=== PATIENT | female | born 1935 | race Caucasian/White ===

== ENCOUNTER → 2019-03-24 | Outpatient (CLI) | payer MEDICARE, SELFPAY | PROVIDERS: Family Provider Family Medicine; Visit Provider Internal Medicine Medical Oncology | DX: Z01.89 Encounter for other specified special examinations (principal) | CPT/HCPCS: 36415 ==

== ENCOUNTER 2019-05-05 12:15 | Outpatient (CLI) | payer MEDICARE, SELFPAY ==
[2019-05-12 15:43] LABS: Miscellaneous Test See Scanned Lab Rpt
== END 2019-05-05 12:16 | disposition home or self-care (01) ==
PROVIDERS: Family Provider Family Medicine; PCP Family Medicine; Visit Provider Internal Medicine Medical Oncology
DX: C73 Malignant neoplasm of thyroid gland (principal); C78.00 Secondary malignant neoplasm of unspecified lung; Z79.899 Other long term (current) drug therapy
CPT/HCPCS: 36415

== ENCOUNTER 2019-06-12 09:57 | Outpatient (CLI) | payer MEDICARE, SELFPAY ==
[2019-06-12 10:25] LABS: Basophils % 0.4 %; Eosinophils # 0.1 10^3/uL (0.0-0.8); Eosinophils % 2.6 %; Hematocrit 42.8 % (37.0-47.0); Hemoglobin 13.4 g/dL (11.5-15.3); Lymphocytes # 1.4 10^3/uL (0.8-4.8); Lymphocytes % 26.7 %; Mean Corpuscular HGB Conc 31.3 g/dL (30.0-36.0); Mean Corpuscular Hemoglobin 28.4 pg (28.0-34.0); Mean Corpuscular Volume 90.7 fL (81-99); Mean Platelet Volume 10.9 fL (7.4-10.4); Monocytes # 0.6 10^3/uL (0.2-0.9); Monocytes % 10.7 %; Neutrophils # 3.1 10^3/uL (1.8-7.7); Nucleated Red Blood Cells % 0 %; Platelet Count 199 10^3/cmm (130-400); Red Blood Count 4.72 10^6/uL (4.1-5.3); Red Cell Distribution Width 14.2 % (12.1-15.1); White Blood Count 5.3 10^3/uL (4.0-10.0)
[2019-06-12 10:53] LABS: Alanine Aminotransferase 17 U/L (0-33); Alkaline Phosphatase 134 IU/L (35-105); Anion Gap 14.6 (5-19); Aspartate Amino Transferase 20 U/L (0-32); Blood Urea Nitrogen 21 mg/dL (8-23); Carbon Dioxide 29 mmol/L (22-29); Chloride 100 mmol/L (98-107); Free T4 Free Thyroxine 2.21 ng/dL (0.82-1.77); Globulin 3.4 g/dL (1.3-4.6); Glucose 107 mg/dL (65-115); Potassium 3.6 mmol/L (3.5-5.1); Sodium 140 mmol/L (136-145); Thyroid Stimulating Hormone 0.01 uIU/mL (0.27-4.20); Total Bilirubin 0.5 mg/dL (0.15-1.2); Total Protein 7.4 g/dL (6.6-8.7)
--- NOTE | 2019-06-12 19:02 | ONC FU_ITS ---
Dr. Elder Patient Follow-Up Note Patient: Lawanda Faria Unit #: [id number]: [id number] Dicatated By: Reji Elder M.D.Date of Visit:Jun 12, 2019 Onc Med Follow-up/Prog Note Chief Complaint: Thyroid Cancer History of Present Illness: This is an 83 year-old woman with metastatic papillary thyroid cancer. Her thyroid cancer was discovered after a routine preoperative chest xray prior to a planned right total knee arthroplasty in July 2008 showed multiple pulmonary nodules. An attempted needle biopsy of a lung nodule was unsuccessful. The procedure was complicated by atrial fibrillation and by hemorrhagic pleural effusion. She ultimately underwent an open biopsy of a right lung nodule in August 2008, and pathology was consistent with metastatic thyroid cancer. She underwent total thyroidectomy on 11/16/2008. Pathology was consistent with two foci of papillary thyroid carcinoma, the largest focus located in the left lobe measuring 2.2 cm. She underwent I-131 ablation with 157.5 mCi of radioactive iodine on 01/07/2009. She apparently had a good response. However, by March 2010 there was again evidence of multiple pulmonary nodules by PET/CT, consistent with recurrence. She was treated again with I-131 ablation with 150.4 mCi of radioactive iodine on 05/19/2010. During subsequent followup she had further I-131 ablations with 157 mCi of radioactive iodine on 06/28/2012 and on 06/04/2014. A surveillance chest CT on 12/06/2015 showed significant progression of the pulmonary metastatic disease. This included a significant increase in the number and size of pulmonary nodules which were noted to involve all lobes ranging in size from subcentimeter through 2.0 cm. The largest nodule was in the right upper lobe abutting the minor fissure. There were a few small mediastinal and hilar lymph nodes which had not progressed or changed. Left axillary lymph nodes also were noted to be stable. A left adrenal gland mass was stable measuring 3.0 cm. The appearance was felt to be consistent with benign adenoma. I had seen her initially on 02/01/2016. She began a trial of therapy with lenvatinib 24 mg daily on 03/03/2016. Her baseline thyroglobulin level was greater than 3000 ng/mL. During subsequent follow-up she did require a dose reduction to 10 mg daily. On her follow-up visit on 05/22/2016, there was a significant decline in her renal function with BUN increasing to 45 mg/dL and creatinine to 3.2 mg/dL. She was given IV hydration, and the lenvatinib was put on hold. By the following week, the creatinine had come down to 1.4 mg/dL and it subsequently returned to baseline at 1.0 mg/dL. Her thyroglobulin level, though, had come down significantly, to 179.0 ng/mL compared to baseline greater than 3000 ng/mL. As of 07/06/2016 the thyroglobulin level was back up to 1942 ng/mL, and by 08/14/2016 it was again greater than 3000 ng/mL. At that point she restarted the lenvatinib, initially at 10 mg alternating with 4 mg daily. She then increased it to 10 mg daily when she ran out of the 4 mg tablets. I had seen her for a follow-up visit on 09/25/2016. At that point she was still taking 10 mg of lenvatinib daily, and she was tolerating it well. Her thyroglobulin level did come back at greater than 3000 ng/mL. She continued her same treatment. At a follow-up visit on 11/22/2016 the thyroglobulin level was back down to 1930 ng/mL. CT scans of the chest, abdomen, and pelvis on 12/18/2016 showed multiple bilateral pulmonary nodules, most of which were smaller or stable compared to the study from May 2016. A right lower lobe and the lingular nodule were noted to be larger. There was no other evidence of disease progression. Repeat chest CT on 03/02/2017 showed no significant change in the bilateral noncalcified pulmonary nodules compared to the study in November. There were no new nodules noted. Restaging CT scans of the chest, abdomen, and pelvis on 08/21/2017 showed innumerable pulmonary nodular densities consistent with metastatic disease, but similar to the prior studies. There was no obvious metastatic involvement in the abdomen/pelvis, but it was a noncontrast study. Noncontrast chest CT on 03/01/2018 showed unchanged multilobar noncalcified pulmonary nodules compared to the August 2017 study. Left adrenal mass also appeared stable. She continued treatment with lenvatinib 10 mg daily. Her other medical illnesses include hypertension and degenerative arthritis. She also had transient atrial fibrillation following an attempted needle lung biopsy in 2008. She had smoked in the past, but only about a pack of cigarettes per week, and she quit smoking more than 40 years ago. INTERIM HISTORY: During subsequent follow-up, she began having more side effects with the Lenvatinib again, significant enough that she did have to stop taking it intermittently. However, as of 10/17/[address] scans had shown no evidence of disease progression. Some of her pulmonary nodules appeared marginally smaller compared to the February 2018 study. At that point she had reported significant increase in symptoms, including fatigue, abdominal pain, nausea/vomiting, and joint pain. Her treatment was put on hold, and she did require IV hydration on several occasions. On 12/09/2018 she underwent laparoscopic cholecystectomy for symptomatic cholelithiasis. The procedure also included lysis of extensive adhesions. She also then required laparotomy with partial small bowel resection and stapled [id number] anastomosis for an enterotomy involving one of the bowel loops adherent to the abdominal wall. Her postoperative course was, cycle by atrial fibrillation, which she otherwise had an uneventful recovery. Her scheduled restaging CT scans of the chest, abdomen, and pelvis on 02/27/2019 showed evidence of progression of her pulmonary metastatic disease with interval enlargement and development of new noncalcified bilateral pulmonary nodules. There also appeared to be slight progression of precarinal lymphadenopathy. There was no evidence of metastatic disease in the abdomen or pelvis. On 03/03/2019 she was admitted to the hospital with atrial fibrillation/RVR. It was controlled adequately after changing her medication from sotalol to metoprolol. However, at her initial evaluation in the emergency room she also was hypoxic. A CT pulmonary angiogram showed extensive pulmonary metastatic disease as well as central pulmonary artery enlargement suggesting pulmonary arterial hypertension, but there was no evidence of pulmonary embolus. She is seen for a scheduled visit. She has been feeling better generally. In fact, she says she is very good now except for her knees, which bother her quite a bit, particularly when the weather is bad. It does limit her activity. She has pretty good energy, though. Her ECOG score is 1. Her appetite is better. She has not had fever or hot flashes. She does have some sweating. Her other main complaint is that her heart sometimes bothers her, mainly with fast rate. She does get short of breath with activity. She does not complain of cough, and she has not been having chest pain. She currently has no GI or complaints. She also has some more generalized joint pain. She believes she is getting some benefit with CBD oil. She sometimes has headache. She had an episode of dizziness last week which was significant of that she fell down. She has no focal neurologic symptoms. Medications: Aspirin 1 Tablet (of 81 mg) Oral daily, Biotin 3 Capsule (of 5000 mcg) Oral daily, Calcium + D 2 Tablet Oral daily, cbd 15 mL (of 3 mg) Oil Sublingual daily, Levothyroxine Sodium 0.5 Tablet (of 175 mcg) Oral daily, Losartan Potassium-HCTZ 1 Tablet (of 100-25 mg) Oral daily, Lumigan 1 drop(s) (of 0.01 %) Solution Ophthalmic daily, Magnesium 1 (400 mg) Capsule Oral daily, Metoprolol Tartrate 1 Tablet (of 50 mg) Oral b.i.d. PRN, ring relief 1 drop(s) Solution b.i.d. & at bedtime PRN, Systane 1 drop(s) (of 0.4-0.3 %) Solution Ophthalmic b.i.d. PRN, tumeric 1 Capsule daily, Vitamin C 1 Tablet Oral daily Allergies: Amiodarone HCl and contrast dye . Review of Systems: Constitutional - Her energy is pretty good most of the time. She does all of her housework. She has been taking CBD oil. Her appetite has gotten better and her weight is up a few pounds. No fever or chills. She has sweating. ECOG score is 1, ENMT - She has sinus congestion/drainage. No mouth sores. No sore throat or difficulty swallowing, Hematologic/Lymphatic - She bruises easily, Respiratory - She has shortness of breath with activity. No cough. No pleuritic pain or hemoptysis, Cardiovascular - No angina pain. She occasionally goes into atrial fibrillation, Gastrointestinal - No nausea or vomiting. No heartburn or acid reflux. She takes fiber daily to keep her bowels regular. No blood in the stool or black stools, Genitourinary (F) - No dysuria or hematuria. No urinary frequency. No urgency or incontinence, Musculoskeletal - She has pain in her knees, especially when the weather is bad. She has other generalized aches and pains, Integumentary - No skin complications, Neurologic - She has occasional headaches. She had an episode of dizziness last week that caused her to fall. She has not had any other problems since. No numbness/paresthesias or other focal neurologic symptoms, Psychiatric - Her anxiety and depression has gotten better. She sometimes has trouble sleeping at night. Vital Signs: Performed on Jun 12, 2019 11:27 Height - 60.00 in Weight - 166.2 lbs (HIGH) BSA - 1.73 sq.m BMI - 32.46 (HIGH) Temperature - 97.8 F (LOW) Pulse - 60 /min Respiration - 20 /min BP - 106/69 mm(hg) O2 Sat - 93 % (LOW) Pain - 0 Physical Examination: Constitutional - She looks better generally, Eyes - Sclerae nonicteric. Conjunctivae clear, ENMT - There are no lesions noted in the oral cavity, Hematologic/Lymphatic - No cervical, clavicular, or axillary adenopathy, Respiratory - Lungs sound clear. She has good air movement bilaterally, Cardiovascular - Heart rhythm is irregular with a tachycardia. There is a II/ systolic murmur. There is no gallop or rub noted, Abdomen - Moderately distended but soft. Liver and spleen are not enlarged. There is no abdominal mass or ascites noted. There is no inguinal adenopathy, Extremities - No edema, Neurologic - No focal neurologic deficits noted. Lab/Imaging: Test performed on Jun 12, 2019 10:10 Sodium 140 mmol/L TSH 0.01 uIU/mL Potassium 3.6 mmol/L T4, Free 2.21 ng/dL Chloride 100 mmol/L CO2 29 mmol/L Anion Gap 14.6 BUN 21 mg/dL Creatinine 0.7 mg/dL Cr Clearance (Est) 72.47 mL/min Glucose 107 mg/dL Calcium 10.0 mg/dL Protein, Total 7.4 g/dL Albumin 4.0 g/dL Globulin 3.4 g/dL Bilirubin, Total 0.5 mg/dL ALT (SGPT) 17 U/L AST (SGOT) 20 U/L Alkaline Phosphatase 134 IU/L WBC 5.3 10 3/uL RBC 4.72 10 6/uL HGB 13.4 g/dL HCT 42.8 % MCV 90.7 fL MCH 28.4 pg MCHC 31.3 g/dL RDW 14.2 % Platelet Count 199 10 3/cmm MPV 10.9 fL Neutrophils 3.1 10 3/uL Lymphocytes 1.4 10 3/uL Monocytes 0.6 10 3/uL Eosinophils 0.1 10 3/uL Basophils 0.0 10 3/uL Neutrophil % 59.0 % Lymphocyte % 26.7 % Monocyte % 10.7 % Eosinophil % 2.6 % Basophils % 0.4 % Impression: 1. Patient with metastatic papillary thyroid cancer, initially diagnosed by open lung biopsy in August 2008. Treatment included total thyroidectomy on 11/16/2008 followed by I-131 ablation with 157.5 mCI of radioactive iodine on 01/07/2009. 2. Her subsequent treatment has included repeat I-131 ablations with 150.4 mCi of radioactive iodine on 05/19/2010, 157 mCi of radioactive iodine on 06/28/2012, and 157 mCI of radioactive iodine on 06/04/2014. 3. Followup chest CT on 12/06/2015 showed significant increase in the size and number of pulmonary metastatic lesions, consistent with disease progression. Her other medical illnesses include: 4. Hypertension. 5. Degenerative arthritis. 6. She had transient atrial fibrillation following attempted needle lung biopsy in 2008. She began a trial of therapy with lenvatinib in February 2016. She started at the recommended dosage of 24 mg daily, but she did require a reduction to 10 mg daily. She had been tolerating it well. However, on her followup visit on 05/22/2016 there was a significant decline in her renal function with serum creatinine increasing from baseline 1.1 mg/dL to 3.2 mg/dL. There was a very significant decline in her thyroglobulin level, so that she did appear to be showing a response to the treatment. During subsequent follow-up, her renal function returned to baseline. As of 07/06/2016 the thyroglobulin level was back up to 1009 or 42 ng/mL, and by 08/14/2016 it was again greater than 3000 ng/mL. At that point she restarted lenvatinib, initially at 10 mg alternating with 4 mg daily. She had subsequently increased to 10 mg daily, and thus far she has been able to tolerate that dosage with no adverse effects. Her clinical status remains stable on treatment with lenvatinib 10 mg daily. As of her follow-up visit on 11/22/2016 the thyroglobulin level was back down to 1930 ng/mL. Her restaging CT scans on 12/18/2016 showed numerous pulmonary nodules bilaterally, most of which were either stable or slightly smaller compared to the previous study from May. A right lower lobe and the lingular nodule were noted to be larger. There was no other evidence of disease progression. She then continued treatment with lenvatinib. She seemed to tolerate it pretty well. She had some fatigue with it, and she also reported some shortness of breath and some musculoskeletal pain. I was uncertain to what extent any of those symptoms may have been related to her treatment or to the underlying malignancy. Followup CT of the chest from 03/02/2017 revealed bilateral scattered, non calcified pulmonary nodules without significant changed from the 11/2016 scan. There was no hilar, axillary, or mediastinal enlarged lymph nodes or masses. She continued on lenvatinib 10 mg daily. She has been able to tolerate it at the reduced dosage. During follow-up her thyroglobulin level has remained significantly elevated. It has tended to fluctuate up and down, but overall it has been stable. As of February 2018 her follow-up CT scans also had remained stable. She continued treatment with lenvatinib, though she did begin to have more side effects with it again, and she was taking it on an intermittent basis. As of 10/17/[address] scans remained stable with no obvious disease progression. At that point her symptoms had worsened significantly, and her treatment was put on hold. During subsequent follow-up, she was feeling much better. However, on 12/09/2018 she underwent laparoscopic cholecystectomy for symptomatic cholelithiasis. The procedure also included lysis of extensive adhesions, and she also then required laparotomy with partial small bowel resection and stapled [id number] anastomosis for an enterotomy involving one of the bowel loops adherent to the abdominal wall. Her scheduled restaging CT scans of the chest, abdomen, and pelvis on 02/27/2019 showed evidence of progression of her pulmonary metastatic disease with interval enlargement and development of new noncalcified bilateral pulmonary nodules. There also appeared to be slight progression of precarinal lymphadenopathy. There was no evidence of metastatic disease in the abdomen or pelvis. On 03/03/2019 she was admitted to the hospital with atrial fibrillation/RVR. It was controlled adequately after changing her medication from sotalol to metoprolol. However, at her initial evaluation in the emergency room she also was hypoxic. A CT pulmonary angiogram showed extensive pulmonary metastatic disease as well as central pulmonary artery enlargement suggesting pulmonary arterial hypertension, but there was no evidence of pulmonary embolus. As of her follow-up visit on 03/14/2019 she was feeling somewhat better. At that point we opted not to attempt any further treatment with lenvatinib. She has since then continued to show gradual improvement in her performance status. She continues to have some issues with the atrial fibrillation and rapid ventricular response. Due to the thyroid cancer she has been on a suppressive dosage of levothyroxine, and that may be a contributing factor to the arrhythmia. Plan: She will continue symptomatic/supportive care for the thyroid cancer. At this point we will have her try reducing her levothyroxine dosage to 1/2 tablet daily to see if that will improve her cardiac symptoms. I will monitor her thyroid studies monthly. I will see her again in 3 months, or sooner as needed. In the meantime, as her renal function has now completely recovered to normal, she is advised that she can take ibuprofen for her joint pain as long she is not having other side effects with it. Signed By: Reji Elder M.D. <<Signature on File>>
== END 2019-06-12 09:58 | disposition home or self-care (01) ==
PROVIDERS: Family Provider Family Medicine; PCP Family Medicine; Visit Provider Internal Medicine Medical Oncology
DX: C78.01 Secondary malignant neoplasm of right lung (principal); C78.02 Secondary malignant neoplasm of left lung; Z85.850 Personal history of malignant neoplasm of thyroid; E89.0 Postprocedural hypothyroidism; I10 Essential (primary) hypertension; M19.90 Unspecified osteoarthritis, unspecified site; I48.91 Unspecified atrial fibrillation; Z79.82 Long term (current) use of aspirin; Z79.899 Other long term (current) drug therapy; Z87.891 Personal history of nicotine dependence; Z92.3 Personal history of irradiation
CPT/HCPCS: 80053; 84439; 84443; 85025; 99214

== ENCOUNTER 2019-09-11 10:00 | Outpatient (CLI) | payer MEDICARE, SELFPAY ==
[2019-09-11 11:05] LABS: Basophils % 0.5 %; Eosinophils # 0.1 10^3/uL (0.0-0.8); Eosinophils % 2.1 %; Hematocrit 45.7 % (37.0-47.0); Hemoglobin 14.7 g/dL (11.5-15.3); Lymphocytes # 1.6 10^3/uL (0.8-4.8); Mean Corpuscular HGB Conc 32.2 g/dL (30.0-36.0); Mean Corpuscular Hemoglobin 29.7 pg (28.0-34.0); Mean Corpuscular Volume 92.3 fL (81-99); Mean Platelet Volume 10.7 fL (7.4-10.4); Monocytes # 0.7 10^3/uL (0.2-0.9); Neutrophils % 61.1 %; Nucleated Red Blood Cells % 0 %; Platelet Count 220 10^3/cmm (130-400); Red Blood Count 4.95 10^6/uL (4.1-5.3); Red Cell Distribution Width 14.4 % (12.1-15.1); White Blood Count 6.6 10^3/uL (4.0-10.0)
[2019-09-11 11:30] LABS: Alanine Aminotransferase 10 U/L (0-33); Albumin Level 4.3 g/dL (3.5-5.2); Alkaline Phosphatase 123 IU/L (35-105); Anion Gap 13.9 (5-19); Aspartate Amino Transferase 17 U/L (0-32); Blood Urea Nitrogen 17 mg/dL (8-23); Calcium 9.1 mg/dL (8.5-10.5); Carbon Dioxide 31 mmol/L (22-29); Chloride 100 mmol/L (98-107); Free T4 Free Thyroxine 1.23 ng/dL (0.82-1.77); Globulin 2.8 g/dL (1.3-4.6); Glucose 96 mg/dL (65-115); Osmolality Calculated 288 mOsm/kg (285-295); Potassium 3.9 mmol/L (3.5-5.1); Sodium 141 mmol/L (136-145); Thyroid Stimulating Hormone 0.15 uIU/mL (0.27-4.20); Total Bilirubin 0.5 mg/dL (0.15-1.2); Total Protein 7.1 g/dL (6.6-8.7)
--- NOTE | 2019-09-16 00:01 | ONC FU_ITS ---
[facility] Patient Note Patient: Lawanda Faria Unit #: [id number]: 1935 Dictated By: Jean Paul FordeDate of Visit: September 11, 2019 Onc MED Follow-Up/Prog Note Chief Complaint: Thyroid Cancer History of Present Illness: Mrs Faria is an 83 year-old woman with metastatic papillary thyroid cancer. Her thyroid cancer was discovered after a routine preoperative chest xray prior to a planned right total knee arthroplasty in July 2008 showed multiple pulmonary nodules. An attempted needle biopsy of a lung nodule was unsuccessful. The procedure was complicated by atrial fibrillation and by hemorrhagic pleural effusion. She ultimately underwent an open biopsy of a right lung nodule in August 2008, and pathology was consistent with metastatic thyroid cancer. She underwent total thyroidectomy on 11/16/2008. Pathology was consistent with two foci of papillary thyroid carcinoma, the largest focus located in the left lobe measuring 2.2 cm. She underwent I-131 ablation with 157.5 mCi of radioactive iodine on 01/07/2009. She apparently had a good response. However, by March 2010 there was again evidence of multiple pulmonary nodules by PET/CT, consistent with recurrence. She was treated again with I-131 ablation with 150.4 mCi of radioactive iodine on 05/19/2010. During subsequent followup she had further I-131 ablations with 157 mCi of radioactive iodine on 06/28/2012 and on 06/04/2014. A surveillance chest CT on 12/06/2015 showed significant progression of the pulmonary metastatic disease. This included a significant increase in the number and size of pulmonary nodules which were noted to involve all lobes ranging in size from subcentimeter through 2.0 cm. The largest nodule was in the right upper lobe abutting the minor fissure. There were a few small mediastinal and hilar lymph nodes which had not progressed or changed. Left axillary lymph nodes also were noted to be stable. A left adrenal gland mass was stable measuring 3.0 cm. The appearance was felt to be consistent with benign adenoma. Dr Elder had seen her initially on 02/01/2016. She began a trial of therapy with lenvatinib 24 mg daily on 03/03/2016. Her baseline thyroglobulin level was greater than 3000 ng/mL. During subsequent follow-up she did require a dose reduction to 10 mg daily. On her follow-up visit on 05/22/2016, there was a significant decline in her renal function with BUN increasing to 45 mg/dL and creatinine to 3.2 mg/dL. She was given IV hydration, and the lenvatinib was put on hold. By the following week, the creatinine had come down to 1.4 mg/dL and it subsequently returned to baseline at 1.0 mg/dL. Her thyroglobulin level, though, had come down significantly, to 179.0 ng/mL compared to baseline greater than 3000 ng/mL. As of 07/06/2016 the thyroglobulin level was back up to 1942 ng/mL, and by 08/14/2016 it was again greater than 3000 ng/mL. At that point she restarted the lenvatinib, initially at 10 mg alternating with 4 mg daily. She then increased it to 10 mg daily when she ran out of the [address] Elder had seen her for a follow-up visit on 09/25/2016. At that point she was still taking 10 mg of lenvatinib daily, and she was tolerating it well. Her thyroglobulin level did come back at greater than 3000 ng/mL. She continued her same treatment. At a follow-up visit on 11/22/2016 the thyroglobulin level was back down to 1930 ng/mL. CT scans of the chest, abdomen, and pelvis on 12/18/2016 showed multiple bilateral pulmonary nodules, most of which were smaller or stable compared to the study from May 2016. A right lower lobe and the lingular nodule were noted to be larger. There was no other evidence of disease progression. Repeat chest CT on 03/02/2017 showed no significant change in the bilateral noncalcified pulmonary nodules compared to the study in November. There were no new nodules noted. Restaging CT scans of the chest, abdomen, and pelvis on 08/21/2017 showed innumerable pulmonary nodular densities consistent with metastatic disease, but similar to the prior studies. There was no obvious metastatic involvement in the abdomen/pelvis, but it was a noncontrast study. Noncontrast chest CT on 03/01/2018 showed unchanged multilobar noncalcified pulmonary nodules compared to the August 2017 study. Left adrenal mass also appeared stable. She continued treatment with lenvatinib 10 mg daily. Her other medical illnesses include hypertension and degenerative arthritis. She also had transient atrial fibrillation following an attempted needle lung biopsy in 2008. She had smoked in the past, but only about a pack of cigarettes per week, and she quit smoking more than 40 years ago. INTERIM HISTORY: During subsequent follow-up, she began having more side effects with the Lenvatinib again, significant enough that she did have to stop taking it intermittently. However, as of 10/17/[address] scans had shown no evidence of disease progression. Some of her pulmonary nodules appeared marginally smaller compared to the February 2018 study. At that point she had reported significant increase in symptoms, including fatigue, abdominal pain, nausea/vomiting, and joint pain. Her treatment was put on hold, and she did require IV hydration on several occasions. On 12/09/2018 she underwent laparoscopic cholecystectomy for symptomatic cholelithiasis. The procedure also included lysis of extensive adhesions. She also then required laparotomy with partial small bowel resection and stapled [id number] anastomosis for an enterotomy involving one of the bowel loops adherent to the abdominal wall. Her postoperative course was, cycle by atrial fibrillation, which she otherwise had an uneventful recovery. Her scheduled restaging CT scans of the chest, abdomen, and pelvis on 02/27/2019 showed evidence of progression of her pulmonary metastatic disease with interval enlargement and development of new noncalcified bilateral pulmonary nodules. There also appeared to be slight progression of precarinal lymphadenopathy. There was no evidence of metastatic disease in the abdomen or pelvis. On 03/03/2019 she was admitted to the hospital with atrial fibrillation/RVR. It was controlled adequately after changing her medication from sotalol to metoprolol. However, at her initial evaluation in the emergency room she also was hypoxic. A CT pulmonary angiogram showed extensive pulmonary metastatic disease as well as central pulmonary artery enlargement suggesting pulmonary arterial hypertension, but there was no evidence of pulmonary embolus. Mrs Faria is here today for followup. She remains on observation for her thyroid cancer. She has stopped taking her lenvatinib as she feels it was giving her more side effects than benefit. She is taking CBD oil daily as well as cell food . The cell food is a liquid she buys at the local [employer] food store. She states she has been on it for a couple of months and feels like a whole different person. She states her pain is dramatically improved. Her appetite is good her energy is good she is actually gone back to sewing some. She states she gets around her house better and overall this feels like a new person. She denies any fever or chills. She is had no night sweats or hot flashes. She denies any shortness of breath orthopnea. She denies chest pain or any palpitations. She denies nausea or vomiting or diarrhea or constipation. She states her knee pain is still there but dramatically improved. Her ECOG is 1. Past Medical History: Atrial fibrillation Degenerative arthritis Hypertension Hypothyroidism Metastatic thyroid cancer Lorsartan only B/P now Past Surgical History: Total thyroidectomy in 2008 Open biopsy of right lung in 2008 Repair of incarcerated hernia in 2006 Hysterectomy in 1996 Caesarean section in 1961 Caesarean section in 1957 Appendectomy in 1955 Tonsillectomy in 194 Allergies: Amiodarone HCl and contrast dye . Medications: Aspirin 1 Tablet (of 81 mg) Oral daily Biotin 3 Capsule (of 5000 mcg) Oral daily Calcium + D 2 Tablet Oral daily cbd 15 mL (of 3 mg) Oil Sublingual daily cell food 1 Drop(s) Liquid Oral b.i.d. Levothyroxine Sodium 0.5 Tablet (of 175 mcg) Oral daily Losartan Potassium-HCTZ 1 Tablet (of 100-25 mg) Oral daily Lumigan 1 drop(s) (of 0.01 %) Solution Ophthalmic daily Magnesium 1 (400 mg) Capsule Oral daily ring relief 1 drop(s) Solution b.i.d. & at bedtime PRN Systane 1 drop(s) (of 0.4-0.3 %) Solution Ophthalmic b.i.d. PRN tumeric 1 Capsule daily Vitamin C 1 Tablet Oral daily Zinc 1 Tablet (of 15 mg) Oral daily Family History: Ms. Faria's mother at age 78: stomach cancer brain tumor. Ms. Faria's father at age 78: alzheimers. Father with dementia at age 78. Mother had stomach cancer and subsequently a brain tumor. She also at age 78. A brother and a sister are in good health. Social History: Ms. Faria is and she is retired. Ms. Faria no longer smokes. She has no history of drinking. She has indicated exposure to the following products: cigarettes. Ms. Faria reports the following support systems: lives with spouse, significant other, family, or friends, lives in own house, supportive family/friends willing to assist with needs, and adequate transportation available for expected visits. Her diet consists of regular meals. She indicates her activity level as: daily activities. She had previously worked in a [employer]. She smoked cigarettes occasionally in the past, estimated at a pack per week. She quit 30-45 years ago. She does not drink alcohol. Review Of Symptoms: Constitutional Denies fevers, chills, night sweats. She states her energy is good and she has gone back to sewing some. Allergic/Immunologic No reactions. Eyes Denies significant visual changes. No diplopia. No amaurosis. ENMT Denies changes in hearing, sore throat, mouth sores, difficulty or changes in swallowing ability, and/or sinus drainage. Endocrine No new concerns. HX thyroid cancer. Hematologic/Lymphatic Denies easy bruising or bleeding. The patient denies any tender or palpable lymph nodes. Respiratory Denies dyspnea on exertion, chest pain, cough or hemoptysis. Denies orthopnea. Cardiovascular Denies anginal chest pain, palpitations or orthopnea. Gastrointestinal Denies worsening diarrhea or constipation. Denies change in bowel habits and/or stool color, no heartburn. Genitourinary (F) No hematuria, hesitancy, incontinence, vaginal bleeding, discharge or other problems with urination. Musculoskeletal Denies joint pain, swelling or redness. No decreased range of motion. Integumentary Denies chronic rashes, inflammation, ulcerations or skin changes. Neurologic Denies headache, blurred vision, and no areas of focal weakness or numbness. Normal gait. No sensory problems. Psychiatric Denies insomnia, depression, karol or mood swings. Vital Signs: Performed on September 11, 2019 12:02 Height - 60.00 in Weight - 169.6 lbs (HIGH) BSA - 1.74 sq.m BMI - 33.12 (HIGH) Temperature - 97.7 F (LOW) Pulse - 62 /min Respiration - 22 /min BP - 124/53 mm(hg) O2 Sat - 99 % Pain - 0,1 - No physically strenuous activity, but ambulatory and able to carry out light or sedentary work (e.g. office work, light house work). (ECOG) Physical Examination: Constitutional Alert, oriented, no acute distress. Skin pink, warm and dry. Head Normocephalic; atraumatic. Eyes Conjunctivae and sclerae are clear and without icterus. Pupils are reactive and equal. ENMT Sinuses are nontender. No oral exudates, ulcers, masses, thrush or mucositis. Oropharynx clear. Tongue normal. Neck Supple without masses or thyromegaly. No jugular venous distension. Hematologic/Lymphatic No petechiae or purpura. No tender or palpable lymph nodes in the cervical or supraclavicular areas. Respiratory Lungs are clear to auscultation without rhonchi or wheezing. Cardiovascular Fast heart rate but no murmur, clicks or rubs. Abdomen Non-tender, non-distended, no masses, ascites. Good bowel sounds noted in all quads. No guarding or rebound tenderness. No pulsatile masses. Back/Spine Non-tender to palpation. Extremities No visible deformities, no cyanosis, clubbing or edema. Musculoskeletal No tenderness or swelling, normal range of motion without obvious weakness. Integumentary No rashes or lesions. Neurologic No sensory or motor deficits, normal cerebellar function, slow, hobbling type gait-chronic due to knee pain but it her gait has improved overall. Psychiatric Alert and oriented times three. Coherent speech. Verbalizes understanding of our discussions today. Laboratory:Test performed on September 11, 2019 10:25 Sodium 141 mmol/L T4, Free 1.23 ng/dL TSH 0.15 uIU/mL Potassium 3.9 mmol/L Chloride 100 mmol/L CO2 31 mmol/L Anion Gap 13.9 BUN 17 mg/dL Creatinine 0.6 mg/dL Cr Clearance (Est) 86.2800 mL/min Glucose 96 mg/dL Calcium 9.1 mg/dL Protein, Total 7.1 g/dL Albumin 4.3 g/dL Globulin 2.8 g/dL Bilirubin, Total 0.5 mg/dL ALT (SGPT) 10 U/L AST (SGOT) 17 U/L Alkaline Phosphatase 123 IU/L WBC 6.6 10 3/uL RBC 4.95 10 6/uL HGB 14.7 g/dL HCT 45.7 % MCV 92.3 fL MCH 29.7 pg MCHC 32.2 g/dL RDW 14.4 % Platelet Count 220 10 3/cmm MPV 10.7 fL Neutrophils 4.0 10 3/uL Lymphocytes 1.6 10 3/uL Monocytes 0.7 10 3/uL Eosinophils 0.1 10 3/uL Basophils 0.0 10 3/uL Neutrophil % 61.1 % Lymphocyte % 25.0 % Monocyte % 11.0 % Eosinophil % 2.1 % Basophils % 0.5 % Impression: 1. Patient with metastatic papillary thyroid cancer, initially diagnosed by open lung biopsy in August 2008. Treatment included total thyroidectomy on 11/16/2008 followed by I-131 ablation with 157.5 mCI of radioactive iodine on 01/07/2009. 2. Her subsequent treatment has included repeat I-131 ablations with 150.4 mCi of radioactive iodine on 05/19/2010, 157 mCi of radioactive iodine on 06/28/2012, and 157 mCI of radioactive iodine on 06/04/2014. 3. Followup chest CT on 12/06/2015 showed significant increase in the size and number of pulmonary metastatic lesions, consistent with disease progression. Her other medical illnesses include: 4. Hypertension. 5. Degenerative arthritis. 6. She had transient atrial fibrillation following attempted needle lung biopsy in 2008. She began a trial of therapy with lenvatinib in February 2016. She started at the recommended dosage of 24 mg daily, but she did require a reduction to 10 mg daily. She had been tolerating it well. However, on her followup visit on 05/22/2016 there was a significant decline in her renal function with serum creatinine increasing from baseline 1.1 mg/dL to 3.2 mg/dL. There was a very significant decline in her thyroglobulin level, so that she did appear to be showing a response to the treatment. During subsequent follow-up, her renal function returned to baseline. As of 07/06/2016 the thyroglobulin level was back up to 1009 or 42 ng/mL, and by 08/14/2016 it was again greater than 3000 ng/mL. At that point she restarted lenvatinib, initially at 10 mg alternating with 4 mg daily. She had subsequently increased to 10 mg daily, and thus far she has been able to tolerate that dosage with no adverse effects. Her clinical status remains stable on treatment with lenvatinib 10 mg daily. As of her follow-up visit on 11/22/2016 the thyroglobulin level was back down to 1930 ng/mL. Her restaging CT scans on 12/18/2016 showed numerous pulmonary nodules bilaterally, most of which were either stable or slightly smaller compared to the previous study from May. A right lower lobe and the lingular nodule were noted to be larger. There was no other evidence of disease progression. She then continued treatment with lenvatinib. She seemed to tolerate it pretty well. She had some fatigue with it, and she also reported some shortness of breath and some musculoskeletal pain. I was uncertain to what extent any of those symptoms may have been related to her treatment or to the underlying malignancy. Followup CT of the chest from 03/02/2017 revealed bilateral scattered, non calcified pulmonary nodules without significant changed from the 11/2016 scan. There was no hilar, axillary, or mediastinal enlarged lymph nodes or masses. She continued on lenvatinib 10 mg daily. She has been able to tolerate it at the reduced dosage. During follow-up her thyroglobulin level has remained significantly elevated. It has tended to fluctuate up and down, but overall it has been stable. As of February 2018 her follow-up CT scans also had remained stable. She continued treatment with lenvatinib, though she did begin to have more side effects with it again, and she was taking it on an intermittent basis. As of 10/17/[address] scans remained stable with no obvious disease progression. At that point her symptoms had worsened significantly, and her treatment was put on hold. During subsequent follow-up, she was feeling much better. However, on 12/09/2018 she underwent laparoscopic cholecystectomy for symptomatic cholelithiasis. The procedure also included lysis of extensive adhesions, and she also then required laparotomy with partial small bowel resection and stapled [id number] anastomosis for an enterotomy involving one of the bowel loops adherent to the abdominal wall. Her scheduled restaging CT scans of the chest, abdomen, and pelvis on 02/27/2019 showed evidence of progression of her pulmonary metastatic disease with interval enlargement and development of new noncalcified bilateral pulmonary nodules. There also appeared to be slight progression of precarinal lymphadenopathy. There was no evidence of metastatic disease in the abdomen or pelvis. On 03/03/2019 she was admitted to the hospital with atrial fibrillation/RVR. It was controlled adequately after changing her medication from sotalol to metoprolol. However, at her initial evaluation in the emergency room she also was hypoxic. A CT pulmonary angiogram showed extensive pulmonary metastatic disease as well as central pulmonary artery enlargement suggesting pulmonary arterial hypertension, but there was no evidence of pulmonary embolus. As of her follow-up visit on 03/14/2019 she was feeling somewhat better. At that point we opted not to attempt any further treatment with lenvatinib. She has since then continued to show gradual improvement in her performance status. She continues to have some issues with the atrial fibrillation and rapid ventricular response. Due to the thyroid cancer she has been on a suppressive dosage of levothyroxine, and that was reduced and her arrhythmia has subsided per her report. Her TSH level remain low. Plan: 1. continue symptomatic/supportive care for the thyroid cancer. 2. Continue her levothyroxine dosage at 1/2 tablet daily as the reduction did improve her cardiac symptoms. 3. Today's labs were reviewed in detail and discussed with Ms. Faria and a copy was given to her. WBC 6.6, hemoglobin 14.7, platelets 220,000 ANC is 4000 potassium 3.9 creatinine 0.6 LFTs are normal her alk phos is improved at 123. Her TSH is 0.15 and free T4 is normal at 1.23. Her weight is stable at 166 today. 4. Mrs Faria states that she feels comfortable checking her thyroid every 2 months instead of monthly so we will set that up. Therefore we will plan to see her back in 4 months with CBC CMP free T4 and TSH and vitamin D level as she has had vitamin D deficiency in the past. 5. Mrs. Faria was instructed to contact us in the interim should questions or problems arise. She verbalized understanding and states that she will call us if she has any concerns. Signed By: Jean Paul Forde-, CNP Reji Elder MD <<Signature on File>>
== END 2019-09-11 10:01 | disposition home or self-care (01) ==
PROVIDERS: PCP Family Medicine; Visit Provider Nurse Practitioner
DX: C73 Malignant neoplasm of thyroid gland (principal); C78.01 Secondary malignant neoplasm of right lung; C78.02 Secondary malignant neoplasm of left lung; E89.0 Postprocedural hypothyroidism; E55.9 Vitamin D deficiency, unspecified; I10 Essential (primary) hypertension; M19.90 Unspecified osteoarthritis, unspecified site; I48.91 Unspecified atrial fibrillation; Z79.82 Long term (current) use of aspirin; Z79.899 Other long term (current) drug therapy
CPT/HCPCS: 36415; 80053; 84439; 84443; 85025; 99214

== ENCOUNTER 2020-01-26 13:44 | Outpatient (CLI) | payer MEDICARE, SELFPAY ==
--- NOTE | 2020-01-26 21:42 | ONC FU_ITS ---
[facility] Patient Note Patient: Lawanda Faria Unit #: [id number]: 1935 Dictated By: Jean Paul FordeDate of Visit: Jan 26, 2020 Onc MED Follow-Up/Prog Note Chief Complaint: Thyroid Cancer History of Present Illness: Mrs Faria is an 83 year-old woman with metastatic papillary thyroid cancer. Her thyroid cancer was discovered after a routine preoperative chest xray prior to a planned right total knee arthroplasty in July 2008 showed multiple pulmonary nodules. An attempted needle biopsy of a lung nodule was unsuccessful. The procedure was complicated by atrial fibrillation and by hemorrhagic pleural effusion. She ultimately underwent an open biopsy of a right lung nodule in August 2008, and pathology was consistent with metastatic thyroid cancer. She underwent total thyroidectomy on 11/16/2008. Pathology was consistent with two foci of papillary thyroid carcinoma, the largest focus located in the left lobe measuring 2.2 cm. She underwent I-131 ablation with 157.5 mCi of radioactive iodine on 01/07/2009. She apparently had a good response. However, by March 2010 there was again evidence of multiple pulmonary nodules by PET/CT, consistent with recurrence. She was treated again with I-131 ablation with 150.4 mCi of radioactive iodine on 05/19/2010. During subsequent followup she had further I-131 ablations with 157 mCi of radioactive iodine on 06/28/2012 and on 06/04/2014. A surveillance chest CT on 12/06/2015 showed significant progression of the pulmonary metastatic disease. This included a significant increase in the number and size of pulmonary nodules which were noted to involve all lobes ranging in size from subcentimeter through 2.0 cm. The largest nodule was in the right upper lobe abutting the minor fissure. There were a few small mediastinal and hilar lymph nodes which had not progressed or changed. Left axillary lymph nodes also were noted to be stable. A left adrenal gland mass was stable measuring 3.0 cm. The appearance was felt to be consistent with benign adenoma. Dr Elder had seen her initially on 02/01/2016. She began a trial of therapy with lenvatinib 24 mg daily on 03/03/2016. Her baseline thyroglobulin level was greater than 3000 ng/mL. During subsequent follow-up she did require a dose reduction to 10 mg daily. On her follow-up visit on 05/22/2016, there was a significant decline in her renal function with BUN increasing to 45 mg/dL and creatinine to 3.2 mg/dL. She was given IV hydration, and the lenvatinib was put on hold. By the following week, the creatinine had come down to 1.4 mg/dL and it subsequently returned to baseline at 1.0 mg/dL. Her thyroglobulin level, though, had come down significantly, to 179.0 ng/mL compared to baseline greater than 3000 ng/mL. As of 07/06/2016 the thyroglobulin level was back up to 1942 ng/mL, and by 08/14/2016 it was again greater than 3000 ng/mL. At that point she restarted the lenvatinib, initially at 10 mg alternating with 4 mg daily. She then increased it to 10 mg daily when she ran out of the [address] Elder had seen her for a follow-up visit on 09/25/2016. At that point she was still taking 10 mg of lenvatinib daily, and she was tolerating it well. Her thyroglobulin level did come back at greater than 3000 ng/mL. She continued her same treatment. At a follow-up visit on 11/22/2016 the thyroglobulin level was back down to 1930 ng/mL. CT scans of the chest, abdomen, and pelvis on 12/18/2016 showed multiple bilateral pulmonary nodules, most of which were smaller or stable compared to the study from May 2016. A right lower lobe and the lingular nodule were noted to be larger. There was no other evidence of disease progression. Repeat chest CT on 03/02/2017 showed no significant change in the bilateral noncalcified pulmonary nodules compared to the study in November. There were no new nodules noted. Restaging CT scans of the chest, abdomen, and pelvis on 08/21/2017 showed innumerable pulmonary nodular densities consistent with metastatic disease, but similar to the prior studies. There was no obvious metastatic involvement in the abdomen/pelvis, but it was a noncontrast study. Noncontrast chest CT on 03/01/2018 showed unchanged multilobar noncalcified pulmonary nodules compared to the August 2017 study. Left adrenal mass also appeared stable. She continued treatment with lenvatinib 10 mg daily. Her other medical illnesses include hypertension and degenerative arthritis. She also had transient atrial fibrillation following an attempted needle lung biopsy in 2008. She had smoked in the past, but only about a pack of cigarettes per week, and she quit smoking more than 40 years ago. INTERIM HISTORY: During subsequent follow-up, she began having more side effects with the Lenvatinib again, significant enough that she did have to stop taking it intermittently. However, as of 10/17/[address] scans had shown no evidence of disease progression. Some of her pulmonary nodules appeared marginally smaller compared to the February 2018 study. At that point she had reported significant increase in symptoms, including fatigue, abdominal pain, nausea/vomiting, and joint pain. Her treatment was put on hold, and she did require IV hydration on several occasions. On 12/09/2018 she underwent laparoscopic cholecystectomy for symptomatic cholelithiasis. The procedure also included lysis of extensive adhesions. She also then required laparotomy with partial small bowel resection and stapled [id number] anastomosis for an enterotomy involving one of the bowel loops adherent to the abdominal wall. Her postoperative course was, cycle by atrial fibrillation, which she otherwise had an uneventful recovery. Her scheduled restaging CT scans of the chest, abdomen, and pelvis on 02/27/2019 showed evidence of progression of her pulmonary metastatic disease with interval enlargement and development of new noncalcified bilateral pulmonary nodules. There also appeared to be slight progression of precarinal lymphadenopathy. There was no evidence of metastatic disease in the abdomen or pelvis. On 03/03/2019 she was admitted to the hospital with atrial fibrillation/RVR. It was controlled adequately after changing her medication from sotalol to metoprolol. However, at her initial evaluation in the emergency room she also was hypoxic. A CT pulmonary angiogram showed extensive pulmonary metastatic disease as well as central pulmonary artery enlargement suggesting pulmonary arterial hypertension, but there was no evidence of pulmonary embolus. Mrs Faria is here today for followup and [id number] recertification of her oxygen. She continues to use oxygen supplementation for shortness of breath due to history of extensive pulmonary metastatic disease and pulmonary arterial hypertension. She also has a history of atrial fibrillation with rapid ventricular response. CT pulmonary angiogram on 03/03/2019 reported extensive pulmonary metastatic disease as well as central pulmonary artery enlargement suggesting pulmonary arterial hypertension but no evidence of pulmonary embolus. She is using her oxygen supplementation as directed she continues to benefit from its use and should continue to use it as directed. She remains on observation for her thyroid cancer. She continues to do well overall. She states her recently had to have eye surgery and she has been doing all of the driving and care around the house. She states she is been a little bit more tired than normal but thinks that this from all the extra doctors appointments and taking care of her . She has had some intermittent wheezing but states she thinks that seasonal allergies. She is been using air purifier at home this is been helping. She has an episode yesterday of significant wheezing but denied any fever or chills. She had no productive cough. The wheezing has subsided today. She states she has had some generalized joint soreness but states she turned 80 for a few days ago and thinks that this is more the issue than anything. She denies any actual pain. She states she is eating good. She is been watching her diet very carefully. She states she does not eat before 9 AM or after 6 PM and this is helping her maintain her weight. She denies any known COVID exposure, symptoms and denies any personal COVID testing. She denies any neuropathy. She states her bowels and bladder are normal for her. She has had some intermittent lower extremity edema that comes and goes. She denies any new concerns today. Her ECOG is 0. Past Medical History: Atrial fibrillation Degenerative arthritis Hypertension Hypothyroidism Metastatic thyroid cancer Lorsartan only B/P now Past Surgical History: Total thyroidectomy in 2008 Open biopsy of right lung in 2008 Repair of incarcerated hernia in 2006 Hysterectomy in 1996 Caesarean section in 1961 Caesarean section in 1957 Appendectomy in 1955 Tonsillectomy in 1948 Allergies: Amiodarone HCl and contrast dye . Medications: Biotin 3 Capsule (of 5000 mcg) Oral daily Calcium + D 2 Tablet Oral daily cbd 15 mL (of 3 mg) Oil Sublingual daily cell food 1 Drop(s) Liquid Oral b.i.d. Levothyroxine Sodium 1 Tablet (of 100 mcg) Oral daily Losartan Potassium-HCTZ 1 Tablet (of 100-25 mg) Oral daily Lumigan 1 drop(s) (of 0.01 %) Solution Ophthalmic daily Magnesium 1 (400 mg) Capsule Oral daily ring relief 1 drop(s) Solution b.i.d. & at bedtime PRN Singulair 1 Tablet (of 10 mg) Oral daily Systane 1 drop(s) (of 0.4-0.3 %) Solution Ophthalmic b.i.d. PRN tumeric 1 Capsule daily Vitamin C 1 Tablet Oral daily Zinc 1 Tablet (of 15 mg) Oral daily Family History: Ms. Faria's mother at age 78: stomach cancer brain tumor. Ms. Faria's father at age 78: alzheimers. Father with dementia at age 78. Mother had stomach cancer and subsequently a brain tumor. She also at age 78. A brother and a sister are in good health. Social History: Ms. Faria is and she is retired. Ms. Faria no longer smokes. She has no history of drinking. She has indicated exposure to the following products: cigarettes. Ms. Faria reports the following support systems: lives with spouse, significant other, family, or friends, lives in own house, supportive family/friends willing to assist with needs, and adequate transportation available for expected visits. Her diet consists of regular meals. She indicates her activity level as: daily activities. She had previously worked in a [employer]. She smoked cigarettes occasionally in the past, estimated at a pack per week. She quit 30-45 years ago. She does not drink alcohol. Review Of Symptoms: Constitutional Denies fevers, chills, night sweats. She states her energy is marginal but she is caring more for her due to his recent eye surgery and she is doing more things around the house. Allergic/Immunologic No reactions. Eyes Denies significant visual changes. No diplopia. No amaurosis. ENMT Denies changes in hearing, sore throat, mouth sores, difficulty or changes in swallowing ability, and/or sinus drainage. Hematologic/Lymphatic Denies easy bruising or bleeding. The patient denies any tender or palpable lymph nodes. Respiratory Denies dyspnea on exertion, chest pain, cough or hemoptysis. Denies orthopnea. Cardiovascular Denies anginal chest pain, palpitations or orthopnea. Gastrointestinal Denies worsening diarrhea or constipation. Denies change in bowel habits and/or stool color, no heartburn. Genitourinary (F) No hematuria, hesitancy, incontinence, vaginal bleeding, discharge or other problems with urination. Musculoskeletal Denies joint pain, swelling or redness. No decreased range of motion. Integumentary Denies chronic rashes, inflammation, ulcerations or skin changes. Neurologic Denies headache, blurred vision, and no areas of focal weakness or numbness. Normal gait. No sensory problems. Psychiatric Denies insomnia, depression, karol or mood swings. Vital Signs: Performed on Jan 26, 2020 14:03 Height - 60.00 in Weight - 174.4 lbs (HIGH) BSA - 1.76 sq.m BMI - 34.06 (HIGH) Temperature - 98.2 F (LOW) Pulse - 77 /min Respiration - 26 /min BP - 154/75 mm(hg) (HIGH) O2 Sat - 92 % (LOW) Pain - 0,1 - No physically strenuous activity, but ambulatory and able to carry out light or sedentary work (e.g. office work, light house work). (ECOG) Physical Examination: Constitutional Alert, oriented, no acute distress. Skin pink, warm and dry. Head Normocephalic; atraumatic. Eyes Conjunctivae and sclerae are clear and without icterus. Pupils are reactive and equal. Neck Supple without masses or thyromegaly. No jugular venous distension. Hematologic/Lymphatic No petechiae or purpura. No tender or palpable lymph nodes in the cervical or supraclavicular areas. Respiratory Lungs are clear to auscultation without rhonchi or wheezing. Cardiovascular Fast heart rate but no murmur, clicks or rubs. Abdomen Non-tender, non-distended, no masses, ascites. Good bowel sounds noted in all quads. No guarding or rebound tenderness. No pulsatile masses. Back/Spine Non-tender to palpation. Extremities No visible deformities, no cyanosis, clubbing or edema. Musculoskeletal No tenderness or swelling, normal range of motion without obvious weakness. Integumentary No rashes or lesions. Neurologic No sensory or motor deficits, normal cerebellar function, slow, hobbling type gait-chronic due to knee pain but it her gait has improved overall. Psychiatric Alert and oriented times three. Coherent speech. Verbalizes understanding of our discussions today. Laboratory:Test performed on Nov 11, 2019 09:26 T4, Free 1.04 ng/dL TSH 0.21 uU/mL Glucose 93 mg/dL BUN 17 mg/dL Creatinine 0.76 mg/dL Cr Clearance (Est) 68.12 mL/min Sodium 140 mmol/L Potassium 4.4 mmol/L Chloride 98 mmol/L CO2 25 mmol/L Calcium 9.5 mg/dL Protein, Total 6.9 g/dL Albumin 4.2 g/dL Globulin 2.7 g/dL Bilirubin, Total 0.5 mg/dL Alkaline Phosphatase 124 IU/L AST (SGOT) 21 IU/L ALT (SGPT) 14 IU/L WBC 7.9 10^9/L RBC 5.07 10^12/L HGB 15.1 g/dL HCT 45.6 % MCV 89.9 fl MCH 29.8 pg MCHC 33.1 g/dL RDW 13.0 % Platelet Count 224 10^9/L Neutrophils (Gran) 4.4 10^9/L Lymphocytes 1.8 10^9/L Monocytes 0.9 10^9/L Eosinophils 0.8 10^9/L Basophils 0.0 10^9/L Manual Lymphocytes 22.3 % Manual Monocytes 11.0 % Manual Eosinophils 9.9 % Manual Basophils 0.6 % Test performed on September 11, 2019 10:25 Anion Gap 13.9 MPV 10.7 fL Neutrophil % 61.1 % Lymphocyte % 25.0 % Monocyte % 11.0 % Eosinophil % 2.1 % Basophils % 0.5 % Impression: 1. Patient with metastatic papillary thyroid cancer, initially diagnosed by open lung biopsy in August 2008. Treatment included total thyroidectomy on 11/16/2008 followed by I-131 ablation with 157.5 mCI of radioactive iodine on 01/07/2009. 2. Her subsequent treatment has included repeat I-131 ablations with 150.4 mCi of radioactive iodine on 05/19/2010, 157 mCi of radioactive iodine on 06/28/2012, and 157 mCI of radioactive iodine on 06/04/2014. 3. Followup chest CT on 12/06/2015 showed significant increase in the size and number of pulmonary metastatic lesions, consistent with disease progression. Her other medical illnesses include: 4. Hypertension. 5. Degenerative arthritis. 6. She had transient atrial fibrillation following attempted needle lung biopsy in 2008. She began a trial of therapy with lenvatinib in February 2016. She started at the recommended dosage of 24 mg daily, but she did require a reduction to 10 mg daily. She had been tolerating it well. However, on her followup visit on 05/22/2016 there was a significant decline in her renal function with serum creatinine increasing from baseline 1.1 mg/dL to 3.2 mg/dL. There was a very significant decline in her thyroglobulin level, so that she did appear to be showing a response to the treatment. During subsequent follow-up, her renal function returned to baseline. As of 07/06/2016 the thyroglobulin level was back up to 1009 or 42 ng/mL, and by 08/14/2016 it was again greater than 3000 ng/mL. At that point she restarted lenvatinib, initially at 10 mg alternating with 4 mg daily. She had subsequently increased to 10 mg daily, and thus far she has been able to tolerate that dosage with no adverse effects. Her clinical status remains stable on treatment with lenvatinib 10 mg daily. As of her follow-up visit on 11/22/2016 the thyroglobulin level was back down to 1930 ng/mL. Her restaging CT scans on 12/18/2016 showed numerous pulmonary nodules bilaterally, most of which were either stable or slightly smaller compared to the previous study from May. A right lower lobe and the lingular nodule were noted to be larger. There was no other evidence of disease progression. She then continued treatment with lenvatinib. She seemed to tolerate it pretty well. She had some fatigue with it, and she also reported some shortness of breath and some musculoskeletal pain. I was uncertain to what extent any of those symptoms may have been related to her treatment or to the underlying malignancy. Followup CT of the chest from 03/02/2017 revealed bilateral scattered, non calcified pulmonary nodules without significant changed from the 11/2016 scan. There was no hilar, axillary, or mediastinal enlarged lymph nodes or masses. She continued on lenvatinib 10 mg daily. She has been able to tolerate it at the reduced dosage. During follow-up her thyroglobulin level has remained significantly elevated. It has tended to fluctuate up and down, but overall it has been stable. As of February 2018 her follow-up CT scans also had remained stable. She continued treatment with lenvatinib, though she did begin to have more side effects with it again, and she was taking it on an intermittent basis. As of 10/17/[address] scans remained stable with no obvious disease progression. At that point her symptoms had worsened significantly, and her treatment was put on hold. During subsequent follow-up, she was feeling much better. However, on 12/09/2018 she underwent laparoscopic cholecystectomy for symptomatic cholelithiasis. The procedure also included lysis of extensive adhesions, and she also then required laparotomy with partial small bowel resection and stapled [id number] anastomosis for an enterotomy involving one of the bowel loops adherent to the abdominal wall. Her scheduled restaging CT scans of the chest, abdomen, and pelvis on 02/27/2019 showed evidence of progression of her pulmonary metastatic disease with interval enlargement and development of new noncalcified bilateral pulmonary nodules. There also appeared to be slight progression of precarinal lymphadenopathy. There was no evidence of metastatic disease in the abdomen or pelvis. On 03/03/2019 she was admitted to the hospital with atrial fibrillation/RVR. It was controlled adequately after changing her medication from sotalol to metoprolol. However, at her initial evaluation in the emergency room she also was hypoxic. A CT pulmonary angiogram showed extensive pulmonary metastatic disease as well as central pulmonary artery enlargement suggesting pulmonary arterial hypertension, but there was no evidence of pulmonary embolus. As of her follow-up visit on 03/14/2019 she was feeling somewhat better. At that point we opted not to attempt any further treatment with lenvatinib. She has since then continued to show gradual improvement in her performance status. She continues to have some issues with the atrial fibrillation and rapid ventricular response. Due to the thyroid cancer she has been on a suppressive dosage of levothyroxine, and that was reduced and her arrhythmia has subsided per her report. Her TSH level remains low. Plan: 1. continue symptomatic/supportive care for the thyroid cancer. 2. Continue her levothyroxine dosage at 1/2 tablet daily as the reduction did improve her cardiac symptoms. She is currently taking 100 mcg daily. 3. Labs from 01/08/2020 were reviewed in detail and discussed with Ms. Stovallman and a copy was given to her. WBC 7.9, hemoglobin 15.0, platelets 241,000 ANC is 5000 potassium 4.4 creatinine 0.75 LFTs are normal her alk phos was 128. Her TSH is 0.11 and vitamin D level was low at 23. She states she has not been taking her vitamin D consistently but will take it daily. 4. Mrs Faria states that she feels comfortable checking her labs every 4 months and states she will call us in the interim if she feels that she is to check them sooner. Therefore we will plan to see her back in 4 months with CBC CMP free T4 and TSH and vitamin D level as she has vitamin D deficiency. 5. Mrs. Faria was instructed to contact us in the interim should questions or problems arise. She verbalized understanding and states that she will call us if she has any concerns. ADDENDUN: 6. She continues to use oxygen supplementation for shortness of breath due to history of extensive pulmonary metastatic disease and pulmonary arterial hypertension. She also has a history of atrial fibrillation with rapid ventricular response. CT pulmonary angiogram on 03/03/2019 reported extensive pulmonary metastatic disease as well as central pulmonary artery enlargement suggesting pulmonary arterial hypertension but no evidence of pulmonary embolus. She is using her oxygen supplementation as directed she continues to benefit from its use and should continue to use it as directed. 7. Due to the COVID-19 pandemic, her [id number] oxygen recertification and her follow-up visit were combined today to limit her potential exposure. Signed By: Jean Paul Forde-, [facility] Reji Elder MD <<Signature on File>>
== END 2020-01-26 13:45 | disposition home or self-care (01) ==
LOC: ONCMED 13:48
PROVIDERS: PCP Family Medicine; Visit Provider Nurse Practitioner
DX: C73 Malignant neoplasm of thyroid gland (principal); C78.01 Secondary malignant neoplasm of right lung; C78.02 Secondary malignant neoplasm of left lung; I10 Essential (primary) hypertension; M19.90 Unspecified osteoarthritis, unspecified site; I48.91 Unspecified atrial fibrillation; Z79.899 Other long term (current) drug therapy
CPT/HCPCS: 99214

== ENCOUNTER → 2020-05-27 10:37 | Outpatient (BNVA) | payer MEDICARE, SELFPAY | PROVIDERS: PCP Family Medicine; Visit Provider Internal Medicine Medical Oncology | DX: C73 Malignant neoplasm of thyroid gland (principal); C34.90 Malignant neoplasm of unspecified part of unspecified bronchus or lung; C79.9 Secondary malignant neoplasm of unspecified site; I10 Essential (primary) hypertension; I49.1 Atrial premature depolarization; Z79.899 Other long term (current) drug therapy; E55.9 Vitamin D deficiency, unspecified | CPT/HCPCS: 80053; 82306; 84439; 84443; 85025 ==

== ENCOUNTER 2020-05-31 13:35 | Outpatient (CLI) | payer MEDICARE, SELFPAY ==
--- NOTE | 2020-05-31 20:07 | ONC FU_ITS ---
Dr. Elder Patient Follow-Up Note Patient: Lawanda Faria Unit #: [id number]: 1935 Dicatated By: Reji Elder M.D.Date of Visit:May 31, 2020 Onc Med Follow-up/Prog Note Chief Complaint: Thyroid Cancer History of Present Illness: This is an 84 year-old woman with metastatic papillary thyroid cancer. Her thyroid cancer was discovered after a routine preoperative chest xray prior to a planned right total knee arthroplasty in July 2008 showed multiple pulmonary nodules. An attempted needle biopsy of a lung nodule was unsuccessful. The procedure was complicated by atrial fibrillation and by hemorrhagic pleural effusion. She ultimately underwent an open biopsy of a right lung nodule in August 2008, and pathology was consistent with metastatic thyroid cancer. She underwent total thyroidectomy on 11/16/2008. Pathology was consistent with two foci of papillary thyroid carcinoma, the largest focus located in the left lobe measuring 2.2 cm. She underwent I-131 ablation with 157.5 mCi of radioactive iodine on 01/07/2009. She apparently had a good response. However, by March 2010 there was again evidence of multiple pulmonary nodules by PET/CT, consistent with recurrence. She was treated again with I-131 ablation with 150.4 mCi of radioactive iodine on 05/19/2010. During subsequent followup she had further I-131 ablations with 157 mCi of radioactive iodine on 06/28/2012 and on 06/04/2014. A surveillance chest CT on 12/06/2015 showed significant progression of the pulmonary metastatic disease. This included a significant increase in the number and size of pulmonary nodules which were noted to involve all lobes ranging in size from subcentimeter through 2.0 cm. The largest nodule was in the right upper lobe abutting the minor fissure. There were a few small mediastinal and hilar lymph nodes which had not progressed or changed. Left axillary lymph nodes also were noted to be stable. A left adrenal gland mass was stable measuring 3.0 cm. The appearance was felt to be consistent with benign adenoma. I had seen her initially on 02/01/2016. She began a trial of therapy with lenvatinib 24 mg daily on 03/03/2016. Her baseline thyroglobulin level was greater than 3000 ng/mL. During subsequent follow-up she did require a dose reduction to 10 mg daily. On her follow-up visit on 05/22/2016, there was a significant decline in her renal function with BUN increasing to 45 mg/dL and creatinine to 3.2 mg/dL. She was given IV hydration, and the lenvatinib was put on hold. By the following week, the creatinine had come down to 1.4 mg/dL and it subsequently returned to baseline at 1.0 mg/dL. Her thyroglobulin level, though, had come down significantly, to 179.0 ng/mL compared to baseline greater than 3000 ng/mL. As of 07/06/2016 the thyroglobulin level was back up to 1942 ng/mL, and by 08/14/2016 it was again greater than 3000 ng/mL. At that point she restarted the lenvatinib, initially at 10 mg alternating with 4 mg daily. She then increased it to 10 mg daily when she ran out of the 4 mg tablets. I had seen her for a follow-up visit on 09/25/2016. At that point she was still taking 10 mg of lenvatinib daily, and she was tolerating it well. Her thyroglobulin level did come back at greater than 3000 ng/mL. She continued her same treatment. At a follow-up visit on 11/22/2016 the thyroglobulin level was back down to 1930 ng/mL. CT scans of the chest, abdomen, and pelvis on 12/18/2016 showed multiple bilateral pulmonary nodules, most of which were smaller or stable compared to the study from May 2016. A right lower lobe and the lingular nodule were noted to be larger. There was no other evidence of disease progression. Repeat chest CT on 03/02/2017 showed no significant change in the bilateral noncalcified pulmonary nodules compared to the study in November. There were no new nodules noted. Restaging CT scans of the chest, abdomen, and pelvis on 08/21/2017 showed innumerable pulmonary nodular densities consistent with metastatic disease, but similar to the prior studies. There was no obvious metastatic involvement in the abdomen/pelvis, but it was a noncontrast study. Noncontrast chest CT on 03/01/2018 showed unchanged multilobar noncalcified pulmonary nodules compared to the August 2017 study. Left adrenal mass also appeared stable. She continued treatment with lenvatinib 10 mg daily. During subsequent follow-up, she began having more side effects with the Lenvatinib again, significant enough that she did have to stop taking it intermittently. However, as of 10/17/[address] scans had shown no evidence of disease progression. Some of her pulmonary nodules appeared marginally smaller compared to the February 2018 study. At that point she had reported significant increase in symptoms, including fatigue, abdominal pain, nausea/vomiting, and joint pain. Her treatment was put on hold, and she did require IV hydration on several occasions. On 12/09/2018 she underwent laparoscopic cholecystectomy for symptomatic cholelithiasis. The procedure also included lysis of extensive adhesions. She also then required laparotomy with partial small bowel resection and stapled [id number] anastomosis for an enterotomy involving one of the bowel loops adherent to the abdominal wall. Her postoperative course was, cycle by atrial fibrillation, which she otherwise had an uneventful recovery. Her scheduled restaging CT scans of the chest, abdomen, and pelvis on 02/27/2019 showed evidence of progression of her pulmonary metastatic disease with interval enlargement and development of new noncalcified bilateral pulmonary nodules. There also appeared to be slight progression of precarinal lymphadenopathy. There was no evidence of metastatic disease in the abdomen or pelvis. On 03/03/2019 she was admitted to the hospital with atrial fibrillation/RVR. It was controlled adequately after changing her medication from sotalol to metoprolol. However, at her initial evaluation in the emergency room she also was hypoxic. A CT pulmonary angiogram showed extensive pulmonary metastatic disease as well as central pulmonary artery enlargement suggesting pulmonary arterial hypertension, but there was no evidence of pulmonary embolus. She continued on symptomatic management. Her other medical illnesses include hypertension and degenerative arthritis. She also had transient atrial fibrillation following an attempted needle lung biopsy in 2008. She had smoked in the past, but only about a pack of cigarettes per week, and she quit smoking more than 40 years ago. INTERIM HISTORY: She is seen for a scheduled visit. Recently she has been having increased shortness of breath and wheezing. She is not getting any significant benefit with her inhaler. She does have oxygen at home to use as needed. She does not have a lot of activity. Her ECOG score is 2. Her appetite is not too bad. She has not had fever. She sometimes has sweating at night. She does have some cough and she also has been having chest pain at times. She sometimes has nausea and she has a lot of gas. Bowel function remains adequate. She has urinary frequency with urgency/incontinence. She has pain in her lower back/right hip and in her left knee. She does not complain of headache or dizziness. She has no focal neurologic symptoms. Medications: Biotin 3 Capsule (of 5000 mcg) Oral daily, Calcium + D 2 Tablet Oral daily, cbd 15 mL (of 3 mg) Oil Sublingual daily, cell food 1 Drop(s) Liquid Oral b.i.d., Levothyroxine Sodium 1 Tablet (of 100 mcg) Oral daily, Losartan Potassium-HCTZ 1 Tablet (of 100-25 mg) Oral daily, Lumigan 1 drop(s) (of 0.01 %) Solution Ophthalmic daily, Magnesium 1 (400 mg) Capsule Oral daily, ring relief 1 drop(s) Solution b.i.d. & at bedtime PRN, Singulair 1 Tablet (of 10 mg) Oral daily, Systane 1 drop(s) (of 0.4-0.3 %) Solution Ophthalmic b.i.d. PRN, tumeric 1 Capsule daily, Vitamin C 1 Tablet Oral daily, Zinc 1 Tablet (of 15 mg) Oral daily Allergies: Amiodarone HCl and contrast dye . Vital Signs: Performed on May 31, 2020 13:44 Height - 60.00 in Weight - 174 lbs (LOW) BSA - 1.76 sq.m BMI - 33.98 (HIGH) Temperature - 98.7 F Pulse - 89 /min Respiration - 24 /min BP - 124/82 mm(hg) O2 Sat - 92 % (LOW) Pain - 0 Fatigue - 5 Physical Examination: Constitutional - She appears generally weak and short of breath, Eyes - Sclerae nonicteric. Conjunctivae clear, ENMT - No lesions noted in the oral cavity, Hematologic/Lymphatic - No cervical, clavicular, or axillary adenopathy, Respiratory - Lungs show diminished air movement bilaterally. There are coarse breath sounds on inspiration and expiration and there are scattered rales bilaterally, Cardiovascular - Heart rhythm is irregular. There is a III/ systolic murmur. There is no gallop or rub noted, Abdomen - Soft. Liver and spleen are not enlarged. There is no abdominal mass or ascites noted. There is no inguinal adenopathy, Extremities - No edema, Neurologic - No focal neurologic deficits noted. Lab/Imaging: Test performed on May 27, 2020 16:35 WBC 7.9 10^9/L RBC 5.27 10^12/L HGB 15.5 g/dL HCT 48.3 % MCV 91.7 fl MCH 29.4 pg MCHC 32.1 g/dL RDW 13.5 % Platelet Count 242 10^9/L Neutrophils (Gran) 4.87 10^9/L Lymphocytes 1.8 10^9/L Monocytes 0.8 10^9/L Eosinophils 0.3 10^9/L Basophils 0.1 10^9/L Test performed on Dec 27, 2019 13:20 TSH 0.11 uU/mL Cholesterol, Total 200 mg/dL Glucose 107 mg/dL Vitamin D (25-Hydroxy) 23 ng/mL BUN 12 mg/dL HDL Cholesterol 70 mg/dL Creatinine 0.75 mg/dL LDL Cholesterol 111 mg/dL Cr Clearance (Est) 69.73 mL/min Triglycerides 96 mg/dL Sodium 145 mmol/L Potassium 4.4 mmol/L Chloride 105 mmol/L CO2 24 mmol/L Calcium 9.6 mg/dL Protein, Total 6.2 g/dL Albumin 3.9 g/dL Globulin 2.3 g/dL Bilirubin, Total 0.5 mg/dL Alkaline Phosphatase 128 IU/L AST (SGOT) 15 IU/L ALT (SGPT) 10 IU/L Hemoglobin A1C 5.6 % Problem List: 1. Metastatic papillary thyroid cancer, initially diagnosed by open lung biopsy in August 2008. Treatment included total thyroidectomy on 11/16/2008 followed by I-131 ablation with 157.5 mCI of radioactive iodine on 01/07/2009. Her subsequent treatment has included repeat I-131 ablations with 150.4 mCi of radioactive iodine on 05/19/2010, 157 mCi of radioactive iodine on 06/28/2012, and 157 mCI of radioactive iodine on 06/04/2014. Followup chest CT on 12/06/2015 showed significant increase in the size and number of pulmonary metastatic lesions, consistent with disease progression. 2. Hypertension. 3. Degenerative arthritis. 4. She had transient atrial fibrillation following attempted needle lung biopsy in 2008. 5. On 12/09/2018 she underwent laparoscopic cholecystectomy and lysis of extensive adhesions. She subsequently required laparotomy with partial small bowel resection for an enterotomy involving a bowel loop adherent to the abdominal wall. Problems Addressed with this Encounter and Plan: 1. Metastatic papillary thyroid cancer, initially diagnosed by open lung biopsy in August 2008. Treatment included total thyroidectomy on 11/16/2008 followed by I-131 ablation with 157.5 mCI of radioactive iodine on 01/07/2009. Her subsequent treatment has included repeat I-131 ablations with 150.4 mCi of radioactive iodine on 05/19/2010, 157 mCi of radioactive iodine on 06/28/2012, and 157 mCI of radioactive iodine on 06/04/2014. Followup chest CT on 12/06/2015 showed significant increase in the size and number of pulmonary metastatic lesions, consistent with disease progression. She began a trial of therapy with lenvatinib in February 2016. She started at the recommended dosage of 24 mg daily, but she did require a reduction to 10 mg daily. She had been tolerating it well. However, on her followup visit on 05/22/2016 there was a significant decline in her renal function with serum creatinine increasing from baseline 1.1 mg/dL to 3.2 mg/dL. There was a very significant decline in her thyroglobulin level, so that she did appear to be showing a response to the treatment. However, during subsequent follow-up she continued to have difficulty tolerating the lenvatinib, even at reduced dosage. She ultimately stopped treatment in September 2018. Her scheduled restaging CT scans of the chest, abdomen, and pelvis on 02/27/2019 showed evidence of progression of her pulmonary metastatic disease with interval enlargement and development of new noncalcified bilateral pulmonary nodules. There also appeared to be slight progression of precarinal lymphadenopathy. There was no evidence of metastatic disease in the abdomen or pelvis. During subsequent follow-up she has remained on observation/symptomatic management. She comes in now with increased shortness of breath and wheezing, which I suspect is due to to progression of her pulmonary metastatic disease. At least initially she will be given a short course of steroid therapy with prednisone 20 mg twice daily for 1 week then 10 mg twice daily. I will see her again in 2 weeks. She will have restaging CT scans and echocardiogram with that visit. 2. Vitamin D deficiency. She will increase her vitamin D supplement to 2000 units of vitamin D3 daily. Signed By: Reji Elder M.D. <<Signature on File>>
== END 2020-05-31 13:36 | disposition home or self-care (01) ==
PROVIDERS: PCP Family Medicine; Visit Provider Internal Medicine Medical Oncology
DX: C73 Malignant neoplasm of thyroid gland (principal); C78.01 Secondary malignant neoplasm of right lung; C78.02 Secondary malignant neoplasm of left lung; I10 Essential (primary) hypertension; M19.90 Unspecified osteoarthritis, unspecified site; I48.91 Unspecified atrial fibrillation; E55.9 Vitamin D deficiency, unspecified; Z79.899 Other long term (current) drug therapy
CPT/HCPCS: 99214

== ENCOUNTER 2020-06-11 08:05 | Emergency (ER) | payer MEDICARE, SELFPAY ==
[2020-06-11] VITALS (24 sets, daily range): BP systolic 90–140; BP diastolic 50–95; PULSE 58–168; RESP 14–24; O2SAT 91–99; BMI 34.0
--- NOTE | 2020-06-11 08:13 | ECG_ITS ---
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 Measurements Intervals [place] Rate: 100 P: MN: QRS: -33 QRSD: 75 T: 82 QT: 329 QTc: 425 Interpretive Statements ATRIAL FIBRILLATION WITH RAPID VENTRICULAR RESPONSE LEFT AXIS DEVIATION [QRS AXIS < -30] POSSIBLE RIGHT VENTRICULAR CONDUCTION DELAY [RSR (QR) IN V1/V2] MODERATE VOLTAGE CRITERIA FOR LVH, CONSIDER NORMAL VARIANT [MEETS CRITERIA IN ONE OF: R(aVL), S(V1), R(V5), R(V5/V6)+S(V1)] NONSPECIFIC ST & T-WAVE ABNORMALITY Compared to ECG 03/05/2019 09:21:01 Left-axis deviation now present T-wave abnormality now present Sinus bradycardia no longer present Sinus arrhythmia no longer present Electronically Signed On 06-11-2020 16:06:58 RURAL ROUTE CARRIER by Soha Chamberlain M.D. [email or web address]/NU/[id number]
--- NOTE | 2020-06-11 08:13 | XR_ITS ---
WS: [id number] PORTABLE CHEST HISTORY: dyspnea/cough COMPARISON: 03/03/2019 Numerous bilateral pulmonary nodules have progressed since 03/03/2019. Largest nodule in the central LEFT lung may be confluent nodules measuring up to 2.8 cm in diameter. Minimal blunting of the RIGHT costophrenic angle. Cardiac size: Normal. Mediastinum/Aorta: Normal mediastinum. No osseous abnormality seen. XR/XR chest 1V portable [id number] IMPRESSION: Patient has known bilateral numerous pulmonary metastatic nodules which have mo derately increased since 03/03/2019.
--- NOTE | 2020-06-11 08:14 | W.ED.GENADLT ---
HPI - General Adult General: Chief complaint: Arrhythmia/Palpitations Stated complaint: palpitations/ diaphoresis Time Seen by Provider: 06/11/20 08:05 History of Present Illness: HPI narrative: 84 yo female presents w complaints of rapid heart rate and some shortness of breath. Is been going on overnight. He has had some mild chest discomfort with it, along with nausea vomiting and episodes of diaphoresis it is a little better at the moment.. She has a known history of atrial fibrillation she is. She has not missed any doses of her medications recently. She did take her Cardizem this morning. She has noted from time to time she will have episodes that will seem to manifest without any precipitating cause they often will self terminate. Onset (ago): hour(s) Location: chest Severity: moderate Relieving factors: none Exacerbating factors: none Associated symptoms: Reports chest pain, diaphoresis, decreased appetite, nausea, palpitations and weakness; Deny confusion, cough, dyspnea, fevers/chills, headache(s), malaise, rash, seizures, short of breath, syncope or vomiting Treatments prior to arrival: none Review of Systems Const: Reports: diaphoresis; Denies: malaise ENMT: Denies: throat pain, ear or mastoid pain, nasal discharge or nasal congestion Card: Reports: chest pain and palpitations; Denies: syncope Resp: Denies: dyspnea GI: Reports: nausea; Denies: vomiting : Denies: flank pain, difficulty voiding, dysuria, urinary frequency or urinary urgency Skin/Breast: Denies: rash Neuro: Denies: headache(s) or confusion PFS ED PFSH: Medical History History of thyroid cancer HTN (hypertension) Hyperthyroidism Osteoarthritis Premature atrial contraction Surgical History History of section History of lung biopsy S/P appendectomy S/P cholecystectomy S/P hysterectomy S/P sclerotherapy of varicose veins S/P small bowel resection S/P thyroidectomy S/P tonsillectomy and adenoidectomy Family History Family/Other CAD (coronary artery disease) Hypertension Mother Cancer Social History (Reviewed 06/11/20 @ 09:03 by BEBO Alvarado Smoking and tobacco status: former smoker Physical Exam Const: COMMON NORMALS: no acute distress GENERAL APPEARANCE: cooperative and comfortable ORIENTATION/CONSCIOUSNESS: Yes awake, Yes oriented to person, Yes oriented to place and Yes oriented to time HENMT: COMMON NORMALS: normocephalic, atraumatic and hearing grossly normal bilaterally HEAD & SCALP: normocephalic and atraumatic Resp: COMMON NORMALS: normal respiratory effort, No retractions, No use of accessory muscles and clear to auscultation bilaterally AUSCULTATION: clear to auscultation bilaterally Cardio: RATE: tachycardic RHYTHM: abnormal rhythm irregularly irregular GI: COMMON NORMALS: Soft to palpation and No hepatosplenomegaly present AUSCULTATION: Yes normoactive bowel sounds PALPATION: Yes Soft to palpation, No Tenderness to palpation present (GI), No Guarding due to palpation present (GI) and Yes No hepatosplenomegaly present Extremity: COMMON NORMALS: normal to inspection, capillary refill normal, no clubbing, cyanosis or edema, no calf tenderness and no pedal edema Neuro: SENSORIUM/ORIENTATION: Yes oriented to person, Yes oriented to place and Yes oriented to time Skin: COMMON NORMALS: no rashes or lesions noted GENERAL SKIN EXAM: no rashes or lesions noted Course Vital Signs: Vital signs: Vital Signs Pulse Rate 70 06/11/20 12:42 Respiratory Rate 22 H 06/11/20 12:42 Blood Pressure 90/75 06/11/20 12:42 Pulse Oximetry 95 06/11/20 12:42 MDM - General Adult MDM Narrative: Medical decision making narrative: Patient converted with Cardizem was given oral Cardizem and titrated off the drip. I discussed with Dr. Elder. He has no contraindication to anticoagulation discussed with the patient her perception is that she is bleeds too much to take it we discussed the risk versus benefits I did give her prescription for Eliquis and will leave it up to her we did give her half strength dose of 2.5 twice daily. We will also restart Cardizem CD 120 mg once daily follow-up with Dr. Elder early next week return if has problems. Lab Data: Labs: Lab Results 06/11/20 06/11/20 06/11/20 Range/Units 08:36 08:36 08:36 WBC 8.8 (4.0-10.0) 10^3/ uL RBC 5.81 H (4.1-5.3) 10^6/u L Hgb 17.1 H (11.5-15.3) g/dL Hct 52.0 H (37.0-47.0) % MCV 89.5 (81-99) fL MCH 29.4 (28.0-34.0) pg MCHC 32.9 (30.0-36.0) g/dL RDW 13.6 (12.1-15.1) % Plt Count 249 (130-400) 10^3/c mm MPV 11.0 H (7.4-10.4) fL Neut % (Auto) 64.8 % Lymph % (Auto) 22.7 % [place] % (Auto) 10.9 % Eos % (Auto) 0.6 % Baso % (Auto) 0.5 % Neut # (Auto) 5.73 (1.8-7.7) 10^3/u L Lymph # (Auto) 2.0 (0.8-4.8) 10^3/u L [place] # (Auto) 1.0 H (0.2-0.9) 10^3/u L Eos # (Auto) 0.1 (0.0-0.8) 10^3/u L Baso # (Auto) 0.0 (0.0-0.1) 10^3/u L Nucleated RBC % (a uto) 0 % Nucleated RBCs # 0.0 /100WBC Sodium Cancelled Potassium Cancelled Chloride Cancelled Carbon Dioxide Cancelled Anion Gap Cancelled BUN Cancelled Creatinine Cancelled GFR Calculation Cancelled Glucose Cancelled Calculated Osmolal ity Cancelled Calcium Cancelled Total Bilirubin Cancelled AST Cancelled ALT Cancelled Alkaline Phosphata se Cancelled Troponin T Baselin e Cancelled Troponin T 120 Min hua (0-10) ng/L Delta Troponin T (0-10) ABS# Total Protein Cancelled Albumin Cancelled Globulin Cancelled 06/11/20 06/11/20 06/11/20 Range/Units 08:54 08:54 10:53 WBC (4.0-10.0) 10^3/ uL RBC (4.1-5.3) 10^6/u L Hgb (11.5-15.3) g/dL Hct (37.0-47.0) % MCV (81-99) fL MCH (28.0-34.0) pg MCHC (30.0-36.0) g/dL RDW (12.1-15.1) % Plt Count (130-400) 10^3/c mm MPV (7.4-10.4) fL Neut % (Auto) % Lymph % (Auto) % [place] % (Auto) % Eos % (Auto) % Baso % (Auto) % Neut # (Auto) (1.8-7.7) 10^3/u L Lymph # (Auto) (0.8-4.8) 10^3/u L [place] # (Auto) (0.2-0.9) 10^3/u L Eos # (Auto) (0.0-0.8) 10^3/u L Baso # (Auto) (0.0-0.1) 10^3/u L Nucleated RBC % (a uto) % Nucleated RBCs # /100WBC Sodium 137 Potassium 4.6 Chloride 102 Carbon Dioxide 26 Anion Gap 13.6 BUN 20 Creatinine 0.5 GFR Calculation Not Reportable Glucose 104 Calculated Osmolal ity 287 Calcium 9.0 Total Bilirubin 0.6 AST 16 ALT 16 Alkaline Phosphata se 123 H Troponin T Baselin e 14 H Troponin T 120 Min hua 16.69 H (0-10) ng/L Delta Troponin T 2.69 (0-10) ABS# Total Protein 6.9 Albumin 3.7 Globulin 3.2 Discharge Plan Discharge Patient Disposition: Home Clinical Impression: Atrial fibrillation, Medullary thyroid carcinoma Condition: Stable Prescriptions: New Cardizem CD 120 mg capsule,extended release 24hr 120 mg PO DAILY Qty: 30 RF: 0 Eliquis 2.5 mg tablet 2.5 mg PO BID Qty: 60 RF: 0 No Action losartan 100 mg tablet 100 mg PO DAILY@0800 RF: 0 hydrochlorothiazide 25 mg tablet 25 mg PO DAILY@0800 RF: 0 PreserVision AREDS 7,160-113-100 [id number]-uz-[id number] tablet 2 tab PO BID@0800 RF: 0 ascorbic acid (vitamin C) 500 mg capsule 500 mg PO DAILY@0800 RF: 0 magnesium oxide 400 mg magnesium capsule 400 mg PO DAILY@0800 RF: 0 latanoprost 0.005 % drops See Rx Instructions .ROUTE .COMPLEX RF: 0 levothyroxine 100 mcg tablet 100 mcg PO DAILY@0700 RF: 0 Fiber (psyllium husk) 1 tab PO DAILY@0800 RF: 0 Probiotic 1 cap PO DAILY@0800 RF: 0 zinc 1 tab PO DAILY@0800 RF: 0 Discharge Orders: Discharge ED (Routine); Ordered 06/11/20 Ordered By: Leopoldo Castorena Referrals: Neel Anaya MD [Primary Care Provider] - Discharge Diet: Usual diet Discharge Activity: Increase activity as tolerated Patient Instructions: Opioid Safety Activity Restrictions/Additional Instructions: Follow-up with your primary care doctor or with Dr. Elder within the next week. Coding Level of Care Code ED Bank Courier for Chg Fwd Exam Detailed
[2020-06-11 08:39] LABS: Basophils % 0.5 %; Eosinophils # 0.1 10^3/uL (0.0-0.8); Eosinophils % 0.6 %; Hemoglobin 17.1 g/dL (11.5-15.3); Lymphocytes % 22.7 %; Mean Corpuscular HGB Conc 32.9 g/dL (30.0-36.0); Mean Corpuscular Hemoglobin 29.4 pg (28.0-34.0); Mean Corpuscular Volume 89.5 fL (81-99); Monocytes % 10.9 %; Neutrophils # 5.73 10^3/uL (1.8-7.7); Neutrophils % 64.8 %; Nucleated Red Blood Cells % 0 %; Platelet Count 249 10^3/cmm (130-400); Red Blood Count 5.81 10^6/uL (4.1-5.3); Red Cell Distribution Width 13.6 % (12.1-15.1); White Blood Count 8.8 10^3/uL (4.0-10.0)
[2020-06-11 09:17] LABS: Alanine Aminotransferase 16 U/L (0-33); Albumin Level 3.7 g/dL (3.5-5.2); Alkaline Phosphatase 123 IU/L (35-105); Anion Gap 13.6 (5-19); Aspartate Amino Transferase 16 U/L (0-32); Blood Urea Nitrogen 20 mg/dL (8-23); Carbon Dioxide 26 mmol/L (22-29); Chloride 102 mmol/L (98-107); Creatinine Clr Calc Pharmacy 48.6495; Globulin 3.2 g/dL (1.3-4.6); Glucose 104 mg/dL (65-115); Osmolality Calculated 287 mOsm/kg (285-295); Potassium 4.6 mmol/L (3.5-5.1); Sodium 137 mmol/L (136-145); Total Bilirubin 0.6 mg/dL (0.15-1.2); Total Protein 6.9 g/dL (6.6-8.7)
[2020-06-11 09:18] LABS: Troponin(5th) Baseline 14 ng/L (0-10)
--- NOTE | 2020-06-11 10:13 | ECG_ITS ---
[facility] Test Date: 2020-06-11 Pat Name: Lawanda Faria Department: Room: Gender: Female Regulatory Affairs Spec: : 1935 Requested By: Leopoldo Smalls Order Number: [id number] Eva MD: Soha Chamberlain M.D. Measurements Intervals [place] Rate: 63 P: -68 SD: 149 QRS: -20 QRSD: 81 T: 76 QT: 378 QTc: 389 Interpretive Statements Multifocal atrial rhythm POSSIBLE RIGHT VENTRICULAR CONDUCTION DELAY [RSR (QR) IN V1/V2] LEFT VENTRICULAR HYPERTROPHY AND ST-T CHANGE [VOLTAGE CRITERIA PLUS ST/T ABNORMALITY] CRITICAL TEST RESULT Compared to ECG 06/11/2020 08:23:05 ST (T wave) deviation now present Atrial fibrillation no longer present Left-axis deviation no longer present T-wave abnormality no longer present Electronically Signed On 06-11-2020 16:14:04 INDUSTRIAL ECOLOGIST by Soha Chamberlain M.D. [id number]
[2020-06-11] MEDS: dilTIAZem 30 mg Tablet PO (10:49)
[2020-06-11 11:17] LABS: Troponin 5 2HR 16.69 ng/L (0-10); Troponin 5 2HR Delta 2.69 ABS# (0-10)
== END 2020-06-11 12:42 | disposition home or self-care (01) ==
PROVIDERS: Emergency Provider Family Medicine; PCP Family Medicine
DX: I48.91 Unspecified atrial fibrillation (principal); C73 Malignant neoplasm of thyroid gland; I10 Essential (primary) hypertension; Z87.891 Personal history of nicotine dependence
CPT/HCPCS: 36415; 71045; 80053; 84484; 85025; 93005; 96365; 96366; 96375; 99284; J3490

== ENCOUNTER 2020-06-23 12:54 | Outpatient (CLI) | payer MEDICARE, SELFPAY ==
--- NOTE | 2020-07-11 12:39 | ONC FU_ITS ---
[facility] Patient Note Patient: Lawanda Faria Unit #: [id number]: 1935 Dictated By: Jean Paul FordeDate of Visit: Jun 23, 2020 Onc MED Follow-Up/Prog Note Chief Complaint: Thyroid Cancer History of Present Illness: Mrs Faria is an 84 year-old woman with metastatic papillary thyroid cancer. Her thyroid cancer was discovered after a routine preoperative chest xray prior to a planned right total knee arthroplasty in July 2008 showed multiple pulmonary nodules. An attempted needle biopsy of a lung nodule was unsuccessful. The procedure was complicated by atrial fibrillation and by hemorrhagic pleural effusion. She ultimately underwent an open biopsy of a right lung nodule in August 2008, and pathology was consistent with metastatic thyroid cancer. She underwent total thyroidectomy on 11/16/2008. Pathology was consistent with two foci of papillary thyroid carcinoma, the largest focus located in the left lobe measuring 2.2 cm. She underwent I-131 ablation with 157.5 mCi of radioactive iodine on 01/07/2009. She apparently had a good response. However, by March 2010 there was again evidence of multiple pulmonary nodules by PET/CT, consistent with recurrence. She was treated again with I-131 ablation with 150.4 mCi of radioactive iodine on 05/19/2010. During subsequent followup she had further I-131 ablations with 157 mCi of radioactive iodine on 06/28/2012 and on 06/04/2014. A surveillance chest CT on 12/06/2015 showed significant progression of the pulmonary metastatic disease. This included a significant increase in the number and size of pulmonary nodules which were noted to involve all lobes ranging in size from subcentimeter through 2.0 cm. The largest nodule was in the right upper lobe abutting the minor fissure. There were a few small mediastinal and hilar lymph nodes which had not progressed or changed. Left axillary lymph nodes also were noted to be stable. A left adrenal gland mass was stable measuring 3.0 cm. The appearance was felt to be consistent with benign adenoma. Dr Elder had seen her initially on 02/01/2016. She began a trial of therapy with lenvatinib 24 mg daily on 03/03/2016. Her baseline thyroglobulin level was greater than 3000 ng/mL. During subsequent follow-up she did require a dose reduction to 10 mg daily. On her follow-up visit on 05/22/2016, there was a significant decline in her renal function with BUN increasing to 45 mg/dL and creatinine to 3.2 mg/dL. She was given IV hydration, and the lenvatinib was put on hold. By the following week, the creatinine had come down to 1.4 mg/dL and it subsequently returned to baseline at 1.0 mg/dL. Her thyroglobulin level, though, had come down significantly, to 179.0 ng/mL compared to baseline greater than 3000 ng/mL. As of 07/06/2016 the thyroglobulin level was back up to 1942 ng/mL, and by 08/14/2016 it was again greater than 3000 ng/mL. At that point she restarted the lenvatinib, initially at 10 mg alternating with 4 mg daily. She then increased it to 10 mg daily when she ran out of the [address] Elder had seen her for a follow-up visit on 09/25/2016. At that point she was still taking 10 mg of lenvatinib daily, and she was tolerating it well. Her thyroglobulin level did come back at greater than 3000 ng/mL. She continued her same treatment. At a follow-up visit on 11/22/2016 the thyroglobulin level was back down to 1930 ng/mL. CT scans of the chest, abdomen, and pelvis on 12/18/2016 showed multiple bilateral pulmonary nodules, most of which were smaller or stable compared to the study from May 2016. A right lower lobe and the lingular nodule were noted to be larger. There was no other evidence of disease progression. Repeat chest CT on 03/02/2017 showed no significant change in the bilateral noncalcified pulmonary nodules compared to the study in November. There were no new nodules noted. Restaging CT scans of the chest, abdomen, and pelvis on 08/21/2017 showed innumerable pulmonary nodular densities consistent with metastatic disease, but similar to the prior studies. There was no obvious metastatic involvement in the abdomen/pelvis, but it was a noncontrast study. Noncontrast chest CT on 03/01/2018 showed unchanged multilobar noncalcified pulmonary nodules compared to the August 2017 study. Left adrenal mass also appeared stable. She continued treatment with lenvatinib 10 mg daily. During subsequent follow-up, she began having more side effects with the Lenvatinib again, significant enough that she did have to stop taking it intermittently. However, as of 10/17/[address] scans had shown no evidence of disease progression. Some of her pulmonary nodules appeared marginally smaller compared to the February 2018 study. At that point she had reported significant increase in symptoms, including fatigue, abdominal pain, nausea/vomiting, and joint pain. Her treatment was put on hold, and she did require IV hydration on several occasions. On 12/09/2018 she underwent laparoscopic cholecystectomy for symptomatic cholelithiasis. The procedure also included lysis of extensive adhesions. She also then required laparotomy with partial small bowel resection and stapled [id number] anastomosis for an enterotomy involving one of the bowel loops adherent to the abdominal wall. Her postoperative course was, cycle by atrial fibrillation, which she otherwise had an uneventful recovery. Her scheduled restaging CT scans of the chest, abdomen, and pelvis on 02/27/2019 showed evidence of progression of her pulmonary metastatic disease with interval enlargement and development of new noncalcified bilateral pulmonary nodules. There also appeared to be slight progression of precarinal lymphadenopathy. There was no evidence of metastatic disease in the abdomen or pelvis. On 03/03/2019 she was admitted to the hospital with atrial fibrillation/RVR. It was controlled adequately after changing her medication from sotalol to metoprolol. However, at her initial evaluation in the emergency room she also was hypoxic. A CT pulmonary angiogram showed extensive pulmonary metastatic disease as well as central pulmonary artery enlargement suggesting pulmonary arterial hypertension, but there was no evidence of pulmonary embolus. She continued on symptomatic management. Her other medical illnesses include hypertension and degenerative arthritis. She also had transient atrial fibrillation following an attempted needle lung biopsy in 2008. She had smoked in the past, but only about a pack of cigarettes per week, and she quit smoking more than 40 years ago. INTERIM HISTORY: Mrs. Faria is here today for follow-up. Her follow-up actually had been postponed a few weeks due to increment weather. She states overall she is doing well. She did have a visit to the [facility] emergency room on 06/11/2020 for palpitations, diaphoresis, shortness of breath and cough. Her chest x-ray did show her known bilateral numerous pulmonary metastatic nodules had mildly increased since February 2019. The largest nodule in the central left lung measured 2.8 cm in diameter. There were no osseous abnormalities noted. She was diagnosed with atrial fib and placed on Cardizem CD 121 daily and Eliquis 2.5 mg twice daily. She states she is not taking Eliquis because she bleeds so easily. She is on a baby aspirin daily. She also states that her heart rate had been running in the 40s if she takes the diltiazem 120 twice daily therefore she has only been taking it daily. She denies any palpitations or noted arrhythmias. She states her shortness of breath is better and she has had no further diaphoresis. She states overall she feels better. She reports that she did get her first Covid vaccine on June 05 and did well. She states she did have little bit of a headache but that was relieved with Motrin. She denies any other concerns today. She states her appetite is good she states she has been watching her diet and trying to exercise a little bit more at home. Her is no longer driving so she is doing all the driving herself now and that causes her little stress from time to time. However she states that she has been watching her diet she states she only eats between 9 AM and 6 PM she states she feels so much better overall and has good energy. Her ECOG is 0. Past Medical History: Atrial fibrillation Degenerative arthritis Hypertension Hypothyroidism Metastatic thyroid cancer Lorsartan only B/P now Past Surgical History: Cataract excision in 2020 Covid 19 vaccine #1 in 2020 Total thyroidectomy in 2008 Open biopsy of right lung in 2008 Repair of incarcerated hernia in 2006 Hysterectomy in 1996 Caesarean section in 1961 Caesarean section in 1957 Appendectomy in 1955 Tonsillectomy in 194 Allergies: Amiodarone HCl and contrast dye . Medications: Biotin 3 Capsule (of 5000 mcg) Oral daily Calcium + D 2 Tablet Oral daily cbd 15 mL (of 3 mg) Oil Sublingual daily cell food 1 Drop(s) Liquid Oral b.i.d. dilTIAZem HCl 1 Tablet (of 120 mg) Oral b.i.d. Levothyroxine Sodium 1 Tablet (of 100 mcg) Oral daily Losartan Potassium-HCTZ 1 Tablet (of 100-25 mg) Oral daily Lumigan 1 drop(s) (of 0.01 %) Solution Ophthalmic daily Magnesium 1 (400 mg) Capsule Oral daily ring relief 1 drop(s) Solution b.i.d. & at bedtime PRN Singulair 1 Tablet (of 10 mg) Oral daily Systane 1 drop(s) (of 0.4-0.3 %) Solution Ophthalmic b.i.d. PRN tumeric 1 Capsule daily Vitamin C 1 Tablet Oral daily Zinc 1 Tablet (of 15 mg) Oral daily Family History: Ms. Faria's mother at age 78: stomach cancer brain tumor. Ms. Faria's father at age 78: alzheimers. Father with dementia at age 78. Mother had stomach cancer and subsequently a brain tumor. She also at age 78. A brother and a sister are in good health. Social History: Ms. Faria is and she is retired. Ms. Faria no longer smokes. She has no history of drinking. She has indicated exposure to the following products: cigarettes. Ms. Faria reports the following support systems: lives with spouse, significant other, family, or friends, lives in own house, supportive family/friends willing to assist with needs, and adequate transportation available for expected visits. Her diet consists of regular meals. She indicates her activity level as: daily activities. She had previously worked in a [employer]. She smoked cigarettes occasionally in the past, estimated at a pack per week. She quit 30-45 years ago. She does not drink alcohol. Review Of Symptoms: Constitutional Denies fevers, chills, night sweats. She states her energy is good. Allergic/Immunologic No reactions. Eyes Denies significant visual changes. No diplopia. No amaurosis. ENMT Denies changes in hearing, sore throat, mouth sores, difficulty or changes in swallowing ability, and/or sinus drainage. Endocrine No new concerns. HX thyroid cancer. Hematologic/Lymphatic Denies easy bruising or bleeding. The patient denies any tender or palpable lymph nodes. Respiratory Denies dyspnea on exertion, chest pain, cough or hemoptysis. Denies orthopnea. Cardiovascular Denies anginal chest pain, palpitations or orthopnea. Gastrointestinal Denies worsening diarrhea or constipation. Denies change in bowel habits and/or stool color, no heartburn. Genitourinary (F) No hematuria, hesitancy, incontinence, vaginal bleeding, discharge or other problems with urination. Musculoskeletal Denies joint pain, swelling or redness. No decreased range of motion. Integumentary Denies chronic rashes, inflammation, ulcerations or skin changes. Neurologic Denies headache, blurred vision, and no areas of focal weakness or numbness. Normal hobble gait. No sensory problems. Psychiatric Denies insomnia, depression, karol or mood swings. Vital Signs: Performed on Jun 23, 2020 13:08 Height - 60.00 in Weight - 171.6 lbs (LOW) BSA - 1.75 sq.m BMI - 33.51 (HIGH) Temperature - 97.6 F (LOW) Pulse - 72 /min Respiration - 18 /min BP - 134/77 mm(hg) O2 Sat - 92 % (LOW) Pain - 7,0 - Fully active, able to carry on all predisease activities without restrictions. (ECOG) Physical Examination: Constitutional Alert, oriented, no acute distress. Skin pink, warm and dry. Head Normocephalic; atraumatic. Eyes Conjunctivae and sclerae are clear and without icterus. Pupils are reactive and equal. Neck Supple without masses or thyromegaly. No jugular venous distension. Hematologic/Lymphatic No petechiae or purpura. No tender or palpable lymph nodes in the cervical or supraclavicular areas. Respiratory Lungs are clear to auscultation without rhonchi or wheezing. Cardiovascular Regular heart rate- no murmur, clicks or rubs. Abdomen Non-tender, non-distended, no masses, ascites. Good bowel sounds noted in all quads. No guarding or rebound tenderness. No pulsatile masses. Back/Spine Non-tender to palpation. Extremities No visible deformities, no cyanosis, clubbing or edema. Musculoskeletal No tenderness or swelling, normal range of motion without obvious weakness. Integumentary No rashes or lesions. Neurologic No sensory or motor deficits, normal cerebellar function, slow, hobbling type gait-chronic due to knee pain but it her gait has improved overall. Psychiatric Alert and oriented times three. Coherent speech. Verbalizes understanding of our discussions today. Laboratory:] Impression: 1. Metastatic papillary thyroid cancer, initially diagnosed by open lung biopsy in August 2008. Treatment included total thyroidectomy on 11/16/2008 followed by I-131 ablation with 157.5 mCI of radioactive iodine on 01/07/2009. Her subsequent treatment has included repeat I-131 ablations with 150.4 mCi of radioactive iodine on 05/19/2010, 157 mCi of radioactive iodine on 06/28/2012, and 157 mCI of radioactive iodine on 06/04/2014. Followup chest CT on 12/06/2015 showed significant increase in the size and number of pulmonary metastatic lesions, consistent with disease progression. 2. Hypertension. 3. Degenerative arthritis. 4. She had transient atrial fibrillation following attempted needle lung biopsy in 2008. 5. On 12/09/2018 she underwent laparoscopic cholecystectomy and lysis of extensive adhesions. She subsequently required laparotomy with partial small bowel resection for an enterotomy involving a bowel loop adherent to the abdominal wall. Plan: 1. Metastatic papillary thyroid cancer, initially diagnosed by open lung biopsy in August 2008. Treatment included total thyroidectomy on 11/16/2008 followed by I-131 ablation with 157.5 mCI of radioactive iodine on 01/07/2009. Her subsequent treatment has included repeat I-131 ablations with 150.4 mCi of radioactive iodine on 05/19/2010, 157 mCi of radioactive iodine on 06/28/2012, and 157 mCI of radioactive iodine on 06/04/2014. Followup chest CT on 12/06/2015 showed significant increase in the size and number of pulmonary metastatic lesions, consistent with disease progression. She began a trial of therapy with lenvatinib in February 2016. She started at the recommended dosage of 24 mg daily, but she did require a reduction to 10 mg daily. She had been tolerating it well. However, on her followup visit on 05/22/2016 there was a significant decline in her renal function with serum creatinine increasing from baseline 1.1 mg/dL to 3.2 mg/dL. There was a very significant decline in her thyroglobulin level, so that she did appear to be showing a response to the treatment. However, during subsequent follow-up she continued to have difficulty tolerating the lenvatinib, even at reduced dosage. She ultimately stopped treatment in September 2018. Her scheduled restaging CT scans of the chest, abdomen, and pelvis on 02/27/2019 showed evidence of progression of her pulmonary metastatic disease with interval enlargement and development of new noncalcified bilateral pulmonary nodules. There also appeared to be slight progression of precarinal lymphadenopathy. There was no evidence of metastatic disease in the abdomen or pelvis. During subsequent follow-up she has remained on observation/symptomatic management. She presented in May with increased shortness of breath and was treated with prednisone. She did present to the emergency room on June 11, 2020 and was diagnosed with atrial fib. She is currently off of the prednisone and is on Cardizem 120 daily along with her normal losartan dosing. She has had no further problems. She was due for follow-up CT of the chest abdomen pelvis as well as echocardiogram with this visit but that has not been obtained. She states she is really not eager to pursue any further treatment at this time as she is helping care for her who has had significant vision problems and is no longer driving. She states she still does, wants to watch and see how she is doing as she feels so good currently. We did review her labs from the ER visit on 06/11/2020. Her white count was 8.8 hemoglobin 17.1 platelets 249,000 and ANC was 5730. Creatinine 0.5 LFTs were normal potassium 4.6 alk phos 123. 2. Vitamin D deficiency. She will continue her vitamin D supplement to 2000 units of vitamin D3 daily. 3. Follow-up plan We will plan to see her back in 1 month with CBC CMP and TSH & thyroglobulin. Mrs. Faria has been instructed to contact us in interim should questions or problems arise. Signed By: Jean Paul Forde-, AOCNP Reji Elder MD <<Signature on File>>
== END 2020-06-23 12:55 | disposition home or self-care (01) ==
PROVIDERS: PCP Family Medicine; Visit Provider Nurse Practitioner
DX: C73 Malignant neoplasm of thyroid gland (principal); C78.01 Secondary malignant neoplasm of right lung; C78.02 Secondary malignant neoplasm of left lung; E89.0 Postprocedural hypothyroidism; I48.91 Unspecified atrial fibrillation; E55.9 Vitamin D deficiency, unspecified; R59.0 Localized enlarged lymph nodes; Z92.22 Personal history of monoclonal drug therapy; Z79.899 Other long term (current) drug therapy
CPT/HCPCS: 99214

== ENCOUNTER 2020-08-02 08:39 | Outpatient (CLI) | payer MEDICARE, SELFPAY ==
[2020-08-02 09:24] LABS: Basophils % 0.3 %; Eosinophils # 0.3 10^3/uL (0.0-0.8); Eosinophils % 4.4 %; Hematocrit 43.5 % (37.0-47.0); Lymphocytes # 1.5 10^3/uL (0.8-4.8); Lymphocytes % 25.5 %; Mean Corpuscular HGB Conc 32.2 g/dL (30.0-36.0); Mean Corpuscular Volume 93.3 fL (81-99); Mean Platelet Volume 10.4 fL (7.4-10.4); Monocytes # 0.5 10^3/uL (0.2-0.9); Monocytes % 8.4 %; Neutrophils # 3.63 10^3/uL (1.8-7.7); Neutrophils % 60.7 %; Nucleated Red Blood Cells % 0 %; Platelet Count 240 10^3/cmm (130-400); Red Blood Count 4.66 10^6/uL (4.1-5.3); Red Cell Distribution Width 13.5 % (12.1-15.1)
[2020-08-02 09:51] LABS: Alanine Aminotransferase 11 U/L (0-33); Albumin Level 3.9 g/dL (3.5-5.2); Alkaline Phosphatase 111 IU/L (35-105); Anion Gap 11.7 (5-19); Aspartate Amino Transferase 14 U/L (0-32); Blood Urea Nitrogen 16 mg/dL (8-23); Calcium 8.6 mg/dL (8.5-10.5); Carbon Dioxide 29 mmol/L (22-29); Chloride 104 mmol/L (98-107); Globulin 2.7 g/dL (1.3-4.6); Glucose 111 mg/dL (65-115); Osmolality Calculated 294 mOsm/kg (285-295); Potassium 3.7 mmol/L (3.5-5.1); Sodium 141 mmol/L (136-145); Thyroid Stimulating Hormone 0.07 uIU/mL (0.27-4.20); Total Bilirubin 0.7 mg/dL (0.15-1.2); Total Protein 6.6 g/dL (6.6-8.7)
--- NOTE | 2020-08-03 07:49 | ONC FU_ITS ---
Dr. Elder Patient Follow-Up Note Patient: Lawanda Faria Unit #: [id number]: 1935 Dicatated By: Reji Elder M.D.Date of Visit:Aug 02, 2020 Onc Med Follow-up/Prog Note Chief Complaint: Thyroid Cancer History of Present Illness: This is an 84 year-old woman with metastatic papillary thyroid cancer. Her thyroid cancer was discovered after a routine preoperative chest xray prior to a planned right total knee arthroplasty in July 2008 showed multiple pulmonary nodules. An attempted needle biopsy of a lung nodule was unsuccessful. The procedure was complicated by atrial fibrillation and by hemorrhagic pleural effusion. She ultimately underwent an open biopsy of a right lung nodule in August 2008, and pathology was consistent with metastatic thyroid cancer. She underwent total thyroidectomy on 11/16/2008. Pathology was consistent with two foci of papillary thyroid carcinoma, the largest focus located in the left lobe measuring 2.2 cm. She underwent I-131 ablation with 157.5 mCi of radioactive iodine on 01/07/2009. She apparently had a good response. However, by March 2010 there was again evidence of multiple pulmonary nodules by PET/CT, consistent with recurrence. She was treated again with I-131 ablation with 150.4 mCi of radioactive iodine on 05/19/2010. During subsequent followup she had further I-131 ablations with 157 mCi of radioactive iodine on 06/28/2012 and on 06/04/2014. A surveillance chest CT on 12/06/2015 showed significant progression of the pulmonary metastatic disease. This included a significant increase in the number and size of pulmonary nodules which were noted to involve all lobes ranging in size from subcentimeter through 2.0 cm. The largest nodule was in the right upper lobe abutting the minor fissure. There were a few small mediastinal and hilar lymph nodes which had not progressed or changed. Left axillary lymph nodes also were noted to be stable. A left adrenal gland mass was stable measuring 3.0 cm. The appearance was felt to be consistent with benign adenoma. I had seen her initially on 02/01/2016. She began a trial of therapy with lenvatinib 24 mg daily on 03/03/2016. Her baseline thyroglobulin level was greater than 3000 ng/mL. During subsequent follow-up she did require a dose reduction to 10 mg daily. On her follow-up visit on 05/22/2016, there was a significant decline in her renal function with BUN increasing to 45 mg/dL and creatinine to 3.2 mg/dL. She was given IV hydration, and the lenvatinib was put on hold. By the following week, the creatinine had come down to 1.4 mg/dL and it subsequently returned to baseline at 1.0 mg/dL. Her thyroglobulin level, though, had come down significantly, to 179.0 ng/mL compared to baseline greater than 3000 ng/mL. As of 07/06/2016 the thyroglobulin level was back up to 1942 ng/mL, and by 08/14/2016 it was again greater than 3000 ng/mL. At that point she restarted the lenvatinib, initially at 10 mg alternating with 4 mg daily. She then increased it to 10 mg daily when she ran out of the 4 mg tablets. I had seen her for a follow-up visit on 09/25/2016. At that point she was still taking 10 mg of lenvatinib daily, and she was tolerating it well. Her thyroglobulin level did come back at greater than 3000 ng/mL. She continued her same treatment. At a follow-up visit on 11/22/2016 the thyroglobulin level was back down to 1930 ng/mL. CT scans of the chest, abdomen, and pelvis on 12/18/2016 showed multiple bilateral pulmonary nodules, most of which were smaller or stable compared to the study from May 2016. A right lower lobe and the lingular nodule were noted to be larger. There was no other evidence of disease progression. Repeat chest CT on 03/02/2017 showed no significant change in the bilateral noncalcified pulmonary nodules compared to the study in November. There were no new nodules noted. Restaging CT scans of the chest, abdomen, and pelvis on 08/21/2017 showed innumerable pulmonary nodular densities consistent with metastatic disease, but similar to the prior studies. There was no obvious metastatic involvement in the abdomen/pelvis, but it was a noncontrast study. Noncontrast chest CT on 03/01/2018 showed unchanged multilobar noncalcified pulmonary nodules compared to the August 2017 study. Left adrenal mass also appeared stable. She continued treatment with lenvatinib 10 mg daily. During subsequent follow-up, she began having more side effects with the Lenvatinib again, significant enough that she did have to stop taking it intermittently. However, as of 10/17/[address] scans had shown no evidence of disease progression. Some of her pulmonary nodules appeared marginally smaller compared to the February 2018 study. At that point she had reported significant increase in symptoms, including fatigue, abdominal pain, nausea/vomiting, and joint pain. Her treatment was put on hold, and she did require IV hydration on several occasions. On 12/09/2018 she underwent laparoscopic cholecystectomy for symptomatic cholelithiasis. The procedure also included lysis of extensive adhesions. She also then required laparotomy with partial small bowel resection and stapled [id number] anastomosis for an enterotomy involving one of the bowel loops adherent to the abdominal wall. Her postoperative course was, cycle by atrial fibrillation, which she otherwise had an uneventful recovery. Her scheduled restaging CT scans of the chest, abdomen, and pelvis on 02/27/2019 showed evidence of progression of her pulmonary metastatic disease with interval enlargement and development of new noncalcified bilateral pulmonary nodules. There also appeared to be slight progression of precarinal lymphadenopathy. There was no evidence of metastatic disease in the abdomen or pelvis. On 03/03/2019 she was admitted to the hospital with atrial fibrillation/RVR. It was controlled adequately after changing her medication from sotalol to metoprolol. However, at her initial evaluation in the emergency room she also was hypoxic. A CT pulmonary angiogram showed extensive pulmonary metastatic disease as well as central pulmonary artery enlargement suggesting pulmonary arterial hypertension, but there was no evidence of pulmonary embolus. She continued on symptomatic management. Her other medical illnesses include hypertension and degenerative arthritis. She also had transient atrial fibrillation following an attempted needle lung biopsy in 2008. She had smoked in the past, but only about a pack of cigarettes per week, and she quit smoking more than 40 years ago. INTERIM HISTORY: She is seen for a scheduled visit. Her main complaint today is that she recently messed up her right hip. She has been having pain, which actually starts in the low back and radiates into the right posterior hip area. It is significantly limiting her activity. She has been mostly sedentary. ECOG score is 3. She says her appetite is reasonably good. She does not have fever. She sometimes has sweating at night. She has some shortness of breath, but she says her breathing has not been bad. She has been coughing, not as months as she was. It mainly bothers her at night and when she first gets up in the morning. She does not complain of chest pain. She has no GI complaints. Her bowel function lately has been better. Her bladder function is pretty good, though she sometimes has frequent urination. She also has a little bit of joint pain in her fingers. She does not complain of headache. She has dizziness if she gets up too fast. She has no numbness/paresthesia or other focal neurologic symptoms. Medications: Biotin 3 Capsule (of 5000 mcg) Oral daily, Calcium + D 2 Tablet Oral daily, Cardizem CD 1 (240 mg) Capsule SR 24 HR Oral daily, cbd 15 mL (of 3 mg) Oil Sublingual daily, cell food 1 Drop(s) Liquid Oral b.i.d., Levothyroxine Sodium 1 Tablet (of 100 mcg) Oral daily, Losartan Potassium-HCTZ 1 Tablet (of 100-25 mg) Oral daily, Lumigan 1 drop(s) (of 0.01 %) Solution Ophthalmic daily, Magnesium 1 (400 mg) Capsule Oral daily, ring relief 1 drop(s) Solution b.i.d. & at bedtime PRN, Singulair 1 Tablet (of 10 mg) Oral daily, Systane 1 drop(s) (of 0.4-0.3 %) Solution Ophthalmic b.i.d. PRN, tumeric 1 Capsule daily, Vitamin C 1 Tablet Oral daily, Zinc 1 Tablet (of 15 mg) Oral daily Allergies: Amiodarone HCl and contrast dye . Vital Signs: Performed on Aug 02, 2020 10:16 Height - 60.00 in Weight - 172.4 lbs (HIGH) BSA - 1.75 sq.m BMI - 33.67 (HIGH) Temperature - 98.1 F (LOW) Pulse - 58 /min (LOW) Respiration - 18 /min BP - 125/75 mm(hg) O2 Sat - 94 % (LOW) Pain - 8 Fatigue - 6 Physical Examination: Constitutional - She appears somewhat weak generally, Eyes - Sclerae nonicteric. Conjunctivae clear, ENMT - No lesions noted in the oral cavity, Hematologic/Lymphatic - No cervical, clavicular, or axillary adenopathy, Respiratory - Lungs show diminished air movement bilaterally. There is mild expiratory wheezing, Cardiovascular - Heart rhythm is irregular. There is a III/ systolic murmur. There is no gallop or rub noted, Abdomen - Soft. Liver and spleen are not enlarged. There is no abdominal mass or ascites noted. There is no inguinal adenopathy, Extremities - No edema, Neurologic - No focal neurologic deficits noted. Lab/Imaging: CBC shows hemoglobin 14.0 g, white blood cell count 6000, and platelet count 240,000. Comprehensive metabolic profile is unremarkable except for slightly elevated alkaline phosphatase, but that is stable compared to previous studies. Her TSH level is adequately suppressed at 0.07 ???IU/mL. The thyroglobulin level is pending. Problem List: 1. Metastatic papillary thyroid cancer, initially diagnosed by open lung biopsy in August 2008. Treatment included total thyroidectomy on 11/16/2008 followed by I-131 ablation with 157.5 mCI of radioactive iodine on 01/07/2009. Her subsequent treatment has included repeat I-131 ablations with 150.4 mCi of radioactive iodine on 05/19/2010, 157 mCi of radioactive iodine on 06/28/2012, and 157 mCI of radioactive iodine on 06/04/2014. Followup chest CT on 12/06/2015 showed significant increase in the size and number of pulmonary metastatic lesions, consistent with disease progression. 2. Hypertension. 3. Degenerative arthritis. 4. She had transient atrial fibrillation following attempted needle lung biopsy in 2008. 5. On 12/09/2018 she underwent laparoscopic cholecystectomy and lysis of extensive adhesions. She subsequently required laparotomy with partial small bowel resection for an enterotomy involving a bowel loop adherent to the abdominal wall. Problems Addressed with this Encounter and Plan: 1. Patient with metastatic papillary thyroid cancer, initially diagnosed by open lung biopsy in August 2008. Treatment included total thyroidectomy on 11/16/2008 followed by I-131 ablation with 157.5 mCI of radioactive iodine on 01/07/2009. Her subsequent treatment has included repeat I-131 ablations with 150.4 mCi of radioactive iodine on 05/19/2010, 157 mCi of radioactive iodine on 06/28/2012, and 157 mCI of radioactive iodine on 06/04/2014. Followup chest CT on 12/06/2015 showed significant increase in the size and number of pulmonary metastatic lesions, consistent with disease progression. She began a trial of therapy with lenvatinib in February 2016. She started at the recommended dosage of 24 mg daily, but she did require a reduction to 10 mg daily. She had been tolerating it well. However, on her followup visit on 05/22/2016 there was a significant decline in her renal function with serum creatinine increasing from baseline 1.1 mg/dL to 3.2 mg/dL. There was a very significant decline in her thyroglobulin level, so that she did appear to be showing a response to the treatment. However, during subsequent follow-up she continued to have difficulty tolerating the lenvatinib, even at reduced dosage. She ultimately stopped treatment in September 2018. Her scheduled restaging CT scans of the chest, abdomen, and pelvis on 02/27/2019 showed evidence of progression of her pulmonary metastatic disease with interval enlargement and development of new noncalcified bilateral pulmonary nodules. There also appeared to be slight progression of precarinal lymphadenopathy. There was no evidence of metastatic disease in the abdomen or pelvis. She has since then remained on observation/symptomatic management. During follow-up she has had ongoing problems with shortness of breath and she has some associated wheezing. I have suspected that this is associated with her pulmonary metastatic disease. She has had difficulty tolerating treatment for her due to tachycardia. At this point I will have her try using a Xopenex inhaler 2 or 3 times a day. She will be scheduled for a follow-up visit in 1 month. 2. She presents today with new pain in the low back/posterior right hip. This may just be associated with underlying degenerative disease, but metastatic bone involvement is also a consideration. She will be scheduled for x-rays of the lumbosacral spine, pelvis, and right hip. She will have further evaluation as indicated. Signed By: Reji Elder M.D. <<Signature on File>>
== END 2020-08-02 08:40 | disposition home or self-care (01) ==
PROVIDERS: PCP Family Medicine; Visit Provider Nurse Practitioner
DX: C78.01 Secondary malignant neoplasm of right lung (principal); C78.02 Secondary malignant neoplasm of left lung; C73 Malignant neoplasm of thyroid gland; R06.02 Shortness of breath; M54.5 Low back pain; M25.551 Pain in right hip; E89.0 Postprocedural hypothyroidism; Z79.899 Other long term (current) drug therapy
CPT/HCPCS: 80053; 84432; 84443; 85025; 86800; 99214

== ENCOUNTER 2020-08-02 14:10 | Outpatient (CLI) | payer MEDICARE, SELFPAY ==
--- NOTE | 2020-08-02 14:22 | XRR_ITS ---
PROCEDURE INFORMATION: Exam: XR Lumbosacral Spine Exam date and time: 08/02/2020 3:10 PM Age: 84 years old Clinical indication: Low back pain; Additional info: Thyroid cancer/pain in low back R hip TECHNIQUE: Imaging protocol: XR of the lumbosacral spine. Views: 2 or 3 views. COMPARISON: CT Chest/Abdomen/Pelvis wo IV 02/27/2019 12:50 PM FINDINGS: Bones/joints: Osteopenia and degenerative change. Anatomic alignment. Asymmetric erosive change about the right sacroiliac joint. Lungs: Multiple nodules in the visualized lung obando. Intraperitoneal space: Status post cholecystectomy. Gastrointestinal tract: Prominent stool. Vasculature: Vascular calcification. XR/XR lumbar spine 2-3V* [id number] IMPRESSION: 1. Osteopenia and degenerative change. 2. Asymmetric erosive change about the right sacroiliac joint. 3. Multiple nodules in the visualized lung obando.
--- NOTE | 2020-08-02 14:22 | XRR_ITS ---
PROCEDURE INFORMATION: Exam: XR Right Hip Exam date and time: 08/02/2020 3:10 PM Age: 84 years old Clinical indication: Hip pain; Right hip; Additional info: Thyroid cancer/pain in low back right hip TECHNIQUE: Imaging protocol: XR Right hip. Views: 1 view hip with pelvis when performed. COMPARISON: CT Chest/Abdomen/Pelvis wo IV 02/27/2019 12:50 PM FINDINGS: Bones/joints: Destructive lytic process in the right sacrum, suggesting metastatic disease. Degenerative change. Erosive change involving the right sacroiliac joint. Soft tissues: Skin folds. Vasculature: Vascular calcification. XR/XR hip RT 2-3V wo/w pel* [id number] IMPRESSION: Destructive lytic process in the right sacrum, suggesting metastatic disease.
== END 2020-08-02 14:11 | disposition home or self-care (01) ==
LOC: RAD 14:17
PROVIDERS: PCP Family Medicine; Visit Provider Internal Medicine Medical Oncology
DX: M54.5 Low back pain (principal); M25.551 Pain in right hip; M85.88 Other specified disorders of bone density and structure, other site; R91.8 Other nonspecific abnormal finding of lung field
CPT/HCPCS: 72100; 73502

== ENCOUNTER 2020-08-05 06:25 | Outpatient (CLI) | payer MEDICARE, SELFPAY ==
--- NOTE | 2020-08-05 14:39 | N.ONRAD NP_ITS ---
Radiation Oncology Consultation Patient Name: Lawanda Faria Date of : 1935 Date of Service: 08/05/2020 Attending Physician: Jacky Osborne M.D. Lawanda Faria was seen in consultation this afternoon at the request of Reji Elder M.D. for consideration of palliative radiotherapy for the management of metastatic thyroid carcinoma with a newly diagnosed skeletal metastasis. She was diagnosed with metastatic papillary thyroid cancer in August 2008 following a preoperative chest radiograph for a right total knee arthroplasty that identified multiple pulmonary nodules. A right lung biopsy established the diagnosis. A total thyroidectomy was performed in October 2008 with adjuvant radioactive iodine ablation administered. Pulmonary recurrences were demonstrated on PET/CT imaging in March 2010. Radioactive iodine was prescribed and readministered in June 2012 and May 2014 because of refractory/recurrent disease. In 2015, she was prescribed Lenvima with a partial response experienced. The medication was discontinued in February 2018 related to adverse effects. (The patient???s history was personally reviewed in [facility].) During a routine follow-up appointment she described new back pain and right hip pain. A right hip radiograph ordered on August 02, 2020 (independently reviewed in [facility]) identified a lytic process in the right sacrum suggestive of metastatic disease. A lumbosacral spine radiograph revealed osteopenia and degenerative changes within the lumbar spine. The patient was evaluated for palliative radiotherapy to the sacrum on account of worsening. I discussed with Ms. Faria the role for palliative radiotherapy. I would recommend a 2-week course of radiation therapy. A CT scan will be acquired for radiotherapy planning to delineate the clinical target volume prior to beginning treatment. The potential toxicities of pelvic radiotherapy were reviewed. The patient has verbalized understanding would like to proceed as recommended. Her medical treatment was discussed with Reji Elder M.D. Signed by: Dr. Jacky Osborne 08/05/2020 2:38:01 PM
== END 2020-08-05 06:26 | disposition home or self-care (01) ==
LOC: ONCMED 06:27
PROVIDERS: PCP Family Medicine; Visit Provider Radiology Radiation Oncology
DX: C79.51 Secondary malignant neoplasm of bone (principal); C73 Malignant neoplasm of thyroid gland; M85.88 Other specified disorders of bone density and structure, other site
CPT/HCPCS: 99205

== ENCOUNTER 2020-08-20 05:48 | Outpatient (RCR) | payer MEDICARE, SELFPAY ==
--- NOTE | 2020-08-12 07:30 | CT_ITS ---
Radiation Therapy Planning CT images; total exam DLP: 1047.48 mGy-cm MTDD
--- NOTE | 2020-08-17 13:51 | ONCRAD TMN_ITS ---
Radiation Oncology Treatment Management Note Patient Name: Lawanda Faria Date of : 1935 Date of Service: 08/17/2020 Attending Physician: Jacky Osborne M.D. Lawanda Faria is an 84 year-old white female diagnosed with thyroid carcinoma in 2008 and recently identified to have a sacral metastasis. The patient has received 3 Gy of a prescribed 30 Gy to the right sacral mass with a 3-dimensional conformal radiotherapy plan utilizing AP, PA, and right lateral ports with a [id number] treatment technique. Upon review of systems, she described no pain relief from oxycodone. On physical examination, the patient weighed 174 lbs. Her temperature was 98.7 ???F with a blood pressure of 126/53 mmHg. Her pulse was 67 bpm and respiratory rate was 20. Continue palliative radiotherapy as prescribed. I will prescribe fentanyl transdermal (12 mcg/hr.) and titrate to pain control. Signed by: Dr. Jacky Osborne 08/17/2020 1:49:35 PM
== END 2020-08-20 23:59 | disposition home or self-care (01) ==
LOC: ONCMED 05:48
PROVIDERS: PCP Family Medicine; Visit Provider Radiology Radiation Oncology
DX: Z51.0 Encounter for antineoplastic radiation therapy (principal); C73 Malignant neoplasm of thyroid gland; C78.01 Secondary malignant neoplasm of right lung; C78.02 Secondary malignant neoplasm of left lung; C79.51 Secondary malignant neoplasm of bone; Z79.899 Other long term (current) drug therapy
CPT/HCPCS: 77290; 77295; 77300; 77334; 77387; 77412

== ENCOUNTER 2020-08-27 05:42 | Outpatient (RCR) | payer MEDICARE, SELFPAY ==
--- NOTE | 2020-08-24 13:47 | ONCRAD TMN_ITS ---
Radiation Oncology Treatment Management Note Patient Name: Lawanda Faria Date of : 1935 Date of Service: 08/24/2020 Attending Physician: Jacky Osborne M.D. Lawanda Faria is an 84 year-old white female diagnosed with thyroid carcinoma in 2008 and recently identified to have a sacral metastasis. The patient has received 18 Gy of a prescribed 30 Gy to the right sacral mass with a 3-dimensional conformal radiotherapy plan utilizing AP, PA, and right lateral ports with a [id number] treatment technique. Upon review of systems, she described significant pain relief.. On physical examination, the patient weighed 171 lbs. Her temperature was 98???F with a blood pressure of 144/72 mmHg. Her pulse was 77 bpm and respiratory rate was 22. Continue palliative radiotherapy as planned. Continue fentanyl transdermal (12 mcg/hr). Signed by: Dr. Jacky Osborne 08/24/2020 1:45:48 PM
== END 2020-08-30 10:00 | disposition home or self-care (01) ==
LOC: ONCMED 05:42
PROVIDERS: PCP Family Medicine; Visit Provider Radiology Radiation Oncology
DX: Z51.0 Encounter for antineoplastic radiation therapy (principal); C73 Malignant neoplasm of thyroid gland; C78.01 Secondary malignant neoplasm of right lung; C78.02 Secondary malignant neoplasm of left lung; C79.51 Secondary malignant neoplasm of bone; Z79.899 Other long term (current) drug therapy
CPT/HCPCS: 77336; 77387; 77412; 80053; 85025

== ENCOUNTER 2020-08-30 10:22 | Outpatient (CLI) | payer MEDICARE, SELFPAY ==
[2020-08-27 15:48] VITALS: BMI 33.0
--- NOTE | 2020-08-30 10:47 | US_ITS ---
WS: [id number] ULTRASOUND GUIDED BIOPSY RIGHT SACRAL MASS. HISTORY: sacral mass, history of thyroid cancer. Procedure, risks, and complications are explained to the patient. Consent was obtained. Skin is clean sed with ChloraPrep and anesthetized with 1% buffered lidocaine. Mass is localized to the RIGHT sacrum. Small dermatome is made. 18-gauge Achieve needle is used for m ultiple biopsies of the sacral soft tissue mass. No complications are encountered during this examina tion. Specimen is placed in saline as requested by pathology. Patient will be discharged after short stay to ensure no complications. US/US biopsy [id number] IMPRESSION: Uncomplicated ultrasound-guided biopsy of a RIGHT pelvic mass. Numerous soft ti ssue biopsies obtained and placed in saline.
[2020-08-30 11:00] VITALS: BMI 31.2
[2020-08-30 11:12] VITALS: BP 133/67; PULSE 111; RESP 16; TEMP 36.6; O2SAT 93
[2020-08-30 11:31] LABS: INR 1.01 (0.8-1.2)
[2020-08-30 12:11] VITALS: BP 121/77; PULSE 65; RESP 18; O2SAT 91
[2020-08-30 12:43] VITALS: BP 137/75; PULSE 70; RESP 20; O2SAT 94
== END 2020-08-30 10:23 | disposition home or self-care (01) ==
LOC: GILAB 10:28
PROVIDERS: Radiology Diagnostic Radiology; PCP Family Medicine; Visit Provider Radiology Radiation Oncology
DX: M53.3 Sacrococcygeal disorders, not elsewhere classified (principal)
CPT/HCPCS: 20225; 76942; 85610; 88309

== ENCOUNTER 2020-08-31 07:35 | Emergency (ER) | payer MEDICARE, SELFPAY ==
[2020-08-31 07:40] VITALS: BMI 33.0
--- NOTE | 2020-08-31 07:44 | CT_ITS ---
WS: [id number] CT ABDOMEN AND PELVIS WITH CONTRAST HISTORY: abd pain, weakness. Biopsy previous day of the RIGHT pelvic mass. TECHNIQUE: Imaging performed of the abdomen and pelvis with IV contrast. Single phase imaging of the abdomen. Coronal and sagittal reformats are submitted. All CT scans at [facility] use at least one of these dose optimization techniques: automated exposure control; mA and/or kV adjustment per patient size (includes targeted exams where dose is matched to clinical indication); or iterativ e reconstruction. IV CONTRAST: Omnipaque 300; 95 mL IV. Oral contrast: No DLP: 1380.46 mGy.cm COMPARISON: 02/27/2019 Lower thorax: Numerous pulmonary masses and nodules of various sizes at the lung bases. The largest w ith a maximum diameter of 3.7 cm at the RIGHT lung base. On the localizer there are numerous addition al masses scattered throughout the mid and upper lungs. Heart is normal size. Small hiatal hernia. Liver/biliary system: Normal size liver. There is new moderate intrahepatic and extrahepatic duct dil atation. Common bile duct measures 10 mm. At the pancreatic head the common bile duct is normal size. No intraluminal filling defects. Gallbladder: Status post cholecystectomy. Pancreas: Normal size pancreas and pancreatic duct. No adjacent inflammation. Spleen: Normal size spleen. No mass or infarct. Adrenal glands: Normal RIGHT adrenal gland. LEFT adrenal gland mass measures 3.2 x 2.7 cm with only m inimal increase in size since 02/27/2019. There are small foci of fat within the adrenal mass. Long-te rm stability thought to be an adenoma on prior studies. Right kidney: Normal. Left kidney: Exophytic cyst measures 4.3 cm from the posterior LEFT kidney. No obstruction. Aorta: Moderate atherosclerosis with no aneurysm. Lymphadenopathy: None. Free fluid: None. GI tract: No GI tract obstruction. There is some very mild mucosal thickening involving the distal co jeanne which may represent a mild colitis. There is a small amount of fat stranding surrounding the dist al sigmoid and rectum. Colonic anastomotic sutures in the RIGHT abdomen with no adjacent obstruction or mass. Abdominal wall: Small umbilical hernia. Small bowel loops extend into the hernia but there is no obst ruction. Pelvis: Minimally distended urinary bladder. Patient has a known destructive mass involving the RIGHT ilium and sacrum with extension into the SI joint and RIGHT sacral foramina. There is increased dens ity within this mass. Mass was biopsied the previous day and increased density is probably some bleed ing post procedure. Mass has not significantly increased in size post biopsy. Bones: Sclerotic foci within the L3 vertebral body is stable since 02/27/2019. CT/CT abdomen pelvis w con* [id number] IMPRESSION: 1. Innumerable pulmonary metastatic nodules. 2. Small hiatal hernia. 3. Known large mass centered in the RIGHT ilium and sacrum with destruction. I ncreased density within this mass is from the biopsy that was performed the ross or day. No increase in size. 4. Mild distal colon mucosal edema. Consider a mild colitis. No obstruction. 5. Mild intrahepatic bile duct dilatation. No pancreatic head mass or choledoc holithiasis. Gallbladder has been removed. May be physiologic response to aging and cholecystectomy.
[2020-08-31 07:55] VITALS: BP 128/46; PULSE 71; RESP 16; O2SAT 92
[2020-08-31] MEDS: iohexol 300 mg/mL 100 mL Btl IV (08:13)
--- NOTE | 2020-08-31 08:16 | ED_ITS ---
HPI - GI Bleed General: Chief complaint: GI Bleed Stated complaint: DIARRHEA, BRIGHT RED BLOOD Time Seen by Provider: 08/31/20 07:42 History of Present Illness: HPI Narrative: 84-year-old female presents emergency room complaint of hematochezia. She states it has been going on for the last couple of days. She recently had a biopsy on her right hip. She has been having diarrhea for 3 days and then began having hematochezia this morning. She initially had blood streaked stools and then had one episode of significant gross hematochezia this morning. None since. She states she has not hardly drank or any eat anything for the last couple of days. She is not on any anticoagulants was taking aspirin prior to the biopsy was stopped up for the biopsy. She has not resumed it. She denies any other anticoagulants. No previous episodes of GI bleed. MD complaint: blood streaked stool and gross hematochezia Onset (ago): hour(s) Relieving factors: none Exacerbating factors: none Associated symptoms: Reports malaise and poor appetite; Denies abdominal pain, chills, easy bruising, epistaxis, fever(s), headache(s), nausea, other bleeding, rash, syncope, vomiting or weakness Review of Systems Const: Reports: malaise; Denies: fever(s) or chills ENMT: Denies: epistaxis Card: Denies: syncope Resp: Denies: dyspnea, productive cough or non-productive cough GI: Denies: abdominal pain, nausea or vomiting : Denies: flank pain, difficulty voiding, dysuria, urinary frequency or urinary urgency Skin/Breast: Denies: rash Neuro: Denies: headache(s) Tushar/Lymph: Denies: easy bruising [facility] ED PFSH: Medical History History of thyroid cancer HTN (hypertension) Hyperthyroidism Osteoarthritis Premature atrial contraction Surgical History History of section History of lung biopsy S/P appendectomy S/P cholecystectomy S/P hysterectomy S/P sclerotherapy of varicose veins S/P small bowel resection S/P thyroidectomy S/P tonsillectomy and adenoidectomy Family History Family/Other CAD (coronary artery disease) Hypertension Mother Cancer Social History Smoking and tobacco status: former smoker Physical Exam Const: COMMON NORMALS: no acute distress GENERAL APPEARANCE: cooperative and comfortable ORIENTATION/CONSCIOUSNESS: Yes awake, Yes oriented to person, Yes oriented to place and Yes oriented to time HENMT: COMMON NORMALS: normocephalic, atraumatic and hearing grossly normal bilaterally HEAD & SCALP: normocephalic and atraumatic Neck/C-Spine: COMMON NORMALS: no JVD Lymph: LYMPHATIC: no lymphadenopathy noted and no lymphedema noted Resp: COMMON NORMALS: normal respiratory effort, No retractions, No use of accessory muscles and clear to auscultation bilaterally AUSCULTATION: clear to auscultation bilaterally Cardio: COMMON NORMALS: no JVD, regular rate, regular rhythm and No murmurs present (Cardio) RATE: regular rate RHYTHM: regular rhythm GI: COMMON NORMALS: Soft to palpation and No hepatosplenomegaly present AUSCULTATION: Yes normoactive bowel sounds PALPATION: Yes Soft to palpation, No Tenderness to palpation present (GI), No Guarding due to palpation present (GI) and Yes No hepatosplenomegaly present RECTAL EXAM: heme positive stool Extremity: COMMON NORMALS: normal to inspection, capillary refill normal, no clubbing, cyanosis or edema, no calf tenderness and no pedal edema Neuro: SENSORIUM/ORIENTATION: Yes oriented to person, Yes oriented to place and Yes oriented to time Skin: COMMON NORMALS: no rashes or lesions noted GENERAL SKIN EXAM: no rashes or lesions noted Course Vital Signs: Vital signs: Vital Signs Pulse Rate 71 08/31/20 07:55 Respiratory Rate 16 08/31/20 07:55 Blood Pressure 128/46 08/31/20 07:55 Pulse Oximetry 92 08/31/20 07:55 MDM - GI Bleed MDM Narrative: Medical decision making narrative: CT reviewed. Patient has colitis also has significant metastasis. Discussed this with her. On rectal exam there is no gross hematochezia at this time. It is Hemoccult positive however. I do not see any active bleeding hemorrhoids nor did we note any on digital exam. We will discharge her home on Septra metronidazole clear liquid diet for next 24 to 48 hours follow-up with her primary care doctor. Return if worsens. Lab Data: Labs: Lab Results 08/31/20 08/31/20 08/31/20 Range/Units 08:34 08:34 08:34 WBC 4.6 (4.0-10.0) 10^3/ uL RBC 4.41 (4.1-5.3) 10^6/u L Hgb 13.1 (11.5-15.3) g/dL Hct 40.5 (37.0-47.0) % MCV 91.8 (81-99) fL MCH 29.7 (28.0-34.0) pg MCHC 32.3 (30.0-36.0) g/dL RDW 13.8 (12.1-15.1) % Plt Count 148 (130-400) 10^3/c mm MPV 10.6 H (7.4-10.4) fL Neut % (Auto) 73.5 % Lymph % (Auto) 4.4 % [place] % (Auto) 17.5 % Eos % (Auto) 2.9 % Baso % (Auto) 1.3 % Neut # (Auto) 3.35 (1.8-7.7) 10^3/u L Lymph # (Auto) 0.2 L (0.8-4.8) 10^3/u L [place] # (Auto) 0.8 (0.2-0.9) 10^3/u L Eos # (Auto) 0.1 (0.0-0.8) 10^3/u L Baso # (Auto) 0.1 (0.0-0.1) 10^3/u L Nucleated RBC % (a uto) 0 % Nucleated RBCs # 0.0 /100WBC PT 15.10 H (12.1-14.9) SECO NDS INR 1.15 (0.8-1.2) APTT 27.6 (23.9-36.7) SECO NDS Sodium 139 (136-145) mmol/L Potassium 2.9 L (3.5-5.1) mmol/L Chloride 98 (98-107) mmol/L Carbon Dioxide 30 H (22-29) mmol/L Anion Gap 13.9 (5-19) BUN 22 (8-23) mg/dL Creatinine 0.8 (0.5-0.9) mg/dL GFR Calculation Not Reportable Glucose 122 H (65-115) mg/dL Calculated Osmolal ity 293 (285-295) mOsm/k g Calcium 8.0 L (8.5-10.5) mg/dL Total Bilirubin 1.0 (0.15-1.2) mg/dL AST 25 (0-32) U/L ALT 37 H (0-33) U/L Alkaline Phosphata se 96 (35-105) IU/L Total Protein 6.1 L (6.6-8.7) g/dL Albumin 3.6 (3.5-5.2) g/dL Globulin 2.5 (1.3-4.6) g/dL Urine Color (Yellow) Urine Appearance (CLEAR) Urine pH (5-7) Ur Specific Gravit y (1.005-1.030) Urine Protein (Negative) Urine Glucose (UA) (Normal) Urine Ketones (Negative) Urine Blood (Negative) Urine Nitrate (Negative) Urine Bilirubin (Negative) Urine Urobilinogen (Negative) mg/dL Ur Leukocyte Melissa ase (Negative) Urine RBC (0-2) /hpf Urine WBC (0-5) /hpf Ur Squamous Epith Cells (0-5) /hpf Amorphous Sediment Urine Bacteria (NONE) /hpf 08/31/20 Range/Units 09:30 WBC (4.0-10.0) 10^3/ uL RBC (4.1-5.3) 10^6/u L Hgb (11.5-15.3) g/dL Hct (37.0-47.0) % MCV (81-99) fL MCH (28.0-34.0) pg MCHC (30.0-36.0) g/dL RDW (12.1-15.1) % Plt Count (130-400) 10^3/c mm MPV (7.4-10.4) fL Neut % (Auto) % Lymph % (Auto) % [place] % (Auto) % Eos % (Auto) % Baso % (Auto) % Neut # (Auto) (1.8-7.7) 10^3/u L Lymph # (Auto) (0.8-4.8) 10^3/u L [place] # (Auto) (0.2-0.9) 10^3/u L Eos # (Auto) (0.0-0.8) 10^3/u L Baso # (Auto) (0.0-0.1) 10^3/u L Nucleated RBC % (a uto) % Nucleated RBCs # /100WBC PT (12.1-14.9) SECO NDS INR (0.8-1.2) APTT (23.9-36.7) SECO NDS Sodium (136-145) mmol/L Potassium (3.5-5.1) mmol/L Chloride (98-107) mmol/L Carbon Dioxide (22-29) mmol/L Anion Gap (5-19) BUN (8-23) mg/dL Creatinine (0.5-0.9) mg/dL GFR Calculation Glucose (65-115) mg/dL Calculated Osmolal ity (285-295) mOsm/k g Calcium (8.5-10.5) mg/dL Total Bilirubin (0.15-1.2) mg/dL AST (0-32) U/L ALT (0-33) U/L Alkaline Phosphata se (35-105) IU/L Total Protein (6.6-8.7) g/dL Albumin (3.5-5.2) g/dL Globulin (1.3-4.6) g/dL Urine Color Yellow (Yellow) Urine Appearance Clear (CLEAR) Urine pH 5 (5-7) Ur Specific Gravit y 1.005 (1.005-1.030) Urine Protein Trace (Negative) Urine Glucose (UA) Norm (Normal) Urine Ketones 1+ H (Negative) Urine Blood 2+ H (Negative) Urine Nitrate Negative (Negative) Urine Bilirubin Neg (Negative) Urine Urobilinogen 1 H (Negative) mg/dL Ur Leukocyte Melissa ase Negative (Negative) Urine RBC 0-4 H (0-2) /hpf Urine WBC 0-4 H (0-5) /hpf Ur Squamous Epith Cells 5-10 H (0-5) /hpf Amorphous Sediment Not Reportable Urine Bacteria Trace (NONE) /hpf Discharge Plan Discharge Patient Disposition: Home Clinical Impression: Colitis Condition: Stable Prescriptions: New ciprofloxacin HCl 500 mg tablet 500 mg PO BID Qty: 20 RF: 0 metronidazole 500 mg tablet 500 mg PO BID 10 Days Qty: 20 RF: 0 Zofran 4 mg tablet 4 mg PO Q6H PRN (Reason: nausea and vomiting) Qty: 20 RF: 0 No Action losartan 100 mg tablet 100 mg PO DAILY@0800 RF: 0 hydrochlorothiazide 25 mg tablet 25 mg PO DAILY@0800 RF: 0 latanoprost 0.005 % drops 1 drp ophthalmic (eye) DAILY RF: 0 levothyroxine 100 mcg tablet 100 mcg PO DAILY@0700 RF: 0 ondansetron HCl 4 mg Tablet 4 mg PO Q6H PRN (Reason: Nausea) RF: 0 diltiazem HCl 240 mg Capsule,Extended Release 24 Hr 240 mg PO DAILY@1700 RF: 0 oxycodone 5 mg Tablet 5 mg PO TID PRN (Reason: Pain) RF: 0 fentanyl 12 mcg/hr Patch 72 Hour 1 patch TRANSDERMAL Q72H RF: 0 aspirin [Aspir-81] 81 mg Tablet,Delayed Release (Dr/Ec) 81 mg PO DAILY@0800 RF: 0 levalbuterol tartrate [Xopenex HFA] 45 mcg/actuation Hfa Aerosol Inhaler 2 inh INHALATION Q6H PRN (Reason: Shortness Of Breath) RF: 0 Discharge Orders: Discharge ED (Routine); Ordered 08/31/20 Ordered By: Leopoldo Castorena Referrals: Neel Anaya MD [Primary Care Provider] - Discharge Diet: Clear Liquid Discharge Activity: Limit activity as instructed Patient Instructions: Opioid Safety Activity Restrictions/Additional Instructions: Recheck with your doctor in 2 days return to the emergency room if worsens. Coding Level of Care Code ED Manager [facility] for Radha Randhawa
[2020-08-31 08:42] LABS: Basophils # 0.1 10^3/uL (0.0-0.1); Basophils % 1.3 %; Eosinophils # 0.1 10^3/uL (0.0-0.8); Eosinophils % 2.9 %; Hematocrit 40.5 % (37.0-47.0); Hemoglobin 13.1 g/dL (11.5-15.3); Lymphocytes # 0.2 10^3/uL (0.8-4.8); Lymphocytes % 4.4 %; Mean Corpuscular HGB Conc 32.3 g/dL (30.0-36.0); Mean Corpuscular Hemoglobin 29.7 pg (28.0-34.0); Mean Corpuscular Volume 91.8 fL (81-99); Mean Platelet Volume 10.6 fL (7.4-10.4); Monocytes # 0.8 10^3/uL (0.2-0.9); Monocytes % 17.5 %; Neutrophils # 3.35 10^3/uL (1.8-7.7); Neutrophils % 73.5 %; Nucleated Red Blood Cells % 0 %; Platelet Count 148 10^3/cmm (130-400); Red Blood Count 4.41 10^6/uL (4.1-5.3); Red Cell Distribution Width 13.8 % (12.1-15.1); White Blood Count 4.6 10^3/uL (4.0-10.0)
[2020-08-31 08:55] LABS: INR 1.15 (0.8-1.2)
[2020-08-31 08:56] LABS: Partial Thromboplastin Time 27.6 SECONDS (23.9-36.7)
[2020-08-31 08:59] LABS: Alanine Aminotransferase 37 U/L (0-33); Albumin Level 3.6 g/dL (3.5-5.2); Alkaline Phosphatase 96 IU/L (35-105); Anion Gap 13.9 (5-19); Aspartate Amino Transferase 25 U/L (0-32); Blood Urea Nitrogen 22 mg/dL (8-23); Carbon Dioxide 30 mmol/L (22-29); Chloride 98 mmol/L (98-107); Globulin 2.5 g/dL (1.3-4.6); Glucose 122 mg/dL (65-115); Osmolality Calculated 293 mOsm/kg (285-295); Sodium 139 mmol/L (136-145); Total Protein 6.1 g/dL (6.6-8.7)
[2020-08-31 09:01] LABS: Slide Review Slide Review Perform
[2020-08-31 09:05] LABS: Potassium 2.9 mmol/L (3.5-5.1)
[2020-08-31] MEDS: potassium chloride oral liq 20 mEq/15 mL UDC 40 MEQ PO (09:41)
[2020-08-31] MEDS: sodium chloride 0.9% 500 ML 999 ML IV (09:44)
[2020-08-31] MEDS: ciprofloxacin 400 MG/200 ML PREMIX 200 MG IV (09:48)
[2020-08-31] MEDS: metroNIDAZOLE IV 500 MG/100 ML PREMIX 100 MG IV (10:26)
[2020-08-31 10:28] LABS: Add Urine Microscopic? YES; Bilirubin Urine Neg (Negative); Blood Urine 2+ (Negative); Glucose Urine UA Norm (Normal); Ketones Urine 1+ (Negative); Leukocyte Esterase Urine Negative (Negative); Nitrate Urine Negative (Negative); Protein Urine Trace (Negative); Specific Gravity, Urine 1.005 (1.005-1.030); Urine Appearance Clear (CLEAR); Urine Color Yellow (Yellow); Urobilinogen Urine 1 mg/dL (Negative); pH Urine 5 (5-7)
[2020-08-31 10:36] LABS: Add Urine Culture? No; Bacteria Urine TRACE /hpf; RBC Urine 0-4 /hpf (0-2); WBC Urine 0-4 /hpf (0-5)
== END 2020-08-31 11:12 | disposition home or self-care (01) ==
PROVIDERS: Emergency Provider Family Medicine; PCP Family Medicine
DX: K52.9 Noninfective gastroenteritis and colitis, unspecified (principal); Z79.82 Long term (current) use of aspirin; Z85.850 Personal history of malignant neoplasm of thyroid; I10 Essential (primary) hypertension; Z87.891 Personal history of nicotine dependence
CPT/HCPCS: 36415; 74177; 80053; 81001; 85025; 85610; 85730; 96365; 96367; 99284; J0744; J7040; Q9967; S0030

== ENCOUNTER 2020-09-09 05:33 | Outpatient (RCR) | payer MEDICARE, SELFPAY ==
[2020-09-07] MEDS: sodium chloride 0.9% 1,000 ML 999 ML IV (15:35)
[2020-09-07 16:03] LABS: Basophils % 0.5 %; Eosinophils # 0.1 10^3/uL (0.0-0.8); Eosinophils % 0.7 %; Hematocrit 39.8 % (37.0-47.0); Hemoglobin 12.9 g/dL (11.5-15.3); Lymphocytes # 0.3 10^3/uL (0.8-4.8); Lymphocytes % 3.8 %; Mean Corpuscular HGB Conc 32.4 g/dL (30.0-36.0); Mean Corpuscular Hemoglobin 29.7 pg (28.0-34.0); Mean Corpuscular Volume 91.5 fL (81-99); Mean Platelet Volume 10.8 fL (7.4-10.4); Monocytes # 1.4 10^3/uL (0.2-0.9); Monocytes % 16.5 %; Neutrophils # 6.72 10^3/uL (1.8-7.7); Neutrophils % 77.2 %; Nucleated Red Blood Cells % 0 %; Platelet Count 183 10^3/cmm (130-400); Red Blood Count 4.35 10^6/uL (4.1-5.3); Red Cell Distribution Width 14.4 % (12.1-15.1); White Blood Count 8.7 10^3/uL (4.0-10.0)
[2020-09-07 16:25] LABS: Alanine Aminotransferase 19 U/L (0-33); Albumin Level 3.1 g/dL (3.5-5.2); Alkaline Phosphatase 77 IU/L (35-105); Anion Gap 13.7 (5-19); Aspartate Amino Transferase 25 U/L (0-32); Blood Urea Nitrogen 16 mg/dL (8-23); Calcium 8.1 mg/dL (8.5-10.5); Carbon Dioxide 31 mmol/L (22-29); Chloride 100 mmol/L (98-107); Globulin 3.3 g/dL (1.3-4.6); Glucose 122 mg/dL (65-115); Osmolality Calculated 296 mOsm/kg (285-295); Sodium 142 mmol/L (136-145); Total Bilirubin 0.7 mg/dL (0.15-1.2); Total Protein 6.4 g/dL (6.6-8.7)
[2020-09-07 16:35] LABS: Potassium 2.7 mmol/L (3.5-5.1)
[2020-09-07] MEDS: potassium chloride ER 10 mEq Tablet 20 MEQ PO (17:10)
[2020-09-08 10:32] LABS: Magnesium 1.8 mg/dL (1.7-2.3)
--- NOTE | 2020-09-09 08:37 | ONC FU_ITS ---
Dr. Elder Patient Follow-Up Note Patient: Lawanda Faria Unit #: [id number]: 1935 Dicatated By: Reji Elder M.D.Date of Visit:September 09, 2020 Onc Med Follow-up/Prog Note Chief Complaint: Thyroid Cancer History of Present Illness: This is an 84 year-old woman with metastatic papillary thyroid cancer. Her thyroid cancer was discovered after a routine preoperative chest xray prior to a planned right total knee arthroplasty in July 2008 showed multiple pulmonary nodules. An attempted needle biopsy of a lung nodule was unsuccessful. The procedure was complicated by atrial fibrillation and by hemorrhagic pleural effusion. She ultimately underwent an open biopsy of a right lung nodule in August 2008, and pathology was consistent with metastatic thyroid cancer. She underwent total thyroidectomy on 11/16/2008. Pathology was consistent with two foci of papillary thyroid carcinoma, the largest focus located in the left lobe measuring 2.2 cm. She underwent I-131 ablation with 157.5 mCi of radioactive iodine on 01/07/2009. She apparently had a good response. However, by March 2010 there was again evidence of multiple pulmonary nodules by PET/CT, consistent with recurrence. She was treated again with I-131 ablation with 150.4 mCi of radioactive iodine on 05/19/2010. During subsequent followup she had further I-131 ablations with 157 mCi of radioactive iodine on 06/28/2012 and on 06/04/2014. A surveillance chest CT on 12/06/2015 showed significant progression of the pulmonary metastatic disease. This included a significant increase in the number and size of pulmonary nodules which were noted to involve all lobes ranging in size from subcentimeter through 2.0 cm. The largest nodule was in the right upper lobe abutting the minor fissure. There were a few small mediastinal and hilar lymph nodes which had not progressed or changed. Left axillary lymph nodes also were noted to be stable. A left adrenal gland mass was stable measuring 3.0 cm. The appearance was felt to be consistent with benign adenoma. I had seen her initially on 02/01/2016. She began a trial of therapy with lenvatinib 24 mg daily on 03/03/2016. Her baseline thyroglobulin level was greater than 3000 ng/mL. During subsequent follow-up she did require a dose reduction to 10 mg daily. On her follow-up visit on 05/22/2016, there was a significant decline in her renal function with BUN increasing to 45 mg/dL and creatinine to 3.2 mg/dL. She was given IV hydration, and the lenvatinib was put on hold. By the following week, the creatinine had come down to 1.4 mg/dL and it subsequently returned to baseline at 1.0 mg/dL. Her thyroglobulin level, though, had come down significantly, to 179.0 ng/mL compared to baseline greater than 3000 ng/mL. As of 07/06/2016 the thyroglobulin level was back up to 1942 ng/mL, and by 08/14/2016 it was again greater than 3000 ng/mL. At that point she restarted the lenvatinib, initially at 10 mg alternating with 4 mg daily. She then increased it to 10 mg daily when she ran out of the 4 mg tablets. I had seen her for a follow-up visit on 09/25/2016. At that point she was still taking 10 mg of lenvatinib daily, and she was tolerating it well. Her thyroglobulin level did come back at greater than 3000 ng/mL. She continued her same treatment. At a follow-up visit on 11/22/2016 the thyroglobulin level was back down to 1930 ng/mL. CT scans of the chest, abdomen, and pelvis on 12/18/2016 showed multiple bilateral pulmonary nodules, most of which were smaller or stable compared to the study from May 2016. A right lower lobe and the lingular nodule were noted to be larger. There was no other evidence of disease progression. Repeat chest CT on 03/02/2017 showed no significant change in the bilateral noncalcified pulmonary nodules compared to the study in November. There were no new nodules noted. Restaging CT scans of the chest, abdomen, and pelvis on 08/21/2017 showed innumerable pulmonary nodular densities consistent with metastatic disease, but similar to the prior studies. There was no obvious metastatic involvement in the abdomen/pelvis, but it was a noncontrast study. Noncontrast chest CT on 03/01/2018 showed unchanged multilobar noncalcified pulmonary nodules compared to the August 2017 study. Left adrenal mass also appeared stable. She continued treatment with lenvatinib 10 mg daily. During subsequent follow-up, she began having more side effects with the Lenvatinib again, significant enough that she did have to stop taking it intermittently. However, as of 10/17/[address] scans had shown no evidence of disease progression. Some of her pulmonary nodules appeared marginally smaller compared to the February 2018 study. At that point she had reported significant increase in symptoms, including fatigue, abdominal pain, nausea/vomiting, and joint pain. Her treatment was put on hold, and she did require IV hydration on several occasions. On 12/09/2018 she underwent laparoscopic cholecystectomy for symptomatic cholelithiasis. The procedure also included lysis of extensive adhesions. She also then required laparotomy with partial small bowel resection and stapled [id number] anastomosis for an enterotomy involving one of the bowel loops adherent to the abdominal wall. Her postoperative course was, cycle by atrial fibrillation, which she otherwise had an uneventful recovery. Her scheduled restaging CT scans of the chest, abdomen, and pelvis on 02/27/2019 showed evidence of progression of her pulmonary metastatic disease with interval enlargement and development of new noncalcified bilateral pulmonary nodules. There also appeared to be slight progression of precarinal lymphadenopathy. There was no evidence of metastatic disease in the abdomen or pelvis. On 03/03/2019 she was admitted to the hospital with atrial fibrillation/RVR. It was controlled adequately after changing her medication from sotalol to metoprolol. However, at her initial evaluation in the emergency room she also was hypoxic. A CT pulmonary angiogram showed extensive pulmonary metastatic disease as well as central pulmonary artery enlargement suggesting pulmonary arterial hypertension, but there was no evidence of pulmonary embolus. She continued on symptomatic management. Her other medical illnesses include hypertension and degenerative arthritis. She also had transient atrial fibrillation following an attempted needle lung biopsy in 2008. She had smoked in the past, but only about a pack of cigarettes per week, and she quit smoking more than 40 years ago. INTERIM HISTORY: In July she had presented with new pain in the right hip area. Her right hip x-ray showed a destructive lytic process in the right acetabulum consistent with metastatic disease. She was referred to Dr. Osborne for palliative radiation. She completed treatment on 08/27/2020 to a total dose of 3000 cGy administered in 10 fractions. During that time, she did undergo biopsy of the lesion, which confirmed metastatic papillary thyroid cancer. She was seen yesterday for follow-up laboratory studies. She was feeling pretty weak and her potassium was found to be low at 2.7 mmol/L. She was given IV fluid and IV/oral potassium. She is seen this morning for further management. She is feeling very weak, to the point that she can barely walk. ECOG score is 3. She has no appetite. She has not had fever or night sweats. She does not complain of sore mouth or throat, and she has not been having cough. She is short of breath, and her breathing is getting worse. She has been having chest pain since last night. She has nauseated this morning. Bowel and bladder function remain adequate. She has developed some new swelling in the lower extremities. Her hip pain is not too bad now. She does not complain of headache or dizziness, and she has no focal neurologic symptoms. Medications: Biotin 3 Capsule (of 5000 mcg) Oral daily, Calcium + D 2 Tablet Oral daily, Cardizem CD 1 (240 mg) Capsule SR 24 HR Oral daily, cbd 15 mL (of 3 mg) Oil Sublingual daily, cell food 1 Drop(s) Liquid Oral b.i.d., Levothyroxine Sodium 1 Tablet (of 100 mcg) Oral daily, Losartan Potassium-HCTZ 1 Tablet (of 100-25 mg) Oral daily, Lumigan 1 drop(s) (of 0.01 %) Solution Ophthalmic daily, Magnesium 1 (400 mg) Capsule Oral daily, ring relief 1 drop(s) Solution b.i.d. & at bedtime PRN, Singulair 1 Tablet (of 10 mg) Oral daily, Systane 1 drop(s) (of 0.4-0.3 %) Solution Ophthalmic b.i.d. PRN, tumeric 1 Capsule daily, Vitamin C 1 Tablet Oral daily, Zinc 1 Tablet (of 15 mg) Oral daily Allergies: Amiodarone HCl and contrast dye. Vital Signs: Performed on September 09, 2020 08:18 Height - 60.00 in Weight - 165.2 lbs (LOW) BSA - 1.72 sq.m BMI - 32.26 (HIGH) Temperature - 98.9 F (HIGH) Pulse - 78 /min Respiration - 22 /min BP - 117/75 mm(hg) O2 Sat - 95 % (LOW) Pain - 8 Fatigue - 8 Physical Examination: Constitutional - She appears weak and pale, Eyes - Sclerae nonicteric. Conjunctivae clear, ENMT - There is a dense coating on the tongue. There are no other lesions noted in the oral cavity, Hematologic/Lymphatic - No cervical, clavicular, or axillary adenopathy, Respiratory - Lungs show coarse breath sounds and diminished air movement bilaterally, Cardiovascular - Heart rhythm is irregular with a tachycardia. There is a harsh systolic murmur. There is no gallop noted, Abdomen - Soft. Liver and spleen are not enlarged. There is no abdominal mass or ascites noted. There is no inguinal adenopathy, Extremities - No edema, Neurologic - No focal neurologic deficits noted. Lab/Imaging: Test performed on September 07, 2020 15:15 Sodium 142 mmol/L Potassium 2.7 mmol/L Chloride 100 mmol/L CO2 31 mmol/L Anion Gap 13.7 BUN 16 mg/dL Creatinine 0.5 mg/dL Cr Clearance (Est) 102.6800 mL/min Glucose 122 mg/dL Osmolality - Calculated 296 mOsm/kg Calcium 8.1 mg/dL Protein, Total 6.4 g/dL Albumin 3.1 g/dL Globulin 3.3 g/dL Bilirubin, Total 0.7 mg/dL ALT (SGPT) 19 U/L AST (SGOT) 25 U/L Alkaline Phosphatase 77 IU/L WBC 8.7 10 3/uL RBC 4.35 10 6/uL HGB 12.9 g/dL HCT 39.8 % MCV 91.5 fL MCH 29.7 pg MCHC 32.4 g/dL RDW 14.4 % Platelet Count 183 10 3/cmm MPV 10.8 fL Neutrophils 6.72 10 3/uL Lymphocytes 0.3 10 3/uL Monocytes 1.4 10 3/uL Eosinophils 0.1 10 3/uL Basophils 0.0 10 3/uL Neutrophil % 77.2 % Lymphocyte % 3.8 % Monocyte % 16.5 % Eosinophil % 0.7 % Basophils % 0.5 % NRBC % 0 % Problem List: 1. Metastatic papillary thyroid cancer, initially diagnosed by open lung biopsy in August 2008. Treatment included total thyroidectomy on 11/16/2008 followed by I-131 ablation with 157.5 mCI of radioactive iodine on 01/07/2009. Her subsequent treatment has included repeat I-131 ablations with 150.4 mCi of radioactive iodine on 05/19/2010, 157 mCi of radioactive iodine on 06/28/2012, and 157 mCI of radioactive iodine on 06/04/2014. Followup chest CT on 12/06/2015 showed significant increase in the size and number of pulmonary metastatic lesions, consistent with disease progression. 2. Hypertension. 3. Degenerative arthritis. 4. She had transient atrial fibrillation following attempted needle lung biopsy in 2008. 5. On 12/09/2018 she underwent laparoscopic cholecystectomy and lysis of extensive adhesions. She subsequently required laparotomy with partial small bowel resection for an enterotomy involving a bowel loop adherent to the abdominal wall. Problems Addressed with this Encounter and Plan: Patient with metastatic papillary thyroid cancer, initially diagnosed by open lung biopsy in August 2008. Treatment included total thyroidectomy on 11/16/2008 followed by I-131 ablation with 157.5 mCI of radioactive iodine on 01/07/2009. Her subsequent treatment has included repeat I-131 ablations with 150.4 mCi of radioactive iodine on 05/19/2010, 157 mCi of radioactive iodine on 06/28/2012, and 157 mCI of radioactive iodine on 06/04/2014. Followup chest CT on 12/06/2015 showed significant increase in the size and number of pulmonary metastatic lesions, consistent with disease progression. She began a trial of therapy with lenvatinib in February 2016. She started at the recommended dosage of 24 mg daily, but she did require a reduction to 10 mg daily. She had been tolerating it well. However, on her followup visit on 05/22/2016 there was a significant decline in her renal function with serum creatinine increasing from baseline 1.1 mg/dL to 3.2 mg/dL. There was a very significant decline in her thyroglobulin level, so that she did appear to be showing a response to the treatment. However, during subsequent follow-up she continued to have difficulty tolerating the lenvatinib, even at reduced dosage. She ultimately stopped treatment in September 2018. Her scheduled restaging CT scans of the chest, abdomen, and pelvis on 02/27/2019 showed evidence of progression of her pulmonary metastatic disease with interval enlargement and development of new noncalcified bilateral pulmonary nodules. There also appeared to be slight progression of precarinal lymphadenopathy. There was no evidence of metastatic disease in the abdomen or pelvis. She then continued on observation/symptomatic management. In July 2020 she presented with new right hip pain, and she was found to have a metastatic lesion involving the right acetabulum. She has had symptomatic improvement following completion of palliative radiation, and she did have confirmed metastatic papillary thyroid cancer on the ultrasound directed biopsy of that lesion. That specimen also will be sent for next generation sequencing. In the meantime, her repeat laboratory studies yesterday showed significant hypokalemia. She was given hydration with IV and oral potassium replacement. She presents this morning with increasing weakness and shortness of breath, and she has been having chest pain. Her EKG shows atrial fibrillation with rapid ventricular response. With that finding, she is going to be transported to the emergency room for further evaluation/management, as I anticipate that she will require hospital admission. Signed By: Reji Elder M.D. <<Signature on File>>
[2020-09-09 09:02] LABS: Anion Gap 15.5 (5-19); Blood Urea Nitrogen 15 mg/dL (8-23); Calcium 8.1 mg/dL (8.5-10.5); Carbon Dioxide 27 mmol/L (22-29); Chloride 104 mmol/L (98-107); Glucose 144 mg/dL (65-115); Magnesium 1.7 mg/dL (1.7-2.3); Osmolality Calculated 299 mOsm/kg (285-295); Potassium 3.5 mmol/L (3.5-5.1); Sodium 143 mmol/L (136-145)
[2020-09-09 09:04] LABS: Troponin T (5th) Once 61 ng/L (0-10)
== END 2020-09-09 08:50 | disposition home or self-care (01) ==
LOC: ONCMED 05:33
PROVIDERS: Internal Medicine Hematology & Oncology; PCP Family Medicine; Visit Provider Internal Medicine Medical Oncology
DX: C73 Malignant neoplasm of thyroid gland (principal); C78.01 Secondary malignant neoplasm of right lung; C78.02 Secondary malignant neoplasm of left lung; I10 Essential (primary) hypertension; M19.90 Unspecified osteoarthritis, unspecified site; I48.91 Unspecified atrial fibrillation; Z79.01 Long term (current) use of anticoagulants; Z79.899 Other long term (current) drug therapy; Z92.21 Personal history of antineoplastic chemotherapy; Z92.3 Personal history of irradiation
CPT/HCPCS: 36415; 80048; 80053; 83735; 84484; 85025; 96361; 96365; 99215; J3480; J7030

== ENCOUNTER 2020-09-09 08:54 | Inpatient (IN) | payer MEDICARE, SELFPAY ==
[2020-09-09] VITALS (93 sets, daily range): BP systolic 93–154; BP diastolic 58–112; PULSE 101–154; RESP 18–36; TEMP 36.4–37.1; O2SAT 84–98; BMI 32.0
--- NOTE | 2020-09-09 09:03 | ECG_ITS ---
[facility] Test Date: 2020-09-09 Pat Name: Lawanda Faria Department: Room: Gender: Female [employer]: : 1935 Requested By: Leopoldo Smalls Order Number: [id number] Eva MD: Soha Chamberlain M.D. Measurements Intervals [place] Rate: 131 P: SD: QRS: -20 QRSD: 90 T: 103 QT: 313 QTc: 463 Interpretive Statements ATRIAL FIBRILLATION WITH RAPID VENTRICULAR RESPONSE NONSPECIFIC ST & T-WAVE ABNORMALITY Compared to ECG 06/11/2020 10:36:30 T-wave abnormality now present Left ventricular hypertrophy no longer present ST (T wave) deviation no longer present Electronically Signed On 09-09-2020 23:47:10 CDT by Soha Chamberlain M.D. [id number]
--- NOTE | 2020-09-09 09:03 | XRR_ITS ---
PROCEDURE INFORMATION: Exam: XR Chest Exam date and time: 09/09/2020 9:07 AM Age: 84 years old Clinical indication: Cough and dyspnea and shortness of breath; Additional info: Dyspnea/cough TECHNIQUE: Imaging protocol: XR of the chest. Views: 1 view. COMPARISON: NC XR chest 1V portable [id number] 06/11/2020 8:31 AM FINDINGS: Lungs: There are numerous bilateral pulmonary nodules which have increased in size since previous study. No definite pneumonia is seen. Pleural spaces: Unremarkable. No pleural effusion. No pneumothorax. Heart/Mediastinum: Unremarkable. No cardiomegaly. Bones/joints: Unremarkable. XR/XR chest 1V portable [id number] IMPRESSION: 1. Numerous bilateral pulmonary nodules have increased in size. 2. Heart size remains normal.
[2020-09-09 09:20] LABS: Basophils % 0.3 %; Eosinophils % 0.1 %; Hematocrit 37.7 % (37.0-47.0); Hemoglobin 12.2 g/dL (11.5-15.3); Lymphocytes # 0.3 10^3/uL (0.8-4.8); Lymphocytes % 2.8 %; Mean Corpuscular HGB Conc 32.4 g/dL (30.0-36.0); Mean Corpuscular Volume 92.9 fL (81-99); Mean Platelet Volume 10.4 fL (7.4-10.4); Monocytes # 1.1 10^3/uL (0.2-0.9); Monocytes % 10.5 %; Neutrophils # 8.63 10^3/uL (1.8-7.7); Neutrophils % 85.5 %; Nucleated Red Blood Cells % 0 %; Platelet Count 180 10^3/cmm (130-400); Red Blood Count 4.06 10^6/uL (4.1-5.3); Red Cell Distribution Width 14.6 % (12.1-15.1); White Blood Count 10.1 10^3/uL (4.0-10.0)
--- NOTE | 2020-09-09 09:37 | W.ED.ARRPALP ---
HPI - Arrhythmia/Palpitations General: Chief Complaint: Arrhythmia/Palpitations Stated Complaint: CHEST PAIN/ AFIB W/RVR Time Seen by Provider: 09/09/20 09:02 History of Present Illness: HPI narrative: 84-year-old female who presents to the emergency room with A. fib with rapid ventricular response. She has a history of thyroid cancer. She is at the cancer center today and noted to be in A. fib with RVR. She is having a little bit of chest discomfort with it as well. She has a known history of atrial fibrillation she is on aspirin is not on any anticoagulants. She denies any recent change to her rate control medications. She denies any shortness of breath. MD complaint: rapid heart beat and heart racing Onset (ago): hour(s) Duration: intermittent Severity: moderate Context: occurred during rest Arrhythmia history: atrial fibrillation Associated symptoms: Reports short of breath; Deny anxiety, cough, diaphoresis, muscle cramps, nausea, paresthesias, sense of impending doom, syncope or vomiting Treatments prior to arrival: calcium channel rbo Review of Systems Const: Denies: diaphoresis ENMT: Denies: throat pain, ear or mastoid pain, nasal discharge or nasal congestion Card: Denies: syncope Resp: Denies: dyspnea, productive cough or non-productive cough GI: Denies: nausea or vomiting : Denies: flank pain, difficulty voiding, dysuria, urinary frequency or urinary urgency Musc: Denies: muscle cramps Skin/Breast: Denies: rash or pruritus Psych: Denies: anxiety PFS ED PFSH: Medical History (Updated 09/10/20 @ 08:14 by Leopoldo Castorena DO) Aortic stenosis Moderate per last echocardiogram August 2018 with valve area of 1.2. 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, pelvis HTN (hypertension) Hyperlipidemia Hyperthyroidism Osteoarthritis Premature atrial contraction Surgical History History of section History of lung biopsy S/P appendectomy S/P cholecystectomy S/P hysterectomy S/P sclerotherapy of varicose veins S/P small bowel resection S/P thyroidectomy S/P tonsillectomy and adenoidectomy Family History Family/Other CAD (coronary artery disease) Hypertension Mother Cancer Social History (Updated 09/09/20 @ 13:02 by Naresh Choi MD) Smoking and tobacco status: former smoker Alcohol intake: never Physical Exam Const: COMMON NORMALS: no acute distress GENERAL APPEARANCE: cooperative and comfortable ORIENTATION/CONSCIOUSNESS: Yes awake, Yes oriented to person, Yes oriented to place and Yes oriented to time HENMT: COMMON NORMALS: normocephalic, atraumatic and hearing grossly normal bilaterally HEAD & SCALP: normocephalic and atraumatic Neck/C-Spine: COMMON NORMALS: no JVD Resp: COMMON NORMALS: normal respiratory effort, No retractions, No use of accessory muscles and clear to auscultation bilaterally AUSCULTATION: clear to auscultation bilaterally Cardio: COMMON NORMALS: no JVD RATE: tachycardic RHYTHM: abnormal rhythm irregularly irregular GI: COMMON NORMALS: Soft to palpation and No hepatosplenomegaly present AUSCULTATION: Yes normoactive bowel sounds PALPATION: Yes Soft to palpation, No Tenderness to palpation present (GI), No Guarding due to palpation present (GI) and Yes No hepatosplenomegaly present Extremity: COMMON NORMALS: normal to inspection, capillary refill normal, no clubbing, cyanosis or edema, no calf tenderness and no pedal edema Neuro: SENSORIUM/ORIENTATION: Yes oriented to person, Yes oriented to place and Yes oriented to time Skin: COMMON NORMALS: no rashes or lesions noted GENERAL SKIN EXAM: no rashes or lesions noted Procedures Procedural Sedation Indication: other (Synchronized cardioversion) Presedation Evaluation: Discussed with the patient she is given opportunity to ask questions. Her questions were all answered she wishes to proceed Preparation: information technology program manager applied, pulse oximeter, supplemental O2 applied, suction/airway equipment at bedside and IV secured Fentanyl: IV Midazolam: IV Patient Tolerated Procedure: well Complications: none Course Vital Signs: Vital signs: Vital Signs Temperature 98.2 F 09/10/20 04:05 Pulse Rate 118 H 09/10/20 06:20 Respiratory Rate 21 H 09/10/20 06:20 Blood Pressure 116/76 09/10/20 06:00 Pulse Oximetry 92 09/10/20 06:20 MDM - Arrhythmia/Palpitations MDM Narrative: Medical decision making narrative: Patient initially had very little chest discomfort we started the diltiazem she said it actually got better however then it began to get worse again she is rating it a 5 or a 6. We change her to esmolol she did not have any improvement. She had previously failed dig and amiodarone and beta-blockers as well. Due to her developing chest pain was decided to attempt synchronized cardioversion. Patient sedated with Versed and fentanyl and then synchronized cardioversion performed at 100 then 150 twice. Patient did not convert with those attempts. I had attempted to DrWanda Call Dr. Martinez prior to the cardioversion he was tied up in a heart catheterization and recommended proceeding. I called him again from the bedside after the patient did not convert at that point he recommends a repeat trial of amiodarone. We will bolus her with 300 started on a drip. Discussed Dr. Mariscal will admit to the ICU. Lab Data: Labs: Lab Results 09/09/20 09/09/20 09/09/20 Range/Units 09:10 09:10 09:10 WBC 10.1 H (4.0-10.0) 10^3/ uL RBC 4.06 L (4.1-5.3) 10^6/u L Hgb 12.2 (11.5-15.3) g/dL Hct 37.7 (37.0-47.0) % MCV 92.9 (81-99) fL MCH 30.0 (28.0-34.0) pg MCHC 32.4 (30.0-36.0) g/dL RDW 14.6 (12.1-15.1) % Plt Count 180 (130-400) 10^3/c mm MPV 10.4 (7.4-10.4) fL Neut % (Auto) 85.5 % Lymph % (Auto) 2.8 % [place] % (Auto) 10.5 % Eos % (Auto) 0.1 % Baso % (Auto) 0.3 % Neut # (Auto) 8.63 H (1.8-7.7) 10^3/u L Lymph # (Auto) 0.3 L (0.8-4.8) 10^3/u L [place] # (Auto) 1.1 H (0.2-0.9) 10^3/u L Eos # (Auto) 0.0 (0.0-0.8) 10^3/u L Baso # (Auto) 0.0 (0.0-0.1) 10^3/u L Nucleated RBC % (a uto) 0 % Nucleated RBCs # 0.0 /100WBC Sodium 144 (136-145) mmol/L Potassium 3.6 (3.5-5.1) mmol/L Chloride 106 (98-107) mmol/L Carbon Dioxide 25 (22-29) mmol/L Anion Gap 16.6 (5-19) BUN 15 (8-23) mg/dL Creatinine 0.4 L (0.5-0.9) mg/dL GFR Calculation Not Reportable Glucose 147 H (65-115) mg/dL Estimat Average Gl ucose Hemoglobin A1c (4.0-6.0) % Calculated Osmolal ity 302 H (285-295) mOsm/k g Calcium 8.1 L (8.5-10.5) mg/dL Magnesium 1.8 (1.7-2.3) mg/dL Total Bilirubin 0.7 (0.15-1.2) mg/dL AST 26 (0-32) U/L ALT 24 (0-33) U/L Alkaline Phosphata se 81 (35-105) IU/L Creatine Kinase 41 (26-192) U/L Troponin T Baselin e 58 H (0-10) ng/L Troponin T 120 Min hua (0-10) ng/L Delta Troponin T (0-10) ABS# Total Protein 6.1 L (6.6-8.7) g/dL Albumin 3.0 L (3.5-5.2) g/dL Globulin 3.1 (1.3-4.6) g/dL Lipase 17 (13-60) U/L TSH (0.27-4.20) uIU/ mL Free T4 (0.82-1.77) ng/d L Free T3 (2.0-4.4) PG/ML 09/09/20 09/09/20 09/09/20 Range/Units 09:10 09:10 11:07 WBC (4.0-10.0) 10^3/ uL RBC (4.1-5.3) 10^6/u L Hgb (11.5-15.3) g/dL Hct (37.0-47.0) % MCV (81-99) fL MCH (28.0-34.0) pg MCHC (30.0-36.0) g/dL RDW (12.1-15.1) % Plt Count (130-400) 10^3/c mm MPV (7.4-10.4) fL Neut % (Auto) % Lymph % (Auto) % [place] % (Auto) % Eos % (Auto) % Baso % (Auto) % Neut # (Auto) (1.8-7.7) 10^3/u L Lymph # (Auto) (0.8-4.8) 10^3/u L [place] # (Auto) (0.2-0.9) 10^3/u L Eos # (Auto) (0.0-0.8) 10^3/u L Baso # (Auto) (0.0-0.1) 10^3/u L Nucleated RBC % (a uto) % Nucleated RBCs # /100WBC Sodium (136-145) mmol/L Potassium (3.5-5.1) mmol/L Chloride (98-107) mmol/L Carbon Dioxide (22-29) mmol/L Anion Gap (5-19) BUN (8-23) mg/dL Creatinine (0.5-0.9) mg/dL GFR Calculation Glucose (65-115) mg/dL Estimat Average Gl ucose 94 Hemoglobin A1c 4.9 (4.0-6.0) % Calculated Osmolal ity (285-295) mOsm/k g Calcium (8.5-10.5) mg/dL Magnesium (1.7-2.3) mg/dL Total Bilirubin (0.15-1.2) mg/dL AST (0-32) U/L ALT (0-33) U/L Alkaline Phosphata se (35-105) IU/L Creatine Kinase (26-192) U/L Troponin T Baselin e (0-10) ng/L Troponin T 120 Min hua 52.40 H (0-10) ng/L Delta Troponin T -5.60 L (0-10) ABS# Total Protein (6.6-8.7) g/dL Albumin (3.5-5.2) g/dL Globulin (1.3-4.6) g/dL Lipase (13-60) U/L TSH 0.01 L (0.27-4.20) uIU/ mL Free T4 2.38 H (0.82-1.77) ng/d L Free T3 7.6 H (2.0-4.4) PG/ML Discharge Plan Discharge Patient Disposition: Admitted As Inpatient Admit Provider: Naresh Choi Clinical Impression: Atrial fibrillation with rapid ventricular response, Chest pain, 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 Condition: Stable Coding Level of Care Code ED Film Recordist for Chg Fwd Exam Comprehensive
[2020-09-09 09:39] LABS: Alanine Aminotransferase 24 U/L (0-33); Alkaline Phosphatase 81 IU/L (35-105); Anion Gap 16.6 (5-19); Aspartate Amino Transferase 26 U/L (0-32); Blood Urea Nitrogen 15 mg/dL (8-23); Calcium 8.1 mg/dL (8.5-10.5); Carbon Dioxide 25 mmol/L (22-29); Chloride 106 mmol/L (98-107); Creatine Phosphokinase 41 U/L (26-192); Globulin 3.1 g/dL (1.3-4.6); Glucose 147 mg/dL (65-115); Lipase 17 U/L (13-60); Magnesium 1.8 mg/dL (1.7-2.3); Osmolality Calculated 302 mOsm/kg (285-295); Potassium 3.6 mmol/L (3.5-5.1); Sodium 144 mmol/L (136-145); Total Bilirubin 0.7 mg/dL (0.15-1.2); Total Protein 6.1 g/dL (6.6-8.7)
[2020-09-09 09:41] LABS: Troponin(5th) Baseline 58 ng/L (0-10)
[2020-09-09] MEDS: sodium chloride 0.9% 500 ML 999 ML IV (10:24)
--- NOTE | 2020-09-09 11:03 | ECG_ITS ---
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 Measurements Intervals [place] Rate: 131 P: DE: QRS: -20 QRSD: 90 T: 103 QT: 313 QTc: 463 Interpretive Statements ATRIAL FIBRILLATION WITH RAPID VENTRICULAR RESPONSE NONSPECIFIC ST & T-WAVE ABNORMALITY Compared to ECG 06/11/2020 10:36:30 T-wave abnormality now present Left ventricular hypertrophy no longer present ST (T wave) deviation no longer present Electronically Signed On 09-10-2020 0:06:47 CDT by Soha Chamberlain M.D. [id number]
[2020-09-09] MEDS: esmolol drip 2,500 MG/250 ML PREMIX 11.2 MG IV (11:32)
[2020-09-09] MEDS: fentaNYL 50 mcg/mL INJ 2mL 100 MCG IVP (11:51)
[2020-09-09] MEDS: midazolam 1 mg/mL INJ 2 mL 5 MG IVP (11:51)
[2020-09-09] MEDS: amiodarone 50 mg/mL SDV 3 mL 300 MG IVP (12:34)
--- NOTE | 2020-09-09 12:40 | CT_ITS ---
WS: [id number] CTA OF THE CHEST WITH PULMONARY EMBOLISM PROTOCOL TECHNIQUE: High-resolution contrast enhanced CTA of the chest with coronal and sagittal reformatted i kingst[place] with pulmonary embolism protocol. MIP images are also reviewed. CLINICAL INFORMATION: dyspnea, chest pain COMPARISON: CT abdomen pelvis August 31, 2020 and CTA March 03, 2019 DLP: 501.[address] scans at [facility] use at least one of these dose optimization techniques: automat ed exposure control; mA and/or kV adjustment per patient size (includes targeted exams where dose is matched to clinical indication); or iterative reconstruction. FINDINGS: Proximal main pulmonary arteries are normal. Small filling defect in the right upper lobe anterior se gment is new from prior CTA consistent with pulmonary embolus. No other definite visualized emboli. Numerous intraparenchymal pulmonary metastasis is significantly progressed since March 03, 2019. N umber of lesions and size of lesions has progressed. Largest lesions measure approximately 3 cm. Smal l left pleural effusion. Slight patchy infiltrates in the left lower lobe. Enlarged anterior mediasti nal and right greater than left hilar lymph nodes. Left adrenal lesion unchanged measuring 3.5 x 2.7 CM. Partially visualized left renal cyst. Small eso phageal hiatal hernia. Enlarged central pulmonary arteries can be seen with pulmonary arterial hypert ension. This is unchanged from the prior studies. Hypertrophic changes thoracic spine with ankylosis. Mild thoracic curve and thoracic kyphosis. CT/CT angio chest PE protcl [id number] IMPRESSION: 1. Proximal main pulmonary arteries are normal. Single filling defect in the r ight upper lobe subsegmental anterior pulmonary artery consistent with pulmonar y embolus. No other visualized filling defects. 2. Small left pleural effusion with slight patchy infiltrates left lower lobe. 3. Diffuse pulmonary parenchymal metastatic disease significant progressed sin ce February 2019. Lesions significantly increased in number and size compared t o previous. Largest lesions measure up to 3 cm. Lesions appear hypervascular 4. Cardiomegaly. Aortic calcification and coronary calcification. 5. Left adrenal lesion is unchanged since August 31, 2020 Notified Naresh Choi MD at 09/09/2020 3:05 PM.
--- NOTE | 2020-09-09 12:57 | P.HP_ITS ---
Providers/Chief Complaint Admitting Physician: Naresh Choi MD Primary Care Provider: Neel Anaya Chief Complaint: CHEST PAIN/ AFIB W/RVR History of Present Illness Lawanda Faria is a 84 year old female who presents to the emergency department with complaints of some chest discomfort, substernal and sharp. She has had some palpitations as well. After going to her oncology appointment for metastatic papillary thyroid cancer she was found to have an irregular fast h eart rate and referred to the emergency department. She states she has been more short of breath lately, and having some lower extremity swelling. She has had no vomiting. She denies any hemoptysis. Occasional cough. No history of Covid. She was in the emergency department on August 31 with some blood in her stool. She believes this was secondary to radiation she was receiving to her pelvis and right acetabulum secondary to a large metastasis in the area. She states it is since gone away. She denies any history of ulcer. At that emergency department visit for blood in her stool where she received antibiotics of ciprofloxacin and Flagyl. In reviewing her history of atrial fibrillation with her she reports she has tried amiodarone in the past for which she had some type of GI intolerance, sotalol and propafenone for which she had some type of intolerance, digoxin and metoprolol for which she did not have desired results. She was on diltiazem prior to coming in. She had not elected to take any kind of anticoagulation in the past, settling on aspirin alone secondary to concern of bleeding. Review of Systems General: Reports: 10 or more systems reviewed and unremarkable except in HPI and below Const: Reports: fatigue; Denies: fever(s) or chills Eyes: Denies: change in vision ENMT: Denies: throat pain Card: Reports: chest pain, swelling of feet/ankles, dyspnea on exertion and orthopnea Resp: Reports: dyspnea; Denies: productive cough GI: Denies: abdominal pain or nausea : Denies: flank pain Musc: Denies: neck pain Skin/Breast: Denies: rash Neuro: Denies: headache(s) Psych: Denies: anxiety or depression Endo: Denies: polyuria [place]/Lymph: Denies: easy bruising All/Imm: Denies: urticaria Medications/Allergies Home Medications Medication Instructions Recorded Confirmed Last Taken Type losartan 100 mg tablet 100 mg PO DAILY@0800 03/25/20 05/20/21 05/19/21 History latanoprost 1 drp OPHTHALMIC (EYE) DAILY 06/11/20 09/09/20 09/08/20 History levothyroxine 100 mcg PO DAILY@0700 06/11/20 09/09/20 09/08/20 History aspirin [Aspir-81] 81 mg PO DAILY@0800 08/27/20 09/09/20 09/08/20 History diltiazem HCl 240 mg PO DAILY@1700 08/27/20 09/09/20 09/08/20 History fentanyl 1 patch TRANSDERMAL Q72H 08/27/20 09/09/20 09/09/20 History levalbuterol tartrate [Xopenex HFA] 2 inh INHALATION Q6H PRN 08/27/20 09/09/20 08/30/20 History ondansetron HCl 4 mg PO Q6H PRN 08/27/20 09/09/20 08/22/20 History oxycodone 5 mg PO TID PRN 08/27/20 09/09/20 Unknown History ciprofloxacin HCl 500 mg PO BID #20 tab 08/31/20 09/09/20 09/08/20 Rx metronidazole 500 mg PO BID 10 Days #20 tab 08/31/20 09/09/20 09/08/20 Rx lorazepam [Ativan] 1 mg PO TID PRN 09/09/20 09/09/20 Unknown History meloxicam 7.5 mg PO DAILY 09/09/20 09/09/20 09/08/20 History potassium chloride 20 meq PO DAILY PRN 09/09/20 09/09/20 09/08/20 History Allergies Allergy/AdvReac Type Severity Reaction Status Date / Time Iodinated Contrast Media Allergy Unknown Unknown Verified 08/30/20 10:56 ketorolac [From Toradol] Allergy Unknown Unknown Verified 08/30/20 10:56 PFSH Acute PFSH: Medical History (Updated 09/09/20 @ 13:20 by Naresh Choi MD) Aortic stenosis Moderate per last echocardiogram August 2018 with valve area of 1.2. 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, pelvis HTN (hypertension) Hyperlipidemia Hyperthyroidism Osteoarthritis Premature atrial contraction Surgical History History of section History of lung biopsy S/P appendectomy S/P cholecystectomy S/P hysterectomy S/P sclerotherapy of varicose veins S/P small bowel resection S/P thyroidectomy S/P tonsillectomy and adenoidectomy Family History Family/Other CAD (coronary artery disease) Hypertension Mother Cancer Social History (Updated 09/09/20 @ 13:02 by Naresh Choi MD) Smoking and tobacco status: former smoker Alcohol intake: never Vitals/I&O/Wt Last Vital Signs Temp 97.6 F 09/09/20 08:56 Pulse 135 H 09/09/20 11:00 Resp 24 H 09/09/20 11:00 BP 136/68 09/09/20 11:00 Pulse Ox 96 09/09/20 11:00 09/08/20 09/09/20 09/09/20 22:59 06:59 14:59 Intake Total 875.000 / 875.000 Balance 875.000 / 875.000 Weight last 48 hrs Weight 74.389 kg Physical Exam Narrative: EXAM NARRATIVE: General exam demonstrates a pleasant female, in mild to moderate respiratory distress HEENT: Pupils equally round. Oropharynx is clear. Atraumatic and norm ocephalic. Tongue is midline Neck is supple no lymphadenopathy or thyromegaly Cardiovascular irregular irregular with accelerated rate and 3/6 systolic murmur heard best in the aortic area Lungs demonstrate diminished breath sounds bilaterally with some expiratory wheezes. A few crackles are heard bibasilar. Abdomen is soft with positive bowel sounds. No obvious organomegaly was deferred Extremities show 1+ edema bilaterally, no cyanosis or clubbing Skin shows no rash Neuro no obvious focal deficits. Data : 09/09/20 09:10 09/09/20 09:10 Other data: Calcium is 8.1. LFTs are normal. Magnesium is 1.8. Troponin 58 with repeat of 52 Albumin 3.0 Chest x-ray demonstrates multiple pulmonary nodules per my read Recent abdominal pelvis CT on August 31 demonstrated pulmonary metastatic nodules, small hiatal hernia, large mass right ilium and sacrum, distal colon mucosal edema, mild intrahepatic bile duct dilation EKG demonstrates atrial fibrillation with rapid ventricular rate with a rate of 130, left axis deviation, nonspecific ST-T wave changes A&P Assessment and plan (1) Atrial fibrillation: Presents with atrial fibrillation with rapid ventricular rate. Has history of prior atrial fibrillation currently on diltiazem. Not on anticoagulation, only aspirin secondary to propensity of bleeding. Had some lower GI bleeding on August 31, possibly secondary to radiation she had been receiving. Cardizem, and esmolol have been tried in the emergency department. Cardiology consultation has been obtained, and they recommend reinitiation of amiodarone. I discussed with the patient and she reports she believes she had some GI side effects from this in the past. She did not have any significant allergy. A TSH will be checked, and her thyroid hormone will be stopped. I have visited with her oncologist briefly regarding this, and she is taking this to suppress her papillary thyroid cancer. The intention is to make her hyperthyroid to redu ce cancer growth. However, acutely with her atrial fibrillation with rapid ventricular rate this will be discontinued. Status: Acute (2) Acute respiratory failure: She appears to have some fluid overload secondary to her atrial fibrillation rapid ventricular rate. She received a fluid bolus in the emergency department. This was given secondary to some relative hypotension. Hold off on any more fluid currently. Secondary to relative hypotension will hold off on any Lasix currently. Reevaluation later, or by cardiology. Wean oxygen as tolerated Status: Acute (3) Chest pain: She describes a sharp chest discomfort when she breathes in. Although this may be secondary to her mild acute diastolic heart failure from tachya rrhythmia, she is at high risk for pulmonary embolism given her underlying cancer, and decreased mobility. We will check a CTA of her chest. Serial troponins Check echocardiogram, to rule out significant pericardial effusion, invasion of malignancy, and to recheck aortic stenosis. Status: Acute (4) History of thyroid cancer: Has widely spread metastatic papillary thyroid carcinoma with greatest burden being in her lungs and right pelvis/acetabulum. She recently completed radiation therapy to the pelvis/acetabulum Status: Acute (5) Hematochezia: Episode of hematochezia August 31 after completion of radiation treatment. She has not had any bleeding since, but obviously this is a concern for full anticoagulation. Status: Acute (6) Aortic stenosis: Check echocardiogram Status: Acute (7) HTN (hypertension): Hold on patient's losartan secondary to relative hypotension in the emergency department Status: Chronic Additional A&P Information Full code at this point. I discussed this with her in depth. She would not want to be on any life saving measures for any is extensive amount of time considering her diagnosis. We will initiate heparin subcutaneous every 12 hours for DVT prophylaxis and monitor closely. Note that she had blood in her stool with lower GI bleeding approximately 10 days ago. I think this was likely secondary to the radiation she had been receiving that she has now completed. She denies any blood in her stool since her ER visit on August 31. Protonix for GI prophylaxis Attestations 2 Medical Necessity Statement*: Will need greater than 2 midnight stay for evaluation and treatment of atrial fibrillation with rapid ventricular rate, chest discomfort, respiratory failure Time Spent in Patient Care: Greater than 35 minutes Critical Care Time: Critical Care Time (min): 63 Other Attestations: The high probability of a clinically significant, sudden or life threatening deterioration of the patient's [pulmonary, cardiac, malignancy of thyroid] system(s) required my full and direct attention, intervention and personal management. The critical care time is as shown. This time is in addition to time spent performing any reported procedures but includes the following: [x] Data and vital sign review and interpretation [x] Patient assessment, examination and intervention [x] Documentation [x] Medication orders and management Coding Level of Care Code Acute Novelty Printing Machine Operator for Radha Randhawa Diagnoses Atrial fibrillation I48.91 Acute respiratory failure J96.00 Chest pain R07.9 History of thyroid cancer Z85.850 Hematochezia K92.1 Aortic stenosis I35.0 HTN (hypertension) I10
[2020-09-09] MEDS: iohexol 350 mg/mL 100 mL Btl IV (13:05)
[2020-09-09 13:51] LABS: Free T4 Free Thyroxine 2.38 ng/dL (0.82-1.77); T3 Free 7.6 PG/ML (2.0-4.4); Thyroid Stimulating Hormone 0.01 uIU/mL (0.27-4.20)
[2020-09-09] MEDS: potassium chloride ER 20 mEq Tablet 40 MEQ PO (14:01)
[2020-09-09] MEDS: oxyCODONE 5 mg IR Tab/Cap PO ×2 (14:02→23:53)
[2020-09-09] MEDS: heparin 5,000 unit/mL INJ 1 mL 5000 UNIT SUBCUT (15:03)
--- NOTE | 2020-09-09 15:03 | ECG_ITS ---
[facility] Test Date: 2020-09-09 Pat Name: Lawanda Faria Department: Room: ICU06 Gender: Female Film Processor: : 1935 Requested By: Leopoldo Smalls Order Number: [id number] Eva MD: Soha Chamberlain M.D. Measurements Intervals [place] Rate: 131 P: [place]: QRS: -32 QRSD: 87 T: 104 QT: 304 QTc: 450 Interpretive Statements ATRIAL FIBRILLATION WITH RAPID VENTRICULAR RESPONSE MARKED LEFT AXIS DEVIATION [QRS AXIS < -30] PATTERN CONSISTENT WITH PULMONARY DISEASE MODERATE VOLTAGE CRITERIA FOR LVH, CONSIDER NORMAL VARIANT [MEETS CRITERIA IN ONE OF: R(aVL), S(V1), R(V5), R(V5/V6)+S(V1)] MODERATE T-WAVE ABNORMALITY, CONSIDER LATERAL ISCHEMIA [-0.1+ mV T WAVE IN I/aVL/V5/V6] Compared to ECG 09/09/2020 11:26:27 Left-axis deviation now present Possible ischemia now present T-wave abnormality still present Electronically Signed On 09-10-2020 0:10:25 CDT by Soha Chamberlain M.D. [id number]
[2020-09-09 15:14] LABS: Estmated Average Glucose 94; Hemoglobin A1C 4.9 % (4.0-6.0)
[2020-09-09 15:34] LABS: Troponin 5 6HR 54.39 ng/L (0-10)
[2020-09-09 15:36] LABS: Add Urine Microscopic? YES; Bilirubin Urine Neg (Negative); Blood Urine 2+ (Negative); Glucose Urine UA Norm (Normal); Ketones Urine Negative (Negative); Leukocyte Esterase Urine Negative (Negative); Nitrate Urine Negative (Negative); Protein Urine Trace (Negative); Specific Gravity, Urine 1.005 (1.005-1.030); Urine Appearance SL Hazy (CLEAR); Urine Color Yellow (Yellow); Urobilinogen Urine 4 mg/dL (Negative); pH Urine 6.5 (5-7)
[2020-09-09 15:38] LABS: Troponin 5 6HR Delta -3.61 ng/L (0-12)
[2020-09-09 15:44] LABS: Bacteria Urine TRACE /hpf; Squamous Epithelial Cell Urine 15-25 /hpf (0-5); WBC Urine 0-4 /hpf (0-5)
[2020-09-09 15:45] LABS: Add Urine Culture? No
--- NOTE | 2020-09-09 16:06 | USCV_ITS ---
Lawanda Faria Age: 84 Gender: F : 1935 Exam Date: 09/09/2020 16:30 Ordering Phys: Naresh Choi MD Technologist: Exam Location: [facility] [place]_ Indication: ? DVT CHEST PAIN HISTORY: Lower extremity edema. PROCEDURES: The venous duplex Doppler examination of both lower extremities was performed in the standard fashion. The following venous structures were evaluated: common femoral vein, profunda vein, proximal portion of the greater saphenous vein, superficial femoral vein, and the popliteal vein. In addition, the posterior tibial and peroneal trunk were evaluated. Bilaterally, the common femoral, superficial femoral, profunda femoral, popliteal, posterior tibial, greater saphenous veins, and the peroneal trunk were identified and interrogated in the standard fashion. These veins were found to be easily compressible with spontaneous blood flow. No evidence of insufficiency or thrombus noted. FINDINGS: Normal 2-D Doppler and augmentation and compressibility throughout the lower extremity venous structures. Additional imaging through the proximal calf veins also reveals no thrombus. Limited evaluation of the greater saphenous vein is patent with no thrombus.. The veins were found to be easily compressible with spontaneous blood flow. Non pulsatile flow pattern. CONCLUSIONS No evidence of DVT in the above-mentioned identifiable veins. Dr Soha Chamberlain MD [facility] (Electronically Signed) Final Date: 09 Sep 2020 19:03 S
[2020-09-09] MEDS: metoprolol tartrate 25 mg Tablet PO (17:01)
--- NOTE | 2020-09-09 19:02 | PC.NURSE ---
[address] Choi. Reported patient's labored breathing. Reviewed vital signs. Clarified diet order. Awaiting CTA results. Plan for clear liquid diet. [address] Mendez. Orders for bilateral venous doppler. Reported patient's elevated heart rate. States he is ok with heart rate 120-140 while Amio loads. 1615 Clarified Amio drip titration with Dr. Cleveland. Orders to continue Amio drip at 1 mg/min and give lopressor po x 1 dose.
[2020-09-09] MEDS: sodium chloride 0.9% 250 ML IV (20:02)
[2020-09-09] MEDS: dilTIAZem 60 mg Tablet 120 MG PO (20:02)
[2020-09-09] MEDS: sodium chloride 0.9% 500 ML 100 ML IV (21:13)
--- NOTE | 2020-09-09 21:17 | PM.CONSULT ---
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 Patient was tried Cardizem and multiple defibrillator shocks in the ER which remained unsuccessful. It is the reason we have been asked to assist in her care. Currently patient is on IV amiodarone. Review of Systems General: Reports: 10 or more systems reviewed and unremarkable except in HPI and below Const: Reports: fatigue; Denies: fever(s), chills or diaphoresis Eyes: Denies: change in vision ENMT: Denies: throat pain, ear or mastoid pain, nasal discharge or nasal congestion Card: Reports: chest pain, swelling of feet/ankles, dyspnea on exertion and orthopnea; Denies: syncope Resp: Reports: dyspnea; Denies: productive cough or non-productive cough GI: Denies: abdominal pain, nausea or vomiting : Denies: flank pain, difficulty voiding, dysuria, urinary frequency or urinary urgency Musc: Denies: neck pain or muscle cramps Skin/Breast: Denies: rash or pruritus Neuro: Denies: headache(s) Psych: Denies: anxiety or depression Endo: Denies: polyuria Tushar/Lymph: Denies: easy bruising All/Imm: Denies: urticaria Meds/Allergies Home Medications and Allergies Home Medications Medication Instructions Recorded Confirmed Last Taken Type losartan 100 mg tablet 100 mg PO DAILY@0800 07/16/19 09/09/20 09/08/20 History latanoprost 1 drp OPHTHALMIC (EYE) DAILY 06/11/20 09/09/20 09/08/20 History levothyroxine 100 mcg PO DAILY@0700 06/11/20 09/09/20 09/08/20 History aspirin [Aspir-81] 81 mg PO DAILY@0800 08/27/20 09/09/20 09/08/20 History diltiazem HCl 240 mg PO DAILY@1700 08/27/20 09/09/20 09/08/20 History fentanyl 1 patch TRANSDERMAL Q72H 08/27/20 09/09/20 09/09/20 History levalbuterol tartrate [Xopenex HFA] 2 inh INHALATION Q6H PRN 08/27/20 09/09/20 08/30/20 History ondansetron HCl 4 mg PO Q6H PRN 08/27/20 09/09/20 08/22/20 History oxycodone 5 mg PO TID PRN 08/27/20 09/09/20 Unknown History ciprofloxacin HCl 500 mg PO BID #20 tab 08/31/20 09/09/20 09/08/20 Rx metronidazole 500 mg PO BID 10 Days #20 tab 08/31/20 09/09/20 09/08/20 Rx lorazepam [Ativan] 1 mg PO TID PRN 09/09/20 09/09/20 Unknown History meloxicam 7.5 mg PO DAILY 09/09/20 09/09/20 09/08/20 History potassium chloride 20 meq PO DAILY PRN 09/09/20 09/09/20 09/08/20 History Allergies Allergy/AdvReac Type Severity Reaction Status Date / Time Iodinated Contrast Media Allergy Unknown Unknown Verified 08/30/20 10:56 ketorolac [From Toradol] Allergy Unknown Unknown Verified 08/30/20 10:56 Current Medications Current Medications Generic Name Dose Route Start Last Admin Trade Name Freq PRN Reason Stop Dose Admin Diltiazem HCl 120 mg 09/09/20 20:00 09/09/20 20:02 Diltiazem 60 Mg Tablet PO 120 mg DAILY MARLENE Administration Heparin Sodium (Beef Lung) 5,000 unit 09/09/20 15:00 09/09/20 15:03 Heparin 5,000 Unit/Ml Inj 1 Ml SUBCUT 5,000 unit Q12H MARLENE Administration Esmolol HCl 2,500 mg in 250 mls @ 0 mls/hr 09/09/20 11:15 09/09/20 12:49 Brevibloc Drip IV Infused .Q0M MARLENE Titration Protocol Per Protocol Amiodarone HCl 900 mg/ 518 mls @ 0 mls/hr 09/09/20 12:30 09/09/20 12:34 Dextrose/ IV Miscellaneous IV 1 mg/min Supplies .Q0M MARLENE 34.5 mls/hr Administration Protocol Per Protocol Sodium Chloride 500 mls @ 100 mls/hr 09/09/20 21:00 09/09/20 21:13 Sodium Chloride 0.9% IV 100 mls/hr .Q5H MARLENE Administration Oxycodone HCl 5 mg 09/09/20 13:34 09/09/20 14:02 Oxycodone 5 Mg Ir Tab/Cap PO 5 mg TID PRN Administration Pain PFSH Acute PFSH: Medical History (Updated 09/09/20 @ 21:30 by Riddhi Cleveland MD) Aortic stenosis Moderate per last echocardiogram August 2018 with valve area of 1.2. 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, pelvis HTN (hypertension) Hyperlipidemia Hyperthyroidism Osteoarthritis Premature atrial contraction Surgical History History of section History of lung biopsy S/P appendectomy S/P cholecystectomy S/P hysterectomy S/P sclerotherapy of varicose veins S/P small bowel resection S/P thyroidectomy S/P tonsillectomy and adenoidectomy Family History Family/Other CAD (coronary artery disease) Hypertension Mother Cancer Social History (Updated 09/09/20 @ 13:02 by Naresh Choi MD) Smoking and tobacco status: former smoker Alcohol intake: never Vitals/I&O/Wt Last Vital Signs Temp 98.8 F 09/09/20 19:05 Pulse 141 H 09/09/20 20:15 Resp 29 H 09/09/20 20:15 BP 104/90 09/09/20 20:15 Pulse Ox 94 09/09/20 20:15 09/09/20 09/09/20 09/09/20 06:59 14:59 22:59 Intake Total 875.000 / 875.000 200 / 1075.000 Output Total 100 / 100 Balance 875.000 / 875.000 100 / 975.000 Weight last 48 hrs Weight 164 lb Physical Exam Narrative: EXAM NARRATIVE: GENERAL: Patient is alert, awake and oriented x3. NECK: No jugular vein distension. HEENT: No cyanosis. No icterus. No pallor. HEART: Regularly irregular S1 and S2. 2/6 sys murmur, rub or gallop. LUNGS: Clear to auscultate bilaterally. ABDOMEN: Soft, nontender and nondistended. Positive bowel sounds. No guarding, rebound or tenderness. CENTRAL NERVOUS SYSTEM: Grossly nonfocal. EXTREMITIES: Lower extremities without edema bilaterally. A&P Assessment and plan (1) Atrial fibrillation: Patient is hard to control atrial fibrillation. As above she has been tried with cardioversion Cardizem beta-rob and now on amiodarone. She claims side effects to beta-rob digoxin and also with amiodarone. Currently patient is on amiodarone which could be double episode as it can cause both hypo and hyperthyroidism due to iodine moiety, our other option could be Multaq or propafenone which could be tried if she does not slow down. Sotalol patient claims side effects to it. For now will continue IV amiodarone add beta-rob and Cardizem. We will see how she does overnight for the plan will be advised as per progress of the patient Status: Acute Qualifiers: Atrial fibrillation type: permanent Qualified Code(s): I48.21 - Permanent atrial fibrillation (2) Aortic stenosis: Appear to be moderate and stable. Continue to monitor Status: Acute Qualifiers: Cardiac valve disease etiology: nonrheumatic Qualified Code(s): I35.0 - Nonrheumatic aortic (valve) stenosis (3) History of thyroid cancer: Patient follows up with primary care physician and oncologist Status: Acute (4) HTN (hypertension): Stable continue to monitor. Status: Chronic Qualifiers: Hypertension type: essential hypertension Qualified Code(s): I10 - Essential (primary) hypertension Consult Attestations Medical Necessity Statement: Require continuation hospitalization for above defined care. I am expecting her stay to cross more than 2 midnights Coding Level of Care Code New Pt Acute Creative Strategist for [facility] Patient Type New History Detailed Exam Detailed Medical Decision Making Moderate Complexity Diagnoses Atrial fibrillation I48.21 Atrial fibrillation type: permanent Aortic stenosis I35.0 Cardiac valve disease etiology: nonrheumatic History of thyroid cancer Z85.850 HTN (hypertension) I10 Hypertension type: essential hypertension
[2020-09-10] VITALS (96 sets, daily range): BP systolic 98–134; BP diastolic 65–91; PULSE 92–153; RESP 17–39; TEMP 36.6–36.8; O2SAT 87–96
--- NOTE | 2020-09-10 | USCV_ITS ---
Whitney Lawanda Faria Age: 84 Gender: F : 1935 Exam Date: 09/10/2020 14:04 Ordering Phys: Naresh Choi MD Technologist: [email or web address] Exam Location: [facility] [place] Indication: AFIB WITH RVR BP: 102 / 81 HR: 101 Rhythm: Sinus Technical Quality: Adequate MEASUREMENTS (Male / Female) Normal Values 2D ECHO LV Diastolic Diameter PLAX 4.0 cm 4.2 - 5.9 / 3.9 - 5.3 cm LV Systolic Diameter PLAX 2.9 cm IVS Diastolic Thickness 1.4 cm 0.6 - 1.0 / 0.6 - 0.9 cm IVS Systolic Thickness 1.8 cm LVPW Diastolic Thickness 1.3 cm 0.6 - 1.0 / 0.6 - 0.9 cm LVPW Systolic Thickness 1.5 cm LVOT Diameter 2.0 cm LV Ejection Fraction 2D Teich 55.3 % LV Ejection Fraction MOD 2C 61.4 % LV Ejection Fraction 2C AL 60.4 % LA Diameter 3.6 cm LA Width 3.3 cm LA Height 5.0 cm RA Width 4.1 cm RA Height 4.9 cm Aorta at Sinotubular Diameter 2.8 cm M-MODE LV Diastolic Diameter MM 4.9 cm 4.2 - 5.9 / 3.9 - 5.3 cm LV Systolic Diameter MM 3.6 cm LV Ejection Fraction MM Teich 49.9 % IVS Diastolic Thickness MM 1.1 cm 0.6 - 1.0 / 0.6 - 0.9 cm IVS Systolic Thickness MM 1.1 cm LVPW Diastolic Thickness MM 0.6 cm 0.6 - 1.0 / 0.6 - 0.9 cm LVPW Systolic Thickness MM 1.3 cm Aortic Annulus Diameter 2.2 cm LA Ao Ratio MM 1.7 DOPPLER AV Peak Velocity 354.8 cm/s LVOT Peak Velocity 70.0 cm/s AV Area Cont Eq vti 0.6 cm squared AV Area Cont Eq pk 0.6 cm squared MV Peak Velocity 149.0 cm/s MV Area PHT 4.8 cm squared Mitral E to A Ratio 3.3 MV E' Velocity 71.0 cm/s Mitral E to MV E' Ratio 13.6 Mitral E to LV E' Lateral Ratio 17.1 Mitral E to LV E' Septal Ratio 11.3 TR Peak Velocity 282.1 cm/s TR Peak Gradient 31.8 mmHg TR Mean Velocity 191.5 cm/s TR Mean Gradient 17.2 mmHg TR Velocity Time Integral 72.6 cm Right Atrial Pressure 8.0 mmHg Pulmonary Artery Systolic Pressu 39.8 mmHg PV Peak Velocity 74.0 cm/s RV Acceleration Time 0.1 s RV Ejection Time 0.4 s RV AcT/ET 0.2 FINDINGS Left Ventricle Normal left ventricular size. LV systolic function is mildly reduced with EF of 45-50%. Mild global hypokinesis. Diastolic function can not be determined because of atrial fibrillation. Right Ventricle The right ventricle is normal in size and function. Right Atrium The right atrium is dilated Left Atrium The left atrium is dilated Mitral Valve Moderate mitral annular calcification without significant stenosis or prolapse. There is moderate mitral regurgitation. Aortic Valve Thickened aortic valve. There is severe aortic stenosis with RAJIV of 0.60cm2 and mean gradient across the aortic valve of 28mmHg. There is mild aortic regurgitation. Tricuspid Valve Structurally normal tricuspid valve without significant stenosis. Mild tricuspid regurgitation. RVSP is 35-40mmHg. This is consistent with mild pulmonary hypertension Pulmonic Valve Structurally normal pulmonic valve without significant stenosis. There is no pulmonic regurgitation. Pericardium Normal pericardium without effusion. Aorta Normal ascending aorta dimension. CONCLUSIONS LV systolic function is mildly reduced with EF of 45-50%. Mild global hypokinesis. Diastolic function can not be determined because of atrial fibrillation. Biatrial enlargement There is severe aortic stenosis with RAJIV of 0.60cm2 and mean gradient across the aortic valve of 28mmHg. Moderate mitral regurgitation Mild tricuspid regurgitation Mild pulmonary hypertension Compared to prior echocardiogram from 09/03/2018, patient now has mildly reduced LV systolic function with severe aortic stenosis and moderate mitral regurgitation. Jose Laureano MD (Electronically Signed) Final Date: 11 Sep 2020 14:07 S
[2020-09-10] MEDS: latanoprost 0.005% Op Soln 2.5 mL Btl 1 DROP EYE-BOTH ×2 (01:20→21:17)
[2020-09-10] MEDS: ondansetron 2 mg/ML SDV 2 mL 4 MG IVP (01:46)
--- NOTE | 2020-09-10 02:59 | PC.NURSE ---
New Orders; MD Cristofer came to bedside for patient assessment and rounding. New orders given for 250mL NS bolus to be given, followed by 100mL/hr to be given, until 500mL in total has been administered. Other new orders for PO 120mg Cardizem to be given now, and ordered for 120mg PO cardizem to be given daily to follow. Meds administered as ordered.
[2020-09-10] MEDS: heparin 5,000 unit/mL INJ 1 mL 5000 UNIT SUBCUT ×2 (03:32→15:49)
[2020-09-10 04:55] LABS: Basophils % 0.3 %; Eosinophils % 0.1 %; Hematocrit 39.4 % (37.0-47.0); Hemoglobin 12.3 g/dL (11.5-15.3); Lymphocytes # 0.4 10^3/uL (0.8-4.8); Lymphocytes % 3.5 %; Mean Corpuscular HGB Conc 31.2 g/dL (30.0-36.0); Mean Corpuscular Hemoglobin 29.9 pg (28.0-34.0); Mean Corpuscular Volume 95.6 fL (81-99); Mean Platelet Volume 11.6 fL (7.4-10.4); Monocytes # 1.9 10^3/uL (0.2-0.9); Neutrophils # 9.29 10^3/uL (1.8-7.7); Neutrophils % 79.2 %; Nucleated Red Blood Cells % 0 %; Platelet Count 220 10^3/cmm (130-400); Red Blood Count 4.12 10^6/uL (4.1-5.3); Red Cell Distribution Width 14.7 % (12.1-15.1); White Blood Count 11.7 10^3/uL (4.0-10.0)
[2020-09-10 06:24] LABS: Alanine Aminotransferase 24 U/L (0-33); Alkaline Phosphatase 86 IU/L (35-105); Anion Gap 17.2 (5-19); Aspartate Amino Transferase 22 U/L (0-32); Blood Urea Nitrogen 25 mg/dL (8-23); Calcium 8.1 mg/dL (8.5-10.5); Carbon Dioxide 25 mmol/L (22-29); Chloride 102 mmol/L (98-107); Globulin 3.2 g/dL (1.3-4.6); Glucose 160 mg/dL (65-115); Osmolality Calculated 298 mOsm/kg (285-295); Potassium 4.2 mmol/L (3.5-5.1); Sodium 140 mmol/L (136-145); Total Bilirubin 0.8 mg/dL (0.15-1.2); Total Protein 6.2 g/dL (6.6-8.7)
--- NOTE | 2020-09-10 06:38 | PC.NURSE ---
Shift Summary; Patient has had multiple episodes of n/v throughout shift. PRN IVP Zofran given in attempts to try and decrease n/v. Patient has had very little urine output that presents as extremely concentrated, and she cannot keep what little fluids that she is able to swallow down. Some c/o pain to chest treated with PRN pain medication. Report given to dayshift RN. No needs at this time.
[2020-09-10] MEDS: pantoprazole DR 40 mg Tablet PO (08:57)
[2020-09-10] MEDS: aspirin 81 mg EC Tablet PO (08:57)
[2020-09-10] MEDS: dilTIAZem 60 mg Tablet 120 MG PO (08:57)
--- NOTE | 2020-09-10 11:00 | P.PN_ITS ---
Subjective Subjective: Interval history: Patient was seen this morning, she continues to be in A. fib, heart rates in the high one twenties, is on 1 of amiodarone, she tells me that with minimal movement or even eating, she gets tired, she becomes quite tachycardic, she complains of a poor appetite, she does report quite significant nausea, no vomiting,, some lightheadedness Vitals/I&O/Wt Last Vital Signs Temp 98.2 F 09/10/20 08:00 Pulse 117 H 09/10/20 10:00 Resp 22 H 09/10/20 10:00 BP 128/65 09/10/20 10:00 Pulse Ox 93 09/10/20 09:51 09/09/20 09/10/20 09/10/20 22:59 06:59 14:59 Intake Total 450 / 1325.000 689.875 / 2014.875 100 / 100 Output Total 200 / 200 Balance 250 / 1125.000 689.875 / 1814.875 100 / 100 Weight last 48 hrs Weight 75.134 kg Weight 74.389 kg Physical Exam Const: COMMON NORMALS: no acute distress GENERAL APPEARANCE: frail appearing ORIENTATION/CONSCIOUSNESS: Yes awake, Yes oriented to person, Yes oriented to place and Yes oriented to time Chest: COMMONS NORMALS: normal inspection of the chest Resp: COMMON NORMALS: normal respiratory effort and clear to auscultation bilaterally AUSCULTATION: clear to auscultation bilaterally Cardio: COMMON NORMALS: regular rate, regular rhythm, S1 normal heart sound present, S2 normal heart sound present and Peripheral pulses 2+ throughout RATE: regular rate RHYTHM: regular rhythm HEART SOUNDS: S1 normal heart sound present and S2 normal heart sound present PERIPHERAL PULSES: Peripheral pulses 2+ throughout GI: COMMON NORMALS: Normal to inspection, nondistended, normoactive bowel sounds present, Soft to palpation, non-tender and No hepatosplenomegaly present PALPATION: Yes Soft to palpation and Yes No hepatosplenomegaly present : COMMON NORMALS: Yes no CVA tenderness BLADDER/KIDNEY EXAM: Yes no CVA tenderness Back/Pelvis: COMMON NORMALS: no CVA tenderness Extremity: COMMON NORMALS: no pedal edema Neuro: SENSORIUM/ORIENTATION: Yes oriented to person, Yes oriented to place and Yes oriented to time Data : 09/10/20 04:05 09/10/20 05:48 A&P Assessment and plan (1) Atrial fibrillation: Presents with atrial fibrillation with rapid ventricular rate. Has history of prior atrial fibrillation currently on diltiazem. Not on ant icoagulation, only aspirin secondary to propensity of bleeding. Had some lower GI bleeding on August 31, possibly secondary to radiation she had been receiving. Cardizem, and esmolol have been tried in the emergency department. Cardiology consultation has been obtained, and they recommend reinitiation of amiodarone. I discussed with the patient and she reports she believes she had some GI side effects from this in the past. She did not have any significant allergy. Has been on amiodarone, in A. fib, heart rates in the 120's A TSH 0.01 and her thyroid hormone will be stopped. I have visited with her oncologist briefly regarding this, and she is taking this to suppress her papillary thyroid cancer. The intention is to make her hyperthyroid to reduce cancer growth. However, acutely with her atrial fibrillation with rapid ventricular rate this will be discontinued. Status: Acute Qualifiers: Atrial fibrillation type: permanent Qualified Code(s): I48.21 - Permanent atrial fibrillation (2) Acute respiratory failure: She appears to have some fluid overload secondary to her atrial fibrillati on rapid ventricular rate. She received a fluid bolus in the emergency department. This was given s econdary to some relative hypotension. Hold off on any more fluid currently. Secondary to relative hypotension will hold off on any Lasix currently. Reevaluation later, or by cardiology. Wean oxygen as tolerated Status: Acute (3) Chest pain: She describes a sharp chest discomfort when she breathes in. Although this may be secondary to her mild acute diastolic heart failure from tachyarrhythmia, she is at high risk for pulmonary embolism given her underlying cancer, and decreased mobility. We CT of the chest shows small CT of the chest shows Single filling defect in the right upper lobe subsegmental anterior pulmonary artery consistent with pulmonary embolus. Serial troponins, 54.39, 6-hour 3.6 Check echocardiogram, to rule out significant pericardial effusion, invasion of malignancy, and to recheck aortic stenosis. Status: Acute (4) History of thyroid cancer: Has widely spread metastatic papillary thyroid carcinoma with greatest burden being in her lungs and right pelvis/acetabulum. She recently completed radiation therapy to the pelvis/acetabulum Status: Acute (5) Hematochezia: Episode of hematochezia August 31 after completion of radiation treatment. She has not had any bleeding since, but obviously this is a concern for full anticoagulation. Status: Acute (6) Aortic stenosis: Check echocardiogram Status: Acute Qualifiers: Cardiac valve disease etiology: nonrheumatic Qualified Code(s): I35.0 - Nonrheumatic aortic (valve) stenosis (7) HTN (hypertension): Hold on patient's losartan secondary to relative hypotension in the emergency department Status: Chronic Qualifiers: Hypertension type: essential hypertension Qualified Code(s): I10 - Essential (primary) hypertension (8) Pulmonary embolism: -Proximal main pulmonary arteries are normal. Single filling defect in the right upper lobe subsegmental anterior pulmonary artery consistent with pulmonary embolus. No other visualized filling defects. -Given her history of lower GI bleed, the risks outweigh the benefit in terms of full dose anticoagulation, in addition we have decided not to anticoagulate her as its only as small filling defect in the right upper lobe, and I feel it is not clinically significant in terms of her symptomatology which is more related to her heart failure and A. fib. Nonetheless cannot rule out completely the role of this small filling defect, but at this time the risks outweigh the benefit in terms of full dose anticoagulation Status: Acute Additional A&P Information Full code at this point. I discussed this with her in depth. She would not want to be on any life saving measures for any is extensive amount of time considering her diagnosis. We will initiate heparin subcutaneous every 12 hours for DVT prophylaxis and monitor closely. Note that she had blood in her stool with lower GI bleeding approximately 10 days ago. I think this was likely secondary to the radiation she had been receiving that she has now completed. She denies any blood in her stool since her ER visit on August 31. Protonix for GI prophylaxis Attestations Medical Necessity Statement*: Patient requires hospitalization for atrial fibrillation with RVR, acute respiratory failure, CHF, Coding Level of Care Code Acute Lithographic Press Feeder for [facility] Fwd Exam Detailed Diagnoses Atrial fibrillation I48.21 Atrial fibrillation type: permanent Acute respiratory failure J96.00 Chest pain R07.9 History of thyroid cancer Z85.850 Hematochezia K92.1 Aortic stenosis I35.0 Cardiac valve disease etiology: nonrheumatic HTN (hypertension) I10 Hypertension type: essential hypertension Pulmonary embolism I26.99
[2020-09-10] MEDS: metoprolol tartrate 25 mg Tablet PO ×2 (11:23→22:12)
[2020-09-10] MEDS: amiodarone 200 mg Tablet 400 MG PO (19:30)
--- NOTE | 2020-09-10 20:24 | P.PN_ITS ---
Subjective Subjective: Interval history: Patient heart rate has somewhat settled down but remains on the higher side which increases with the movement. Vitals/I&O/Wt Last Vital Signs Temp 98 F 09/10/20 18:00 Pulse 112 H 09/10/20 18:00 Resp 19 H 09/10/20 18:00 BP 132/79 09/10/20 18:00 Pulse Ox 92 09/10/20 17:00 09/10/20 09/10/20 09/10/20 06:59 14:59 22:59 Intake Total 689.875 / 2264.875 200 / 200 200 / 400 Output Total 150 / 150 200 / 350 Balance 689.875 / 2064.875 50 / 50 0 / 50 Weight last 48 hrs Weight 165 lb 10.274 oz Weight 164 lb Physical Exam Narrative: EXAM NARRATIVE: GENERAL: Patient is alert, awake and oriented x3. NECK: No jugular vein distension. HEENT: No cyanosis. No icterus. No pallor. HEART: Regularly irregular S1 and S2. 2/6 sys murmur, rub or gallop. LUNGS: Clear to auscultate bilaterally. ABDOMEN: Soft, nontender and nondistended. Positive bowel sounds. No guarding, rebound or tenderness. CENTRAL NERVOUS SYSTEM: Grossly nonfocal. EXTREMITIES: Lower extremities without edema bilaterally. Data : 09/10/20 04:05 09/10/20 05:48 A&P Assessment and plan (1) Atrial fibrillation: I will increase Cardizem to 240 mg will switch to p.o. amiodarone 400mg twice daily Status: Acute Qualifiers: Atrial fibrillation type: permanent Qualified Code(s): I48.21 - Permanent atrial fibrillation (2) Aortic stenosis: Appear to be moderate and stable. Continue to monitor Status: Acute Qualifiers: Cardiac valve disease etiology: nonrheumatic Qualified Code(s): I35.0 - Nonrheumatic aortic (valve) stenosis (3) History of thyroid cancer: Patient follows up with primary care physician and oncologist Status: Acute (4) HTN (hypertension): Stable continue to monitor. Status: Chronic Qualifiers: Hypertension type: essential hypertension Qualified Code(s): I10 - Ess ential (primary) hypertension Attestations Medical Necessity Statement*: Require continuation hospitalization for above defined care Coding Level of Care Code Established Pt Acute Occupational Health Professional for [facility] Patient Type Established History Detailed Exam Detailed Medical Decision Making Moderate Complexity Diagnoses Atrial fibrillation I48.21 Atrial fibrillation type: permanent Aortic stenosis I35.0 Cardiac valve disease etiology: nonrheumatic History of thyroid cancer Z85.850 HTN (hypertension) I10 Hypertension type: essential hypertension
[2020-09-11] VITALS (21 sets, daily range): BP systolic 50–144; BP diastolic 31–96; PULSE 86–117; RESP 16–32; TEMP 36.6–37.1; O2SAT 91–96
[2020-09-11] MEDS: heparin 5,000 unit/mL INJ 1 mL 5000 UNIT SUBCUT ×2 (01:59→15:51)
[2020-09-11 05:50] LABS: Basophils % 0.2 %; Eosinophils # 0.1 10^3/uL (0.0-0.8); Eosinophils % 0.6 %; Hematocrit 34.5 % (37.0-47.0); Hemoglobin 10.9 g/dL (11.5-15.3); Lymphocytes # 0.3 10^3/uL (0.8-4.8); Mean Corpuscular HGB Conc 31.6 g/dL (30.0-36.0); Mean Corpuscular Hemoglobin 29.6 pg (28.0-34.0); Mean Corpuscular Volume 93.8 fL (81-99); Mean Platelet Volume 11.3 fL (7.4-10.4); Monocytes # 1.1 10^3/uL (0.2-0.9); Monocytes % 13.5 %; Neutrophils # 6.86 10^3/uL (1.8-7.7); Nucleated Red Blood Cells % 0 %; Platelet Count 197 10^3/cmm (130-400); Red Blood Count 3.68 10^6/uL (4.1-5.3); Red Cell Distribution Width 14.1 % (12.1-15.1); White Blood Count 8.5 10^3/uL (4.0-10.0)
[2020-09-11 06:21] LABS: Free T4 Free Thyroxine 2.81 ng/dL (0.82-1.77); NT Pro B Type Natriuretic Pept 2703 pg/mL (0-450); Procalcitonin 0.21 ng/mL (0-0.5); T3 Free 10.9 PG/ML (2.0-4.4); Thyroid Stimulating Hormone 0.01 uIU/mL (0.27-4.20)
[2020-09-11 06:34] LABS: Alanine Aminotransferase 21 U/L (0-33); Albumin Level 2.8 g/dL (3.5-5.2); Alkaline Phosphatase 81 IU/L (35-105); Anion Gap 13.8 (5-19); Aspartate Amino Transferase 15 U/L (0-32); Blood Urea Nitrogen 33 mg/dL (8-23); Calcium 8.3 mg/dL (8.5-10.5); Carbon Dioxide 28 mmol/L (22-29); Chloride 101 mmol/L (98-107); Globulin 2.8 g/dL (1.3-4.6); Glucose 117 mg/dL (65-115); Osmolality Calculated 296 mOsm/kg (285-295); Potassium 3.8 mmol/L (3.5-5.1); Sodium 139 mmol/L (136-145); Total Bilirubin 0.6 mg/dL (0.15-1.2); Total Protein 5.6 g/dL (6.6-8.7)
--- NOTE | 2020-09-11 07:00 | XRR_ITS ---
PROCEDURE INFORMATION: Exam: XR Chest Exam date and time: 09/11/2020 12:00 AM Age: 84 years old Clinical indication: Shortness of breath; Additional info: SOB TECHNIQUE: Imaging protocol: XR of the chest. Views: 1 view. COMPARISON: CR XR chest 1V portable [id number] 09/09/2020 9:04 AM FINDINGS: Lungs: Interstitial prominence and mild basilar airspace disease. Multiple bilateral pulmonary nodules, in a pattern of metastases. Pleural spaces: Small suspected pleural effusions. Heart/Mediastinum: Borderline cardiomegaly. Bones/joints: Degenerative change. XR/XR chest 1V portable [id number] IMPRESSION: 1. Multiple bilateral pulmonary nodules, in a pattern of metastases. 2. Additional findings as described above.
[2020-09-11] MEDS: FUROsemide 10 mg/mL SDV 4mL 40 MG IVP (08:31)
[2020-09-11] MEDS: amiodarone 200 mg Tablet 400 MG PO ×2 (08:32→17:45)
[2020-09-11] MEDS: aspirin 81 mg EC Tablet PO (08:32)
[2020-09-11] MEDS: pantoprazole DR 40 mg Tablet PO (08:32)
[2020-09-11] MEDS: dilTIAZem ER (24HR) 240 mg Capsule PO (08:32)
[2020-09-11] MEDS: metoprolol tartrate 25 mg Tablet PO ×2 (08:33→20:59)
--- NOTE | 2020-09-11 11:49 | PM.PN ---
Subjective Subjective: Interval history: Patient was examined this morning, she is eating breakfast, she tells me that her breathing has improved, her strength has improved, her appetite has improved, her heart rates are getting better, she does feel a bit short of breath and has wheezing this morning Vitals/I&O/Wt Last Vital Signs Temp 98.7 F 09/11/20 04:01 Pulse 92 09/11/20 10:00 Resp 18 09/11/20 10:00 BP 50/31 09/11/20 10:00 Pulse Ox 95 09/11/20 07:23 09/10/20 09/11/20 09/11/20 22:59 06:59 14:59 Intake Total 918 / 1118 125 / 1243 200 / 200 Output Total 250 / 400 125 / 525 1100 / 1100 Balance 668 / 718 0 / 718 -900 / -900 Weight last 48 hrs Weight 75.249 kg Weight 75.134 kg Physical Exam Const: COMMON NORMALS: no acute distress and alert GENERAL APPEARANCE: frail appearing ORIENTATION/CONSCIOUSNESS: Yes awake, Yes oriented to person, Yes oriented to place and Yes oriented to time Neck/C-Spine: COMMON NORMALS: no JVD Resp: COMMON NORMALS: normal respiratory effort, No retractions and No use of accessory muscles AUSCULTATION: wheezes Cardio: COMMON NORMALS: no JVD, regular rate, S1 normal heart sound present and S2 normal heart sound present RATE: regular rate RHYTHM: abnormal rhythm HEART SOUNDS: S1 normal heart sound present and S2 normal heart sound present GI: COMMON NORMALS: Normal to inspection, nondistended, normoactive bowel sounds present, Soft to palpation, non-tender and No hepatosplenomegaly present PALPATION: Yes Soft to palpation and Yes No hepatosplenomegaly present Neuro: SENSORIUM/ORIENTATION: Yes alert, Yes oriented to person, Yes oriented to place and Yes oriented to time Data : 09/11/20 04:59 09/11/20 04:59 A&P Assessment and plan (1) Atrial fibrillation: Presents with atrial fibrillation with rapid ventricular rate. Has history of prior atrial fibrillation currently on diltiazem. Not on anticoagulation, only aspirin secondary to propensity of bleeding. Had some lower GI bleeding on August 31, possibly secondary to radiation she had been receiving. Cardizem, and esmolol have been tried in the emergency department. Cardiology consultation has been obtained, and they recommend reinitiation of amiodarone. I discussed with the patient and she reports she believes she had some GI side effects from this in the past. She did not have any significant allergy. Has been on amiodarone, heart rates improved, currently on p.o. metoprolol, p.o. Cardizem We will moved to cardiac stepdown unit A TSH 0.01 and her thyroid hormone will be stopped. I have visited with her oncologist briefly regarding this, and she is taking this to suppress her papillary thyroid cancer. The intention is to make her hyperthyroid to reduce cancer growth. However, acutely with her atrial fibrillation with rapid ventricular rate this will be discontinued. Status: Acute Qualifiers: Atrial fibrillation type: permanent Qualified Code(s): I48.21 - Permanent atrial fibrillation (2) Acute respiratory failure: She appears to have some fluid overload secondary to her atrial fibrillation rapid ventricular rate. She received a fluid bolus in the emergency department. This was given secondary to some relative hypotension. Hold off on any more fluid currently. Blood pressures do look better, will give 1 dose of Lasix today due to wheezing and bilateral pleural effusion seen on chest x-ray. Reevaluation later, or by cardiology. Wean oxygen as tolerated Status: Acute (3) Chest pain: She describes a sharp chest discomfort when she breathes in. Although this may be secondary to her mild acute diastolic heart failure from tachyarrhythmia, she is at high risk for pulmonary embolism given her underlying cancer, and decreased mobility. We CT of the chest shows small CT of the chest shows Single filling defect in the right upper lobe subsegmental anterior pulmonary artery consistent with pulmonary embolus. Serial troponins, 54.39, 6-hour 3.6 Check echocardiogram, to rule out significant pericardial effusion, invasion of malignancy, and to recheck aortic stenosis. Status: Acute (4) History of thyroid cancer: Has widely spread metastatic papillary thyroid carcinoma with greatest burden being in her lungs and right pelvis/acetabulum. She recently completed radiation therapy to the pelvis/acetabulum Status: Acute (5) Hematochezia: Episode of hematochezia August 31 after completion of radiation treatment. She has not had any bleeding since, but obviously this is a concern for full anticoagulation. Status: Acute (6) Aortic stenosis: Check echocardiogram Status: Acute Qualifiers: Cardiac valve disease etiology: nonrheumatic Qualified Code(s): I35.0 - Nonrheumatic aortic (valve) stenosis (7) HTN (hypertension): Hold on patient's losartan secondary to relative hypotension in the emergency department Status: Chronic Qualifiers: Hypertension type: essential hypertension Qualified Code(s): I10 - Essential (primary) hypertension (8) Pulmonary embolism: -Proximal main pulmonary arteries are normal. Single filling defect in the right upper lobe subsegmental anterior pulmonary artery consistent with pulmonary embolus. No other visualized filling defects. -Given her history of lower GI bleed, the risks outweigh the benefit in terms of full dose anticoagulation, in addition we have decided not to anticoagulate her as its only as small filling defect in the right upper lobe, and I feel it is not clinically significant in terms of her symptomatology which is more related to her heart failure and A. fib. Nonetheless cannot rule out completely the role of this small filling defect, but at this time the risks outweigh the benefit in terms of full dose anticoagulation Status: Acute Additional A&P Information Full code at this point. I discussed this with her in depth. She would not want to be on any life saving measures for any is extensive amount of time considering her diagnosis. We will initiate heparin subcutaneous every 12 hours for DVT prophylaxis and monitor closely. Note that she had blood in her stool with lower GI bleeding approximately 10 days ago. I think this was likely secondary to the radiation she had been receiving that she has now completed. She denies any blood in her stool since her ER visit on August 31. 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
--- NOTE | 2020-09-11 13:27 | PC.NURSE ---
report called to 1st floor for tranfer at this time to room 106
--- NOTE | 2020-09-11 17:36 | P.PN_ITS ---
Subjective Subjective: Interval history: Patient says that she feels better but is still short of breath. Her echocardiogram demonstrates that she has mildly reduced LV systolic function and has severe aortic stenosis with RAJIV of 0.60cm2 and mean gradient across the valve of 28mmHg Vitals/I&O/Wt Last Vital Signs Temp 97.9 F 09/11/20 15:10 Pulse 86 09/11/20 15:10 Resp 22 H 09/11/20 15:10 BP 144/57 09/11/20 15:10 Pulse Ox 95 09/11/20 15:10 09/11/20 09/11/20 09/11/20 06:59 14:59 22:59 Intake Total 125 / 1243 440 / 440 Output Total 125 / 525 1350 / 1350 Balance 0 / 718 -910 / -910 Weight last 48 hrs Weight 165 lb 14.33 oz Weight 165 lb 10.274 oz Physical Exam Narrative: EXAM NARRATIVE: GENERAL: Patient is alert, awake and oriented x3. NECK: No jugular vein distension. HEENT: No cyanosis. No icterus. No pallor. HEART: Irregularly irregular S1 and S2. 4/6 sys murmur, rub or gallop. LUNGS: Clear to auscultate bilaterally. ABDOMEN: Soft, nontender and nondistended. Positive bowel sounds. No guarding, rebound or tenderness. CENTRAL NERVOUS SYSTEM: Grossly nonfocal. EXTREMITIES: Lower extremities without edema bilaterally. Data : 09/11/20 04:59 09/11/20 04:59 A&P Assessment and plan (1) Atrial fibrillation: Will uptitrate cardizem to 360mg daily. We will switch to p.o. amiodarone 400mg twice daily Status: Acute Qualifiers: Atrial fibrillation type: permanent Qualified Code(s): I48.21 - Permanent atrial fibrillation (2) Aortic stenosis: Aortic stenosis has progressed and is now severe. LV systolic function has also decreased slightly. Patient will need it to be adressed depending on her prognosis of the thyroid cancer Status: Acute Qualifiers: Cardiac valve disease etiology: nonrheumatic Qualified Code(s): I35.0 - Nonrheumatic aortic (valve) stenosis (3) History of thyroid cancer: Patient follows up with primary care physician and oncologist Status: Acute (4) HTN (hypertension): Stable continue to monitor. Status: Chronic Qualifiers: Hypertension type: essential hypertension Qualified Code(s): I10 - Essential (primary) hypertension Attestations Medical Necessity Statement*: Care expected to cross 2 midnights. 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
[2020-09-11] MEDS: latanoprost 0.005% Op Soln 2.5 mL Btl 1 DROP EYE-BOTH (21:00)
[2020-09-12] VITALS (34 sets, daily range): BP systolic 92–145; BP diastolic 51–99; PULSE 88–110; RESP 18–37; TEMP 36.6–36.7; O2SAT 90–98
[2020-09-12] MEDS: heparin 5,000 unit/mL INJ 1 mL 5000 UNIT SUBCUT ×2 (03:36→15:04)
[2020-09-12 05:30] LABS: Basophils % 0.3 %; Eosinophils # 0.1 10^3/uL (0.0-0.8); Hematocrit 34.1 % (37.0-47.0); Hemoglobin 10.8 g/dL (11.5-15.3); Lymphocytes # 0.4 10^3/uL (0.8-4.8); Lymphocytes % 5.9 %; Mean Corpuscular HGB Conc 31.7 g/dL (30.0-36.0); Mean Corpuscular Volume 94.7 fL (81-99); Mean Platelet Volume 10.9 fL (7.4-10.4); Monocytes # 0.9 10^3/uL (0.2-0.9); Monocytes % 15.1 %; Neutrophils # 4.54 10^3/uL (1.8-7.7); Neutrophils % 77.2 %; Nucleated Red Blood Cells % 0 %; Platelet Count 215 10^3/cmm (130-400); Red Cell Distribution Width 14.1 % (12.1-15.1); White Blood Count 5.9 10^3/uL (4.0-10.0)
[2020-09-12 06:00] LABS: NT Pro B Type Natriuretic Pept 2737 pg/mL (0-450); Procalcitonin 0.12 ng/mL (0-0.5)
[2020-09-12 06:10] LABS: Alanine Aminotransferase 17 U/L (0-33); Albumin Level 2.8 g/dL (3.5-5.2); Alkaline Phosphatase 82 IU/L (35-105); Anion Gap 13.2 (5-19); Aspartate Amino Transferase 15 U/L (0-32); Blood Urea Nitrogen 25 mg/dL (8-23); Calcium 8.2 mg/dL (8.5-10.5); Carbon Dioxide 32 mmol/L (22-29); Chloride 101 mmol/L (98-107); Globulin 2.7 g/dL (1.3-4.6); Glucose 112 mg/dL (65-115); Osmolality Calculated 301 mOsm/kg (285-295); Phosphorus 2.7 mg/dL (2.5-4.5); Potassium 3.2 mmol/L (3.5-5.1); Sodium 143 mmol/L (136-145); Total Bilirubin 0.7 mg/dL (0.15-1.2); Total Protein 5.5 g/dL (6.6-8.7)
[2020-09-12 08:38] LABS: T3 Total 308 ng/dL (76-181)
[2020-09-12] MEDS: FUROsemide 10 mg/mL SDV 4mL 40 MG IVP ×2 (08:46→17:33)
[2020-09-12] MEDS: fentaNYL 12 mcg Patch 1 PATCH TRANSDERMA (09:09)
[2020-09-12] MEDS: amiodarone 200 mg Tablet 400 MG PO ×2 (09:11→17:35)
[2020-09-12] MEDS: metoprolol tartrate 25 mg Tablet PO ×2 (09:11→21:07)
[2020-09-12] MEDS: potassium chloride ER 20 mEq Tablet 40 MEQ PO (09:11)
[2020-09-12] MEDS: pantoprazole DR 40 mg Tablet PO (09:12)
[2020-09-12] MEDS: aspirin 81 mg EC Tablet PO (09:12)
[2020-09-12] MEDS: dilTIAZem ER (24HR) 240 mg Capsule PO (09:12)
--- NOTE | 2020-09-12 09:14 | P.PN_ITS ---
Subjective Subjective: Interval history: Patient is doing well. She denies complaints of chest pain or shortness of breath. She is off oxygen. Her echocardiogram demonstrated severe aortic stenosis yesterday. Vitals/I&O/Wt Last Vital Signs Temp 97.8 F 09/12/20 07:47 Pulse 98 09/12/20 07:47 Resp 21 H 09/12/20 07:47 BP 136/62 09/12/20 07:47 Pulse Ox 97 09/12/20 07:47 09/11/20 09/12/20 09/12/20 22:59 06:59 14:59 Intake Total 240 / 680 Balance 240 / -670 Weight last 48 hrs Weight 172 lb 8 oz Weight 165 lb 14.33 oz Physical Exam Narrative: EXAM NARRATIVE: GENERAL: Patient is alert, awake and oriented x3. NECK: No jugular vein distension. HEENT: No cyanosis. No icterus. No pallor. HEART: Irregularly irregular S1 and S2. 4/6 sys murmur, no rub or gallop. LUNGS: Clear to auscultate bilaterally. ABDOMEN: Soft, nontender and nondistended. Positive bowel sounds. No guarding, rebound or tenderness. CENTRAL NERVOUS SYSTEM: Grossly nonfocal. EXTREMITIES: Lower extremities without edema bilaterally. Data : 09/12/20 04:50 09/12/20 04:50 A&P Assessment and plan (1) Atrial fibrillation: Will uptitrate cardizem to 360mg daily. Continue p.o. amiodarone 400mg twice daily Status: Acute Qualifiers: Atrial fibrillation type: permanent Qualified Code(s): I48.21 - P ermanent atrial fibrillation (2) Aortic stenosis: Aortic stenosis has progressed and is now severe. LV systolic function has also decreased slightly. Patient will need it to be adressed depending on her prognosis of the thyroid cancer and mets Status: Acute Qualifiers: Cardiac valve disease etiology: nonrheumatic Qualified Code(s): I35.0 - Nonrheumatic aortic (valve) stenosis (3) History of thyroid cancer: Patient follows up with primary care physician and oncologist Status: Acute (4) HTN (hypertension): Stable continue to monitor. Status: Chronic Qualifiers: Hypertension type: essential hypertension Qualified Code(s): I10 - Essential (primary) hypertension Attestations Medical Necessity Statement*: Care expected to cross 2 midnights. 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
--- NOTE | 2020-09-12 09:55 | PC.SOCIAL ---
IMM Update Pg. 2 of IMM Updated and reviewed with patient, who verbalized understanding. Copy provided.
[2020-09-12 13:33] LABS: T4 Total 10.1 mcg/dL (5.1-11.9)
--- NOTE | 2020-09-12 13:35 | P.PN_ITS ---
Subjective Subjective: Interval history: Patient was examined this morning, she is still on 5 L, she has wheezing during examination, she did get up with physical therapy, does have minimal edema, no fevers, no chills, no chest pain Vitals/I&O/Wt Last Vital Signs Temp 98.1 F 09/12/20 11:14 Pulse 97 09/12/20 11:14 Resp 21 H 09/12/20 11:14 BP 145/75 09/12/20 11:14 Pulse Ox 90 09/12/20 11:14 09/11/20 09/12/20 09/12/20 22:59 06:59 14:59 Intake Total 240 / 680 120 / 120 Output Total 650 / 650 Balance 240 / -670 -530 / -530 Weight last 48 hrs Weight 78.245 kg Weight 75.249 kg Physical Exam Const: COMMON NORMALS: no acute distress GENERAL APPEARANCE: frail appearing ORIENTATION/CONSCIOUSNESS: Yes awake, Yes oriented to person, Yes oriented to place and Yes oriented to time Resp: COMMON NORMALS: normal respiratory effort and No use of accessory muscles AUSCULTATION: crackles and wheezes Cardio: COMMON NORMALS: regular rate, S1 normal heart sound present and S2 normal heart sound present RATE: regular rate RHYTHM: abnormal rhythm HEART SOUNDS: S1 normal heart sound present, S2 normal heart sound present and no murmurs GI: COMMON NORMALS: Normal to inspection, nondistended, normoactive bowel sounds present, Soft to palpation and non-tender PALPATION: Yes Soft to palpation Extremity: OTHER: 1+ pedal edema Neuro: SENSORIUM/ORIENTATION: Yes oriented to person, Yes oriented to place and Yes oriented to time Data : 09/12/20 04:50 09/12/20 04:50 A&P Assessment and plan (1) Atrial fibrillation: Presents with atrial fibrillation with rapid ventricular rate. Has history of prior atrial fibrillation currently on diltiazem. Not on anticoagulation, only aspirin secondary to propensity of bleeding. Had some lower GI bleeding on August 31, possibly secondary to radiation she had been receiving. Cardizem, and esmolol have been tried in the emergency department. Cardiology consultation has been obtained, and they recommend reinitiation of amiodarone. I discussed with the patient and she reports she believes she had some GI side effects from this in the past. She did not have any significant allergy. Currently on amiodarone, metoprolol, Cardizem We will moved to cardiac stepdown unit A TSH 0.01 and her thyroid hormone will be stopped. I have visited with her oncologist briefly regarding this, and she is taking this to suppress her papillary thyroid cancer. The intention is to make her hyperthyroid to reduce cancer growth. However, acutely with her atrial fibrillation with rapid ventricular rate this will be discontinued. Status: Acute Qualifiers: Atrial fibrillation type: permanent Qualified Code(s): I48.21 - Permanent atrial fibrillation (2) Acute respiratory failure: She appears to have some fluid overload secondary to her atrial fibrillation rapid ventricular rate. She received a fluid bolus in the emergency department. This was given sec ondary to some relative hypotension. Hold off on any more fluid currently. Blood pressures do look better, will give 2 doses of Lasix today due to wheezing and bilateral pleural effusion seen on chest x-ray. And that she is on 5 L. Reevaluation later, or by cardiology. Wean oxygen as tolerated Status: Acute (3) Chest pain: She describes a sharp chest discomfort when she breathes in. Although this may be secondary to her mild acute diastolic heart failure from tachyarrhythmia, she is at high risk for pulmonary embolism given her underlying cancer, and decreased mobility. We CT of the chest shows small CT of the chest shows Single filling defect in the right upper lobe subsegmental anterior pulmonary artery consistent with pulmonary embolus. Serial troponins, 54.39, 6-hour 3.6 Check echocardiogram, to rule out significant pericardial effusion, invasion of malignancy, and to recheck aortic stenosis. Status: Acute (4) History of thyroid cancer: Has widely spread metastatic papillary thyroid carcinoma with greatest burden being in her lungs and right pelvis/acetabulum. She recently completed radiation therapy to the pelvis/acetabulum Status: Acute (5) Hematochezia: Episode of hematochezia August 31 after completion of radiation treatment. She has not had any bleeding since, but obviously this is a concern for full anticoagulation. Status: Acute (6) Aortic stenosis: Check echocardiogram Status: Acute Qualifiers: Cardiac valve disease etiology: nonrheumatic Qualified Code(s): I35.0 - Nonrheumatic aortic (valve) stenosis (7) HTN (hypertension): Hold on patient's losartan secondary to relative hypotension in the emergency department Status: Chronic Qualifiers: Hypertension type: essential hypertension Qualified Code(s): I10 - Essential (primary) hypertension (8) Pulmonary embolism: -Proximal main pulmonary arteries are normal. Single filling defect in the right upper lobe subsegmental anterior pulmonary artery consistent with pulmonar y embolus. No other visualized filling defects. -Given her history of lower GI bleed, the risks outweigh the benefit in terms of full dose anticoagulation, in addition we have decided not to anticoagulate her as its only as small filling defect in the right upper lobe, and I feel it is not clinically significant in terms of her symptomatology which is more related to her heart failure and A. fib. Nonetheless cannot rule out completely the role of this small filling defect, but at this time the risks outweigh the benefit in terms of full dose anticoagulation Status: Acute Additional A&P Information Full code at this point. I discussed this with her in depth. She would not want to be on any life saving measures for any is extensive amount of time considering her diagnosis. We will initiate heparin subcutaneous every 12 hours for DVT prophylaxis and monitor closely. Note that she had blood in her stool with lower GI bleeding approximately 10 days ago. I think this was likely secondary to the radiation she had been receiving that she has now completed. She denies any blood in her stool since her ER visit on August 31. Protonix for GI prophylaxis Plan for today, Lasix, PT OT, heart rate, potential discharge the next 24 hours Attestations 2 Medical Necessity Statement*: Patient requires hospitalization for fluid overload, A. 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
--- NOTE | 2020-09-12 14:59 | PC.NURSE ---
Physician notified about patients incontinence and inability to obtain accurate I&O. Lasix is causing patient to urinate very frequently and it is wearing the patient out. Received orders to place kearns catheter
[2020-09-12] MEDS: potassium chloride ER 20 mEq Tablet PO (17:36)
[2020-09-12] MEDS: latanoprost 0.005% Op Soln 2.5 mL Btl 1 DROP EYE-BOTH (21:06)
[2020-09-13] VITALS (31 sets, daily range): BP systolic 119–158; BP diastolic 60–87; PULSE 88–108; RESP 16–38; TEMP 36.5–36.6; O2SAT 91–99
[2020-09-13] MEDS: heparin 5,000 unit/mL INJ 1 mL 5000 UNIT SUBCUT ×2 (03:33→16:59)
[2020-09-13 04:21] LABS: Basophils % 0.4 %; Eosinophils # 0.1 10^3/uL (0.0-0.8); Eosinophils % 1.7 %; Hematocrit 35.5 % (37.0-47.0); Hemoglobin 10.9 g/dL (11.5-15.3); Lymphocytes # 0.3 10^3/uL (0.8-4.8); Lymphocytes % 5.7 %; Mean Corpuscular HGB Conc 30.7 g/dL (30.0-36.0); Mean Corpuscular Hemoglobin 28.9 pg (28.0-34.0); Mean Corpuscular Volume 94.2 fL (81-99); Mean Platelet Volume 10.9 fL (7.4-10.4); Monocytes # 0.8 10^3/uL (0.2-0.9); Monocytes % 16.6 %; Neutrophils # 3.56 10^3/uL (1.8-7.7); Nucleated Red Blood Cells % 0 %; Platelet Count 220 10^3/cmm (130-400); Red Blood Count 3.77 10^6/uL (4.1-5.3); Red Cell Distribution Width 13.8 % (12.1-15.1); White Blood Count 4.8 10^3/uL (4.0-10.0)
[2020-09-13 04:51] LABS: NT Pro B Type Natriuretic Pept 2367 pg/mL (0-450); Procalcitonin 0.09 ng/mL (0-0.5)
[2020-09-13 05:03] LABS: Alanine Aminotransferase 16 U/L (0-33); Albumin Level 2.6 g/dL (3.5-5.2); Alkaline Phosphatase 80 IU/L (35-105); Anion Gap 13.7 (5-19); Aspartate Amino Transferase 16 U/L (0-32); Blood Urea Nitrogen 17 mg/dL (8-23); Calcium 7.9 mg/dL (8.5-10.5); Carbon Dioxide 37 mmol/L (22-29); Chloride 99 mmol/L (98-107); Globulin 3.1 g/dL (1.3-4.6); Glucose 112 mg/dL (65-115); Magnesium 1.7 mg/dL (1.7-2.3); Osmolality Calculated 306 mOsm/kg (285-295); Phosphorus 2.8 mg/dL (2.5-4.5); Sodium 147 mmol/L (136-145); Total Bilirubin 0.6 mg/dL (0.15-1.2); Total Protein 5.7 g/dL (6.6-8.7)
[2020-09-13 05:09] LABS: Potassium 2.7 mmol/L (3.5-5.1)
[2020-09-13] MEDS: potassium chloride ER 20 mEq Tablet 40 MEQ PO (05:44)
--- NOTE | 2020-09-13 06:18 | PC.NURSE ---
NURSING NOTE: CRITICAL LAB: POTASSIUM OF 2.[address] KINCAID AT 0510 THIS MORNING PER THIS NURSE. RECEIVED ORDERS FOR POTASSIUM 40 MEQ PO AND MAGNESIUM 1 GM IV NOW. ALL VS AND ASSESSMENTS CHARTED.
--- NOTE | 2020-09-13 07:00 | XR_ITS ---
WS: [id number] Exam: XR chest 1V portable [id number] Date/Time of Exam: 09/13/2020 6:11 AM Reason For Exam: sob Comparison 09/11/2020. Multiple bilateral pulmonary nodules are noted suggesting pulmonary metastasis. The lungs are fully e xpanded. Normal cardiomediastinal structures and bony elements. Probable small bilateral pleural effu sions. Monitoring leads superimpose the chest. XR/XR chest 1V portable [id number] IMPRESSION: 1. Multiple bilateral pulmonary nodules suggesting a pulmonary metastasis. No s ignificant change. 2. Probable small bilateral pleural effusions.
[2020-09-13] MEDS: metoprolol tartrate 25 mg Tablet PO ×2 (09:04→21:32)
[2020-09-13] MEDS: dilTIAZem ER (24HR) 240 mg Capsule PO (09:04)
[2020-09-13] MEDS: aspirin 81 mg EC Tablet PO (09:05)
[2020-09-13] MEDS: pantoprazole DR 40 mg Tablet PO (09:05)
[2020-09-13] MEDS: amiodarone 200 mg Tablet 400 MG PO ×2 (09:05→17:00)
[2020-09-13] MEDS: oxyCODONE 5 mg IR Tab/Cap PO (09:05)
[2020-09-13] MEDS: ondansetron 2 mg/ML SDV 2 mL 4 MG IVP (09:07)
--- NOTE | 2020-09-13 13:19 | PM.PN ---
Subjective Subjective: Interval history: breathing slightly better reports some orthopnea family at bedside denies chest pain Medications: Reviewed: Yes Vitals/I&O/Wt Last Vital Signs Temp 97.8 F 09/13/20 08:00 Pulse 108 H 09/13/20 08:00 Resp 18 09/13/20 09:05 BP 137/74 09/13/20 08:00 Pulse Ox 93 09/13/20 08:00 09/12/20 09/13/20 09/13/20 22:59 06:59 14:59 Intake Total 240 / 360 100 / 460 Output Total 1150 / 1800 1100 / 2900 Balance -910 / -1440 -1000 / -2440 Weight last 48 hrs Weight 173 lb Weight 172 lb 8 oz Physical Exam Const: COMMON NORMALS: no acute distress Resp: COMMON NORMALS: normal respiratory effort and No retractions Cardio: COMMON NORMALS: regular rate and regular rhythm RATE: regular rate RHYTHM: regular rhythm GI: COMMON NORMALS: Normal to inspection, nondistended, normoactive bowel sounds present and Soft to palpation PALPATION: Yes Soft to palpation Extremity: COMMON NORMALS: normal to inspection and full ROM Psych: COMMON NORMALS: mental status grossly normal Urinary Catheter Management^: Islas: Cath Placed During This Visit: no Reason for Continuing Indwelling Catheter: Other Data : 09/13/20 03:40 09/13/20 03:40 A&P Assessment and plan (1) Acute respiratory failure: Status: Acute (2) Atrial fibrillation: Status: Acute Qualifiers: Atrial fibrillation type: permanent Qualified Code(s): I48.21 - Permanent atrial fibrillation (3) HTN (hypertension): Status: Chronic Qualifiers: Hypertension type: essential hypertension Qualified Code(s): I10 - Essential (primary) hypertension (4) 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: Status: Acute (5) Pulmonary embolism: Status: Acute Additional A&P Information #acute respiratory failure --likely multifactorial including fluid overload, afib --continue diuresis, --taper o2 #afib --rate controlled #history of GI bleed --anticoagulation contraindicated #thyroid cancer with concern for mets --on thyroid replacement #PE --monitor --hx of GI bleed dipo: PT/OT dc soon Attestations Medical Necessity Statement*: Lawanda Faria's hospital stay will require greater than 2 midnights for sob Coding Level of Care Code 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
--- NOTE | 2020-09-13 13:38 | PC.OT ---
Occupational therapy treatment attempted x 2. Patient refused OT 1x secondary to being busy (talking on phone) and 1x secondary to being worn out. OT treatment plan remains appropriate and ongoing.
--- NOTE | 2020-09-13 17:45 | P.PN_ITS ---
Subjective Subjective: Interval history: Patient is feeling the same. Still is short of breath. Vitals/I&O/Wt Last Vital Signs Temp 97.7 F 09/13/20 12:00 Pulse 89 09/13/20 16:00 Resp 38 H 09/13/20 16:00 BP 158/67 09/13/20 16:00 Pulse Ox 94 09/13/20 15:33 09/13/20 09/13/20 09/13/20 06:59 14:59 22:59 Intake Total 100 / 460 Output Total 1100 / 2900 Balance -1000 / -2440 Weight last 48 hrs Weight 173 lb Weight 172 lb 8 oz Physical Exam Narrative: EXAM NARRATIVE: GENERAL: Patient is alert, awake and oriented x3. NECK: No jugular vein distension. HEENT: No cyanosis. No icterus. No pallor. HEART: Irregularly irregular S1 and S2. 4/6 sys murmur, no rub or gallop. LUNGS: Clear to auscultate bilaterally. ABDOMEN: Soft, nontender and nondistended. Positive bowel sounds. No guarding, rebound or tenderness. CENTRAL NERVOUS SYSTEM: Grossly nonfocal. EXTREMITIES: Lower extremities without edema bilaterally. Urinary Catheter Management^: Islas: Cath Placed During This Visit: no Reason for Continuing Indwelling Catheter: Other Data : 09/14/20 08:46 09/14/20 08:46 A&P Assessment and plan (1) Atrial fibrillation: Continue cardizem. Continue p.o. amiodarone 400mg twice daily Status: Acute Qualifiers: Atrial fibrillation type: permanent Qualified Code(s): I48.21 - P ermanent atrial fibrillation (2) Aortic stenosis: Aortic stenosis has progressed and is now severe. LV systolic function has also decreased slightly. Patient's thyroid cancer is slow growing, prognosis not certain at this time. Status: Acute Qualifiers: Cardiac valve disease etiology: nonrheumatic Qualified Code(s): I35.0 - Nonrheumatic aortic (valve) stenosis (3) History of thyroid cancer: Patient follows up with primary care physician and oncologist Status: Acute (4) HTN (hypertension): Stable continue to monitor. Status: Chronic Qualifiers: Hypertension type: essential hypertension Qualified Code(s): I10 - E ssential (primary) hypertension Attestations Medical Necessity Statement*: Care expected to cross 2 midnights. Coding Level of Care Code Acute Financial Service Professional for [facility] Fwd Diagnoses Atrial fibrillation I48.21 Atrial fibrillation type: permanent Aortic stenosis I35.0 Cardiac valve disease etiology: nonrheumatic History of thyroid cancer Z85.850 HTN (hypertension) I10 Hypertension type: essential hypertension
[2020-09-13] MEDS: latanoprost 0.005% Op Soln 2.5 mL Btl 1 DROP EYE-BOTH (21:31)
[2020-09-14] VITALS (22 sets, daily range): BP systolic 93–160; BP diastolic 52–121; PULSE 83–132; RESP 13–39; TEMP 36.3–36.8; O2SAT 94–98
[2020-09-14] MEDS: heparin 5,000 unit/mL INJ 1 mL 5000 UNIT SUBCUT ×2 (03:45→16:38)
[2020-09-14 09:07] LABS: Eosinophils # 0.1 10^3/uL (0.0-0.8); Eosinophils % 1.2 %; Hematocrit 35.1 % (37.0-47.0); Hemoglobin 10.9 g/dL (11.5-15.3); Lymphocytes # 0.3 10^3/uL (0.8-4.8); Lymphocytes % 6.3 %; Mean Corpuscular HGB Conc 31.1 g/dL (30.0-36.0); Mean Corpuscular Hemoglobin 29.5 pg (28.0-34.0); Mean Corpuscular Volume 95.1 fL (81-99); Mean Platelet Volume 10.6 fL (7.4-10.4); Monocytes # 0.7 10^3/uL (0.2-0.9); Monocytes % 16.9 %; Neutrophils # 3.24 10^3/uL (1.8-7.7); Neutrophils % 75.1 %; Nucleated Red Blood Cells % 0 %; Platelet Count 231 10^3/cmm (130-400); Red Blood Count 3.69 10^6/uL (4.1-5.3); Red Cell Distribution Width 13.9 % (12.1-15.1); White Blood Count 4.3 10^3/uL (4.0-10.0)
--- NOTE | 2020-09-14 09:27 | PC.CHAP ---
Pastoral Care Encounter/Spiritual Assessment Type of Contact [] Declined fire alarm installer visit [] Patient/Family/Request visit [] Outpatient visit [] Follow-up visit [] Physician referral [] Code/Alert [x] Routine visit [] Staff referral [] Actively dying [] Patient sleeping [] Family support [] [] Out of room [] Palliative care [] [x] Receiving care in room [] Pre-surgical visit [] Trauma [] Long length of stay [] ICU visit [] Other: Relational/Emotional Strength [] Patient feels connected with others/family/visitors/staff [] Distress [] Loneliness/isolation [] Abandonment Spirituality of Patient [] Person of Qing [] Attends [employer] of their Qing [] Believes in Prayer [] Reads Bible or Adventism materials [] There are Spiritual issues to be addressed Dog Behaviorist Interventions [x] Prayer [] Active listening [] Non-anxious presence [] Spiritual/emotional support [] Crisis/trauma care [] Spiritual counseling [] Bereavement support [] Provided bereavement packet [] Provided Bible/devotional materials [] Provided toy/stuffed animal, coloring book to patient or family member [] Provided Communion [] Anointing/Dunning [] Salvation [x] Completed spiritual assessment [] Other: Impact on Illness or Injury [] Angry [] Fearful [] Anxious [] Often cries [] Exhaustion [] Unable to work [] Unable to attend buddhist [] Unable to walk/stand [] Unable to read [] Unable to drive [] Unable to eat/drink [] Unable to sleep [] Unable to be with family [] Patient intubated [] Other: Summary Time spent with patient
[2020-09-14 09:28] LABS: Anion Gap 6.6 (5-19); Blood Urea Nitrogen 22 mg/dL (8-23); Calcium 8.5 mg/dL (8.5-10.5); Chloride 97 mmol/L (98-107); Glucose 129 mg/dL (65-115); Osmolality Calculated 299 mOsm/kg (285-295); Potassium 3.6 mmol/L (3.5-5.1); Sodium 142 mmol/L (136-145)
--- NOTE | 2020-09-14 09:28 | PC.SOCIAL ---
IMM Updated Updated pt on Pg 2 IMM. No questions voiced. Provided pt a copy. Initialed, dated, & timed copy in chart.
[2020-09-14 09:42] LABS: Carbon Dioxide 42 mmol/L (22-29)
--- NOTE | 2020-09-14 09:44 | P.PN_ITS ---
Subjective Subjective: Interval history: Patient is still short of breath but oxygen requirement is improving. Vitals/I&O/Wt Last Vital Signs Temp 97.4 F L 09/14/20 07:20 Pulse 104 H 09/14/20 07:20 Resp 32 H 09/14/20 07:20 BP 93/62 09/14/20 07:20 Pulse Ox 97 09/14/20 07:20 09/13/20 09/14/20 09/14/20 22:59 06:59 14:59 Intake Total 300 / 300 120 / 420 Output Total 550 / 550 800 / 1350 Balance -250 / -250 -680 / -930 Weight last 48 hrs Weight 168 lb 11.2 oz Weight 173 lb Physical Exam 2 Narrative: EXAM NARRATIVE: GENERAL: Patient is alert, awake and oriented x3. NECK: No jugular vein distension. HEENT: No cyanosis. No icterus. No pallor. HEART: Irregularly irregular S1 and S2. 4/6 sys murmur, no rub or gallop. LUNGS: Clear to auscultate bilaterally. ABDOMEN: Soft, nontender and nondistended. Positive bowel sounds. No guarding, rebound or tenderness. CENTRAL NERVOUS SYSTEM: Grossly nonfocal. EXTREMITIES: Lower extremities without edema bilaterally. Urinary Catheter Management^: Islas: Cath Placed During This Visit: no Reason for Continuing Indwelling Catheter: Acute Urinary Retention or Obstruction Data : 09/15/20 10:00 09/15/20 10:00 A&P Assessment and plan (1) Atrial fibrillation: Continue cardizem. Continue p.o. amiodarone 400mg twice daily Status: Acute Qualifiers: Atrial fibrillation type: permanent Qualified Code(s): I48.21 - Permanent atrial fibrillation (2) Aortic stenosis: Aortic stenosis has progressed and is now severe. LV systolic function has also decreased slightly. Patient's thyroid cancer is slow growing, prognosis not certain at this time. Status: Acute Qualifiers: Cardiac valve disease etiology: nonrheumatic Qualified Code(s): I35.0 - Nonrheumatic aortic (valve) stenosis (3) History of thyroid cancer: Patient follows up with primary care physician and oncologist Status: Acute (4) HTN (hypertension): Stable continue to monitor. Status: Chronic Qualifiers: Hypertension type: essential hypertension Qualified Code(s): I10 - Essential (primary) hypertension Attestations Medical Necessity Statement*: Care expected to cross 2 midnights. Coding Level of Care Code Acute Senior Major Gifts Officer for g Fwd Diagnoses Atrial fibrillation I48.21 Atrial fibrillation type: permanent Aortic stenosis I35.0 Cardiac valve disease etiology: nonrheumatic History of thyroid cancer Z85.850 HTN (hypertension) I10 Hypertension type: essential hypertension
[2020-09-14] MEDS: aspirin 81 mg EC Tablet PO (10:01)
[2020-09-14] MEDS: amiodarone 200 mg Tablet 400 MG PO ×2 (10:01→18:24)
[2020-09-14] MEDS: pantoprazole DR 40 mg Tablet PO (10:01)
--- NOTE | 2020-09-14 13:58 | P.PN_ITS ---
Subjective Subjective: Interval history: tachycardic on 5L Vitals/I&O/Wt Last Vital Signs Temp 97.4 F L 09/14/20 07:20 Pulse 132 H 09/14/20 13:00 Resp 23 H 09/14/20 13:00 BP 93/62 09/14/20 13:00 Pulse Ox 97 09/14/20 07:20 09/13/20 09/14/20 09/14/20 22:59 06:59 14:59 Intake Total 300 / 300 120 / 420 60 / 60 Output Total 550 / 550 800 / 1350 Balance -250 / -250 -680 / -930 60 / 60 Weight last 48 hrs Weight 168 lb 11.2 oz Weight 173 lb Physical Exam Const: COMMON NORMALS: no acute distress and patient oriented x3 Resp: COMMON NORMALS: normal respiratory effort and No retractions Cardio: COMMON NORMALS: regular rate RATE: regular rate GI: COMMON NORMALS: Soft to palpation and non-tender PALPATION: Yes Soft to palpation Neuro: COMMON NORMALS: patient oriented x3 Psych: COMMON NORMALS: mental status grossly normal, cooperative and normal affect Urinary Catheter Management^: Islas: Cath Placed During This Visit: no Reason for Continuing Indwelling Catheter: Acute Urinary Retention or Obstruction Data : 09/14/20 08:46 09/14/20 08:46 A&P Assessment and plan (1) Pulmonary embolism: Status: Acute (2) Atrial fibrillation with rapid ventricular response: Status: Acute (3) Chest pain: Status: Acute (4) Aortic stenosis: Status: Acute Qualifiers: Cardiac valve disease etiology: nonrheumatic Qualified Code(s): I35.0 - Nonrheumatic aortic (valve) stenosis (5) History of thyroid cancer: Status: Acute (6) Acute respiratory failure: Status: Acute Additional A&P Information #acute respiratory failure --likely multifactorial including fluid overload, afib --continue diuresis, --taper o2 #aortic stenosis --consideration for TAVR as outpatient #afib --rate controlled #history of GI bleed --anticoagulation contraindicated #thyroid cancer with concern for mets --on thyroid replacement --discussed with oncology #PE --monitor --hx of GI bleed dispo: PT/OT dc soon Attestations Medical Necessity Statement*: Lawanda Faria's hospital stay will require greater than 2 midnights for hypoxemia Coding Level of Care Code Acute Wheel Buffer for [facility] Fwd Diagnoses Pulmonary embolism I26.99 Atrial fibrillation with rapid ventricular response I48.91 Chest pain R07.9 Aortic stenosis I35.0 Cardiac valve disease etiology: nonrheumatic History of thyroid cancer Z85.850 Acute respiratory failure J96.00
[2020-09-14] MEDS: metoprolol tartrate 25 mg Tablet PO (21:36)
[2020-09-14] MEDS: latanoprost 0.005% Op Soln 2.5 mL Btl 1 DROP EYE-BOTH (21:36)
[2020-09-15] VITALS (11 sets, daily range): BP systolic 105–147; BP diastolic 62–68; PULSE 70–133; RESP 23–31; TEMP 36.3–36.8; O2SAT 93–97
[2020-09-15] MEDS: dilTIAZem ER (24HR) 240 mg Capsule PO (08:34)
[2020-09-15] MEDS: aspirin 81 mg EC Tablet PO (08:35)
[2020-09-15] MEDS: metoprolol tartrate 25 mg Tablet PO ×2 (08:35→22:09)
[2020-09-15] MEDS: amiodarone 200 mg Tablet 400 MG PO ×2 (08:36→17:52)
[2020-09-15] MEDS: pantoprazole DR 40 mg Tablet PO (08:41)
--- NOTE | 2020-09-15 09:43 | PC.NURSE ---
Patient had redness on her bottom, put pillow under left and turned her to her right side.
[2020-09-15 10:09] LABS: Basophils % 0.2 %; Eosinophils # 0.1 10^3/uL (0.0-0.8); Eosinophils % 1.3 %; Hematocrit 37.3 % (37.0-47.0); Hemoglobin 11.6 g/dL (11.5-15.3); Lymphocytes # 0.4 10^3/uL (0.8-4.8); Lymphocytes % 7.3 %; Mean Corpuscular HGB Conc 31.1 g/dL (30.0-36.0); Mean Corpuscular Hemoglobin 29.5 pg (28.0-34.0); Mean Corpuscular Volume 94.9 fL (81-99); Mean Platelet Volume 10.3 fL (7.4-10.4); Monocytes # 0.9 10^3/uL (0.2-0.9); Monocytes % 18.2 %; Neutrophils # 3.47 10^3/uL (1.8-7.7); Neutrophils % 72.6 %; Nucleated Red Blood Cells % 0 %; Platelet Count 238 10^3/cmm (130-400); Red Blood Count 3.93 10^6/uL (4.1-5.3); Red Cell Distribution Width 13.7 % (12.1-15.1); White Blood Count 4.8 10^3/uL (4.0-10.0)
[2020-09-15] MEDS: fentaNYL 12 mcg Patch 1 PATCH TRANSDERMA (10:28)
[2020-09-15 10:37] LABS: Alanine Aminotransferase 19 U/L (0-33); Albumin Level 2.9 g/dL (3.5-5.2); Alkaline Phosphatase 91 IU/L (35-105); Anion Gap 7.4 (5-19); Aspartate Amino Transferase 25 U/L (0-32); Blood Urea Nitrogen 20 mg/dL (8-23); Calcium 8.8 mg/dL (8.5-10.5); Chloride 94 mmol/L (98-107); Globulin 3.3 g/dL (1.3-4.6); Glucose 133 mg/dL (65-115); Osmolality Calculated 295 mOsm/kg (285-295); Potassium 3.4 mmol/L (3.5-5.1); Sodium 140 mmol/L (136-145); Total Bilirubin 0.6 mg/dL (0.15-1.2); Total Protein 6.2 g/dL (6.6-8.7)
[2020-09-15 10:44] LABS: Carbon Dioxide 42 mmol/L (22-29)
--- NOTE | 2020-09-15 17:23 | P.PN_ITS ---
Subjective Subjective: Interval history: feels better denies chest pain O2 tapered to 3.5L Vitals/I&O/Wt Last Vital Signs Temp 97.9 F 09/15/20 14:57 Pulse 108 H 09/15/20 14:57 Resp 25 H 09/15/20 14:57 BP 105/63 09/15/20 14:57 Pulse Ox 93 09/15/20 14:57 09/15/20 09/15/20 09/15/20 06:59 14:59 22:59 Intake Total 240 / 540 360 / 360 Output Total 450 / 900 Balance -210 / -360 360 / 360 Weight last 48 hrs Weight 168 lb 11.2 oz Physical Exam Const: COMMON NORMALS: no acute distress and patient oriented x3 Resp: COMMON NORMALS: normal respiratory effort and No use of accessory muscles Cardio: COMMON NORMALS: regular rate RATE: regular rate HEART SOUNDS: Murmur heart sound present GI: COMMON NORMALS: Soft to palpation and non-tender PALPATION: Yes Soft to palpation Extremity: COMMON NORMALS: normal to inspection Neuro: COMMON NORMALS: patient oriented x3 Urinary Catheter Management^: Islas: Cath Placed During This Visit: no Reason for Continuing Indwelling Catheter: Acute Urinary Retention or Obstruction Data : 09/15/20 10:00 09/15/20 10:00 A&P Assessment and plan (1) Pulmonary embolism: Status: Acute (2) 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: Status: Acute (3) Aortic stenosis: Status: Acute Qualifiers: Cardiac valve disease etiology: nonrheumatic Qualified Code(s): I35.0 - Nonrheumatic aortic (valve) stenosis (4) History of thyroid cancer: Status: Acute (5) Chest pain: Status: Acute Additional A&P Information #acute respiratory failure --improved --likely multifactorial including fluid overload, afib --continue diuresis, --taper o2 #aortic stenosis --consideration for TAVR as outpatient #afib --rate controlled #history of GI bleed --anticoagulation contraindicated #thyroid cancer with concern for mets --on thyroid replacement --discussed with oncology #PE --monitor --hx of GI bleed dispo: PT/OT dc soon Attestations Medical Necessity Statement*: Lawanda Faria's hospital stay will require greater than 2 midnights for hypoxemia Coding Level of Care Code Acute [employer] Mill Operator for [facility] Fwd Diagnoses Pulmonary embolism I26.99 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
[2020-09-15] MEDS: heparin 5,000 unit/mL INJ 1 mL 5000 UNIT SUBCUT (17:53)
--- NOTE | 2020-09-15 18:32 | P.PN_ITS ---
Subjective Subjective: Interval history: Patient's O2 requirement has improved but she is in afib with RVR. Still short of breath Vitals/I&O/Wt Last Vital Signs Temp 97.9 F 09/15/20 14:57 Pulse 108 H 09/15/20 14:57 Resp 25 H 09/15/20 14:57 BP 105/63 09/15/20 14:57 Pulse Ox 93 09/15/20 14:57 09/15/20 09/15/20 09/15/20 06:59 14:59 22:59 Intake Total 240 / 540 360 / 360 120 / 480 Output Total 450 / 900 Balance -210 / -360 360 / 360 120 / 480 Weight last 48 hrs Weight 168 lb 11.2 oz Physical Exam Narrative: EXAM NARRATIVE: GENERAL: Patient is alert, awake and oriented x3. NECK: No jugular vein distension. HEENT: No cyanosis. No icterus. No pallor. HEART: Irregularly irregular S1 and S2. 4/6 sys murmur, no rub or gallop. LUNGS: Clear to auscultate bilaterally. ABDOMEN: Soft, nontender and nondistended. Positive bowel sounds. No guarding, rebound or tenderness. CENTRAL NERVOUS SYSTEM: Grossly nonfocal. EXTREMITIES: Lower extremities without edema bilaterally. Urinary Catheter Management^: Islas: Cath Placed During This Visit: no Reason for Continuing Indwelling Catheter: Acute Urinary Retention or Obstruction Data : 09/16/20 07:33 09/16/20 07:33 A&P Assessment and plan (1) Atrial fibrillation: Continue cardizem. Continue p.o. amiodarone 400mg twice a day. If heart rates do not improve overnight, may need to put back on amio gtt. Status: Acute Qualifiers: Atrial fibrillation type: permanent Qualified Code(s): I48.21 - Permanent atrial fibrillation (2) Aortic stenosis: Aortic stenosis has progressed and is now severe. LV systolic function has also decreased slightly. Patient's thyroid cancer is slow growing, prognosis not certain at this time. She will need evaluation for valve replacement. Given her cancer history, likely will be a TAVR candidate Status: Acute Qualifiers: Cardiac valve disease etiology: nonrheumatic Qualified Code(s): I35.0 - Nonrheumatic aortic (valve) stenosis (3) History of thyroid cancer: Patient follows up with primary care physician and oncologist Status: Acute (4) HTN (hypertension): Stable continue to monitor. Status: Chronic Qualifiers: Hypertension type: essential hypertension Qualified Code(s): I10 - Essential (primary) hypertension Attestations Medical Necessity Statement*: Care expected to cross 2 midnights. Coding Level of Care Code Acute Retail Management Trainee for [facility] Fwd Diagnoses Atrial fibrillation I48.21 Atrial fibrillation type: permanent Aortic stenosis I35.0 Cardiac valve disease etiology: nonrheumatic History of thyroid cancer Z85.850 HTN (hypertension) I10 Hypertension type: essential hypertension
[2020-09-15] MEDS: latanoprost 0.005% Op Soln 2.5 mL Btl 1 DROP EYE-BOTH (22:09)
[2020-09-16] VITALS (10 sets, daily range): BP systolic 108–147; BP diastolic 51–82; PULSE 101–126; RESP 15–30; TEMP 36.4–36.7; O2SAT 92–99
[2020-09-16 07:54] LABS: Basophils % 0.5 %; Eosinophils # 0.1 10^3/uL (0.0-0.8); Eosinophils % 2.1 %; Hematocrit 35.6 % (37.0-47.0); Lymphocytes # 0.4 10^3/uL (0.8-4.8); Lymphocytes % 9.7 %; Mean Corpuscular HGB Conc 30.9 g/dL (30.0-36.0); Mean Corpuscular Hemoglobin 29.6 pg (28.0-34.0); Mean Corpuscular Volume 95.7 fL (81-99); Mean Platelet Volume 10.6 fL (7.4-10.4); Monocytes # 0.8 10^3/uL (0.2-0.9); Monocytes % 19.9 %; Neutrophils # 2.55 10^3/uL (1.8-7.7); Nucleated Red Blood Cells % 0 %; Platelet Count 205 10^3/cmm (130-400); Red Blood Count 3.72 10^6/uL (4.1-5.3); Red Cell Distribution Width 13.9 % (12.1-15.1); White Blood Count 3.8 10^3/uL (4.0-10.0)
[2020-09-16] MEDS: aspirin 81 mg EC Tablet PO (08:03)
[2020-09-16] MEDS: dilTIAZem ER (24HR) 240 mg Capsule PO (08:03)
[2020-09-16] MEDS: amiodarone 200 mg Tablet 400 MG PO ×2 (08:03→18:01)
[2020-09-16] MEDS: pantoprazole DR 40 mg Tablet PO (08:04)
[2020-09-16] MEDS: metoprolol tartrate 25 mg Tablet PO ×2 (08:04→21:04)
[2020-09-16 08:20] LABS: Alanine Aminotransferase 20 U/L (0-33); Albumin Level 2.7 g/dL (3.5-5.2); Alkaline Phosphatase 85 IU/L (35-105); Anion Gap 7.2 (5-19); Aspartate Amino Transferase 25 U/L (0-32); Blood Urea Nitrogen 17 mg/dL (8-23); Calcium 8.5 mg/dL (8.5-10.5); Chloride 97 mmol/L (98-107); Globulin 3.3 g/dL (1.3-4.6); Glucose 108 mg/dL (65-115); Osmolality Calculated 300 mOsm/kg (285-295); Potassium 3.2 mmol/L (3.5-5.1); Sodium 144 mmol/L (136-145); Total Bilirubin 0.6 mg/dL (0.15-1.2)
[2020-09-16 08:32] LABS: Carbon Dioxide 43 mmol/L (22-29)
--- NOTE | 2020-09-16 08:41 | XR_ITS ---
WS: [id number] Exam: XR chest 1V portable [id number] Date/Time of Exam: 09/16/2020 8:43 AM Reason For Exam: sob Comparison 09/13/2020. Multiple pulmonary nodules noted throughout both lungs apparently representing the patient's known pu lmonary metastatic disease. Heart size is within normal limits. Small bibasal pleural effusions uncha nged. No pneumothorax noted. The mediastinum and bony thorax are unremarkable. Monitoring leads super impose the chest. XR/XR chest 1V portable [id number] IMPRESSION: 1. Multiple pulmonary nodules representing metastatic disease. 2. Trace bibasal pleural effusions.
[2020-09-16 09:18] LABS: C Reactive Protein 26.9 mg/L (0.0-4.9)
[2020-09-16 09:21] LABS: ABG PCO2 54.3 mmHg (35-45); Arterial Blood Gas Hematocrit 36.5 % (37-47); Base Excess ABG 17.1 mmol/L (-2.0-2.0); Blood Gas Allen Test Pos; Blood Gas Operator Identificat MONRO; Blood Gas Sample Site Radial, left; Blood Gas Sample Type Arterial; HCO3 ABG 42.7 mmol/L (22-26); Oxygen Device NC; PO2 ABG 78.4 mmHg (80.0-100.0)
--- NOTE | 2020-09-16 09:21 | PM.PN ---
Subjective Subjective: Interval history: Patient is stable but still feels short of breath. No chest pain. Vitals/I&O/Wt Last Vital Signs Temp 97.7 F 09/16/20 07:17 Pulse 115 H 09/16/20 08:04 Resp 27 H 09/16/20 07:17 BP 146/73 09/16/20 07:17 Pulse Ox 96 09/16/20 08:04 09/15/20 09/16/20 09/16/20 22:59 06:59 14:59 Intake Total 120 / 480 240 / 720 Output Total 300 / 300 Balance 120 / 480 -60 / 420 Weight last 48 hrs Weight 165 lb 8 oz Physical Exam Narrative: EXAM NARRATIVE: GENERAL: Patient is alert, awake and oriented x3. NECK: No jugular vein distension. HEENT: No cyanosis. No icterus. No pallor. HEART: Irregularly irregular S1 and S2. 4/6 sys murmur, no rub or gallop. LUNGS: Clear to auscultate bilaterally. ABDOMEN: Soft, nontender and nondistended. Positive bowel sounds. No guarding, rebound or tenderness. CENTRAL NERVOUS SYSTEM: Grossly nonfocal. EXTREMITIES: Lower extremities without edema bilaterally. Urinary Catheter Management^: Islas: Cath Placed During This Visit: no Reason for Continuing Indwelling Catheter: Acute Urinary Retention or Obstruction Data : 09/17/20 03:28 09/17/20 03:28 A&P Assessment and plan (1) Atrial fibrillation: Continue cardizem. Continue p.o. amiodarone 400mg twice a day. Start amio gtt. Uptitrate metoprolol. She may need cardioversion but she will need to stay on anticoagulation without interruption for atleast 1 month post cardioversion Status: Acute Qualifiers: Atrial fibrillation type: permanent Qualified Code(s): I48.21 - Permanent atrial fibrillation (2) Aortic stenosis: Aortic stenosis has progressed and is now severe. LV systolic function has also decreased slightly. Patient's thyroid cancer is slow growing, prognosis not certain at this time. She will need evaluation for valve replacement. Given her cancer history, likely will be a TAVR candidate Status: Acute Qualifiers: Cardiac valve disease etiology: nonrheumatic Qualified Code(s): I35.0 - Nonrheumatic aortic (valve) stenosis (3) History of thyroid cancer: Patient follows up with primary care physician and oncologist Status: Acute (4) HTN (hypertension): Stable continue to monitor. Status: Chronic Qualifiers: Hypertension type: essential hypertension Qualified Code(s): I10 - Essential (primary) hypertension Attestations Medical Necessity Statement*: Care expected to cross 2 midnights. Coding Level of Care Code Acute Transfer And Pumphouse Operator Chief for [facility] Fwd Diagnoses Atrial fibrillation I48.21 Atrial fibrillation type: permanent Aortic stenosis I35.0 Cardiac valve disease etiology: nonrheumatic History of thyroid cancer Z85.850 HTN (hypertension) I10 Hypertension type: essential hypertension
[2020-09-16 09:43] LABS: Procalcitonin 0.06 ng/mL (0-0.5)
--- NOTE | 2020-09-16 09:53 | PC.SOCIAL ---
IMM Updated Updated pt on Pg 2 IMM. No questions voiced. Provided pt a copy. Signed, dated, & timed copy in chart.
--- NOTE | 2020-09-16 13:55 | P.PN_ITS ---
Subjective Subjective: Interval history: Patient's family is at bedside patient is a bit frustrated as she keeps going back into A. fib, no shortness of breath, no chest pain, having chest palpitations, no lightheadedness, no dizziness, no nausea, no vomiting, she tells me that typical medications do not work on her, Vitals/I&O/Wt Last Vital Signs Temp 97.5 F L 09/16/20 11:03 Pulse 112 H 09/16/20 11:03 Resp 28 H 09/16/20 11:03 BP 127/82 09/16/20 11:03 Pulse Ox 97 09/16/20 11:03 09/15/20 09/16/20 09/16/20 22:59 06:59 14:59 Intake Total 120 / 480 240 / 720 240 / 240 Output Total 300 / 300 Balance 120 / 480 -60 / 420 240 / 240 Weight last 48 hrs Weight 75.07 kg Physical Exam Const: COMMON NORMALS: no acute distress GENERAL APPEARANCE: frail appearing Resp: COMMON NORMALS: normal respiratory effort, No retractions, No use of accessory muscles and clear to auscultation bilaterally AUSCULTATION: clear to auscultation bilaterally Cardio: COMMON NORMALS: S1 normal heart sound present and S2 normal heart sound present RATE: tachycardic RHYTHM: abnormal rhythm HEART SOUNDS: S1 normal heart sound present and S2 normal heart sound present GI: COMMON NORMALS: Normal to inspection, nondistended, normoactive bowel sounds present and Soft to palpation PALPATION: Yes Soft to palpation Extremity: COMMON NORMALS: no pedal edema Urinary Catheter Management^: Islas: Cath Placed During This Visit: no Reason for Continuing Indwelling Catheter: Acute Urinary Retention or Obstructi on Data : 09/16/20 07:33 09/16/20 07:33 Micro: Microbiology 09/16/20 10:00 Blood Culture - Preliminary Blood SPECIMEN COLLECTED 09/16/20 10:00 Blood Culture - Preliminary Blood SPECIMEN COLLECTED A&P Assessment and plan (1) Pulmonary embolism: -Proximal main pulmonary arteries are normal. Single filling defect in the right upper lobe subsegmental anterior pulmonary artery consistent with pulmonary embolus. No other visualized filling defects. -Given her history of lower GI bleed, the risks outweigh the benefit in terms of full dose anticoagulation, in addition we have decided not to anticoagulate her as its only as small filling defect in the right upper lobe, and I feel it is not clinically significant in terms of her symptomatology which is more related to her heart failure and A. fib. 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 She recently completed radiation therapy to the pelvis/acetabulum Status: Acute (5) Chest pain: She describes a sharp chest discomfort when she breathes in. Although this may be secondary to her mild acute diastolic heart failure from tachyarrhythmia, she is at high risk for pulmonary embolism given her underlying cancer, and decreased mobility. We CT of the chest shows small CT of the chest shows Single filling defect in the right upper lobe subsegmental anterior pulmonary artery consistent with pulmonary embolus. Serial troponins, 54.39, 6-hour 3.6 Check echocardiogram, to rule out significant pericardial effusion, invasion of malignancy, and to recheck aortic stenosis. Status: Acute (6) Atrial fibrillation with rapid ventricular response: -Currently difficult to manage -Recheck TSH, T3, T4 -Levothyroxine for papillary thyroid cancer suppression has been held due to low TSH, will recheck -Currently on metoprolol, Cardizem, p.o. amiodarone -Amiodarone drip had to be started this morning Status: Acute (7) Acute respiratory failure: -Stable at baseline 3 L -No radiographic evidence of pneumonia, no significant leukocytosis, pro-Jr within normal limits -Does not have evidence of fluid overload, no peripheral edema, does have trace bilateral pleural effusions, ABG discharged contraction alkalosis, is -2 L, hold off on diuresis -Currently secondary to A. fib, aortic stenosis, continue to monitor Status: Acute Additional A&P Information #aortic stenosis --consideration for TAVR as outpatient #history of GI bleed --anticoagulation contraindicated #thyroid cancer with concern for mets --on thyroid replacement dispo: PT/OT dc soon plan for today, continue amiodarone drip, better control of heart rate, Attestations Medical Necessity Statement*: Patient requires hospitalization for acute respiratory failure, AWanda mcmillan with RVR Coding Level of Care Code Acute Clinical Education Academic Coordinator for [facility] Fwd Diagnoses Pulmonary embolism I26.99 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
--- NOTE | 2020-09-16 14:00 | PC.NURSE ---
Received orders to change potassium PO to liquid form 40MEQ ONE time
[2020-09-16] MEDS: potassium chloride oral liq 20 mEq/15 mL UDC 40 MEQ PO (14:27)
[2020-09-16] MEDS: heparin 5,000 unit/mL INJ 1 mL 5000 UNIT SUBCUT (14:30)
[2020-09-16] MEDS: latanoprost 0.005% Op Soln 2.5 mL Btl 1 DROP EYE-BOTH (21:04)
[2020-09-17] VITALS (12 sets, daily range): BP systolic 110–135; BP diastolic 48–87; PULSE 91–117; RESP 20–29; TEMP 36.6–36.8; O2SAT 91–97
[2020-09-17 04:03] LABS: Basophils % 0.3 %; Eosinophils # 0.1 10^3/uL (0.0-0.8); Eosinophils % 2.6 %; Hematocrit 33.3 % (37.0-47.0); Hemoglobin 10.4 g/dL (11.5-15.3); Lymphocytes # 0.4 10^3/uL (0.8-4.8); Lymphocytes % 11.2 %; Mean Corpuscular HGB Conc 31.2 g/dL (30.0-36.0); Mean Corpuscular Hemoglobin 29.8 pg (28.0-34.0); Mean Corpuscular Volume 95.4 fL (81-99); Mean Platelet Volume 10.9 fL (7.4-10.4); Monocytes # 0.9 10^3/uL (0.2-0.9); Monocytes % 23.2 %; Neutrophils # 2.43 10^3/uL (1.8-7.7); Neutrophils % 61.9 %; Nucleated Red Blood Cells % 0 %; Platelet Count 201 10^3/cmm (130-400); Red Blood Count 3.49 10^6/uL (4.1-5.3); Red Cell Distribution Width 13.9 % (12.1-15.1); White Blood Count 3.9 10^3/uL (4.0-10.0)
[2020-09-17 04:31] LABS: Alanine Aminotransferase 21 U/L (0-33); Albumin Level 2.7 g/dL (3.5-5.2); Alkaline Phosphatase 84 IU/L (35-105); Anion Gap 6.8 (5-19); Aspartate Amino Transferase 24 U/L (0-32); Blood Urea Nitrogen 19 mg/dL (8-23); Calcium 8.5 mg/dL (8.5-10.5); Chloride 96 mmol/L (98-107); Globulin 2.7 g/dL (1.3-4.6); Glucose 118 mg/dL (65-115); Magnesium 1.8 mg/dL (1.7-2.3); Osmolality Calculated 293 mOsm/kg (285-295); Phosphorus 3.1 mg/dL (2.5-4.5); Potassium 3.8 mmol/L (3.5-5.1); Sodium 140 mmol/L (136-145); Total Bilirubin 0.6 mg/dL (0.15-1.2); Total Protein 5.4 g/dL (6.6-8.7)
[2020-09-17 04:32] LABS: NT Pro B Type Natriuretic Pept 1150 pg/mL (0-450); Thyroid Stimulating Hormone 0.01 uIU/mL (0.27-4.20)
[2020-09-17 04:33] LABS: Carbon Dioxide 41 mmol/L (22-29)
[2020-09-17 05:29] LABS: Free T4 Free Thyroxine 5.44 ng/dL (0.82-1.77); T3 Free 17.3 PG/ML (2.0-4.4)
[2020-09-17] MEDS: amiodarone 200 mg Tablet 400 MG PO ×2 (08:42→17:35)
[2020-09-17] MEDS: dilTIAZem ER (24HR) 240 mg Capsule PO (08:42)
[2020-09-17] MEDS: aspirin 81 mg EC Tablet PO (08:42)
[2020-09-17] MEDS: metoprolol tartrate 25 mg Tablet PO (08:42)
[2020-09-17] MEDS: pantoprazole DR 40 mg Tablet PO (08:43)
--- NOTE | 2020-09-17 09:45 | P.PN_ITS ---
Subjective Subjective: Interval history: Patient's heart rates are still elevated. On 3 liters of O2 Vitals/I&O/Wt Last Vital Signs Temp 98.0 F 09/17/20 03:35 Pulse 107 H 09/17/20 06:00 Resp 21 H 09/17/20 03:35 BP 110/87 09/17/20 03:35 Pulse Ox 91 09/17/20 03:35 09/16/20 09/17/20 09/17/20 22:59 06:59 14:59 Intake Total 417.925 / 657.925 Output Total 200 / 200 125 / 325 125 / 125 Balance 217.925 / 457.925 -125 / 332.925 -125 / -125 Weight last 48 hrs Weight 166 lb 8 oz Weight 165 lb 8 oz Physical Exam Narrative: EXAM NARRATIVE: GENERAL: Patient is alert, awake and oriented x3. NECK: No jugular vein distension. HEENT: No cyanosis. No icterus. No pallor. HEART: Irregularly irregular S1 and S2. 4/6 sys murmur, no rub or gallop. LUNGS: Clear to auscultate bilaterally. ABDOMEN: Soft, nontender and nondistended. Positive bowel sounds. No guarding, rebound or tenderness. CENTRAL NERVOUS SYSTEM: Grossly nonfocal. EXTREMITIES: Lower extremities without edema bilaterally. Urinary Catheter Management^: Islas: Cath Placed During This Visit: no Reason for Continuing Indwelling Catheter: Other Data : 09/17/20 03:28 09/17/20 03:28 Micro: Microbiology 09/16/20 20:03 Bacterial Antigens - Final Urine,Clean Catch 09/16/20 10:00 Blood Culture - Preliminary Blood SPECIMEN COLLECTED 09/16/20 10:00 Blood Culture - Preliminary Blood SPECIMEN COLLECTED A&P Assessment and plan (1) Atrial fibrillation: Continue cardizem. Continue p.o. amiodarone 400mg twice a day. Start amio gtt. Uptitrate metoprolol to 50mg BID and can further increase as BP allows. She may need cardioversion but she will need to stay on anticoagulation without interruption for atleast 1 month post cardioversion Status: Acute Qualifiers: Atrial fibrillation type: permanent Qualified Code(s): I48.21 - Permanent atrial fibrillation (2) Aortic stenosis: Aortic stenosis has progressed and is now severe. LV systolic function has also decreased slightly. Patient's thyroid cancer is slow growing, prognosis not certain at this time. She will need evaluation for valve replacement. Given her cancer history, likely will be a TAVR candidate Status: Acute Qualifiers: Cardiac valve disease etiology: nonrheumatic Qualified Code(s): I35.0 - Nonrheumatic aortic (valve) stenosis (3) History of thyroid cancer: Patient follows up with primary care physician and oncologist Status: Acute (4) HTN (hypertension): Stable continue to monitor. Status: Chronic Qualifiers: Hypertension type: essential hypertension Qualified Code(s): I10 - Essential (primary) hypertension Attestations Medical Necessity Statement*: Care expected to cross 2 midnights. Coding Level of Care Code Acute Cement Conveyor Operator for [facility] Fwd Diagnoses Atrial fibrillation I48.21 Atrial fibrillation type: permanent Aortic stenosis I35.0 Cardiac valve disease etiology: nonrheumatic History of thyroid cancer Z85.850 HTN (hypertension) I10 Hypertension type: essential hypertension
--- NOTE | 2020-09-17 11:45 | P.PN_ITS ---
Subjective Subjective: Interval history: Patient was seen this morning, she is still on amiodarone, heart rates have been 100-1 20, no shortness of breath complaints, is on 2 L, she tells me that she uses oxygen at home as needed, but for the last 2 to 3 weeks she has been using it more frequently, but she is supposed to use 3 L as needed Vitals/I&O/Wt Last Vital Signs Temp 98.0 F 09/17/20 03:35 Pulse 107 H 09/17/20 06:00 Resp 21 H 09/17/20 03:35 BP 110/87 09/17/20 03:35 Pulse Ox 91 09/17/20 03:35 09/16/20 09/17/20 09/17/20 22:59 06:59 14:59 Intake Total 417.925 / 657.925 120 / 120 Output Total 200 / 200 125 / 325 125 / 125 Balance 217.925 / 457.925 -125 / 332.925 -5 / -5 Weight last 48 hrs Weight 75.523 kg Weight 75.07 kg Physical Exam Const: COMMON NORMALS: no acute distress and patient oriented x3 GENERAL APPEARANCE: frail appearing Resp: COMMON NORMALS: normal respiratory effort, No retractions, No use of accessory muscles and clear to auscultation bilaterally AUSCULTATION: clear to auscultation bilaterally Cardio: COMMON NORMALS: S1 normal heart sound present and S2 normal heart sound present RATE: tachycardic RHYTHM: abnormal rhythm HEART SOUNDS: S1 normal heart sound present and S2 normal heart sound present GI: COMMON NORMALS: Normal to inspection, nondistended, normoactive bowel sounds present, Soft to palpation and non-tender PALPATION: Yes Soft to palp ation Extremity: COMMON NORMALS: no pedal edema Neuro: COMMON NORMALS: patient oriented x3 Psych: COMMON NORMALS: mental status grossly normal Urinary Catheter Management^: Islas: Cath Placed During This Visit: no Reason for Continuing Indwelling Catheter: Other Data : 09/17/20 03:28 09/17/20 03:28 Micro: Microbiology 09/16/20 10:00 Blood Culture - Preliminary Blood NEGATIVE TO DATE 09/16/20 10:00 Blood Culture - Preliminary Blood NEGATIVE TO DATE 09/16/20 20:03 Bacterial Antigens - Final Urine,Clean Catch A&P Assessment and plan (1) Pulmonary embolism: -Proximal main pulmonary arteries are normal. Single filling defect in the right upper lobe subsegmental anterior pulmonary artery consistent with pulmonary embolus. No other visualized filling defects. -Given her history of lower GI bleed, the risks outweigh the benefit in terms of full dose anticoagulation, in addition we have decided not to anticoagulate her as its only as small filling defect in the right upper lobe, and I feel it is not clinically significant in terms of her symptomatology which is more related to her heart failure and A. fib. Nonetheless cannot rule out completely the role of this small filling defect, but at this time the risks outweigh the benefit in terms of full dose anticoagulation -Bilateral lower extremity ultrasound negative for DVT -We will discuss with patient the need for IVC filter placement Status: Acute (2) 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: Status: Acute (3) Aortic stenosis: Check echocardiogram Status: Acute Qualifiers: Cardiac valve disease etiology: nonrheumatic Qualified Code(s): I35.0 - Nonrheumatic aortic (valve) stenosis (4) History of thyroid cancer: Has widely spread metastatic papillary thyroid carcinoma with greatest burden being in her lungs and right pelvis/acetabulum. She recently completed radiation therapy to the pelvis/acetabulum Status: Acute (5) Chest pain: She describes a sharp chest discomfort when she breathes in. Although this may be secondary to her mild acute diastolic heart failure from tachyarrh ythmia, she is at high risk for pulmonary embolism given her underlying cancer, and decreased mobility. We CT of the chest shows small CT of the chest shows Single filling defect in the right upper lobe subsegmental anterior pulmonary artery consistent with pulmonary embolus. Serial troponins, 54.39, 6-hour 3.6 Check echocardiogram, to rule out significant pericardial effusion, invasion of malignancy, and to recheck aortic stenosis. Status: Acute (6) Atrial fibrillation with rapid ventricular response: -Currently difficult to manage -Recheck TSH, T3, T4: tsh 0.01. ft4 5.44, ft317.3 -Levothyroxine for papillary thyroid cancer suppression has been held due to low TSH, will recheck -Currently on metoprolol increased to 50 BID, Cardizem, p.o. amiodarone -Amiodarone drip Status: Acute (7) Acute respiratory failure: -Stable at baseline 3 L -No radiographic evidence of pneumonia, no significant leukocytosis, pro-Jr within normal limits -Does not have evidence of fluid overload, no peripheral edema, does have trace bilateral pleural effusions, ABG discharged contraction alkalosis, is -2 L, hold off on diuresis -Currently secondary to A. fib, aortic stenosis, continue to monitor Status: Acute Additional A&P Information #aortic stenosis --consideration for TAVR as outpatient #history of GI bleed --anticoagulation contraindicated #thyroid cancer with concern for mets --on thyroid replacement dispo: PT/OT dc soon plan for today, continue amiodarone drip, increase metoprolol 50 BID, pt ot, Attestations Medical Necessity Statement*: Patient requires hospitalization, for atrial fibrillation, deconditioning, pulmonary emboli, Coding Level of Care Code Acute Tap And Die Maker Technician for [facility] Fwd Diagnoses Pulmonary embolism I26.99 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
--- NOTE | 2020-09-17 12:37 | PC.CHAP ---
Pastoral Care Encounter/Spiritual Assessment Type of Contact [] Declined chief solution architect visit [] Patient/Family/Request visit [] Outpatient visit [] Follow-up visit [] Physician referral [] Code/Alert [] Routine visit [] Staff referral [] Actively dying [xx] Patient sleeping [] Family support [] [] Out of room [] Palliative care [] [] Receiving care in room [] Pre-surgical visit [] Trauma [] Long length of stay [] ICU visit [] Other: Relational/Emotional Strength [] Patient feels connected with others/family/visitors/staff [] Distress [] Loneliness/isolation [] Abandonment Spirituality of Patient [] Person of Qing [] Attends Temple of their [employer] [] Believes in Prayer [] Reads Bible or Scientology materials [] There are Spiritual issues to be addressed [place] [employer] Interventions [] Prayer [] Active listening [] Non-anxious presence [] Spiritual/emotional support [] Crisis/trauma care [] Spiritual counseling [] Bereavement support [] Provided bereavement packet [] Provided Bible/devotional materials [] Provided toy/stuffed animal, coloring book to patient or family member [] Provided Communion [] Anointing/[place] [] Salvation [] Completed spiritual assessment [] Other: Impact on Illness or Injury [] Angry [] Fearful [] Anxious [] Often cries [] Exhaustion [] Unable to work [] Unable to attend mandaen [] Unable to walk/stand [] Unable to read [] Unable to drive [] Unable to eat/drink [] Unable to sleep [] Unable to be with family [] Patient intubated [] Other: Summary follow up needed Time spent with patient 1 minute
[2020-09-17] MEDS: heparin 5,000 unit/mL INJ 1 mL 5000 UNIT SUBCUT (16:05)
[2020-09-17] MEDS: latanoprost 0.005% Op Soln 2.5 mL Btl 1 DROP EYE-BOTH (20:44)
[2020-09-17] MEDS: metoprolol tartrate 50 mg Tablet PO (20:44)
[2020-09-18] VITALS (12 sets, daily range): BP systolic 106–152; BP diastolic 48–96; PULSE 95–116; RESP 18–36; TEMP 36.6–36.8; O2SAT 91–100
[2020-09-18] MEDS: heparin 5,000 unit/mL INJ 1 mL 5000 UNIT SUBCUT ×2 (02:57→15:09)
--- NOTE | 2020-09-18 07:30 | PC.NURSE ---
Pt sitting up in bed eating breakfast and talking to staff. Pt had no c/o pain or discomfort at the present time. No needs voiced. Call light in reach. Will cont to monitor.
[2020-09-18 07:56] LABS: Basophils % 0.2 %; Eosinophils # 0.1 10^3/uL (0.0-0.8); Eosinophils % 1.6 %; Hematocrit 32.7 % (37.0-47.0); Hemoglobin 10.1 g/dL (11.5-15.3); Lymphocytes # 0.4 10^3/uL (0.8-4.8); Lymphocytes % 7.1 %; Mean Corpuscular HGB Conc 30.9 g/dL (30.0-36.0); Mean Corpuscular Hemoglobin 29.6 pg (28.0-34.0); Mean Corpuscular Volume 95.9 fL (81-99); Mean Platelet Volume 11.1 fL (7.4-10.4); Monocytes # 0.8 10^3/uL (0.2-0.9); Monocytes % 16.6 %; Neutrophils # 3.64 10^3/uL (1.8-7.7); Neutrophils % 73.9 %; Nucleated Red Blood Cells % 0 %; Platelet Count 182 10^3/cmm (130-400); Red Blood Count 3.41 10^6/uL (4.1-5.3); Red Cell Distribution Width 13.9 % (12.1-15.1); White Blood Count 4.9 10^3/uL (4.0-10.0)
[2020-09-18] MEDS: dilTIAZem ER (24HR) 240 mg Capsule PO (08:22)
[2020-09-18] MEDS: amiodarone 200 mg Tablet 400 MG PO ×2 (08:23→17:21)
[2020-09-18] MEDS: aspirin 81 mg EC Tablet PO (08:23)
[2020-09-18] MEDS: pantoprazole DR 40 mg Tablet PO (08:24)
[2020-09-18] MEDS: metoprolol tartrate 50 mg Tablet PO (08:26)
[2020-09-18 08:34] LABS: Alanine Aminotransferase 22 U/L (0-33); Albumin Level 2.3 g/dL (3.5-5.2); Alkaline Phosphatase 90 IU/L (35-105); Anion Gap 9.6 (5-19); Aspartate Amino Transferase 27 U/L (0-32); Blood Urea Nitrogen 15 mg/dL (8-23); Calcium 8.3 mg/dL (8.5-10.5); Carbon Dioxide 38 mmol/L (22-29); Chloride 97 mmol/L (98-107); Glucose 110 mg/dL (65-115); Magnesium 1.7 mg/dL (1.7-2.3); NT Pro B Type Natriuretic Pept 1575 pg/mL (0-450); Osmolality Calculated 293 mOsm/kg (285-295); Potassium 3.6 mmol/L (3.5-5.1); Sodium 141 mmol/L (136-145); Total Bilirubin 0.7 mg/dL (0.15-1.2); Total Protein 5.3 g/dL (6.6-8.7)
--- NOTE | 2020-09-18 13:24 | P.PN_ITS ---
Subjective Subjective: Interval history: Patient is overall doing well. No complaints of chest pain. Still gets short of breath. Has been on 3 liter. Vitals/I&O/Wt Last Vital Signs Temp 98.0 F 09/18/20 10:38 Pulse 116 H 09/18/20 10:38 Resp 36 H 09/18/20 10:38 BP 131/74 09/18/20 10:38 Pulse Ox 92 09/18/20 10:38 09/17/20 09/18/20 09/18/20 22:59 06:59 14:59 Intake Total 200 / 730.075 120 / 120 Output Total 175 / 900 Balance 200 / 5.075 -175 / -169.925 120 / 120 Weight last 48 hrs Weight 168 lb 11.2 oz Weight 166 lb 8 oz Physical Exam Narrative: EXAM NARRATIVE: GENERAL: Patient is alert, awake and oriented x3. NECK: No jugular vein distension. HEENT: No cyanosis. No icterus. No pallor. HEART: Irregularly irregular S1 and S2. 4/6 sys murmur, no rub or gallop. LUNGS: Clear to auscultate bilaterally. ABDOMEN: Soft, nontender and nondistended. Positive bowel sounds. No guarding, rebound or tenderness. CENTRAL NERVOUS SYSTEM: Grossly nonfocal. EXTREMITIES: Lower extremities without edema bilaterally. Urinary Catheter Management^: Islas: Cath Placed During This Visit: no Reason for Continuing Indwelling Catheter: Accurate Measurement of Urinary Output in Critically Ill Patients Data : 09/20/20 04:30 09/20/20 04:30 Micro: Microbiology 09/16/20 10:00 Blood Culture - Preliminary Blood NEGATIVE TO DATE 09/16/20 10:00 Blood Culture - Preliminary Blood NEGATIVE TO DATE 09/16/20 20:03 Bacterial Antigens - Final Urine,Clean Catch A&P Assessment and plan (1) Atrial fibrillation: Continue cardizem. Continue p.o. amiodarone 400mg twice a day. Amio gtt stopped today. Uptitrate metoprolol to 75mg BID and can further increase as BP allows. Patient had a recent PE, it is small but can trigger afib. She is not on anticoagulation because of recent GI bleed. Unable to perform electrical cardioversion because of risk of stroke as can not give anticoagulation. Discussed with patient possible risk with amiodarone as can chemically cardiovert and she understads it. Status: Acute Qualifiers: Atrial fibrillation type: permanent Qualified Code(s): I48.21 - Permanent atrial fibrillation (2) Aortic stenosis: Aortic stenosis has progressed and is now severe. LV systolic function has also decreased slightly. Patient's thyroid cancer is slow growing, prognosis not certain at this time. She will need evaluation for valve replacement. Given her cancer history, likely will be a TAVR candidate Status: Acute Qualifiers: Cardiac valve disease etiology: nonrheumatic Qualified Code(s): I35.0 - Nonrheumatic aortic (valve) stenosis (3) History of thyroid cancer: Patient follows up with primary care physician and oncologist Status: Acute (4) HTN (hypertension): Stable continue to monitor. Status: Chronic Qualifiers: Hypertension type: essential hypertension Qualified Code(s): I10 - Essential (primary) hypertension Attestations Medical Necessity Statement*: Care expected to cross 2 midnights. Coding Level of Care Code Acute Podiatric Foot And Ankle Specialist for [facility] Fwd Diagnoses Atrial fibrillation I48.21 Atrial fibrillation type: permanent Aortic stenosis I35.0 Cardiac valve disease etiology: nonrheumatic History of thyroid cancer Z85.850 HTN (hypertension) I10 Hypertension type: essential hypertension
--- NOTE | 2020-09-18 14:22 | PM.PN ---
Subjective Subjective: Interval history: Patient was examined this morning, she tells me that she has a poor appetite, she did get up out of bed, no fevers, no cough, no chest pain, no palpitations, she has a history of GI bleed, we were contemplating starting her on anticoagulation for possible cardioversion, however she reports that just about a few weeks ago she had recurrent bloody stools, she also reports a past history of recurrent bleeding, recurrent bleeding during deliveries, recurrent spontaneous bloody stools for the last few years Vitals/I&O/Wt Last Vital Signs Temp 98.0 F 09/18/20 10:38 Pulse 116 H 09/18/20 10:38 Resp 36 H 09/18/20 10:38 BP 131/74 09/18/20 10:38 Pulse Ox 92 09/18/20 10:38 09/17/20 09/18/20 09/18/20 22:59 06:59 14:59 Intake Total 200 / 730.075 120 / 120 Output Total 175 / 900 Balance 200 / 5.075 -175 / -169.925 120 / 120 Weight last 48 hrs Weight 76.521 kg Weight 75.523 kg Physical Exam Const: COMMON NORMALS: no acute distress and patient oriented x3 GENERAL APPEARANCE: frail appearing Neck/C-Spine: COMMON NORMALS: no JVD Resp: COMMON NORMALS: normal respiratory effort, No retractions, No use of accessory muscles and clear to auscultation bilaterally AUSCULTATION: clear to auscultation bilaterally Cardio: COMMON NORMALS: no JVD, S1 normal heart sound present and S2 normal heart sound present RATE: tachycardic RHYTHM: abnormal rhythm HEART SOUNDS: S1 normal heart sound present and S2 normal heart sound present GI: COMMON NORMALS: Normal to inspection, nondistended, normoactive bowel sounds present, Soft to palpation and non-tender PALPATION: Yes Soft to palpation : COMMON NORMALS: Yes no CVA tenderness BLADDER/KIDNEY EXAM: Yes no CVA tenderness Back/Pelvis: COMMON NORMALS: no CVA tenderness Extremity: COMMON NORMALS: no pedal edema Neuro: COMMON NORMALS: patient oriented x3 Psych: COMMON NORMALS: mental status grossly normal Urinary Catheter Management^: Islas: Cath Placed During This Visit: no Reason for Continuing Indwelling Catheter: Accurate Measurement of Urinary Output in Critically Ill Patients Data : 09/18/20 07:11 09/18/20 07:11 Micro: Microbiology 09/16/20 10:00 Blood Culture - Preliminary Blood NEGATIVE TO DATE 09/16/20 10:00 Blood Culture - Preliminary Blood NEGATIVE TO DATE A&P Assessment and plan (1) Pulmonary embolism: -Proximal main pulmonary arteries are normal. Single filling defect in the right upper lobe subsegmental anterior pulmonary artery consistent with pulmonary embolus. No other visualized filling defects. -Given her history of lower GI bleed, the risks outweigh the benefit in terms of full dose anticoagulation, in addition we have decided not to anticoagulate her as its only as small filling defect in the right upper lobe, and as she remains on 3 L, certainly small PE could be playing more of a role than initially thought. Nonetheless cannot rule out completely the role of this small filling defect, but at this time the risks outweigh the benefit in terms of full dose anticoagulation -Bilateral lower extremity ultrasound negative for DVT -Has a history of bleeding, documented as far back as 2019, I can see that she has had an EGD or colonoscopy, but she reports that she bleeds even without blood thinners, her last episode was bleeding was a few weeks ago, bloody stools -We will Hemoccult her stools -Have discussed IVC filter placement, she will think about this, Status: Acute (2) 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: Status: Acute (3) Aortic stenosis: Check echocardiogra Status: Acute Qualifiers: Cardiac valve disease etiology: nonrheumatic Qualified Code(s): I35.0 - Nonrheumatic aortic (valve) stenosis (4) History of thyroid cancer: Has widely spread metastatic papillary thyroid carcinoma with greatest burden being in her lungs and right pelvis/acetabulum. She recently completed radiation therapy to the pelvis/acetabulum Status: Acute (5) Chest pain: She describes a sharp chest discomfort when she breathes in. Although this may be secondary to her mild acute diastolic heart failure from tachyarrhythmia, she is at high risk for pulmonary embolism given her underlying cancer, and decreased mobility. We CT of the chest shows small CT of the chest shows Single filling defect in the right upper lobe subsegmental anterior pulmonary artery consistent with pulmonary embolus. Serial troponins, 54.39, 6-hour 3.6 Status: Acute (6) Atrial fibrillation with rapid ventricular response: -Currently difficult to manage -TSH continues to be low, continue to hold levothyroxine has been held due to low TSH, will recheck -Currently on metoprolol increased to 50 BID, Cardizem, p.o. amiodarone -Amiodarone drip -Currently anticoagulation contraindicated given her history of bleeding, will Hemoccult her stools Status: Acute (7) Acute respiratory failure: -Stable at baseline 3 L -No radiographic evidence of pneumonia, no significant leukocytosis, pro-Jr within normal limits -Does not have evidence of fluid overload, no peripheral edema, does have trace bilateral pleural effusions, ABG discharged contraction alkalosis, is -2 L, hold off on diuresis -Currently secondary to A. fib, aortic stenosis, continue to monitor Status: Acute Additional A&P Information #aortic stenosis --consideration for TAVR as outpatient #history of GI bleed --anticoagulation contraindicated #thyroid cancer with concern for mets --on thyroid replacement dispo: PT/OT dc soon plan for today, continue amiodarone drip, increase metoprolol to 75 twice daily Attestations Medical Necessity Statement*: Patient requires hospitalization for pulmonary bladder, A. fib, acute respiratory failure Coding Level of Care Code Acute Client Relation Specialist for [facility] Fwd Diagnoses Pulmonary embolism I26.99 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
--- NOTE | 2020-09-18 14:36 | PC.SOCIAL ---
*IMM* Important message gave to the patient. Updated in the chart.
[2020-09-18] MEDS: metoprolol tartrate 50 mg Tablet 75 MG PO (20:34)
[2020-09-18] MEDS: latanoprost 0.005% Op Soln 2.5 mL Btl 1 DROP EYE-BOTH (20:41)
[2020-09-18] MEDS: oxyCODONE 5 mg IR Tab/Cap PO (22:18)
[2020-09-19] VITALS (13 sets, daily range): BP systolic 100–142; BP diastolic 42–106; PULSE 93–132; RESP 16–33; TEMP 36.6–36.7; O2SAT 91–96
[2020-09-19] MEDS: heparin 5,000 unit/mL INJ 1 mL 5000 UNIT SUBCUT ×2 (03:32→16:24)
[2020-09-19 04:08] LABS: Basophils % 0.2 %; Eosinophils # 0.1 10^3/uL (0.0-0.8); Eosinophils % 1.1 %; Hematocrit 32.4 % (37.0-47.0); Hemoglobin 9.9 g/dL (11.5-15.3); Lymphocytes # 0.4 10^3/uL (0.8-4.8); Lymphocytes % 7.6 %; Mean Corpuscular HGB Conc 30.6 g/dL (30.0-36.0); Mean Corpuscular Hemoglobin 29.6 pg (28.0-34.0); Mean Platelet Volume 11.2 fL (7.4-10.4); Monocytes % 17.9 %; Neutrophils # 3.94 10^3/uL (1.8-7.7); Neutrophils % 72.6 %; Nucleated Red Blood Cells % 0 %; Platelet Count 168 10^3/cmm (130-400); Red Blood Count 3.34 10^6/uL (4.1-5.3); Red Cell Distribution Width 13.9 % (12.1-15.1); White Blood Count 5.4 10^3/uL (4.0-10.0)
[2020-09-19 04:44] LABS: Alanine Aminotransferase 28 U/L (0-33); Albumin Level 2.5 g/dL (3.5-5.2); Alkaline Phosphatase 97 IU/L (35-105); Aspartate Amino Transferase 31 U/L (0-32); Blood Urea Nitrogen 16 mg/dL (8-23); Calcium 8.4 mg/dL (8.5-10.5); Carbon Dioxide 34 mmol/L (22-29); Chloride 98 mmol/L (98-107); Globulin 2.8 g/dL (1.3-4.6); Glucose 101 mg/dL (65-115); Magnesium 1.6 mg/dL (1.7-2.3); NT Pro B Type Natriuretic Pept 1884 pg/mL (0-450); Osmolality Calculated 293 mOsm/kg (285-295); Phosphorus 3.2 mg/dL (2.5-4.5); Sodium 141 mmol/L (136-145); Total Bilirubin 0.8 mg/dL (0.15-1.2); Total Protein 5.3 g/dL (6.6-8.7)
[2020-09-19 04:46] LABS: Anion Gap 12.5 (5-19); Potassium 3.5 mmol/L (3.5-5.1)
[2020-09-19] MEDS: dilTIAZem ER (24HR) 240 mg Capsule PO (08:58)
[2020-09-19] MEDS: oxyCODONE 5 mg IR Tab/Cap PO ×2 (08:58→16:25)
[2020-09-19] MEDS: pantoprazole DR 40 mg Tablet PO (09:03)
[2020-09-19] MEDS: aspirin 81 mg EC Tablet PO (09:03)
[2020-09-19] MEDS: amiodarone 200 mg Tablet 400 MG PO ×2 (09:04→18:17)
[2020-09-19] MEDS: metoprolol tartrate 50 mg Tablet 75 MG PO (09:04)
--- NOTE | 2020-09-19 10:00 | P.PN_ITS ---
Subjective Subjective: Interval history: Patient is stable. Vitals/I&O/Wt Last Vital Signs Temp 98.0 F 09/19/20 07:37 Pulse 101 H 09/19/20 08:10 Resp 18 09/19/20 08:58 BP 139/77 09/19/20 07:37 Pulse Ox 95 09/19/20 08:58 09/18/20 09/19/20 09/19/20 22:59 06:59 14:59 Intake Total 638 / 758 120 / 120 Output Total 350 / 350 50 / 400 Balance 288 / 408 -50 / 358 120 / 120 Weight last 48 hrs Weight 167 lb 9.6 oz Weight 168 lb 11.2 oz Physical Exam Narrative: EXAM NARRATIVE: GENERAL: Patient is alert, awake and oriented x3. NECK: No jugular vein distension. HEENT: No cyanosis. No icterus. No pallor. HEART: Irregularly irregular S1 and S2. 4/6 sys murmur, no rub or gallop. LUNGS: Clear to auscultate bilaterally. ABDOMEN: Soft, nontender and nondistended. Positive bowel sounds. No guarding, rebound or tenderness. CENTRAL NERVOUS SYSTEM: Grossly nonfocal. EXTREMITIES: Lower extremities without edema bilaterally. Urinary Catheter Management^: Islas: Cath Placed During This Visit: no Reason for Continuing Indwelling Catheter: Accurate Measurement of Urinary Output in Critically Ill Patients Data : 09/20/20 04:30 09/20/20 04:30 A&P Assessment and plan (1) Atrial fibrillation: Continue cardizem. Continue p.o. amiodarone 400mg twice a day. Amio gtt stopped today. Uptitrate metoprolol [id number] BID. Patient had a recent PE, it is small but can trigger RVR. She is not on anticoagulation because of recent GI bleed. Unable to perform electrical cardioversion because of risk of stroke as can not give anticoagulation. Discussed with patient possible risk with amiodarone as can chemically cardiovert and she understads it. Status: Acute Qualifiers: Atrial fibrillation type: permanent Qualified Code(s): I48.21 - Permanent atrial fibrillation (2) Aortic stenosis: Aortic stenosis has progressed and is now severe. LV systolic function has also decreased slightly. Patient's thyroid cancer is slow growing, prognosis not certain at this time. She will need evaluation for valve replacement. Given her cancer history, likely will be a TAVR candidate Status: Acute Qualifiers: Cardiac valve disease etiology: nonrheumatic Qualified Code(s): I35.0 - Nonrheumatic aortic (valve) stenosis (3) History of thyroid cancer: Patient follows up with primary care physician and oncologist Status: Acute (4) HTN (hypertension): Stable continue to monitor. Status: Chronic Qualifiers: Hypertension type: essential hypertension Qualified Code(s): I10 - Essential (primary) hypertension Attestations Medical Necessity Statement*: Care expected to cross 2 midnights. Coding Level of Care Code Acute Property Maintenance Supervisor for [facility] Fwd Diagnoses Atrial fibrillation I48.21 Atrial fibrillation type: permanent Aortic stenosis I35.0 Cardiac valve disease etiology: nonrheumatic History of thyroid cancer Z85.850 HTN (hypertension) I10 Hypertension type: essential hypertension
--- NOTE | 2020-09-19 13:30 | P.PN_ITS ---
Subjective Subjective: Interval history: This morning patient was seen, she is off the amiodarone drip, she is doing better, heart rate still are between 100-110, atrial fibrillation, her appetite remains poor, no fevers, no chills, no nausea, no vomiting, did get up into a chair yesterday Vitals/I&O/Wt Last Vital Signs Temp 98.0 F 09/19/20 07:37 Pulse 101 H 09/19/20 08:10 Resp 18 09/19/20 08:58 BP 139/77 09/19/20 07:37 Pulse Ox 95 09/19/20 08:58 09/18/20 09/19/20 09/19/20 22:59 06:59 14:59 Intake Total 638 / 758 120 / 120 Output Total 350 / 350 50 / 400 Balance 288 / 408 -50 / 358 120 / 120 Weight last 48 hrs Weight 76.022 kg Weight 76.521 kg Physical Exam Const: COMMON NORMALS: no acute distress and patient oriented x3 Resp: COMMON NORMALS: normal respiratory effort, No retractions, No use of accessory muscles and clear to auscultation bilaterally AUSCULTATION: clear to auscultation bilaterally Cardio: COMMON NORMALS: regular rate, regular rhythm, S1 normal heart sound present and S2 normal heart sound present RATE: regular rate RHYTHM: regular rhythm HEART SOUNDS: S1 normal heart sound present and S2 normal heart sound present GI: COMMON NORMALS: Normal to inspection, nondistended, normoactive bowel sounds present and Soft to palpation PALPATION: Yes Soft to palpation Extremity: COMMON NORMALS: no pedal edema Neuro: COMMON NORMALS: patient oriented x3 Psych: COMMON NORMALS: mental status grossly normal Urinary Catheter Management^: Islas: Cath Placed During This Visit: no Reason for Continuing Indwelling Catheter: Accurate Measurement of Urinary Output in Critically Ill Patients Data : 09/19/20 04:01 09/19/20 04:01 A&P Assessment and plan (1) Pulmonary embolism: -Proximal main pulmonary arteries are normal. Single filling defect in the right upper lobe subsegmental anterior pulmonary artery consistent with pulmonary embolus. No other visualized filling defects. -Given her history of lower GI bleed, the risks outweigh the benefit in terms of full dose anticoagulation, in addition we have decided not to anticoagulate her as its only as small filling defect in the right upper lobe, and as she remains on 3 L, certainly small PE could be playing more of a role than initially thought. Nonetheless cannot rule out completely the role of this small filling defect, but at this time the risks outweigh the benefit in terms of full dose anticoagulation -Bilateral lower extremity ultrasound negative for DVT -Has a history of bleeding, documented as far back as 2019, I can see that she has had an EGD or colonoscopy, but she reports that she bleeds even without blood thinners, her last episode was bleeding was a few weeks ago, bloody stools -We will Hemoccult her stools -Have discussed IVC filter placement, she will think about this, will have her follow-up with Dr. 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 She recently completed radiation therapy to the pelvis/acetabulum Status: Acute (5) Chest pain: She describes a sharp chest discomfort when she breathes in. Although this may be secondary to her mild acute diastolic heart failure from tachyarrhythmia, she is at high risk for pulmonary embolism given her underlying cancer, and decreased mobility. We CT of the chest shows small CT of the chest shows Single filling defect in the right upper lobe subsegmental anterior pulmonary artery consistent with pulmonary embolus. Serial troponins, 54.39, 6-hour 3.6 Status: Acute (6) Atrial fibrillation with rapid ventricular response: -Currently difficult to manage -TSH continues to be low, continue to hold levothyroxine has been held due to low TSH, will recheck -Currently on metoprolol increased to 100 BID, Cardizem, p.o. amiodarone -Currently anticoagulation contraindicated given her history of bleeding, will Hemoccult her stools Status: Acute (7) Acute respiratory failure: -Stable at baseline 3 L -No radiographic evidence of pneumonia, no significant leukocytosis, pro-Jr within normal limits -Does not have evidence of fluid overload, no peripheral edema, does have trace bilateral pleural effusions, ABG discharged contraction alkalosis, is -2 L, hold off on diuresis -Currently secondary to A. fib, aortic stenosis, continue to monitor Status: Acute Additional A&P Information #aortic stenosis --consideration for TAVR as outpatient #history of GI bleed --anticoagulation contraindicated #thyroid cancer with concern for mets --on thyroid replacement dispo: PT/OT dc soon plan for today, increase metoprolol to twice daily, hopefully can discharge the next 24 hours Attestations Medical Necessity Statement*: Patient requires hospitalization for pulmonary e mboli, atrial fibrillation, Coding Level of Care Code Acute Public Health Director for [facility] Fwd Diagnoses Pulmonary embolism I26.99 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
[2020-09-19] MEDS: metoprolol tartrate 50 mg Tablet 100 MG PO (20:07)
[2020-09-19] MEDS: ondansetron 2 mg/ML SDV 2 mL 4 MG IVP (20:08)
[2020-09-19] MEDS: latanoprost 0.005% Op Soln 2.5 mL Btl 1 DROP EYE-BOTH (20:08)
[2020-09-20] VITALS (10 sets, daily range): BP systolic 115–138; BP diastolic 48–95; PULSE 103–115; RESP 18–31; TEMP 36.6–36.8; O2SAT 92–96
[2020-09-20 06:15] LABS: Basophils % 0.3 %; Eosinophils # 0.1 10^3/uL (0.0-0.8); Eosinophils % 1.8 %; Hematocrit 32.6 % (37.0-47.0); Hemoglobin 9.8 g/dL (11.5-15.3); Lymphocytes # 0.3 10^3/uL (0.8-4.8); Lymphocytes % 8.5 %; Mean Corpuscular HGB Conc 30.1 g/dL (30.0-36.0); Mean Corpuscular Hemoglobin 28.7 pg (28.0-34.0); Mean Corpuscular Volume 95.6 fL (81-99); Mean Platelet Volume 11.6 fL (7.4-10.4); Monocytes # 0.7 10^3/uL (0.2-0.9); Monocytes % 18.3 %; Neutrophils # 2.83 10^3/uL (1.8-7.7); Neutrophils % 70.6 %; Nucleated Red Blood Cells % 0 %; Platelet Count 173 10^3/cmm (130-400); Red Blood Count 3.41 10^6/uL (4.1-5.3); Red Cell Distribution Width 13.7 % (12.1-15.1)
[2020-09-20 06:35] LABS: Alanine Aminotransferase 28 U/L (0-33); Albumin Level 2.6 g/dL (3.5-5.2); Alkaline Phosphatase 101 IU/L (35-105); Anion Gap 11.5 (5-19); Aspartate Amino Transferase 27 U/L (0-32); Blood Urea Nitrogen 19 mg/dL (8-23); Calcium 8.5 mg/dL (8.5-10.5); Carbon Dioxide 38 mmol/L (22-29); Chloride 96 mmol/L (98-107); Globulin 2.7 g/dL (1.3-4.6); Glucose 104 mg/dL (65-115); Magnesium 1.8 mg/dL (1.7-2.3); Osmolality Calculated 297 mOsm/kg (285-295); Phosphorus 3.6 mg/dL (2.5-4.5); Potassium 3.5 mmol/L (3.5-5.1); Sodium 142 mmol/L (136-145); Total Bilirubin 0.6 mg/dL (0.15-1.2); Total Protein 5.3 g/dL (6.6-8.7)
[2020-09-20] MEDS: amiodarone 200 mg Tablet 400 MG PO ×2 (08:42→17:16)
[2020-09-20] MEDS: aspirin 81 mg EC Tablet PO (08:42)
[2020-09-20] MEDS: metoprolol tartrate 50 mg Tablet 100 MG PO ×2 (08:43→20:38)
[2020-09-20] MEDS: dilTIAZem ER (24HR) 240 mg Capsule PO (08:43)
[2020-09-20] MEDS: pantoprazole DR 40 mg Tablet PO (08:43)
--- NOTE | 2020-09-20 09:05 | PC.SOCIAL ---
IMM Updated Updated pt on Pg 2 IMM. No questions voiced. Provided pt a copy. Signed, dated, & timed copy in chart.
--- NOTE | 2020-09-20 09:34 | PM.PN ---
Subjective Subjective: Interval history: Patient is overall stable but still requiring 3 L O2. No chest pain. Vitals/I&O/Wt Last Vital Signs Temp 97.9 F 09/20/20 07:36 Pulse 113 H 09/20/20 08:28 Resp 25 H 09/20/20 07:36 BP 138/78 09/20/20 07:36 Pulse Ox 95 09/20/20 08:28 09/19/20 09/20/20 09/20/20 22:59 06:59 14:59 Intake Total 100 / 340 240 / 240 Output Total 150 / 150 150 / 300 150 / 150 Balance -150 / 90 -50 / 40 90 / 90 Weight last 48 hrs Weight 162 lb Weight 167 lb 9.6 oz Physical Exam Narrative: EXAM NARRATIVE: GENERAL: Patient is alert, awake and oriented x3. NECK: No jugular vein distension. HEENT: No cyanosis. No icterus. No pallor. HEART: Irregularly irregular S1 and S2. 4/6 sys murmur, no rub or gallop. LUNGS: Clear to auscultate bilaterally. ABDOMEN: Soft, nontender and nondistended. Positive bowel sounds. No guarding, rebound or tenderness. CENTRAL NERVOUS SYSTEM: Grossly nonfocal. EXTREMITIES: Lower extremities without edema bilaterally. Urinary Catheter Management^: Islas: Cath Placed During This Visit: yes, but has since been removed by the nurse Reason for Continuing Indwelling Catheter: Accurate Measurement of Urinary Output in Critically Ill Patients Date Urinary Catheter Removed: 09/20/20 Time Urinary Catheter Discontinued: 09:11 Data : 09/21/20 04:46 09/21/20 04:46 A&P Assessment and plan (1) Atrial fibrillation: Continue cardizem. Continue p.o. amiodarone 400mg twice a day. Amio gtt stopped.Patient is on metoprolol [id number] BID. Patient had a recent PE, it is small but can trigger RVR. She is not on anticoagulation because of recent GI bleed. Unable to perform electrical cardioversion because of risk of stroke as can not give anticoagulation. Discussed with patient possible risk with amiodarone as can chemically cardiovert and she understads it. Status: Acute Qualifiers: Atrial fibrillation type: permanent Qualified Code(s): I48.21 - Permanent atrial fibrillation (2) Aortic stenosis: Aortic stenosis has progressed and is now severe. LV systolic function has also decreased slightly. Patient's thyroid cancer is slow growing, prognosis not certain at this time. She will need evaluation for valve replacement. Given her cancer history, likely will be a TAVR candidate Status: Acute Qualifiers: Cardiac valve disease etiology: nonrheumatic Qualified Code(s): I35.0 - Nonrheumatic aortic (valve) stenosis (3) History of thyroid cancer: Patient follows up with primary care physician and oncologist Status: Acute (4) HTN (hypertension): Stable continue to monitor. Status: Chronic Qualifiers: Hypertension type: essential hypertension Qualified Code(s): I10 - Essential (primary) hypertension Attestations Medical Necessity Statement*: Care expected to cross 2 midnights Coding Level of Care Code Acute Glass Laminating Operator for [facility] Diagnoses Atrial fibrillation I48.21 Atrial fibrillation type: permanent Aortic stenosis I35.0 Cardiac valve disease etiology: nonrheumatic History of thyroid cancer Z85.850 HTN (hypertension) I10 Hypertension type: essential hypertension
--- NOTE | 2020-09-20 12:35 | PM.PN ---
Subjective Subjective: Interval history: Patient was examined this morning, her heart rates are a bit better between 100-110, she did get up yesterday, did work with physical therapy no lightheadedness, no dizziness she is on maximum dose medical therapy for atrial fibrillation, after discussion about risk and benefits of IVC filter placement, she agrees, will see if we can set this up as inpatient or as outpatient Vitals/I&O/Wt Last Vital Signs Temp 97.8 F 09/20/20 11:04 Pulse 105 H 09/20/20 11:04 Resp 24 H 09/20/20 11:04 BP 115/55 09/20/20 11:04 Pulse Ox 96 09/20/20 11:04 09/19/20 09/20/20 09/20/20 22:59 06:59 14:59 Intake Total 100 / 340 240 / 240 Output Total 150 / 150 150 / 300 150 / 150 Balance -150 / 90 -50 / 40 90 / 90 Weight last 48 hrs Weight 73.482 kg Weight 76.022 kg Physical Exam Const: COMMON NORMALS: no acute distress and patient oriented x3 HENMT: COMMON NORMALS: normocephalic HEAD & SCALP: normocephalic Resp: COMMON NORMALS: normal respiratory effort, No retractions, No use of accessory muscles and clear to auscultation bilaterally AUSCULTATION: clear to auscultation bilaterally Cardio: COMMON NORMALS: S1 normal heart sound present and S2 normal heart sound present RATE: tachycardic RHYTHM: abnormal rhythm HEART SOUNDS: S1 normal heart sound present and S2 normal heart sound present GI: COMMON NORMALS: Normal to inspection, nondistended, normoactive bowel sounds present, Soft to palpation, non-tender and No hepatosplenomegaly present PALPATION: Yes Soft to palpation and Yes No hepatosplenomegaly present Extremity: COMMON NORMALS: no pedal edema Neuro: COMMON NORMALS: patient oriented x3 Psych: COMMON NORMALS: mental status grossly normal Urinary Catheter Management^: Ilsas: Cath Placed During This Visit: yes, but has since been removed by the nurse Reason for Continuing Indwelling Catheter: Accurate Measurement of Urinary Output in Critically Ill Patients Date Urinary Catheter Removed: 09/20/20 Time Urinary Catheter Discontinued: 09:11 Data : 09/20/20 04:30 09/20/20 04:30 Micro: Microbiology 09/20/20 09:30 Occult Blood (FIT) - Final Stool - Stool Aspirate A&P Assessment and plan (1) Pulmonary embolism: -Proximal main pulmonary arteries are normal. Single filling defect in the right upper lobe subsegmental anterior pulmonary artery consistent with pulmonary embolus. No other visualized filling defects. -Given her history of lower GI bleed, the risks outweigh the benefit in terms of full dose anticoagulation, in addition we have decided not to anticoagulate her as its only as small filling defect in the right upper lobe, and as she remains on 3 L, certainly small PE could be playing more of a role than initially thought. Nonetheless cannot rule out completely the role of this small filling defect, but at this time the risks outweigh the benefit in terms of full dose anticoagulation -Bilateral lower extremity ultrasound negative for DVT -Has a history of bleeding, documented as far back as 2019, I can see that she has had an EGD or colonoscopy, but she reports that she bleeds even without blood thinners, her last episode was bleeding was a few weeks ago, bloody stools -We will Hemoccult her stools -Have discussed IVC filter placement, she has agreed for IVC filter placement, will discuss with Dr. Elder, will see if she can have this placed as inpatient, will discuss with Dr. Dr. 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 She recently completed radiation therapy to the pelvis/acetabulum Status: Acute (5) Chest pain: She describes a sharp chest discomfort when she breathes in. Although this may be secondary to her mild acute diastolic heart failure from tachyarrhythmia, she is at high risk for pulmonary embolism given her underlying cancer, and decreased mobility. We CT of the chest shows small CT of the chest shows Single filling defect in the right upper lobe subsegmental anterior pulmonary artery consistent with pulmonary embolus. Serial troponins, 54.39, 6-hour 3.6 Status: Acute (6) Atrial fibrillation with rapid ventricular response: -Currently difficult to manage -TSH continues to be low, continue to hold levothyroxine has been held due to low TSH, will recheck -Currently on metoprolol increased to 100 BID, Cardizem, p.o. amiodarone -We will get up and ambulate see what her heart rates do -Currently anticoagulation contraindicated given her history of bleeding, will Hemoccult her stools Status: Acute (7) Acute respiratory failure: -Stable at baseline 3 L -No radiographic evidence of pneumonia, no significant leukocytosis, pro-Jr within normal limits -Does not have evidence of fluid overload, no peripheral edema, does have trace bilateral pleural effusions, ABG discharged contraction alkalosis, is -2 L, hold off on diuresis -Currently secondary to A. 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
[2020-09-20] MEDS: latanoprost 0.005% Op Soln 2.5 mL Btl 1 DROP EYE-BOTH (20:39)
[2020-09-20] MEDS: ondansetron 2 mg/ML SDV 2 mL 4 MG IVP (21:39)
[2020-09-20] MEDS: oxyCODONE 5 mg IR Tab/Cap PO (21:44)
[2020-09-20] MEDS: metoclopramide 5 mg/mL SDV 2 mL 10 MG IVP (22:51)
[2020-09-21] VITALS (12 sets, daily range): BP systolic 93–135; BP diastolic 54–78; PULSE 93–115; RESP 18–33; TEMP 36.3–37.1; O2SAT 91–100
[2020-09-21] MEDS: oxyCODONE 5 mg IR Tab/Cap PO (04:26)
[2020-09-21 05:05] LABS: Basophils % 0.5 %; Eosinophils % 0.3 %; Hematocrit 32.7 % (37.0-47.0); Lymphocytes # 0.5 10^3/uL (0.8-4.8); Mean Corpuscular HGB Conc 30.6 g/dL (30.0-36.0); Mean Corpuscular Hemoglobin 29.2 pg (28.0-34.0); Mean Corpuscular Volume 95.3 fL (81-99); Mean Platelet Volume 11.3 fL (7.4-10.4); Neutrophils # 4.17 10^3/uL (1.8-7.7); Neutrophils % 72.2 %; Nucleated Red Blood Cells % 0 %; Platelet Count 181 10^3/cmm (130-400); Red Blood Count 3.43 10^6/uL (4.1-5.3); Red Cell Distribution Width 13.7 % (12.1-15.1); White Blood Count 5.8 10^3/uL (4.0-10.0)
[2020-09-21 05:38] LABS: Alanine Aminotransferase 35 U/L (0-33); Albumin Level 2.6 g/dL (3.5-5.2); Alkaline Phosphatase 111 IU/L (35-105); Anion Gap 10.2 (5-19); Aspartate Amino Transferase 35 U/L (0-32); Blood Urea Nitrogen 26 mg/dL (8-23); Calcium 8.5 mg/dL (8.5-10.5); Carbon Dioxide 39 mmol/L (22-29); Chloride 96 mmol/L (98-107); Glucose 124 mg/dL (65-115); Magnesium 1.7 mg/dL (1.7-2.3); Osmolality Calculated 298 mOsm/kg (285-295); Phosphorus 4.2 mg/dL (2.5-4.5); Potassium 4.2 mmol/L (3.5-5.1); Sodium 141 mmol/L (136-145); Total Bilirubin 0.6 mg/dL (0.15-1.2); Total Protein 5.6 g/dL (6.6-8.7)
[2020-09-21] MEDS: aspirin 81 mg EC Tablet PO (08:58)
[2020-09-21] MEDS: dilTIAZem ER (24HR) 240 mg Capsule PO (08:58)
[2020-09-21] MEDS: amiodarone 200 mg Tablet 400 MG PO ×2 (08:58→18:09)
[2020-09-21] MEDS: pantoprazole DR 40 mg Tablet PO (08:58)
[2020-09-21] MEDS: metoprolol tartrate 50 mg Tablet 100 MG PO ×2 (09:06→20:56)
--- NOTE | 2020-09-21 10:35 | PM.PN ---
Subjective Subjective: Interval history: Patient is overall stable but heart rates worsen on any exertion. Vitals/I&O/Wt Last Vital Signs Temp 97.4 F L 09/21/20 07:11 Pulse 115 H 09/21/20 07:11 Resp 33 H 09/21/20 07:11 BP 103/74 09/21/20 07:11 Pulse Ox 96 09/21/20 07:11 09/20/20 09/21/20 09/21/20 22:59 06:59 14:59 Intake Total 310 / 550 240 / 790 120 / 120 Balance 310 / 400 240 / 640 120 / 120 Weight last 48 hrs Weight 167 lb 8 oz Weight 162 lb Physical Exam Narrative: EXAM NARRATIVE: GENERAL: Patient is alert, awake and oriented x3. NECK: No jugular vein distension. HEENT: No cyanosis. No icterus. No pallor. HEART: Irregularly irregular S1 and S2. 4/6 sys murmur, no rub or gallop. LUNGS: Clear to auscultate bilaterally. ABDOMEN: Soft, nontender and nondistended. Positive bowel sounds. No guarding, rebound or tenderness. CENTRAL NERVOUS SYSTEM: Grossly nonfocal. EXTREMITIES: Lower extremities without edema bilaterally. Urinary Catheter Management^: Islas: Cath Placed During This Visit: yes, but has since been removed by the nurse Reason for Continuing Indwelling Catheter: Accurate Measurement of Urinary Output in Critically Ill Patients Date Urinary Catheter Removed: 09/20/20 Time Urinary Catheter Discontinued: 09:11 Data : 09/22/20 03:28 09/22/20 03:28 Micro: Microbiology 09/16/20 10:00 Blood Culture - Final Blood NO GROWTH AFTER 5 DAYS 09/16/20 10:00 Blood Culture - Final Blood NO GROWTH AFTER 5 DAYS 09/20/20 09:30 Occult Blood (FIT) - Final Stool - Stool Aspirate A&P Assessment and plan (1) Atrial fibrillation: Uptitrate cardizem to 360mg daily. Continue p.o. amiodarone 400mg twice a day. Amio gtt stopped.Patient is on metoprolol 100mg BID. Patient had a recent PE, it is small but can trigger RVR. She is not on anticoagulation because of recent GI bleed. Unable to perform electrical cardioversion because of risk of stroke as can not give anticoagulation. Discussed with patient possible risk with amiodarone as can chemically cardiovert and she understads it. If heart rate stays uncontrolled with the current medications, can start on digoxin Status: Acute Qualifiers: Atrial fibrillation type: permanent Qualified Code(s): I48.21 - Permanent atrial fibrillation (2) Aortic stenosis: Aortic stenosis has progressed and is now severe. LV systolic function has also decreased slightly. Patient's thyroid cancer is slow growing, prognosis not certain at this time. She will need evaluation for valve replacement. Given her cancer history, likely will be a TAVR candidate Status: Acute Qualifiers: Cardiac valve disease etiology: nonrheumatic Qualified Code(s): I35.0 - Nonrheumatic aortic (valve) stenosis (3) History of thyroid cancer: Patient follows up with primary care physician and oncologist Status: Acute (4) HTN (hypertension): Stable continue to monitor. Status: Chronic Qualifiers: Hypertension type: essential hypertension Qualified Code(s): I10 - Essential (primary) hypertension Attestations Medical Necessity Statement*: Care expected to cross 2 midnights. Coding Level of Care Code Acute Corrosion Control Technician for [facility] Diagnoses Atrial fibrillation I48.21 Atrial fibrillation type: permanent Aortic stenosis I35.0 Cardiac valve disease etiology: nonrheumatic History of thyroid cancer Z85.850 HTN (hypertension) I10 Hypertension type: essential hypertension
--- NOTE | 2020-09-21 13:10 | PM.PN ---
Subjective Subjective: Interval history: Patient was seen this morning, she tells me that she is not short of breath, but her heart rates do elevate when she gets up and moves around, when the nurses got her up this morning heart rates gone to high 130s, A. fib, no chest pain, shortness of breath Vitals/I&O/Wt Last Vital Signs Temp 97.8 F 09/21/20 12:00 Pulse 93 09/21/20 12:00 Resp 18 09/21/20 12:00 BP 103/74 09/21/20 07:11 Pulse Ox 92 09/21/20 12:00 09/20/20 09/21/20 09/21/20 22:59 06:59 14:59 Intake Total 310 / 550 240 / 790 360 / 360 Balance 310 / 400 240 / 640 360 / 360 Weight last 48 hrs Weight 75.977 kg Weight 73.482 kg Physical Exam Const: COMMON NORMALS: no acute distress GENERAL APPEARANCE: frail appearing ORIENTATION/CONSCIOUSNESS: Yes awake, Yes oriented to person and Yes oriented to place Resp: COMMON NORMALS: normal respiratory effort, No retractions, No use of accessory muscles and clear to auscultation bilaterally AUSCULTATION: clear to auscultation bilaterally Cardio: COMMON NORMALS: S1 normal heart sound present and S2 normal heart sound present RATE: tachycardic RHYTHM: abnormal rhythm HEART SOUNDS: S1 normal heart sound present and S2 normal heart sound present GI: COMMON NORMALS: Normal to inspection, nondistended, normoactive bowel sounds present, Soft to palpation and non-tender PALPATION: Yes Soft to palpation Extremity: COMMON NORMALS: no pedal edema Neuro: SENSORIUM/ORIENTATION: Yes oriented to person and Yes oriented to place Urinary Catheter Management^: Islas: Cath Placed During This Visit: yes, but has since been removed by the nurse Reason for Continuing Indwelling Catheter: Accurate Measurement of Urinary Output in Critically Ill Patients Date Urinary Catheter Removed: 09/20/20 Time Urinary Catheter Discontinued: 09:11 Data : 09/21/20 04:46 09/21/20 04:46 Micro: Microbiology 09/16/20 10:00 Blood Culture - Final Blood NO GROWTH AFTER 5 DAYS 09/16/20 10:00 Blood Culture - Final Blood NO GROWTH AFTER 5 DAYS 09/20/20 09:30 Occult Blood (FIT) - Final Stool - Stool Aspirate A&P Assessment and plan (1) Pulmonary embolism: -Proximal main pulmonary arteries are normal. Single filling defect in the right upper lobe subsegmental anterior pulmonary artery consistent with pulmonary embolus. No other visualized filling defects. -Given her history of lower GI bleed, the risks outweigh the benefit in terms of full dose anticoagulation, in addition we have decided not to anticoagulate her as its only as small filling defect in the right upper lobe, and as she remains on 3 L, certainly small PE could be playing more of a role than initially thought. Nonetheless cannot rule out completely the role of this small filling defect, but at this time the risks outweigh the benefit in terms of full dose anticoagulation -Bilateral lower extremity ultrasound negative for DVT -Has a history of bleeding, documented as far back as 2019, I can see that she has had an EGD or colonoscopy, but she reports that she bleeds even without blood thinners, her last episode was bleeding was a few weeks ago, bloody stools -We will Hemoccult her stools -Have discussed IVC filter placement, she has agreed for IVC filter placement, will discuss with Dr. Elder, will see if she can have this placed as inpatient if afib allows, will discuss with Dr. Dr. 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 She recently completed radiation therapy to the pelvis/acetabulum Status: Acute (5) Chest pain: She describes a sharp chest discomfort when she breathes in. Although this may be secondary to her mild acute diastolic heart failure from tachyarrhythmia, she is at high risk for pulmonary embolism given her underlying cancer, and decreased mobility. We CT of the chest shows small CT of the chest shows Single filling defect in the right upper lobe subsegmental anterior pulmonary artery consistent with pulmonary embolus. Serial troponins, 54.39, 6-hour 3.6 Status: Acute (6) Atrial fibrillation with rapid ventricular response: -Currently difficult to manage -TSH continues to be low, continue to hold levothyroxine has been held due to low TSH, will recheck -Currently on metoprolol increased to 100 BID, Cardizem, p.o. amiodarone -HR>130, on ambulation, increase Cardizem to 360 mg daily -Currently anticoagulation contraindicated given her history of bleeding, will Hemoccult her stools Status: Acute (7) Acute respiratory failure: -Stable at baseline 3 L -No radiographic evidence of pneumonia, no significant leukocytosis, pro-Jr within normal limits -Does not have evidence of fluid overload, no peripheral edema, does have trace bilateral pleural effusions, ABG discharged contraction alkalosis, is -2 L, hold off on diuresis -Currently secondary to A. fib, aortic stenosis, continue to monitor Status: Acute Additional A&P Information #aortic stenosis --consideration for TAVR as outpatient #history of GI bleed --anticoagulation contraindicated #thyroid cancer with concern for mets --on thyroid replacement dispo: PT/OT dc soon plan for today, increase Cardizem 360, hopefully can discharge the next 4 hours, will discuss with Dr. Martinez Attsarahations Medical Necessity Statement*: Patient requires hospitalization for A. 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
[2020-09-21] MEDS: latanoprost 0.005% Op Soln 2.5 mL Btl 1 DROP EYE-BOTH (20:57)
[2020-09-22] VITALS (14 sets, daily range): BP systolic 101–118; BP diastolic 47–66; PULSE 92–119; RESP 19–29; TEMP 36.5–36.9; O2SAT 90–97
[2020-09-22 04:26] LABS: Basophils % 0.4 %; Eosinophils # 0.1 10^3/uL (0.0-0.8); Eosinophils % 2.6 %; Hematocrit 30.1 % (37.0-47.0); Hemoglobin 9.5 g/dL (11.5-15.3); Lymphocytes # 0.4 10^3/uL (0.8-4.8); Lymphocytes % 7.8 %; Mean Corpuscular HGB Conc 31.6 g/dL (30.0-36.0); Mean Corpuscular Hemoglobin 29.8 pg (28.0-34.0); Mean Corpuscular Volume 94.4 fL (81-99); Mean Platelet Volume 11.8 fL (7.4-10.4); Monocytes % 22.1 %; Neutrophils # 3.05 10^3/uL (1.8-7.7); Nucleated Red Blood Cells % 0 %; Platelet Count 177 10^3/cmm (130-400); Red Blood Count 3.19 10^6/uL (4.1-5.3); Red Cell Distribution Width 13.6 % (12.1-15.1); White Blood Count 4.6 10^3/uL (4.0-10.0)
[2020-09-22 04:40] LABS: Alanine Aminotransferase 29 U/L (0-33); Albumin Level 2.6 g/dL (3.5-5.2); Alkaline Phosphatase 92 IU/L (35-105); Anion Gap 8.6 (5-19); Aspartate Amino Transferase 28 U/L (0-32); Blood Urea Nitrogen 30 mg/dL (8-23); Calcium 8.7 mg/dL (8.5-10.5); Carbon Dioxide 40 mmol/L (22-29); Chloride 94 mmol/L (98-107); Globulin 2.9 g/dL (1.3-4.6); Glucose 106 mg/dL (65-115); Magnesium 1.7 mg/dL (1.7-2.3); Osmolality Calculated 295 mOsm/kg (285-295); Phosphorus 3.4 mg/dL (2.5-4.5); Potassium 3.6 mmol/L (3.5-5.1); Sodium 139 mmol/L (136-145); Total Bilirubin 0.5 mg/dL (0.15-1.2); Total Protein 5.5 g/dL (6.6-8.7)
[2020-09-22] MEDS: amiodarone 200 mg Tablet 400 MG PO ×2 (08:12→17:14)
[2020-09-22] MEDS: metoprolol tartrate 50 mg Tablet 100 MG PO ×2 (08:12→20:42)
[2020-09-22] MEDS: pantoprazole DR 40 mg Tablet PO (08:12)
[2020-09-22] MEDS: aspirin 81 mg EC Tablet PO (08:12)
[2020-09-22] MEDS: dilTIAZem ER (24HR) 180 mg Capsule 360 MG PO (08:12)
[2020-09-22] MEDS: oxyCODONE 5 mg IR Tab/Cap PO ×2 (08:13→20:45)
--- NOTE | 2020-09-22 08:43 | PM.PN ---
Subjective Subjective: Interval history: Patient is feeling better. Heart rate is still in 110s Vitals/I&O/Wt Last Vital Signs Temp 98.4 F 09/22/20 07:38 Pulse 119 H 09/22/20 07:38 Resp 19 H 09/22/20 08:13 BP 114/65 09/22/20 07:38 Pulse Ox 96 09/22/20 07:38 09/21/20 09/22/20 09/22/20 22:59 06:59 14:59 Intake Total 120 / 480 150 / 630 240 / 240 Balance 120 / 480 150 / 630 240 / 240 Weight last 48 hrs Weight 168 lb Weight 167 lb 8 oz Physical Exam Narrative: EXAM NARRATIVE: GENERAL: Patient is alert, awake and oriented x3. NECK: No jugular vein distension. HEENT: No cyanosis. No icterus. No pallor. HEART: Irregularly irregular S1 and S2. 4/6 sys murmur, no rub or gallop. LUNGS: Clear to auscultate bilaterally. ABDOMEN: Soft, nontender and nondistended. Positive bowel sounds. No guarding, rebound or tenderness. CENTRAL NERVOUS SYSTEM: Grossly nonfocal. EXTREMITIES: Lower extremities without edema bilaterally. Urinary Catheter Management^: Islas: Cath Placed During This Visit: yes, but has since been removed by the nurse Reason for Continuing Indwelling Catheter: Accurate Measurement of Urinary Output in Critically Ill Patients Date Urinary Catheter Removed: 09/20/20 Time Urinary Catheter Discontinued: 09:11 Data : 09/23/20 03:54 09/23/20 03:54 Micro: Microbiology 09/16/20 10:00 Blood Culture - Final Blood NO GROWTH AFTER 5 DAYS 09/16/20 10:00 Blood Culture - Final Blood NO GROWTH AFTER 5 DAYS A&P Assessment and plan (1) Atrial fibrillation: Uptitrate cardizem to 360mg daily. Continue p.o. amiodarone 400mg twice a day. Amio gtt stopped.Patient is on metoprolol 100mg BID. Patient had a recent PE, it is small but can trigger RVR. She is not on anticoagulation because of recent GI bleed. Unable to perform electrical cardioversion because of risk of stroke as can not give anticoagulation. Discussed with patient possible risk with amiodarone as can chemically cardiovert and she understads it. Patient put on digoxin Status: Acute Qualifiers: Atrial fibrillation type: permanent Qualified Code(s): I48.21 - Permanent atrial fibrillation (2) Aortic stenosis: Aortic stenosis has progressed and is now severe. LV systolic function has also decreased slightly. Patient's thyroid cancer is slow growing, prognosis not certain at this time. She will need evaluation for valve replacement. Given her cancer history, likely will be a TAVR candidate Status: Acute Qualifiers: Cardiac valve disease etiology: nonrheumatic Qualified Code(s): I35.0 - Nonrheumatic aortic (valve) stenosis (3) History of thyroid cancer: Patient follows up with primary care physician and oncologist Status: Acute (4) HTN (hypertension): Stable continue to monitor. Status: Chronic Qualifiers: Hypertension type: essential hypertension Qualified Code(s): I10 - Essential (primary) hypertension Attestations Medical Necessity Statement*: Care expected to cross 2 midnights. 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
[2020-09-22] MEDS: FUROsemide 10 mg/mL SDV 4mL 40 MG IVP (09:59)
[2020-09-22] MEDS: potassium chloride ER 20 mEq Tablet PO (10:00)
[2020-09-22] MEDS: digoxin 250 mcg/ml INJ 2 mL 500 MCG IVP (10:20)
--- NOTE | 2020-09-22 11:22 | PC.OT ---
OT note: Patient checked on several times for therapy. She was receiving nursing care on first attempt and on second attempt, patient declined stating that she had already exercised and had enough activity being cleaned up and getting to [facility] due to being given lasix. Will attempt again tomorrow.
--- NOTE | 2020-09-22 16:06 | P.PN_ITS ---
Subjective Subjective: Interval history: Patient tells me that she did okay overnight, she does have bilateral peripheral edema, she is a bit frustrated about getting Lasix as she has to be on the commode all all day, she is wondering if she could have a Islas in place, her heart rates to get up to the 120s at rest Vitals/I&O/Wt Last Vital Signs Temp 98.2 F 09/22/20 15:45 Pulse 108 H 09/22/20 15:45 Resp 19 H 09/22/20 15:45 BP 118/47 09/22/20 15:45 Pulse Ox 91 09/22/20 15:45 09/22/20 09/22/20 09/22/20 06:59 14:59 22:59 Intake Total 150 / 630 480 / 480 Balance 150 / 630 480 / 480 Weight last 48 hrs Weight 76.204 kg Weight 75.977 kg Physical Exam Const: COMMON NORMALS: no acute distress GENERAL APPEARANCE: frail appearing ORIENTATION/CONSCIOUSNESS: Yes awake, Yes oriented to person, Yes oriented to place and Yes oriented to time Resp: COMMON NORMALS: normal respiratory effort, No retractions and No use of accessory muscles AUSCULTATION: crackles Cardio: COMMON NORMALS: S1 normal heart sound present and S2 normal heart sound present RATE: tachycardic RHYTHM: abnormal rhythm HEART SOUNDS: S1 normal heart sound present and S2 normal heart sound present GI: COMMON NORMALS: Normal to inspection, nondistended, normoactive bowel sounds present, Soft to palpation and non-tender PALPATION: Yes Soft to palpation Extremity: OTHER: 1+ pitting edema Neuro: SENSORIUM/ORIENTATION: Yes oriented to person, Yes oriented to place and Yes oriented to time Urinary Catheter Management^: Islas: Cath Placed During This Visit: yes, but has since been removed by the nurse Reason for Continuing Indwelling Catheter: Accurate Measurement of Urinary Output in Critically Ill Patients Date Urinary Catheter Removed: 09/20/20 Time Urinary Catheter Discontinued: 09:11 Data : 09/22/20 03:28 09/22/20 03:28 A&P Assessment and plan (1) Pulmonary embolism: -Proximal main pulmonary arteries are normal. Single filling defect in the right upper lobe subsegmental anterior pulmonary artery consistent with pulmonary embolus. No other visualized filling defects. -Given her history of lower GI bleed, the risks outweigh the benefit in terms of full dose anticoagulation, in addition we have decided not to anticoagulate her as its only as small filling defect in the right upper lobe, and as she remains on 3 L, certainly small PE could be playing more of a role than initially thought. Nonetheless cannot rule out completely the role of this small filling defect, but at this time the risks outweigh the benefit in terms of full dose anticoagulation -Bilateral lower extremity ultrasound negative for DVT -Has a history of bleeding, documented as far back as 2019, I can see that she has had an EGD or colonoscopy, but she reports that she bleeds even without blood thinners, her last episode was bleeding was a few weeks ago, bloody stools -We will Hemoccult her stools -Have discussed IVC filter placement, she has agreed for IVC filter placement, will discuss with Dr. Elder, will see if she can have this placed as inpatient if afib allows, discussed with Dr. Martinez, he also agrees for IVC filter placement, not require urgently however heart rates need to be better controlled for A. fib Status: Acute (2) 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: Status: Acute (3) Aortic stenosis: Status: Acute Qualifiers: Cardiac valve disease etiology: nonrheumatic Qualified Code(s): I35.0 - Nonrheumatic aortic (valve) stenosis (4) History of thyroid cancer: Has widely spread metastatic papillary thyroid carcinoma with greatest burden being in her lungs and right pelvis/acetabulum. She recently completed radiation therapy to the pelvis/acetabulum Status: Acute (5) Chest pain: She describes a sharp chest discomfort when she breathes in. Although this may be secondary to her mild acute diastolic heart failure from tachyarrhythmia, she is at high risk for pulmonary embolism given her underlying cancer, and decreased mobility. We CT of the chest shows small CT of the chest shows Single filling defect in the right upper lobe subsegmental anterior pulmonary artery consistent with pulmonary embolus. Serial troponins, 54.39, 6-hour 3.6 Status: Acute (6) Atrial fibrillation with rapid ventricular response: -Currently difficult to manage -TSH continues to be low, continue to hold levothyroxine has been held due to low TSH, will recheck -Currently on metoprolol increased to 100 BID, Cardizem, p.o. amiodarone -HR>120, on ambulation, I have increased Cardizem to 360 mg daily, will give digoxin load today -Currently anticoagulation contraindicated given her history of bleeding, will Hemoccult her stools Status: Acute (7) Acute respiratory failure: -Stable at baseline 3 L -No radiographic evidence of pneumonia, no significant leukocytosis, pro-Jr within normal limits -Does not have evidence of fluid overload, no peripheral edema, does have trace bilateral pleural effusions -Currently slightly fluid overloaded, 1+ pitting edema, will give 1 dose of Lasix -Currently secondary to A. fib, aortic stenosis, pulmonary emboli Status: Acute Additional A&P Information #aortic stenosis --consideration for TAVR as outpatient #history of GI bleed --anticoagulation contraindicated #thyroid cancer with concern for mets --on thyroid replacement dispo: PT/OT dc soon plan for today, increase Cardizem 360, hopefully can discharge the next 4 hours, will discuss with Dr. Juan Wilson Medical Necessity Statement*: Patient requires hospitalization for acute respiratory failure, A. 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
[2020-09-22] MEDS: digoxin 250 mcg Tablet PO (17:14)
[2020-09-22] MEDS: latanoprost 0.005% Op Soln 2.5 mL Btl 1 DROP EYE-BOTH (20:42)
[2020-09-23] VITALS (10 sets, daily range): BP systolic 108–138; BP diastolic 65–70; PULSE 85–110; RESP 21–25; TEMP 36.5–36.6; O2SAT 90–94
[2020-09-23] MEDS: digoxin 250 mcg Tablet PO ×2 (00:06→08:00)
[2020-09-23] MEDS: ondansetron 2 mg/ML SDV 2 mL 4 MG IVP ×2 (01:29→07:56)
[2020-09-23 04:17] LABS: Basophils % 0.4 %; Eosinophils # 0.1 10^3/uL (0.0-0.8); Eosinophils % 1.2 %; Hematocrit 32.3 % (37.0-47.0); Hemoglobin 9.7 g/dL (11.5-15.3); Lymphocytes # 0.4 10^3/uL (0.8-4.8); Lymphocytes % 6.7 %; Mean Corpuscular Volume 96.7 fL (81-99); Mean Platelet Volume 11.3 fL (7.4-10.4); Monocytes % 17.6 %; Neutrophils # 4.14 10^3/uL (1.8-7.7); Nucleated Red Blood Cells % 0 %; Platelet Count 178 10^3/cmm (130-400); Red Blood Count 3.34 10^6/uL (4.1-5.3); Red Cell Distribution Width 13.8 % (12.1-15.1); White Blood Count 5.7 10^3/uL (4.0-10.0)
[2020-09-23 05:01] LABS: Alanine Aminotransferase 27 U/L (0-33); Albumin Level 2.5 g/dL (3.5-5.2); Alkaline Phosphatase 93 IU/L (35-105); Anion Gap 6.4 (5-19); Aspartate Amino Transferase 26 U/L (0-32); Blood Urea Nitrogen 21 mg/dL (8-23); Calcium 8.3 mg/dL (8.5-10.5); Chloride 97 mmol/L (98-107); Glucose 106 mg/dL (65-115); Magnesium 1.5 mg/dL (1.7-2.3); Osmolality Calculated 299 mOsm/kg (285-295); Phosphorus 3.1 mg/dL (2.5-4.5); Potassium 3.4 mmol/L (3.5-5.1); Sodium 143 mmol/L (136-145); Total Bilirubin 0.7 mg/dL (0.15-1.2); Total Protein 5.5 g/dL (6.6-8.7)
[2020-09-23 05:02] LABS: Carbon Dioxide 43 mmol/L (22-29)
[2020-09-23] MEDS: dilTIAZem ER (24HR) 180 mg Capsule 360 MG PO (07:59)
[2020-09-23] MEDS: amiodarone 200 mg Tablet 400 MG PO (08:00)
[2020-09-23] MEDS: aspirin 81 mg EC Tablet PO (08:00)
[2020-09-23] MEDS: pantoprazole DR 40 mg Tablet PO (08:01)
[2020-09-23] MEDS: metoprolol tartrate 50 mg Tablet 100 MG PO (08:01)
--- NOTE | 2020-09-23 14:33 | PM.DCS ---
Discharge Providers Date of Admission: 09/09/20 11:25 Date of Discharge: September 23, 2020 Attending Provider at Admission: Naresh Choi MD Attending Provider at Discharge: Thor Davis MD Primary Care Provider: Neel Anaya Diagnoses at Discharge Discharge Diagnosis (1) Pulmonary embolism: Status: Acute (2) 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: Status: Acute (3) Aortic stenosis: Status: Acute Qualifiers: Cardiac valve disease etiology: nonrheumatic Qualified Code(s): I35.0 - Nonrheumatic aortic (valve) stenosis (4) History of thyroid cancer: Status: Acute Permanent problem details: Papillary, 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, pelvis (5) Chest pain: Status: Acute (6) Atrial fibrillation with rapid ventricular response: Status: Acute (7) Acute respiratory failure: Status: Acute Reason for Visit Reason for Visit: CHEST PAIN/ AFIB W/RVR Hospital Course Hospital Course This is a 84-year-old female with a past on chronic thyroid suppression therapy, atrial fibrillation, not on anticoagulation due to history of bleeding, aortic stenosis, who presents to [facility] due to palpitations and shortness of breath Patient was admitted to [facility] for chest pain, palpitations, shortness of breath secondary to acute hypoxic respiratory failure secondary to pulmonary edema, A. fib with RVR, pulmonary emboli. Patient was admitted to the ICU, she clinically improved, moved to the general medical floors, discharge to halfway. Patient had a prolonged hospital course, patient's problem list is broken down below. Pulmonary embolism: -Proximal main pulmonary arteries are normal. Single filling defect in the right upper lobe subsegmental anterior pulmonary artery consistent with pulmonary embolus. No other visualized filling defects. -Given her history of lower GI bleed, the risks outweigh the benefit in terms of full dose anticoagulation, in addition we have decided not to anticoagulate her as its only as small filling defect in the right upper lobe, and as she remains on 4 L, certainly small PE could be playing more of a role than initially thought. Nonetheless cannot rule out completely the role of this small filling defect, but at this time the risks outweigh the benefit in terms of full dose anticoagulation -Bilateral lower extremity ultrasound negative for DVT -Has a history of bleeding, documented as far back as 2018, I can see that she has had an EGD or colonoscopy, but she reports that she bleeds even without blood thinners, her last episode was bleeding was a few weeks ago, bloody stools -Have discussed IVC filter placement, she has agreed for IVC filter placement, iscussed with Dr. Martinez, he also agrees for IVC filter placement, not require urgently, will have her follow-up as outpatient History of thyroid cancer: Has widely spread metastatic papillary thyroid carcinoma with greatest burden being in her lungs and right pelvis/acetabulum. She recently completed radiation therapy to the pelvis/acetabulum Chest pain: Secondary to A. fib, acute respiratory failure, pulmonary midline She describes a sharp chest discomfort when she breathes in. Although this may be secondary to her mild acute diastolic heart failure from tachyarrhythmia, she is at high risk for pulmonary embolism given her underlying cancer, and decreased mobility. We CT of the chest shows small CT of the chest shows Single filling defect in the right upper lobe subsegmental anterior pulmonary artery consistent with pulmonary embolus. Serial troponins, 54.39, 6-hour 3.6 Atrial fibrillation with rapid ventricular response: -heart rates were difficult to control as inpatient, resulting in a prolonged hospital course -Likely due to severe aortic stenosis -TSH continues to be low, continue to hold levothyroxine has been held due to low TSH/and elevated heart rates, patient is on levothyroxine for suppression of papillary thyroid cancer, will have patient follow-up with Dr. More, recheck TSH as outpatient -Discharged on metoprolol 100 twice daily, Cardizem 360 mg daily, amiodarone 400 mg twice daily, digoxin to 250 mg daily -Unfortunately cardioversion is a difficult option given her severe aortic stenosis, and her inability to tolerate anticoagulation -Currently anticoagulation contraindicated given her history of bleeding, Acute respiratory failure: -Stable at baseline 3 L, received intermittent diuresis, -Discharged on Lasix 20 mg daily Physical Exam Const: COMMON NORMALS: no acute distress and patient oriented x3 HENMT: COMMON NORMALS: normocephalic HEAD & SCALP: normocephalic Resp: COMMON NORMALS: normal respiratory effort, No retractions, No use of accessory muscles and clear to auscultation bilaterally AUSCULTATION: clear to auscultation bilaterally Cardio: COMMON NORMALS: regular rate, regular rhythm, S1 normal heart sound present and S2 normal heart sound present RATE: regular rate RHYTHM: regular rhythm HEART SOUNDS: S1 normal heart sound present and S2 normal heart sound present GI: COMMON NORMALS: Normal to inspection, nondistended, normoactive bowel sounds present, Soft to palpation, non-tender and No hepatosplenomegaly present PALPATION: Yes Soft to palpation and Yes No hepatosplenomegaly present Extremity: COMMON NORMALS: no pedal edema Neuro: COMMON NORMALS: patient oriented x3 Psych: COMMON NORMALS: mental status grossly normal Urinary Catheter Management^: Islas: Cath Placed During This Visit: yes, but has since been removed by the nurse Reason for Continuing Indwelling Catheter: Accurate Measurement of Urinary Output in Critically Ill Patients Date Urinary Catheter Removed: 09/20/20 Time Urinary Catheter Discontinued: 09:11 Discharge Data Data Completed and Pending: Completed Studies During Hospitalization Category Date Time Status CT angio chest PE protcl [id number] Rout ine Cat Scan 09/09/20 12:40 Completed XR chest 1V kayli ble [id number] Routine Exams 09/11/20 07:00 Completed XR chest 1V kayli ble [id number] Routine Exams 09/13/20 07:00 Completed XR chest 1V kayli ble [id number] Routine Exams 09/16/20 08:41 Completed XR chest 1V kayli ble [id number] Stat Exams 09/09/20 09:03 Completed CV echo complete* [id number] Routine Ultrasound 09/10/20 [place] [id number] Stat Ultrasound 09/09/20 16:06 Completed Pending at discharge Category Date Time Status Complete Blood Co unt w/Auto AM LABS Lab 09/24/20 04:00 Ordered Complete Blood Co unt w/Auto AM LABS Lab 09/25/20 04:00 Ordered Comprehensive Met abolic Panel AM LA BS Lab 09/24/20 04:00 Ordered Comprehensive Met abolic Panel AM LA BS Lab 09/25/20 04:00 Ordered Magnesium AM LABS Lab 09/24/20 04:00 Ordered Magnesium AM LABS Lab 09/25/20 04:00 Ordered Phosphorus AM LAB S Lab 09/24/20 04:00 Ordered Phosphorus AM LAB S Lab 09/25/20 04:00 Ordered Sputum Culture an d Gram Stain Stat Lab 09/16/20 08:41 Uncollected Labs from last 24 hours 09/23/20 09/23/20 03:54 03:54 WBC 5.7 RBC 3.34 L Hgb 9.7 L Hct 32.3 L MCV 96.7 MCH 29.0 MCHC 30.0 RDW 13.8 Plt Count 178 MPV 11.3 H Neut % (Auto) 73.0 Lymph % (Auto) 6.7 [place] % (Auto) 17.6 Eos % (Auto) 1.2 Baso % (Auto) 0.4 Neut # (Auto) 4.14 Lymph # (Auto) 0.4 L [place] # (Auto) 1.0 H Eos # (Auto) 0.1 Baso # (Auto) 0.0 Nucleated RBC % (a uto) 0 Nucleated RBCs # 0.0 Sodium 143 Potassium 3.4 L Chloride 97 L Carbon Dioxide 43 H* Anion Gap 6.4 BUN 21 Creatinine 0.4 L GFR Calculation Not Reportable Glucose 106 Calculated Osmolal ity 299 H Calcium 8.3 L Phosphorus 3.1 Magnesium 1.5 L Total Bilirubin 0.7 AST 26 ALT 27 Alkaline Phosphata se 93 Total Protein 5.5 L Albumin 2.5 L Globulin 3.0 Vitals: Last Vital Signs Temp 97.7 F 09/23/20 12:15 Pulse 90 09/23/20 12:15 Resp 21 H 09/23/20 12:15 BP 131/65 09/23/20 12:15 Pulse Ox 90 09/23/20 12:15 Discharge Plan Discharge Patient Disposition: Home Condition: Stable Prescriptions: New Pacerone 200 mg Tablet 400 mg PO BID 30 Days Qty: 120 RF: 0 metoprolol tartrate 50 mg Tablet 100 mg PO BID@0900,2100 30 Days Qty: 60 RF: 0 digoxin 250 mcg (0.25 mg) Tablet 250 mcg PO DAILY 30 Days Qty: 30 RF: 0 DILT-XR 180 mg Capsule,Ext.Rel 24h Degradable 360 mg PO DAILY 30 Days Qty: 30 RF: 0 Lasix 20 mg tablet 20 mg PO DAILY 30 Days Qty: 30 RF: 0 Klor-Con M10 10 mEq tablet,ER particles/crystals 10 meq PO DAILY 30 Days Qty: 30 RF: 0 Continued latanoprost 0.005 % drops 1 drp ophthalmic (eye) DAILY RF: 0 ondansetron HCl 4 mg Tablet 4 mg PO Q6H PRN (Reason: Nausea) RF: 0 oxycodone 5 mg Tablet 5 mg PO TID PRN (Reason: Pain) RF: 0 fentanyl 12 mcg/hr Patch 72 Hour 1 patch TRANSDERMAL Q72H RF: 0 aspirin 81 mg Tablet,Delayed Release (Dr/Ec) 81 mg PO DAILY@0800 RF: 0 levalbuterol tartrate [Xopenex HFA] 45 mcg/actuation Hfa Aerosol Inhaler 2 inh INHALATION Q6H PRN (Reason: Shortness Of Breath) RF: 0 meloxicam 7.5 mg Tablet 7.5 mg PO DAILY RF: 0 Ativan 1 mg Tablet 1 mg PO TID PRN (Reason: Anxiety) RF: 0 potassium chloride 20 mEq Tablet Extended Release 20 meq PO DAILY PRN (Reason: LOW POTASSIUM) RF: 0 Held levothyroxine 100 mcg tablet 100 mcg PO DAILY@0700 RF: 0 Hold Instructions: Resume on 10/13/20. hold until you see dr more Discontinued losartan 100 mg tablet 100 mg PO DAILY@0800 RF: 0 diltiazem HCl 240 mg Capsule,Extended Release 24 Hr 240 mg PO DAILY@1700 RF: 0 ciprofloxacin HCl 500 mg tablet 500 mg PO BID Qty: 20 RF: 0 metronidazole 500 mg tablet 500 mg PO BID 10 Days Qty: 20 RF: 0 Discharge Orders: Discharge Order (Routine); Ordered 09/23/20 Ordered By: Thor Davis Other Ambulatory Orders: DME: Perfect[facility] (Order) Location: None Selected Ordered By: Thor Davis Referrals: Abhi Martinez MD [Physician] - 1 week Jenny Yeung FNP [Nurse Practitioner] - 4-7 days Reji More MD [Hospitalist] - 1-3 days Neel Anaya MD [Primary Care Provider] - Discharge Diet: Cardiac Discharge Activity: Resume usual activity Patient Instructions: Opioid Safety Activity Restrictions/Additional Instructions: -If you have chest pain palpitations please come back to the emergency room -Please follow-up with Jenny in 4 to 7 days -Follow-up with Dr. More next week -Your levothyroxine has been held, recheck TSH in 1 week, decide to resume -Follow-up with Dr. Martinez in 1 week for consideration of IVC filter placement Discharge Attestations Time Spent in Discharge Care*: greater than 30 min Quality Metrics Clinical Quality Measures During this hospital stay, did patient experience: None Coding Level of Care Code Acute Chg FW DC note Diagnoses Pulmonary embolism I26.99 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
--- NOTE | 2020-09-23 15:13 | PC.NURSE ---
Report called to Avelina RAMOS at [facility].
[2020-09-23 15:50] LABS: SARS Covid-2 Antigen Negative (Negative)
--- NOTE | 2020-09-23 16:04 | PC.NURSE ---
call placed to Dr Gresham office to verify dosages on oxycodone ativan and fentanyl patches dosages match per dr gresham office
== END 2020-09-23 16:25 | disposition skilled nursing facility (03) | DRG 308 ==
LOC: ER 10:17 → ICU 11:56 → CSU 09-13 08:19
PROVIDERS: Internal Medicine; Admitting Provider Internal Medicine; Emergency Provider Family Medicine; PCP Family Medicine; Visit Provider Family Medicine
DX: I48.21 Permanent atrial fibrillation (principal); J96.01 Acute respiratory failure with hypoxia; I26.99 Other pulmonary embolism without acute cor pulmonale; C78.02 Secondary malignant neoplasm of left lung; C78.01 Secondary malignant neoplasm of right lung; C79.51 Secondary malignant neoplasm of bone; C73 Malignant neoplasm of thyroid gland; I27.20 Pulmonary hypertension, unspecified; I35.0 Nonrheumatic aortic (valve) stenosis; G89.29 Other chronic pain; I10 Essential (primary) hypertension; E78.5 Hyperlipidemia, unspecified; M19.90 Unspecified osteoarthritis, unspecified site; Z90.710 Acquired absence of both cervix and uterus; Z90.49 Acquired absence of other specified parts of digestive tract; E89.0 Postprocedural hypothyroidism; Z87.891 Personal history of nicotine dependence; I95.9 Hypotension, unspecified; Z92.3 Personal history of irradiation; Z99.81 Dependence on supplemental oxygen; Z79.891 Long term (current) use of opiate analgesic; Z79.82 Long term (current) use of aspirin
CPT/HCPCS: 36415; 36600; 51702; 71045; 71275; 80048; 80053; 81001; 82274; 82550; 82803; 83036; 83690; 83735; 83880; 84100; 84145; 84436; 84439; 84443; 84480; 84481; 84484; 85025; 86140; 86403; 87040; 87426; 92610; 93005; 93306; 93970; 96361; 96365; 96366; 96372; 96375; 97110; 97161; 97166; 97530; 97535; 99215; 99285; J0282; J1160; J1644; J1940; J2250; J2405; J2765; J3010; J3475; J3480; J3490; J7030; J7040; J7050; J7060; Q9967

== ENCOUNTER 2020-09-26 17:11 | Inpatient (IN) | payer MEDICARE, SELFPAY ==
[2020-09-26] VITALS (15 sets, daily range): BP systolic 120–157; BP diastolic 47–91; PULSE 92–133; RESP 18–33; TEMP 36.9–37.4; O2SAT 91–95; BMI 34.2
--- NOTE | 2020-09-26 17:18 | XRR_ITS ---
PROCEDURE INFORMATION: Exam: XR Chest Exam date and time: 09/26/2020 5:23 PM Age: 84 years old Clinical indication: Dyspnea; Additional info: Reduced breath sounds TECHNIQUE: Imaging protocol: XR of the chest. Views: 1 view. COMPARISON: CR XR chest 1V portable [id number] 09/16/2020 8:58 AM FINDINGS: Lungs: Extensive bilateral pulmonary metastatic disease is redemonstrated. Background emphysematous lung changes. Pleural spaces: Possibly a small left pleural effusion. Negative for pneumothorax. Heart/Mediastinum: Mild cardiac enlargement. Bones/joints: Demineralized bones. XR/XR chest 1V portable [id number] IMPRESSION: No significant changes in the chest.
--- NOTE | 2020-09-26 17:21 | ECG_ITS ---
[facility] Test Date: 2020-09-26 Pat Name: Lawanda Faria Department: Room: Gender: Female [employer] Design Manager: : 1935 Requested By: Fabrice Garcia Order Number: [id number] Velasquez MD: Jose Laureano M.D. Measurements Intervals [place] Rate: 114 P: CA: QRS: -17 QRSD: 77 T: 120 QT: 259 QTc: 357 Interpretive Statements ATRIAL FIBRILLATION WITH RAPID VENTRICULAR RESPONSE NONSPECIFIC ST & T-WAVE ABNORMALITY Compared to ECG 09/09/2020 18:24:37 Left-axis deviation no longer present Possible ischemia no longer present T-wave abnormality still present Electronically Signed On 09-26-2020 22:11:58 CDT by Jose Laureano M.D. [email or web address]
[2020-09-26 17:41] LABS: ABG PCO2 58.9 mmHg (35-45); ABG PH Result 7.47 (7.35-7.45); Arterial Blood Gas Hematocrit 31.4 % (37-47); Base Excess ABG 16.7 mmol/L (-2.0-2.0); Blood Gas Allen Test Pos; Blood Gas Sample Type Arterial; Carboxyhemoglobin 1.4 %THgb (0.4-20.1); HCO3 ABG 42.8 mmol/L (22-26); HGB O2 Sat 94.3 % (95-100); Methemoglobin 0.4 % (0.4-1.5); PO2 ABG 75.9 mmHg (80.0-100.0); Total Hemoglobin 10.2 g/dL (12-16)
[2020-09-26 17:42] LABS: Blood Gas Operator Identificat ED; Blood Gas Sample Site Radial, right; Oxygen Device NC
[2020-09-26] MEDS: ipratropium-albuterol 3 mL Neb INHALATION (17:47)
[2020-09-26 17:53] LABS: Basophils % 0.2 %; Eosinophils # 0.1 10^3/uL (0.0-0.8); Eosinophils % 2.2 %; Hematocrit 33.2 % (37.0-47.0); Hemoglobin 10.2 g/dL (11.5-15.3); Lymphocytes # 0.5 10^3/uL (0.8-4.8); Lymphocytes % 8.1 %; Mean Corpuscular HGB Conc 30.7 g/dL (30.0-36.0); Mean Corpuscular Hemoglobin 29.5 pg (28.0-34.0); Monocytes # 1.3 10^3/uL (0.2-0.9); Monocytes % 20.1 %; Neutrophils # 4.28 10^3/uL (1.8-7.7); Neutrophils % 68.3 %; Nucleated Red Blood Cells % 0 %; Platelet Count 198 10^3/cmm (130-400); Red Blood Count 3.46 10^6/uL (4.1-5.3); Red Cell Distribution Width 14.7 % (12.1-15.1); White Blood Count 6.3 10^3/uL (4.0-10.0)
[2020-09-26 18:23] LABS: Troponin(5th) Baseline 49 ng/L (0-10)
[2020-09-26 18:37] LABS: Alanine Aminotransferase 31 U/L (0-33); Albumin Level 2.9 g/dL (3.5-5.2); Alkaline Phosphatase 105 IU/L (35-105); Anion Gap 14.9 (5-19); Aspartate Amino Transferase 30 U/L (0-32); Blood Urea Nitrogen 26 mg/dL (8-23); Calcium 8.6 mg/dL (8.5-10.5); Carbon Dioxide 37 mmol/L (22-29); Chloride 99 mmol/L (98-107); Creatinine Clr Calc Pharmacy 48.7996; Glucose 98 mg/dL (65-115); NT Pro B Type Natriuretic Pept 3247 pg/mL (0-450); Osmolality Calculated 309 mOsm/kg (285-295); Potassium 3.9 mmol/L (3.5-5.1); Sodium 147 mmol/L (136-145); Thyroid Stimulating Hormone 0.01 uIU/mL (0.27-4.20); Total Bilirubin 0.7 mg/dL (0.15-1.2); Total Protein 5.9 g/dL (6.6-8.7)
--- NOTE | 2020-09-26 19:04 | ED_ITS ---
HPI - Arrhythmia/Palpitations General: Chief Complaint: Arrhythmia/Palpitations Stated Complaint: SOB, high heart rate Time Seen by Provider: 09/26/20 17:18 History of Present Illness: HPI narrative: The patient is an 84-year-old female with past medical history COPD, thyroid cancer with extensive mets to the lungs. She comes to the ER from [facility] complaining of shortness of breath and elevated heart rate. She also feels weak and fatigued. EMS noted that her systolic pressure was 60 on arrival however she is normotensive on arrival to the ER. They started her on a liter fluid bolus but only 200 cc has gone in and her blood pressure is normal. She is in A. fib RVR on arrival rate 130s Associated symptoms: Deny anxiety Review of Systems 2 General: Reports: 10 or more systems reviewed and unremarkable except in HPI and below Const: Denies: fatigue Eyes: Denies: change in vision, blurry vision or eye redness ENMT: Denies: throat pain, swelling of lips/tongue, ear or mastoid pain or nasal congestion Card: Reports: palpitations; Denies: chest pain, irregular heart rhythm, edema, dyspnea on exertion or orthopnea Resp: Reports: dyspnea; Denies: productive cough or non-productive cough GI: Denies: abdominal pain, diarrhea or GI cramping : Denies: flank pain, difficulty voiding, urinary frequency or urinary urgency Musc: Denies: neck pain, back pain, extremity pain, joint pain, joint redness, limited range of motion or muscle weakness Skin/Breast: Denies: rash, pruritus, erythema, skin pain or skin tenderness Neuro: Denies: headache(s), numbness in extremities, weakness in extremities, sensory changes, difficulty walking, dizziness, confusion or Slurred speech present Psych: Denies: anxiety or depression Endo: Denies: polyuria All/Imm: Denies: urticaria, throat swelling or tongue swelling PFSH ED PFSH: Medical History (Updated 09/26/20 @ 22:45 by Fabrice Garcia MD) Aortic stenosis Atrial fibrillation Chronic pain History of thyroid cancer Papillary, 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, pelvis HTN (hypertension) Hyperlipidemia Hyperthyroidism Osteoarthritis Premature atrial contraction Surgical History History of section History of lung biopsy S/P appendectomy S/P cholecystectomy S/P hysterectomy S/P sclerotherapy of varicose veins S/P small bowel resection S/P thyroidectomy S/P tonsillectomy and adenoidectomy Family History Family/Other CAD (coronary artery disease) Hypertension Mother Cancer Social History (Updated 09/09/20 @ 13:02 by Naresh Choi MD) Smoking and tobacco status: former smoker Alcohol intake: never Physical Exam Narrative: EXAM NARRATIVE: The patient has shallow breathing and is in mild respiratory distress. Hypoxic on nasal cannula oxygen and she refused BiPAP. Placed on the high flow nasal cannula with good success and she was satting in the low 90s with that. Const: COMMON NORMALS: no acute distress, average body habitus, patient oriented x3, no limitations, healthy appearing, alert and well nourished GENERAL APPEARANCE: cooperative, comfortable, well kempt and well developed ORIENTATION/CONSCIOUSNESS: Yes awake, Yes oriented to person, Yes oriented to place and Yes oriented to time HENMT: COMMON NORMALS: normocephalic, external ears normal and Normal external nose present HEAD & SCALP: normal to inspection and normocephalic NOSE: Normal external nose present EXTERNAL EAR: Yes external ears normal MOUTH: Normal oral and palatal mucosa present THROAT: posterior oropharynx normal Eye: COMMON NORMALS: Equal, round and reactive pupils present and EOMs intact bilaterally GENERAL EYE: appearance normal, both eyes and all related structures PUPIL: Yes Equal, round and reactive pupils present Neck/C-Spine: COMMON NORMALS: full ROM, no lymphadenopathy, no meningeal signs and no JVD GENERAL: Yes normal visual inspection Lymph: LYMPHATIC: no lymphadenopathy noted Chest: COMMONS NORMALS: normal inspection of the chest and normal palpation of entire chest wall Resp: COMMON NORMALS: No retractions, No use of accessory muscles and percussion normal EFFORT & INSPECTION: Yes tachypneic, Yes labored and Yes uses accessory muscles AUSCULTATION: wheezes and diminished lung sounds (Severely) bilateral and diffuse PERCUSSION: percussion normal OTHER: Shallow respirations and tachypneic using accessory muscles to breathe. Cardio: COMMON NORMALS: no JVD, S1 normal heart sound present, S2 normal heart sound present and Peripheral pulses 2+ throughout RATE: tachycardic RHYTHM: abnormal rhythm irregularly irregular HEART SOUNDS: S1 normal heart sound present and S2 normal heart sound present PERIPHERAL PULSES: Peripheral pulses 2+ throughout GI: COMMON NORMALS: Normal to inspection, nondistended, normoactive bowel sounds present, Soft to palpation, non-tender and no masses INSPECTION: Yes normal to inspection PALPATION: Yes Soft to palpation : COMMON NORMALS: Yes no CVA tenderness BLADDER/KIDNEY EXAM: Yes no CVA tenderness Back/Pelvis: COMMON NORMALS: no CVA tenderness, thoracic and lumbar spine normal to inspection, no thoracic nor lumbar tenderness and thoraco-lumbar ROM normal Extremity: COMMON NORMALS: normal to inspection, full ROM, capillary refill normal, no joint enlargement and no pedal edema GENERAL: Yes normal exam except as noted Neuro: COMMON NORMALS: patient oriented x3, CN's II-XII intact bilaterally, moves all extremities, no focal motor deficits, no sensory deficits noted and gait normal SENSORIUM/ORIENTATION: Yes alert, Yes oriented to person, Yes oriented to place and Yes oriented to time MENINGEAL SIGNS: Yes no meningeal signs Psych: COMMON NORMALS: mental status grossly normal, Normal thought process present, cooperative, normal affect and speech normal APPEARANCE: Yes well kempt ATTITUDE: Yes calm SPEECH: Yes normal speech THOUGHT PROCESS: Normal thought process present Skin: COMMON NORMALS: no rashes or lesions noted GENERAL SKIN EXAM: no rashes or lesions noted Course Vital Signs: Vital signs: Vital Signs Temperature 99.3 F 09/26/20 21:45 Pulse Rate 119 H 09/26/20 22:15 Respiratory Rate 23 H 09/26/20 22:15 Blood Pressure 139/82 09/26/20 22:15 Pulse Oximetry 95 09/26/20 22:15 MDM - Arrhythmia/Palpitations MDM Narrative: Medical decision making narrative: The patient came in short of breath, hypoxic in A. fib with RVR. She also has thyroid cancer that has spread to her lungs significantly and can be seen on chest x-ray. She is full code. Her oxygenation was increased and attempt was made at BiPAP however she kept taking it off and refused it. She was placed on high flow nasal cannula with some success satting in the low 90s. Her blood pressure was also reported to be 60 systolic when EMS found her they gave her 200 cc of fluids during transport and her blood pressure on arrival was normal. She was given 10 mg IV diltiazem for her A. fib with RVR which did slow her heart rate down to 100. TSH also significantly low likely a contributing factor to her RVR episodes. She became stabilized and discussed with Dr. Blue who accepted to the ICU. Lab Data: Labs: Lab Results 09/26/20 09/26/20 09/26/20 Range/Units 17:31 17:35 17:35 WBC 6.3 (4.0-10.0) 10^3/ uL RBC 3.46 L (4.1-5.3) 10^6/u L Hgb 10.2 L (11.5-15.3) g/dL Hct 33.2 L (37.0-47.0) % MCV 96.0 (81-99) fL MCH 29.5 (28.0-34.0) pg MCHC 30.7 (30.0-36.0) g/dL RDW 14.7 (12.1-15.1) % Plt Count 198 (130-400) 10^3/c mm MPV 11.0 H (7.4-10.4) fL Neut % (Auto) 68.3 % Lymph % (Auto) 8.1 % [place] % (Auto) 20.1 % Eos % (Auto) 2.2 % Baso % (Auto) 0.2 % Neut # (Auto) 4.28 (1.8-7.7) 10^3/u L Lymph # (Auto) 0.5 L (0.8-4.8) 10^3/u L [place] # (Auto) 1.3 H (0.2-0.9) 10^3/u L Eos # (Auto) 0.1 (0.0-0.8) 10^3/u L Baso # (Auto) 0.0 (0.0-0.1) 10^3/u L Nucleated RBC % (a uto) 0 % Nucleated RBCs # 0.0 /100WBC Specimen Type Arterial Sample Site Radial, right ABG pH 7.47 H (7.35-7.45) ABG pCO2 58.9 H (35-45) mmHg ABG pO2 75.9 L (80.0-100.0) mmH g ABG HCO3 42.8 H (22-26) mmol/L ABG Base Excess 16.7 H (-2.0-2.0) mmol/ L Regino Test Pos Hematocrit 31.4 L (37-47) % Hgb O2 Saturation 94.3 L (95-100) % Carboxyhemoglobin 1.4 (0.4-20.1) %THgb Methemoglobin 0.4 (0.4-1.5) % Total Hemoglobin 10.2 L (12-16) g/dL O2 Delivery Device Nc O2 Liters/Min 4.0 % FiO2 36.0 % Relay Adjuster ID Ed Sodium 147 H (136-145) mmol/L Potassium 3.9 (3.5-5.1) mmol/L Chloride 99 (98-107) mmol/L Carbon Dioxide 37 H (22-29) mmol/L Anion Gap 14.9 (5-19) BUN 26 H (8-23) mg/dL Creatinine 0.3 L (0.5-0.9) mg/dL GFR Calculation Not Reportable Glucose 98 (65-115) mg/dL Calculated Osmolal ity 309 H (285-295) mOsm/k g Calcium 8.6 (8.5-10.5) mg/dL Total Bilirubin 0.7 (0.15-1.2) mg/dL AST 30 (0-32) U/L ALT 31 (0-33) U/L Alkaline Phosphata se 105 (35-105) IU/L Troponin T Baselin e (0-10) ng/L Troponin T 120 Min [place] (0-10) ng/L Delta Troponin T (0-10) ABS# NT-Pro-B Natriuret Pep 3247 H (0-450) pg/mL Total Protein 5.9 L (6.6-8.7) g/dL Albumin 2.9 L (3.5-5.2) g/dL Globulin 3.0 (1.3-4.6) g/dL TSH 0.01 L (0.27-4.20) uIU/ mL 09/26/20 09/26/20 Range/Units 17:35 19:30 WBC (4.0-10.0) 10^3/ uL RBC (4.1-5.3) 10^6/u L Hgb (11.5-15.3) g/dL Hct (37.0-47.0) % MCV (81-99) fL MCH (28.0-34.0) pg MCHC (30.0-36.0) g/dL RDW (12.1-15.1) % Plt Count (130-400) 10^3/c mm MPV (7.4-10.4) fL Neut % (Auto) % Lymph % (Auto) % [place] % (Auto) % Eos % (Auto) % Baso % (Auto) % Neut # (Auto) (1.8-7.7) 10^3/u L Lymph # (Auto) (0.8-4.8) 10^3/u L [place] # (Auto) (0.2-0.9) 10^3/u L Eos # (Auto) (0.0-0.8) 10^3/u L Baso # (Auto) (0.0-0.1) 10^3/u L Nucleated RBC % (a uto) % Nucleated RBCs # /100WBC Specimen Type Sample Site ABG pH (7.35-7.45) ABG pCO2 (35-45) mmHg ABG pO2 (80.0-100.0) mmH g ABG HCO3 (22-26) mmol/L ABG Base Excess (-2.0-2.0) mmol/ L Regino Test Hematocrit (37-47) % Hgb O2 Saturation (95-100) % Carboxyhemoglobin (0.4-20.1) %THgb Methemoglobin (0.4-1.5) % Total Hemoglobin (12-16) g/dL O2 Delivery Device O2 Liters/Min % FiO2 % Relay Adjuster ID Sodium (136-145) mmol/L Potassium (3.5-5.1) mmol/L Chloride (98-107) mmol/L Carbon Dioxide (22-29) mmol/L Anion Gap (5-19) BUN (8-23) mg/dL Creatinine (0.5-0.9) mg/dL GFR Calculation Glucose (65-115) mg/dL Calculated Osmolal ity (285-295) mOsm/k g Calcium (8.5-10.5) mg/dL Total Bilirubin (0.15-1.2) mg/dL AST (0-32) U/L ALT (0-33) U/L Alkaline Phosphata se (35-105) IU/L Troponin T Baselin e 49 H (0-10) ng/L Troponin T 120 Min [place] 48.78 H (0-10) ng/L Delta Troponin T -0.22 L (0-10) ABS# NT-Pro-B Natriuret Pep (0-450) pg/mL Total Protein (6.6-8.7) g/dL Albumin (3.5-5.2) g/dL Globulin (1.3-4.6) g/dL TSH (0.27-4.20) uIU/ mL Discharge Plan Discharge Patient Disposition: Admitted As Inpatient Admit Provider: Michaelle Blue Clinical Impression: Atrial fibrillation with rapid ventricular response, Hypoxia, Chronic hypercapnic respiratory failure, Lung metastases Condition: Stable Coding Level of Care Code ED Registered Associate for Radha Randhawa
--- NOTE | 2020-09-26 19:21 | ECG_ITS ---
[facility] Test Date: 2020-09-26 Pat Name: Lawanda Faria Department: Room: Gender: Female Supervisor Telephone Clerks: : 1935 Requested By: Fabrice Garcia Order Number: [id number] Velasquez MD: Jose Laureano M.D. Measurements Intervals [place] Rate: 116 P: [place]: QRS: 2 QRSD: 72 T: 7 QT: 262 QTc: 364 Interpretive Statements ATRIAL FIBRILLATION WITH RAPID VENTRICULAR RESPONSE MODERATE VOLTAGE CRITERIA FOR LVH, CONSIDER NORMAL VARIANT [MEETS CRITERIA IN ONE OF: R(aVL), S(V1), R(V5), R(V5/V6)+S(V1)] ST DEVIATION AND MODERATE T-WAVE ABNORMALITY, CONSIDER ANTEROLATERAL ISCHEMIA [-0.1+ mV T WAVE IN V3-V6] ST DEVIATION AND MODERATE T-WAVE ABNORMALITY, CONSIDER INFERIOR ISCHEMIA [-0.1+ mV T WAVE IN II/aVF] Compared to ECG 09/26/2020 17:31:51 Possible ischemia now present T-wave abnormality still present Electronically Signed On 09-26-2020 22:15:23 CDT by Jose Laureano M.D. [id number]
[2020-09-26] MEDS: sodium chloride 0.9% 1,000 ML 999 ML IV (19:40)
[2020-09-26] MEDS: azithromycin 500 MG in sodium chloride 0.9% 250 ML 250 MG IV (19:41)
[2020-09-26] MEDS: cefTRIAXone 1,000 MG in sodium chloride 0.9% (plus) 50 ML 100 MG IV (19:41)
[2020-09-26 19:59] LABS: Troponin 5 2HR 48.78 ng/L (0-10)
[2020-09-26 20:00] LABS: Troponin 5 2HR Delta -0.22 ABS# (0-10)
--- NOTE | 2020-09-26 23:21 | ECG_ITS ---
[facility] Test Date: 2020-09-27 Pat Name: Lawanda Faria Department: Room: ICU08 Gender: Female Eyeglass Assembler: : 1935 Requested By: Fabrice Garcia Order Number: [id number] Eva MD: Jose Laureano M.D. Measurements Intervals [place] Rate: 106 P: [place]: QRS: -20 QRSD: 81 T: 156 QT: 331 QTc: 441 Interpretive Statements ATRIAL FIBRILLATION WITH RAPID VENTRICULAR RESPONSE POSSIBLE ANTERIOR MYOCARDIAL INFARCTION [30 ms Q WAVE IN V3/V4, OR R < 0.2 mV IN V4], PROBABLY OLD MODERATE T-WAVE ABNORMALITY, CONSIDER LATERAL ISCHEMIA [-0.1+ mV T WAVE IN I/aVL/V5/V6] Compared to ECG 09/26/2020 19:32:44 Myocardial infarct finding now present T-wave abnormality still present Possible ischemia still present Electronically Signed On 09-27-2020 12:38:26 CDT by Jose Laureano M.D. [id number]
[2020-09-26 23:50] LABS: Troponin 5 6HR 46.93 ng/L (0-10)
[2020-09-26 23:55] LABS: Troponin 5 6HR Delta -2.07 ng/L (0-12)
[2020-09-27] VITALS (48 sets, daily range): BP systolic 80–176; BP diastolic 45–103; PULSE 83–140; RESP 20–48; TEMP 36.9–37.2; O2SAT 80–98
--- NOTE | 2020-09-27 00:47 | PM.HP ---
Providers/Chief Complaint Admitting Physician: Michaelle Blue Primary Care Provider: Neel Anaya Chief Complaint: SOB History of Present Illness 84-year-old female with a past medical history significant for severe aortic stenosis, recent pulmonary embolism, atrial fibrillation, not on anticoagulation due to GI bleed, metastatic thyroid cancer with pulmonary who presented to the hospital with respiratory distress. Patient apparently also was feeling palpitations. She is a poor historian at the time of my evaluation. Upon arrival to emergency room her initial laboratory work-up showed a WBC of 6.3, hemoglobin 10.2, hematocrit 33.2 and a platelet count of 198. pH showed 7.47, PCO2 of 58.9, PO2 of 75.9 and a bicarb of 42.8. Sodium 147, potassium 3.9, chloride 99, bicarb 37, BUN 26 and a creatinine of 0.3. Delta troponin was -0.22 TSH was suppressed at 0.01. Imaging studies included a chest x-ray which did not show any significant changes other than previously known extensive bilateral pulmonary metastatic disease. In emergency room patient was given ceftriaxone 1 g IV x1, azithromycin 500 mg IV x1 and Cardizem 10 mg IV x1. Shortly after arrival to ICU patient was found to have again rapid ventricular response. Was started on Cardizem drip. Review of Systems General: Reports: ROS unobtainable due to medical condition Medications/Allergies Home Medications Medication Instructions Recorded Confirmed Last Taken Type latanoprost 1 drp OPHTHALMIC (EYE) BEDTIME@199906/11/20 09/26/20 09/08/20 History levothyroxine 100 mcg PO DAILY@0706/11/20 09/26/20 09/08/20 History aspirin 81 mg PO DAILY@79908/27/20 09/26/20 09/08/20 History levalbuterol tartrate [Xopenex HFA] 2 inh INHALATION Q6H PRN 08/27/20 09/26/20 08/30/20 History ondansetron HCl 4 mg PO Q6H PRN 08/27/20 09/26/20 08/22/20 History meloxicam 7.5 mg PO DAILY@0809/09/20 09/26/20 09/08/20 History potassium chloride 20 meq PO DAILY PRN 09/09/20 09/26/20 09/08/20 History diltiazem HCl [DILT-XR] 360 mg PO DAILY 30 Days #30 cap 09/23/20 09/26/20 Unknown Rx fentanyl 1 patch TRANSDERMAL Q72H 7 Days #2 09/23/20 09/26/20 Unknown Rx ea lorazepam [Ativan] 1 mg PO TID PRN 7 Days #21 tab 09/23/20 09/26/20 Unknown Rx oxycodone 5 mg PO TID PRN 7 Days #21 tab 09/23/20 09/26/20 Unknown Rx amiodarone [Pacerone] 400 mg PO BID@08,17 09/26/20 09/26/20 Unknown History digoxin 250 mcg PO DAILY@0800 09/26/20 09/26/20 Unknown History fluconazole [Diflucan] 100 mg PO DAILY@0800 09/26/20 09/26/20 Unknown History furosemide [Lasix] 20 mg PO DAILY@0800 09/26/20 09/26/20 Unknown History metoprolol tartrate 100 mg PO BID@0800,1700 09/26/20 09/26/20 Unknown History potassium chloride [Klor-Con M10] 10 meq PO DAILY@0800 09/26/20 09/26/20 Unknown History Allergies Allergy/AdvReac Type Severity Reaction Status Date / Time Iodinated Contrast Media Allergy Unknown Unknown Verified 08/30/20 10:56 ketorolac [From Toradol] Allergy Unknown Unknown Verified 08/30/20 10:56 PFSH Acute PFSH: Medical History (Updated 09/26/20 @ 22:45 by Fabrice Garcia MD) Aortic stenosis Atrial fibrillation Chronic pain History of thyroid cancer Papillary, 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, pelvis HTN (hypertension) Hyperlipidemia Hyperthyroidism Osteoarthritis Premature atrial contraction Surgical History History of section History of lung biopsy S/P appendectomy S/P cholecystectomy S/P hysterectomy S/P sclerotherapy of varicose veins S/P small bowel resection S/P thyroidectomy S/P tonsillectomy and adenoidectomy Family History Family/Other CAD (coronary artery disease) Hypertension Mother Cancer Social History (Updated 09/09/20 @ 13:02 by Naresh Choi MD) Smoking and tobacco status: former smoker Alcohol intake: never Vitals/I&O/Wt Last Vital Signs Temp 98.9 F 09/27/20 04:00 Pulse 104 H 09/27/20 04:00 Resp 22 H 09/27/20 04:00 BP 112/85 09/27/20 04:00 Pulse Ox 92 09/27/20 04:00 09/26/20 09/26/20 09/27/20 14:59 22:59 06:59 Intake Total 1300 / 1300 12.917 / 1312.917 Balance 1300 / 1300 12.917 / 1312.917 Weight last 48 hrs Weight 79.379 kg Physical Exam Narrative: EXAM NARRATIVE: General?alert awake in no apparent distress HEENT?grossly unremarkable Chest?sounds bilateral CVS?irregularly irregular rhythm Abdomen?soft nontender nondistended Extremity?no edema Data : 09/26/20 17:35 09/26/20 17:35 Micro: Microbiology 09/26/20 19:30 Blood Culture - Preliminary Blood SPECIMEN COLLECTED 09/26/20 17:35 Blood Culture - Preliminary Blood SPECIMEN COLLECTED A&P Assessment and plan (1) Atrial fibrillation with rapid ventricular response: Status: Acute (2) Lung metastases: Status: Acute (3) HTN (hypertension): Status: Chronic Qualifiers: Hypertension type: essential hypertension Qualified Code(s): I10 - Essential (primary) hypertension Atrial fibrillation with RVR - Continue cardizem gtt - Titrate to keep HR < 100 - Stop of SBP< 90 - Consider cardiology consult Chronic respiratory failure - Eitology multifactorial - Pulmonary mets,recent PE,with underlying emphysema - Supplemental o2as needed - Xopenx q6hr - Can consider steroids - Check Procalcitonin in am Thyroid cancer with mets - Supress TSH - Will keep TSH suppressed - Continue Levothyroxine Hypernatremia - D5 1/2 NS at 50 cc/hr - Repeat BMP in am GI ppx - PPI DVT px - SCDs. Attestations Medical Necessity Statement*: will require > 2 midnight stay in hospital Time Spent in Patient Care: Greater than 35 minutes (>than 50% of time spent in counselling and/or direct pt care on unit). Coding Level of Care Code Acute Tool Grinder Operator External for Chg Fwd Diagnoses Atrial fibrillation with rapid ventricular response I48.91 Lung metastases C78.00 HTN (hypertension) I10 Hypertension type: essential hypertension
[2020-09-27] MEDS: sodium chloride 0.9% 500 ML IV (02:39)
[2020-09-27] MEDS: dextrose 5%-sod chloride 0.45% 1,000 ML 50 ML IV (05:23)
[2020-09-27] MEDS: famotidine 20 mg Tablet PO ×2 (08:04→18:19)
[2020-09-27] MEDS: levalbuterol 1.25 mg/3 mL Neb INHALATION ×3 (08:49→20:56)
[2020-09-27 09:24] LABS: Digoxin 2.1 ng/mL (0.6-1.2)
--- NOTE | 2020-09-27 11:17 | PC.CHAP ---
Pastoral Care Encounter/Spiritual Assessment Type of Contact [] Declined poiser visit [] Patient/Family/Request visit [] Outpatient visit [x] Follow-up visit [] Physician referral [] Code/Alert [] Routine visit [] Staff referral [] Actively dying [x] Patient sleeping [] Family support [] [] Out of room [] Palliative care [] [] Receiving care in room [] Pre-surgical visit [] Trauma [] Long length of stay [] ICU visit [] Other: Relational/Emotional Strength [] Patient feels connected with others/family/visitors/staff [] Distress [] Loneliness/isolation [] Abandonment Spirituality of Patient [] Person of Qing [] Attends Sabianist of their Qing [] Believes in Prayer [] Reads Bible or Mandaen materials [] There are Spiritual issues to be addressed Emergency Department Director Interventions [] Prayer [] Active listening [] Non-anxious presence [] Spiritual/emotional support [] Crisis/trauma care [] Spiritual counseling [] Bereavement support [] Provided bereavement packet [] Provided Bible/devotional materials [] Provided toy/stuffed animal, coloring book to patient or family member [] Provided Communion [] Anointing/[place] [] Salvation [] Completed spiritual assessment [] Other: Impact on Illness or Injury [] Angry [] Fearful [] Anxious [] Often cries [] Exhaustion [] Unable to work [] Unable to attend holiness [] Unable to walk/stand [] Unable to read [] Unable to drive [] Unable to eat/drink [] Unable to sleep [] Unable to be with family [] Patient intubated [] Other: Summary Time spent with patient
--- NOTE | 2020-09-27 16:45 | P.CONIM_ITS ---
Providers/Reason For Consult Consulting Physician/Specialty*: Dr. Martinez/cardiothoracic surgery Reason for Consult*: IVC filter placement Requesting Physician: Dr. Vaughn Attending Physician: Taj Vaughn Primary Care Provider: Neel Anaya History of Present Illness History of Present Illness Lawanda Faria is an 84 year old female admitted yesterday after presenting to the emergency department with complaints of palpitations and respiratory distress. She has a history of atrial fibrillation with rapid ventricular response and was recently hospitalized from September 11 September 23. At that time she was found to have an anterior right upper lobe segmental pulmonary embolism. She has contraindication to anticoagulation due to gastrointestinal hemorrhage. 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 At presentation she was hypercarbic with a PCO2 of 59 and a PO2 of 76. She has failed due to discomfort, BiPAP and currently is on high flow nasal cannula with an O2 saturation in the upper 80s. She was also initiated on a Cardizem infusion for her rapid ventricular response to atrial fibrillation. Home medications for heart rate control have included digoxin and amiodarone as well as metoprolol. Despite this, it has been difficult to maintain consistency in her heart rate. During her last hospitalization, at discharge on September 23, she was scheduled for outpatient evaluation in my clinic to consider IVC filter placement. With this readmission, we will hopefully be able to perform the procedure while she is inpatient. Addition, her medical history is complicated by severe aortic valve stenosis with a calculated valve area of 0.6 cm?. She also has some modest reduction of her ejection fraction from normal to now 45% over the past year. Her medical record assistant is Dr. Laureano. With the most recent transthoracic echocardiogram being performed on September 10, early during her last hospitalization. In addition, a right sacral mass biopsy of August 30 did return consistent with metastatic papillary thyroid carcinoma. My exam, she is able to converse though clearly she has moderately severe dyspnea and labored respirations. Review of Systems Const: Reports: body aches and fatigue Eyes: Denies: change in vision ENMT: Denies: throat pain Card: Reports: palpitations, irregular heart rhythm, pre-syncope, dyspnea on exertion and orthopnea Resp: Reports: dyspnea, non-productive cough and wheezing; Denies: hemoptysis GI: Reports: nausea, fecal incontinence, change in bowel habits and hematochezia Musc: Reports: extremity swelling and joint pain Neuro: Denies: weakness in extremities Meds/Allergies Home Medications and Allergies Home Medications Medication Instructions Recorded Confirmed Last Taken Type latanoprost 1 drp OPHTHALMIC (EYE) BEDTIME@199906/11/20 09/26/20 09/08/20 History levothyroxine 100 mcg PO DAILY@0700 06/11/20 09/26/20 09/08/20 History aspirin 81 mg PO DAILY@0808/27/20 09/26/20 09/08/20 History levalbuterol tartrate [Xopenex HFA] 2 inh INHALATION Q6H PRN 08/27/20 09/26/20 08/30/20 History ondansetron HCl 4 mg PO Q6H PRN 08/27/20 09/26/20 08/22/20 History meloxicam 7.5 mg PO DAILY@0809/09/20 09/26/20 09/08/20 History potassium chloride 20 meq PO DAILY PRN 09/09/20 09/26/20 09/08/20 History diltiazem HCl [DILT-XR] 360 mg PO DAILY 30 Days #30 cap 09/23/20 09/26/20 Unknown Rx fentanyl 1 patch TRANSDERMAL Q72H 7 Days #2 09/23/20 09/26/20 Unknown Rx ea lorazepam [Ativan] 1 mg PO TID PRN 7 Days #21 tab 09/23/20 09/26/20 Unknown Rx oxycodone 5 mg PO TID PRN 7 Days #21 tab 09/23/20 09/26/20 Unknown Rx amiodarone [Pacerone] 400 mg PO BID@08,17 09/26/20 09/26/20 Unknown History digoxin 250 mcg PO DAILY@0800 09/26/20 09/26/20 Unknown History fluconazole [Diflucan] 100 mg PO DAILY@0800 09/26/20 09/26/20 Unknown History furosemide [Lasix] 20 mg PO DAILY@0800 09/26/20 09/26/20 Unknown History metoprolol tartrate 100 mg PO BID@0800,1700 09/26/20 09/26/20 Unknown History potassium chloride [Klor-Con M10] 10 meq PO DAILY@0800 09/26/20 09/26/20 Unknown History Allergies Allergy/AdvReac Type Severity Reaction Status Date / Time Iodinated Contrast Media Allergy Unknown Unknown Verified 08/30/20 10:56 ketorolac [From Toradol] Allergy Unknown Unknown Verified 08/30/20 10:56 Current Medications Current Medications Generic Name Dose Route Start Last Admin Trade Name Freq PRN Reason Stop Dose Admin Famotidine 20 mg 09/27/20 09:00 09/27/20 08:04 Famotidine 20 Mg Tablet PO 20 mg BID MARLENE Administration Diltiazem HCl 125 mg/ Sodium 125 mls @ 0 mls/hr 09/27/20 00:15 09/27/20 08:17 Chloride IV 15 mg/hr .Q0M MARLENE 15 mls/hr Administration Protocol Per Protocol Dextrose/Sodium Chloride 1,000 mls @ 50 mls/hr 09/27/20 05:30 09/27/20 05:23 Dextrose 5%-Sod Chloride 0.45% IV 50 mls/hr .Q20H MARLENE Administration Levalbuterol HCl 1.25 mg 09/27/20 09:00 09/27/20 14:30 Levalbuterol 1.25 Mg/3 Ml Neb INHALATION 1.25 mg Q6H.RESPIRATORY MARLENE Administration Levothyroxine Sodium 100 mcg 09/27/20 07:00 09/27/20 07:01 Levothyroxine 100 Mcg Tablet PO Not Given DAILY@0700 MARLENE PFSH Acute PFSH: Medical History Aortic stenosis Atrial fibrillation Chronic pain History of thyroid cancer Papillary, 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, pelvis HTN (hypertension) Hyperlipidemia Hyperthyroidism Osteoarthritis Premature atrial contraction Surgical History History of section History of lung biopsy S/P appendectomy S/P cholecystectomy S/P hysterectomy S/P sclerotherapy of varicose veins S/P small bowel resection S/P thyroidectomy S/P tonsillectomy and adenoidectomy Family History Family/Other CAD (coronary artery disease) Hypertension Mother Cancer Social History Smoking and tobacco status: former smoker Alcohol intake: never Vitals/I&O/Wt Last Vital Signs Temp 98.4 F 09/27/20 08:00 Pulse 111 H 09/27/20 14:35 Resp 30 H 09/27/20 14:35 BP 134/79 09/27/20 12:00 Pulse Ox 95 09/27/20 14:35 09/27/20 09/27/20 09/27/20 06:59 14:59 22:59 Intake Total 612.917 / 1912.917 570.5 / 570.5 Balance 612.917 / 1912.917 570.5 / 570.5 Weight last 48 hrs Weight 154 lb 4.8 oz Weight 175 lb Physical Exam Const: COMMON NORMALS: patient oriented x3 Cardio: COMMON NORMALS: S1 normal heart sound present; negative for regular rhythm RATE: tachycardic RHYTHM: abnormal rhythm and abnormal rhythm irregularly irregular HEART SOUNDS: S1 normal heart sound present and Murmur heart sound present systolic Location: right sternal border Intensity: III/ Timing: mid BRUITS: no carotid bruits GI: COMMON NORMALS: No hepatosplenomegaly present PALPATION: Yes No hepa tosplenomegaly present Extremity: COMMON NORMALS: no calf tenderness GENERAL: No edema Neuro: COMMON NORMALS: patient oriented x3, no focal motor deficits and no sensory deficits noted Data Micro: Micro: Microbiology 09/26/20 19:30 Blood Culture - Pr eliminary Blood SPECIMEN [facility] 09/26/20 17:35 Blood Culture - Pr eliminary Blood SPECIMEN [facility] A&P Assessment and plan (1) Pulmonary embolism: This is a very difficult situation. This 84-year-old female has critical aortic valve stenosis, atrial fibrillation with RVR, extensive metastatic pulmonary lesions and very marginal respiratory status, even on high flow nasal cannula. Due to her history of GI hemorrhage, she is not considered candidate for anticoagulation. While percutaneous, even history for placement of an IVC filter is a hazardous endeavor in this scenario, though our options may be limited. I discussed this frankly with Wanda Bienvenido. It would be more advantageous if her pulmonary status was modestly improved and her heart rate could be appropriately controlled though she is on multiple drug regimen at this time and still having some difficulty with this. We will tentatively plan for IVC filter placement tomorrow around 12 noon though clearly even with this technically rather straightforward procedure, this will clearly assume some substantial hazards related to her very marginal and tenuous status. I have been very tristen with Ms. Faria about this and she states understanding. I will be conferring with her and my colleagues and nursing staff again tomorrow morning as we make a more acute assessment and consideration for possible IVC filter placement. Status: Acute Consult Attestations Medical Necessity Statement: Segmental right upper lobe pulmonary embolism with contraindication to anticoagulation and extensive metastatic thyroid carcinoma. Time Spent in Patient Care: Greater than 35 minutes Coding Level of Care Code New Pt Acute Photonics Technician for Chg Fwd Patient Type New History Comprehensive Exam Detailed Medical Decision Making High Complexity Diagnoses Pulmonary embolism I26.99 Time Spent (min) 40
--- NOTE | 2020-09-27 16:56 | PC.PT ---
Patient unavailable for PT evaluation, being seen by Dr. Martinez at this time, will reattempt evaluation tomorrow
--- NOTE | 2020-09-27 17:33 | PM.CONSULT ---
Providers/Reason For Consult Consulting Physician/Specialty*: Jose Laureano MD/ Cardiology Reason for Consult*: Afib with RVR/ Severe aortic stenosis Requesting Physician: Dr Vaughn Attending Physician: Taj Vaughn Primary Care Provider: Neel Anaya History of Present Illness History of Present Illness Lawanda Faria is a 84 year old female with past medical history of severe aortic stenosis, recent pulmonary embolism, atrial fibrillation, not on anticoagulation due to GI bleed, metastatic thyroid cancer with pulmonary mets who presented to the hospital with respiratory distress. She was recently discharged from the hospital. Her A. fib is difficult to control. She was on amiodarone, digoxin, Cardizem, metoprolol. Heart rates are still elevated. She was put on Cardizem drip. Heart rates have improved slightly however still elevated. Patient is on high flow nasal cannula. Says she is still feeling very short of breath. Also has palpitations. Review of Systems General: Reports: 10 or more systems reviewed and unremarkable except in HPI and below Const: Reports: fatigue; Denies: fever(s), chills or diaphoresis Eyes: Denies: change in vision ENMT: Denies: throat pain, ear or mastoid pain, nasal discharge or nasal congestion Card: Reports: swelling of feet/ankles, dyspnea on exertion and orthopnea; Denies: chest pain or syncope Resp: Reports: dyspnea; Denies: productive cough or non-productive cough GI: Denies: abdominal pain, nausea or vomiting : Denies: flank pain, difficulty voiding, dysuria, urinary frequency or urinary urgency Musc: Denies: neck pain or muscle cramps Skin/Breast: Denies: rash or pruritus Neuro: Denies: headache(s) Psych: Denies: anxiety or depression Endo: Denies: polyuria Tushar/Lymph: Denies: easy bruising All/Imm: Denies: urticaria Meds/Allergies Home Medications and Allergies Home Medications Medication Instructions Recorded Confirmed Last Taken Type latanoprost 1 drp OPHTHALMIC (EYE) BEDTIME@199906/11/20 09/26/20 09/08/20 History levothyroxine 100 mcg PO DAILY@0706/11/20 09/26/20 09/08/20 History aspirin 81 mg PO DAILY@0808/27/20 09/26/20 09/08/20 History levalbuterol tartrate [Xopenex HFA] 2 inh INHALATION Q6H PRN 08/27/20 09/26/20 08/30/20 History ondansetron HCl 4 mg PO Q6H PRN 08/27/20 09/26/20 08/22/20 History meloxicam 7.5 mg PO DAILY@0800 09/09/20 09/26/20 09/08/20 History potassium chloride 20 meq PO DAILY PRN 09/09/20 09/26/20 09/08/20 History diltiazem HCl [DILT-XR] 360 mg PO DAILY 30 Days #30 cap 09/23/20 09/26/20 Unknown Rx fentanyl 1 patch TRANSDERMAL Q72H 7 Days #2 09/23/20 09/26/20 Unknown Rx ea lorazepam [Ativan] 1 mg PO TID PRN 7 Days #21 tab 09/23/20 09/26/20 Unknown Rx oxycodone 5 mg PO TID PRN 7 Days #21 tab 09/23/20 09/26/20 Unknown Rx amiodarone [Pacerone] 400 mg PO BID@08,17 09/26/20 09/26/20 Unknown History digoxin 250 mcg PO DAILY@0800 09/26/20 09/26/20 Unknown History fluconazole [Diflucan] 100 mg PO DAILY@0800 09/26/20 09/26/20 Unknown History furosemide [Lasix] 20 mg PO DAILY@0800 09/26/20 09/26/20 Unknown History metoprolol tartrate 100 mg PO BID@0800,1700 09/26/20 09/26/20 Unknown History potassium chloride [Klor-Con M10] 10 meq PO DAILY@0800 09/26/20 09/26/20 Unknown History Allergies Allergy/AdvReac Type Severity Reaction Status Date / Time Iodinated Contrast Media Allergy Unknown Unknown Verified 08/30/20 10:56 ketorolac [From Toradol] Allergy Unknown Unknown Verified 08/30/20 10:56 Current Medications Current Medications Generic Name Dose Route Start Last Admin Trade Name Freq PRN Reason Stop Dose Admin Famotidine 20 mg 09/27/20 09:00 09/27/20 08:04 Famotidine 20 Mg Tablet PO 20 mg BID MARLENE Administration Diltiazem HCl 125 mg/ Sodium 125 mls @ 0 mls/hr 09/27/20 00:15 09/27/20 17:28 Chloride IV 15 mg/hr .Q0M MARLENE 15 mls/hr Administration Protocol Per Protocol Dextrose/Sodium Chloride 1,000 mls @ 50 mls/hr 09/27/20 05:30 09/27/20 05:23 Dextrose 5%-Sod Chloride 0.45% IV 50 mls/hr .Q20H MARLENE Administration Levalbuterol HCl 1.25 mg 09/27/20 09:00 09/27/20 14:30 Levalbuterol 1.25 Mg/3 Ml Neb INHALATION 1.25 mg Q6H.RESPIRATORY MARLENE Administration Levothyroxine Sodium 100 mcg 09/27/20 07:00 09/27/20 07:01 Levothyroxine 100 Mcg Tablet PO Not Given DAILY@0700 MARLENE PFSH Acute PFSH: Medical History Aortic stenosis Atrial fibrillation Chronic pain History of thyroid cancer Papillary, 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, pelvis HTN (hypertension) Hyperlipidemia Hyperthyroidism Osteoarthritis Premature atrial contraction Surgical History History of section History of lung biopsy S/P appendectomy S/P cholecystectomy S/P hysterectomy S/P sclerotherapy of varicose veins S/P small bowel resection S/P thyroidectomy S/P tonsillectomy and adenoidectomy Family History Family/Other CAD (coronary artery disease) Hypertension Mother Cancer Social History Smoking and tobacco status: former smoker Alcohol intake: never Vitals/I&O/Wt Last Vital Signs Temp 98.4 F 09/27/20 08:00 Pulse 118 H 09/27/20 16:30 Resp 38 H 09/27/20 16:30 BP 155/49 09/27/20 16:30 Pulse Ox 85 L 09/27/20 16:30 09/27/20 09/27/20 09/27/20 06:59 14:59 22:59 Intake Total 612.917 / 1912.917 570.5 / 570.5 125 / 695.5 Balance 612.917 / 1912.917 570.5 / 570.5 125 / 695.5 Weight last 48 hrs Weight 154 lb 4.8 oz Weight 175 lb Physical Exam Narrative: EXAM NARRATIVE: GENERAL: Patient is alert and awake. She appears in respiratory distress. Using accessory muscles [] NECK: No jugular vein distension. [] HEENT: No cyanosis. No icterus. No pallor. [] HEART: Regular S1 and S2. Has grade IV/ systolic murmur LUNGS: Diminished breath sounds, mild crackles ABDOMEN: Soft, nontender and nondistended. Positive bowel sounds. No guarding, rebound or tenderness. [] CENTRAL NERVOUS SYSTEM: Grossly nonfocal. [] EXTREMITIES: Lower extremities with 1+ edema bilaterally. Pulses palpable in the lower extremities, both dorsalis pedis and posterior tibial. [] Data Micro: Micro: Microbiology 09/26/20 19:30 Blood Culture - Pr eliminary Blood SPECIMEN [facility] GEM 09/26/20 17:35 Blood Culture - Pr eliminary Blood SPECIMEN [facility] A&P Assessment and plan (1) Atrial fibrillation: Status: Acute Qualifiers: Atrial fibrillation type: permanent Qualified Code(s): I48.21 - Permanent atrial fibrillation (2) Aortic stenosis: Status: Acute Qualifiers: Cardiac valve disease etiology: nonrheumatic Qualified Code(s): I35.0 - Nonrheumatic aortic (valve) stenosis (3) History of thyroid cancer: Status: Acute (4) HTN (hypertension): Status: Chronic Qualifiers: Hypertension type: essential hypertension Qualified Code(s): I10 - Essential (primary) hypertension (5) Acute on chronic respiratory failure: Status: Acute This patient is very complex with multiple medical problems. She has metastatic thyroid cancer, active pulmonary embolism, not on anticoagulation secondary to GI bleed, severe aortic stenosis, difficult to control atrial fibrillation in the setting of PE. Was recently discharged from the hospital. Presents with respiratory failure. She is currently on high flow nasal cannula. She is using accessory muscles. Continue Cardizem drip. May add amiodarone drip. She is not a candidate for electrical cardioversion secondary to inability to give anticoagulation. Consideration for IVC filter is appropriate. However given her respiratory status, she may not be able to tolerate procedure without intubation. IV Lasix 60 mg given. I have also given 5 mg of IV metoprolol. If her respiratory status worsens overnight, she may need intubation. I have discussed this possibility with the patient who understand it. Discussed the situation with Dr Michelle who is the overnight hospitalist. Continue diuresis. Given her complex situation, I had discussed the consideration of hospice in the past. However patient wanted to proceed with aggressive measures. If her condition does not improve, may consider transferring to facility where possibility of TAVR can be considered. Thank you for involving us with care of this patient. We will continue to follow. Please call with questions. Coding Level of Care Code Acute Help Desk Associate for Radha Randhawa Diagnoses Atrial fibrillation I48.21 Atrial fibrillation type: permanent Aortic stenosis I35.0 Cardiac valve disease etiology: nonrheumatic History of thyroid cancer Z85.850 HTN (hypertension) I10 Hypertension type: essential hypertension Acute on chronic respiratory failure J96.20
--- NOTE | 2020-09-27 18:19 | PM.PN ---
Subjective Subjective: Interval history: Denies chest pain at the time of my visit. Denies pain on inspiration. Occasional dry cough. Denies hemoptysis. Vitals/I&O/Wt Last Vital Signs Temp 98.4 F 09/27/20 08:00 Pulse 118 H 09/27/20 16:30 Resp 38 H 09/27/20 16:30 BP 155/49 09/27/20 16:30 Pulse Ox 85 L 09/27/20 16:30 09/27/20 09/27/20 09/27/20 06:59 14:59 22:59 Intake Total 612.917 / 1912.917 570.5 / 570.5 365 / 935.5 Balance 612.917 / 1912.917 570.5 / 570.5 365 / 935.5 Weight last 48 hrs Weight 69.989 kg Weight 79.379 kg Physical Exam Const: COMMON NORMALS: no acute distress and patient oriented x3 GENERAL APPEARANCE: frail appearing HENMT: COMMON NORMALS: oropharynx normal Neck/C-Spine: COMMON NORMALS: no JVD Resp: COMMON NORMALS: normal respiratory effort and clear to auscultation bilaterally AUSCULTATION: clear to auscultation bilaterally Cardio: COMMON NORMALS: no JVD, S1 normal heart sound present, S2 normal heart sound present and No murmurs present (Cardio) RATE: tachycardic RHYTHM: abnormal rhythm irregularly irregular HEART SOUNDS: S1 normal heart sound present and S2 normal heart sound present GI: COMMON NORMALS: Normal to inspection, nondistended, normoactive bowel sounds present, Soft to palpation and non-tender PALPATION: Yes Soft to palpation Extremity: COMMON NORMALS: no joint enlargement and no pedal edema Neuro: COMMON NORMALS: patient oriented x3 and moves all extremities Skin: COMMON NORMALS: no rashes or lesions noted GENERAL SKIN EXAM: no rashes or lesions noted Data : 09/26/20 17:35 09/26/20 17:35 Micro: Microbiology 09/26/20 17:35 Blood Culture - Preliminary Blood NEGATIVE TO DATE 09/26/20 19:30 Blood Culture - Preliminary Blood SPECIMEN COLLECTED A&P Assessment and plan (1) Acute on chronic respiratory failure: Status: Acute (2) Atrial fibrillation with rapid ventricular response: Status: Acute (3) Lung metastases: Status: Acute (4) HTN (hypertension): Status: Chronic Qualifiers: Hypertension type: essential hypertension Qualified Code(s): I10 - Essential (primary) hypertension Acute on chronic respiratory failure: She presented with shortness of breath, requiring somewhat more supplemental oxygen. Multifactorial secondary to severe , metastatic thyroid cancer, PE, emphysema. She is afebrile, with a leukocytosis, without suggestion of infection related etiology at this time. No sign of pneumonia on chest x-ray. Status post Covid vaccination. Discussed with her possibility of additional PE which she is at high risk. She states she is high risk of bleeding, and so due to this last admission was not initiated on anticoagulation. Discussed with her possibilities of additional assessment and management, possibly repeating imaging with CTA, although given known PE, consideration of possible additional PE, as well as risk, she is interested in further discussing and possibly proceeding with IVC filter placement. Her heart rates are currently being optimized, although this may be difficult to achieve and as long as they remain stable, may be good as good as we can get them. Filter potentially could be placed tomorrow depending on her hemodynamic condition. Attempted to discuss with her as well, but there was no answer. Atrial fibrillation with RVR: Difficult to control A. fib with RVR, during recent admission by the time of discharge heart rates still not optimally controlled despite high dose of Cardizem, as well as also on high-dose metoprolol, also digoxin and amiodarone. Poor candidate for cardioversion. Appreciate cardiology assistance with heart rate control. Digoxin level at this time elevated for now hold. Continue Cardizem drip. This afternoon episodes of soft blood pressure. Monitor, if allows, resume metoprolol. Thyroid cancer with mets: TSH low. Continue follow-up with oncology. Continue Levothyroxine Hypernatremia: Repeat BMP. DC IVF. GI ppx -Famotidine DVT px - SCDs. Attestations Medical Necessity Statement*: Continue admission for assessment management of acute on chronic respiratory failure, difficult to control A. fib with RVR, underlying PE without possibility of anticoagulation. Coding Level of Care Code Acute Special Effects Makeup Artist for Chg Fwd Diagnoses Acute on chronic respiratory failure J96.20 Atrial fibrillation with rapid ventricular response I48.91 Lung metastases C78.00 HTN (hypertension) I10 Hypertension type: essential hypertension
--- NOTE | 2020-09-27 20:00 | PC.NURSE ---
Physician Notified. Difficulty Breathing Dr. Larueano notified over the phone for increased SOB with abd muscle use and RR in mid 30's. Pt O2 requirements had increased throughout the day from 5L in the morning to 35L and 77% on Heated High Kd nasal cannula. Pt can only speak 1 to two word sentences due to SOB. Reported during the day she could not tolerated bipap and patient refusing at this time. O2 sat 88%. HR remains in afib rvr, rate uncontrolled one hundred teens to 140's. Orders received to give 60ms lasix IVP and 5mg metoprolol IVP and to place Islas catheter.
[2020-09-27] MEDS: metoprolol tartrate 1 mg/1 mL SDV 5 mL 5 MG IV (20:18)
[2020-09-27] MEDS: FUROsemide 10 mg/mL SDV 10mL 60 MG IVP (20:19)
--- NOTE | 2020-09-27 20:25 | PC.NURSE ---
Dr. Laureano at bedside. Ordered ABG. Spoke with patient about mechanical ventilation if needed. Orders received to give 150mg amio bolus and start amiodarone gtt if HR remains uncontrolled.
--- NOTE | 2020-09-27 20:50 | PC.NURSE ---
RT titrated Heated High Flow to 40L and 77%. O2 sat remains 88%, RR in 40's with abd muscle use.
--- NOTE | 2020-09-27 21:03 | PC.NURSE ---
Pt agreed to try Bipap. RT at bedside placing patient on Bipap at this time.
[2020-09-27 21:35] LABS: ABG PH Result 7.38 (7.35-7.45); Arterial Blood Gas Hematocrit 32.2 % (37-47); Base Excess ABG 12.3 mmol/L (-2.0-2.0); Blood Gas Sample Site Brachial, right; Blood Gas Sample Type Arterial; HCO3 ABG 39.7 mmol/L (22-26); Oxygen Device BIPAP
[2020-09-27] MEDS: morphine 4 mg/mL SDV 1 mL 2 MG IVP (21:51)
--- NOTE | 2020-09-27 22:22 | P.EN_ITS ---
Event Note Event Note: Called with patient breathing doing worse. Dr Boyd had spoken to me not too long prior to this. He ordered lasix 60mg IV which was given around 830pm. Also gave her 5mg IV metoprolol. HR at time was in 140s. Inproved to 110s after this. Output since then only about 150mls. ABG ordered. Request was for some ativan to help patient tolerate Bipap. 09/26/20 09/27/20 17:31 21:30 ABG pH 7.47 H 7.38 ABG pCO2 58.9 H 67 H ABG pO2 75.9 L 103.0 H ABG HCO3 42.8 H 39.7 H ABG Base Excess 16.7 H 12.3 H After reviewing repeat ABG, have not ordered further ativan do to worsening hypercapnea. She is a chronic CO2 retainer from what I can tell in recordswith elevated CO2 dating back to 2019 in available reocrds. Instead of benzodiazepines, ordered morphine 2 mg IV once and patient is doing better presently, tolerating bipap. Have ordered prn q 2 hr for respiratory distress. Repeat ABG for am. Dr Laureano verified full code status. I reviewed chart. Has PE with IVC filter, no anticoagulation due to bleeding, pulmonary metastases from thyroid cancer, severe aortic stenosis, afib with rvr. HR presently 100- 110s, BP 140s/70s, sats 95% with RR 25-30 on current Bipap settings. Discussed with nursing and RT.
[2020-09-27] MEDS: fentaNYL 12 mcg Patch 1 PATCH TRANSDERMA (22:49)
--- NOTE | 2020-09-27 23:00 | PC.NURSE ---
Pt tolerating bipap. Respiratory rate low 30's. Accessory and abdominal muscle use has decreased, breathing is less labored. O2 sats improved to mid 90's. HR has improved some, still remains in afib with RVR. Pt has diuresed only 250ml with administration of lasix. Will continue to monitor.
[2020-09-28] VITALS (61 sets, daily range): BP systolic 86–162; BP diastolic 44–104; PULSE 89–133; RESP 6–57; TEMP 36.4–37.2; O2SAT 82–100
--- NOTE | 2020-09-28 02:00 | PC.NURSE ---
Pt requesting break from BIPAP. Heated High Flow on at 40L and 76% fio2. Lungs diminished with expiratory wheezes to bases.
[2020-09-28] MEDS: levalbuterol 1.25 mg/3 mL Neb INHALATION ×4 (02:36→20:20)
[2020-09-28 05:06] LABS: Basophils % 0.4 %; Eosinophils # 0.2 10^3/uL (0.0-0.8); Eosinophils % 2.2 %; Hematocrit 30.3 % (37.0-47.0); Hemoglobin 9.3 g/dL (11.5-15.3); Lymphocytes # 0.4 10^3/uL (0.8-4.8); Mean Corpuscular HGB Conc 30.7 g/dL (30.0-36.0); Mean Corpuscular Hemoglobin 29.8 pg (28.0-34.0); Mean Corpuscular Volume 97.1 fL (81-99); Mean Platelet Volume 10.9 fL (7.4-10.4); Monocytes # 1.3 10^3/uL (0.2-0.9); Monocytes % 15.4 %; Neutrophils # 6.19 10^3/uL (1.8-7.7); Nucleated Red Blood Cells % 0 %; Platelet Count 167 10^3/cmm (130-400); Red Blood Count 3.12 10^6/uL (4.1-5.3); White Blood Count 8.1 10^3/uL (4.0-10.0)
[2020-09-28 05:16] LABS: ABG PCO2 55.2 mmHg (35-45); ABG PH Result 7.49 (7.35-7.45); Arterial Blood Gas Hematocrit 29.4 % (37-47); Base Excess ABG 16.4 mmol/L (-2.0-2.0); Blood Gas Sample Site Brachial, right; Blood Gas Sample Type Arterial; HCO3 ABG 41.9 mmol/L (22-26); PO2 ABG 77.4 mmHg (80.0-100.0)
[2020-09-28 05:25] LABS: Magnesium 1.4 mg/dL (1.7-2.3)
[2020-09-28 05:28] LABS: Alanine Aminotransferase 25 U/L (0-33); Albumin Level 2.5 g/dL (3.5-5.2); Alkaline Phosphatase 92 IU/L (35-105); Anion Gap 9.1 (5-19); Aspartate Amino Transferase 29 U/L (0-32); Blood Urea Nitrogen 20 mg/dL (8-23); Calcium 8.1 mg/dL (8.5-10.5); Carbon Dioxide 39 mmol/L (22-29); Chloride 100 mmol/L (98-107); Globulin 3.1 g/dL (1.3-4.6); Glucose 139 mg/dL (65-115); Osmolality Calculated 305 mOsm/kg (285-295); Potassium 3.1 mmol/L (3.5-5.1); Sodium 145 mmol/L (136-145); Total Bilirubin 0.6 mg/dL (0.15-1.2); Total Protein 5.6 g/dL (6.6-8.7)
[2020-09-28 05:39] LABS: Oxygen Device HHFNC
--- NOTE | 2020-09-28 06:00 | XRR_ITS ---
PROCEDURE INFORMATION: Exam: XR Chest Exam date and time: 09/28/2020 5:01 AM Age: 84 years old Clinical indication: Dyspnea; Additional info: Hypoxia TECHNIQUE: Imaging protocol: XR of the chest. Views: 1 view. COMPARISON: CR (CHEST, ) 09/26/2020 5:34 PM FINDINGS: Lungs: Hyperinflation, interstitial prominence, and worsening basilar airspace disease. Bilateral pulmonary nodules again demonstrated, suggesting metastases. Pleural spaces: Left pleural effusion obscuring the inferior left heart border left hemidiaphragm. Additional small right pleural effusion suspected. Heart/Mediastinum: Cardiac silhouette upper limits of normal size. Bones/joints: Degenerative change. XR/XR chest 1V portable [id number] IMPRESSION: 1. Hyperinflation, interstitial prominence, and worsening basilar airspace disease. 2. Additional findings as described above.
[2020-09-28] MEDS: magnesium sulfate premix 4 GM/100 ML PREMIX IV (06:08)
[2020-09-28] MEDS: levothyroxine 100 mcg Tablet PO (06:08)
--- NOTE | 2020-09-28 07:07 | P.PN_ITS ---
Subjective Subjective: Interval history: Ms. Faria appears quite weak this morning. She had a substantial respiratory event last night and nurses report that consideration for intubation was entertained. She currently remains on high flow nasal cannula with marginal saturations. She is able to speak but only a few words due to breathlessness. Vitals/I&O/Wt Last Vital Signs Temp 98.1 F 09/28/20 01:00 Pulse 112 H 09/28/20 06:00 Resp 36 H 09/28/20 06:00 BP 131/53 09/28/20 04:00 Pulse Ox 95 09/28/20 06:00 09/27/20 09/28/20 09/28/20 22:59 06:59 14:59 Intake Total 1023.333 / 1593.833 370.333 / 1964.166 Output Total 700 / 700 Balance 1023.333 / 1593.833 -329.667 / 1264.166 Weight last 48 hrs Weight 158 lb 11.2 oz Weight 154 lb 4.8 oz Weight 175 lb Physical Exam Resp: COMMON NORMALS: negative for normal respiratory effort EFFORT & INSPECTION: No able to speak in complete sentences, Yes abnormal respiratory pattern, Yes retractions and Yes uses accessory muscles Cardio: RATE: tachycardic RHYTHM: abnormal rhythm irregularly irregular HEART SOUNDS: Murmur heart sound present Urinary Catheter Management^: Islas: Cath Placed During This Visit: yes Reason for Continuing Indwelling Catheter: Accurate Measurement of Urinary Output in Critically Ill Patients Urinary Catheter Date of Insertion: 09/27/20 Urinary Catheter Time of Insertion: 19:30 Data : 09/28/20 04:45 09/28/20 04:45 Micro: Microbiology 09/26/20 19:30 Blood Culture - Preliminary Blood NEGATIVE TO DATE 09/26/20 17:35 Blood Culture - Preliminary Blood NEGATIVE TO DATE A&P Assessment and plan (1) Acute on chronic respiratory failure: Given her pulmonary status, I do not think Ms. Faria could tolerate supine position even for a brief period to allow for proper access, imaging, and performance of an IVC filter. This would only be able to be safely accomplished with control of her airway through intubation which I think would most probably not be able to be rapidly terminated at completion of the procedure. I have made the decision not to offer IVC filter placement by me. I personally think it would be hazardous and require need for complete airway control. I will discuss this further with our hospitalist colleagues. If the need for IVC filter placement remains strong in the current setting, they may wish to discuss further with our cardiology colleagues. I will therefore cancel my plans for IVC filter placement at noon today. Status: Acute Attestations Medical Necessity Statement*: Acute on chronic respiratory failure Time Spent in Patient Care: 16 - 35 minutes Coding Level of Care Code Acute Resin Painter for Radha Randhawa Diagnoses Acute on chronic respiratory failure J96.20
--- NOTE | 2020-09-28 07:30 | PC.NURSE ---
recd. somewhat confused. thought she was in the [facility].
[2020-09-28] MEDS: FUROsemide 20 mg Tablet PO (08:04)
[2020-09-28] MEDS: famotidine 20 mg Tablet PO ×2 (08:04→17:39)
[2020-09-28] MEDS: lidocaine 1% 5 ML in potassium chloride premix 100 ML 25 ML IV (08:05)
--- NOTE | 2020-09-28 09:00 | PC.NURSE ---
doesnt like male resp. therapist. states i can see that look . explained that he wouldnt hurt her, but i would stay in room with her whie tx. going on.
--- NOTE | 2020-09-28 11:27 | P.PN_ITS ---
Subjective Subjective: Interval history: She feels little bit better today. Last night she had episode of respiratory distress. Be started on BiPAP overnight. This morning on high flow cannula. Reports that had some mild chest cough earlier, not currently. Denies palpitations. Feels generally weak. Vitals/I&O/Wt Last Vital Signs Temp 97.5 F L 09/28/20 08:00 Pulse 102 H 09/28/20 09:00 Resp 36 H 09/28/20 09:00 BP 123/58 09/28/20 08:00 Pulse Ox 93 09/28/20 09:00 09/27/20 09/28/20 09/28/20 22:59 06:59 14:59 Intake Total 1023.333 / 1593.833 370.333 / 1964.166 389.875 / 389.875 Output Total 700 / 700 Balance 1023.333 / 1593.833 -329.667 / 1264.166 389.875 / 389.875 Weight last 48 hrs Weight 71.985 kg Weight 69.989 kg Weight 79.379 kg Physical Exam Const: COMMON NORMALS: no acute distress and patient oriented x3 GENERAL APPEARANCE: frail appearing OTHER: HF cannula on. HENMT: COMMON NORMALS: oropharynx normal Neck/C-Spine: COMMON NORMALS: no JVD Resp: COMMON NORMALS: normal respiratory effort AUSCULTATION: diminished lung sounds bilateral in the lower lung obando Cardio: COMMON NORMALS: no JVD, S1 normal heart sound present, S2 normal heart sound present and No murmurs present (Cardio) RATE: tachycardic RHYTHM: abnormal rhythm irregularly irregular HEART SOUNDS: S1 normal heart sound present and S2 normal heart sound present GI: COMMON NORMALS: Normal to inspection, nondistended, normoactive bowel sounds present, Soft to palpation and non-tender PALPATION: Yes Soft to palp ation Extremity: COMMON NORMALS: no joint enlargement and no pedal edema Neuro: COMMON NORMALS: patient oriented x3 and moves all extremities Skin: COMMON NORMALS: no rashes or lesions noted GENERAL SKIN EXAM: no rashes or lesions noted Urinary Catheter Management^: Islas: Cath Placed During This Visit: yes Reason for Continuing Indwelling Catheter: Accurate Measurement of Urinary Output in Critically Ill Patients Urinary Catheter Date of Insertion: 09/27/20 Urinary Catheter Time of Insertion: 19:30 Data : 09/28/20 04:45 09/28/20 04:45 Micro: Microbiology 09/26/20 19:30 Blood Culture - Preliminary Blood NEGATIVE TO DATE 09/26/20 17:35 Blood Culture - Preliminary Blood NEGATIVE TO DATE A&P Assessment and plan (1) Acute on chronic respiratory failure: Last night her breathing deteriorated. Noted hypercapnic. Required BiPAP support. Improved with this. Was also given dose of Lasix. This morning transition to high flow cannula. So far doing better. Awake, alert, generally weak. Persistent A. fib with RVR. IVC filter procedure deferred per discussion with thoracic surgery due to concern for poor respiratory condition, overall poor health. Discussing with her, she would be willing/interested and try to optimize her condition within the next several days, if there is no improvement, and still able to undergo additional procedures including filter placement and/or referral for TAVR, would be been more interested to switching to emphasis on comfort care, hospice. I attempted to reach her , sister to relay the discussions regards to her goals of care, but could not reach either. At this time we will continue Lasix given noted component of interstitial changes on chest x-ray. Suspect may have degree of fluid overload, was receiving IV fluids yesterday at lower rate which were started on admission for hypernatremia, metabolic alkalosis, which were discontinued, but appears may have already put her into overload. We discussed with her consideration also for trial of anticoagulation, possibly even prophylactic dose, however, consideration of this including in the setting of risk of sustaining recurrent PE with already extensive metastatic disease to her lung, she states that the bleeding would be more concerning for her including given multiple prior episodes of GI/cutaneous/subcutaneous bleeding, and prefers not to try even prophylactic dose. Status: Acute (2) Atrial fibrillation with rapid ventricular response: Difficult to control atrial fibrillation with rapid ventricular response. Amiodarone was optimized by biometrics analyst today. Continue diltiazem, will restart on oral doses per discussion with cardiology at 240 for now. Subsequently depending on how she is tolerating this, consideration may be given to restarting metoprolol as well. Recheck digoxin level in the morning. Status: Acute (3) Lung metastases: Thyroid cancer with mets: TSH low. Continue follow-up with oncology. Continue Levothyroxine Status: Acute (4) HTN (hypertension): Status: Chronic Qualifiers: Hypertension type: essential hypertension Qualified Code(s): I10 - Essential (primary) hypertension Additional A&P Information Hypernatremia: Resolved GI ppx -Famotidine DVT px - SCDs. Attestations Medical Necessity Statement*: Continue admission for assess management of respiratory failure, multifactorial including severe aortic stenosis, metastatic disease, pulmonary Augustus, atrial fibrillation with RVR, goals of care discussions. Coding Level of Care Code Acute Valve Assembler for [facility] Fwd Diagnoses Acute on chronic respiratory failure J96.20 Atrial fibrillation with rapid ventricular response I48.91 Lung metastases C78.00 HTN (hypertension) I10 Hypertension type: essential hypertension
--- NOTE | 2020-09-28 12:46 | PM.PN ---
Subjective Subjective: Interval history: Patient appears to be doing relatively better compared with last night. Heart rates are still elevated. Vitals/I&O/Wt Last Vital Signs Temp 97.5 F L 09/28/20 08:00 Pulse 102 H 09/28/20 09:00 Resp 36 H 09/28/20 09:00 BP 123/58 09/28/20 08:00 Pulse Ox 93 09/28/20 09:00 09/27/20 09/28/20 09/28/20 22:59 06:59 14:59 Intake Total 1023.333 / 1593.833 370.333 / 1964.166 389.875 / 389.875 Output Total 700 / 700 Balance 1023.333 / 1593.833 -329.667 / 1264.166 389.875 / 389.875 Weight last 48 hrs Weight 158 lb 11.2 oz Weight 154 lb 4.8 oz Weight 175 lb Physical Exam Narrative: EXAM NARRATIVE: GENERAL: Patient is alert and awake. She appears in respiratory distress. Using accessory muscles [] NECK: No jugular vein distension. [] HEENT: No cyanosis. No icterus. No pallor. [] HEART: Regular S1 and S2. Has grade IV/ systolic murmur LUNGS: Diminished breath sounds, mild crackles ABDOMEN: Soft, nontender and nondistended. Positive bowel sounds. No guarding, rebound or tenderness. [] CENTRAL NERVOUS SYSTEM: Grossly nonfocal. [] EXTREMITIES: Lower extremities with 1+ edema bilaterally. Pulses palpable in the lower extremities, both dorsalis pedis and posterior tibial. [] Urinary Catheter Management^: Islas: Cath Placed During This Visit: yes Reason for Continuing Indwelling Catheter: Accurate Measurement of Urinary Output in Critically Ill Patients Urinary Catheter Date of Insertion: 09/27/20 Urinary Catheter Time of Insertion: 19:30 Data : 09/28/20 04:45 09/28/20 04:45 Micro: Microbiology 09/26/20 19:30 Blood Culture - Preliminary Blood NEGATIVE TO DATE 09/26/20 17:35 Blood Culture - Preliminary Blood NEGATIVE TO DATE A&P Assessment and plan (1) Atrial fibrillation: Status: Acute Qualifiers: Atrial fibrillation type: permanent Qualified Code(s): I48.21 - Permanent atrial fibrillation (2) Aortic stenosis: Status: Acute Qualifiers: Cardiac valve disease etiology: nonrheumatic Qualified Code(s): I35.0 - Nonrheumatic aortic (valve) stenosis (3) History of thyroid cancer: Status: Acute (4) HTN (hypertension): Status: Chronic Qualifiers: Hypertension type: essential hypertension Qualified Code(s): I10 - Essential (primary) hypertension (5) Acute on chronic respiratory failure: Status: Acute This patient is very complex with multiple medical problems. She has metastatic thyroid cancer, active pulmonary embolism, not on anticoagulation secondary to GI bleed, severe aortic stenosis, difficult to control atrial fibrillation in the setting of PE. Was recently discharged from the hospital. Presents with respiratory failure. Patient was put on BIPAP last night. Back on high flow NC. Continue amiodarone gtt. Can restart cardizem 240mg daily. Recheck digoxin level in the AM. At some point we may add back metoprolol. Consideration for IVC filter is appropriate. However given her respiratory status, she may not be able to tolerate procedure without intubation. Continue diuresis.Montior I and Os closely Given her complex situation, I had discussed the consideration of hospice in the past. However patient wanted to proceed with aggressive measures. If her condition does not improve, may consider transferring to facility where possibility of TAVR can be considered. Thank you for involving us with care of this patient. We will continue to follow. Please call with questions. Attestations Medical Necessity Statement*: Care expected to cross 2 midnights. Coding Level of Care Code Acute Grinder Set Up Operator Universal for [facility]hawa Diagnoses Atrial fibrillation I48.21 Atrial fibrillation type: permanent Aortic stenosis I35.0 Cardiac valve disease etiology: nonrheumatic History of thyroid cancer Z85.850 HTN (hypertension) I10 Hypertension type: essential hypertension Acute on chronic respiratory failure J96.20
--- NOTE | 2020-09-28 17:28 | PC.NURSE ---
surgery cancelled this am.
[2020-09-28] MEDS: FUROsemide 10 mg/mL SDV 10mL 60 MG IVP (17:38)
[2020-09-28] MEDS: dilTIAZem ER (24HR) 240 mg Capsule PO (17:39)
[2020-09-28] MEDS: morphine 4 mg/mL SDV 1 mL 2 MG IVP (23:53)
[2020-09-29] VITALS (46 sets, daily range): BP systolic 125–185; BP diastolic 42–109; PULSE 74–127; RESP 18–39; TEMP 36.6–36.8; O2SAT 82–100
[2020-09-29] MEDS: levalbuterol 1.25 mg/3 mL Neb INHALATION ×4 (03:37→20:06)
[2020-09-29 05:18] LABS: Basophils % 0.3 %; Eosinophils # 0.2 10^3/uL (0.0-0.8); Eosinophils % 1.9 %; Hemoglobin 9.7 g/dL (11.5-15.3); Lymphocytes # 0.5 10^3/uL (0.8-4.8); Lymphocytes % 5.4 %; Mean Corpuscular HGB Conc 31.3 g/dL (30.0-36.0); Mean Corpuscular Hemoglobin 29.3 pg (28.0-34.0); Mean Corpuscular Volume 93.7 fL (81-99); Mean Platelet Volume 11.7 fL (7.4-10.4); Monocytes # 1.3 10^3/uL (0.2-0.9); Monocytes % 14.2 %; Neutrophils # 6.93 10^3/uL (1.8-7.7); Neutrophils % 77.4 %; Nucleated Red Blood Cells % 0 %; Platelet Count 172 10^3/cmm (130-400); Red Blood Count 3.31 10^6/uL (4.1-5.3); Red Cell Distribution Width 15.1 % (12.1-15.1)
[2020-09-29 05:36] LABS: Anion Gap 11.7 (5-19); Blood Urea Nitrogen 15 mg/dL (8-23); Calcium 8.3 mg/dL (8.5-10.5); Chloride 94 mmol/L (98-107); Glucose 124 mg/dL (65-115); Magnesium 1.6 mg/dL (1.7-2.3); Osmolality Calculated 300 mOsm/kg (285-295); Sodium 144 mmol/L (136-145)
[2020-09-29 05:38] LABS: Carbon Dioxide 41 mmol/L (22-29); Potassium 2.7 mmol/L (3.5-5.1)
[2020-09-29 06:10] LABS: Digoxin 0.9 ng/mL (0.6-1.2)
[2020-09-29] MEDS: levothyroxine 100 mcg Tablet PO (06:30)
[2020-09-29] MEDS: ondansetron 2 mg/ML SDV 2 mL 4 MG IVP (07:49)
--- NOTE | 2020-09-29 08:46 | PM.PN ---
Subjective Subjective: Interval history: Patient is doing well. No complaints of chest pain. Still on high flow NC. Vitals/I&O/Wt Last Vital Signs Temp 98.1 F 09/29/20 07:00 Pulse 97 09/29/20 08:00 Resp 35 H 09/29/20 08:00 BP 139/88 09/29/20 07:30 Pulse Ox 91 09/29/20 08:00 09/28/20 09/29/20 09/29/20 22:59 06:59 14:59 Intake Total 180 / 689.875 302.462 / 992.337 Output Total 1500 / 1500 450 / 1950 Balance -1320 / -810.125 -147.538 / -957.663 Weight last 48 hrs Weight 153 lb 3.2 oz Weight 158 lb 11.2 oz Physical Exam Narrative: EXAM NARRATIVE: GENERAL: Patient is alert and awake. She appears in respiratory distress. Using accessory muscles [] NECK: No jugular vein distension. [] HEENT: No cyanosis. No icterus. No pallor. [] HEART: Regular S1 and S2. Has grade IV/ systolic murmur LUNGS: Diminished breath sounds, mild crackles ABDOMEN: Soft, nontender and nondistended. Positive bowel sounds. No guarding, rebound or tenderness. [] CENTRAL NERVOUS SYSTEM: Grossly nonfocal. [] EXTREMITIES: Lower extremities with 1+ edema bilaterally. Pulses palpable in the lower extremities, both dorsalis pedis and posterior tibial. [] Urinary Catheter Management^: Islas: Cath Placed During This Visit: yes Reason for Continuing Indwelling Catheter: Accurate Measurement of Urinary Output in Critically Ill Patients Urinary Catheter Date of Insertion: 09/27/20 Urinary Catheter Time of Insertion: 19:30 Data : 09/30/20 04:40 09/30/20 04:40 A&P Assessment and plan (1) Atrial fibrillation: Status: Acute Qualifiers: Atrial fibrillation type: permanent Qualified Code(s): I48.21 - Permanent atrial fibrillation (2) Aortic stenosis: Status: Acute Qualifiers: Cardiac valve disease etiology: nonrheumatic Qualified Code(s): I35.0 - Nonrheumatic aortic (valve) stenosis (3) History of thyroid cancer: Status: Acute (4) HTN (hypertension): Status: Chronic Qualifiers: Hypertension type: essential hypertension Qualified Code(s): I10 - Essential (primary) hypertension (5) Acute on chronic respiratory failure: Status: Acute This patient is very complex with multiple medical problems. She has metastatic thyroid cancer, active pulmonary embolism, not on anticoagulation secondary to GI bleed, severe aortic stenosis, difficult to control atrial fibrillation in the setting of PE. Was recently discharged from the hospital. Presents with respiratory failure. Patient was put on BIPAP last night. Back on high flow NC. Continue amiodarone gtt. Cardizem restarted. Digoxin level is normal. Can restart. May have to restart metoprolol if needed Consideration for IVC filter is appropriate. However given her respiratory status, she may not be able to tolerate procedure without intubation. Continue diuresis.Montior I and Os closely Given her complex situation, I had discussed the consideration of hospice in the past. However patient wanted to proceed with aggressive measures. If her condition does not improve, may consider transferring to facility where possibility of TAVR can be considered vs comfort care measure depending on patient's preference. Thank you for involving us with care of this patient. We will continue to follow. Please call with questions. Attestations Medical Necessity Statement*: Care expected to cross 2 midnights. Coding Level of Care Code Acute Fish Bait Processing Supervisor for [facility] Diagnoses Atrial fibrillation I48.21 Atrial fibrillation type: permanent Aortic stenosis I35.0 Cardiac valve disease etiology: nonrheumatic History of thyroid cancer Z85.850 HTN (hypertension) I10 Hypertension type: essential hypertension Acute on chronic respiratory failure J96.20
[2020-09-29] MEDS: dilTIAZem ER (24HR) 240 mg Capsule PO (08:50)
[2020-09-29] MEDS: famotidine 20 mg Tablet PO ×2 (08:50→17:10)
[2020-09-29] MEDS: chlorhexidine gluconate 4% Btl 118 mL 1 APPLIC TOPICAL ×2 (08:51→17:10)
[2020-09-29 09:16] LABS: Add Urine Microscopic? YES; Bilirubin Urine Neg (Negative); Blood Urine 3+ (Negative); Glucose Urine UA Norm (Normal); Ketones Urine 1+ (Negative); Leukocyte Esterase Urine Negative (Negative); Nitrate Urine Negative (Negative); Protein Urine Trace (Negative); Urine Appearance SL Hazy (CLEAR); Urine Color Yellow (Yellow); Urobilinogen Urine Norm (Negative); pH Urine 5 (5-7)
[2020-09-29 09:17] LABS: Add Urine Culture? Yes; Bacteria Urine TRACE /hpf; RBC Urine 15-25 /hpf (0-2)
[2020-09-29] MEDS: lidocaine 1% 5 ML in potassium chloride premix 100 ML 25 ML IV (09:39)
--- NOTE | 2020-09-29 09:56 | PC.CHAP ---
Pastoral Care Encounter/Spiritual Assessment Type of Contact [] Declined computer security specialist visit [] Patient/Family/Request visit [] Outpatient visit [] Follow-up visit [] Physician referral [] Code/Alert [x] Routine visit [] Staff referral [] Actively dying [] Patient sleeping [] Family support [] [] Out of room [] Palliative care [] [] Receiving care in room [] Pre-surgical visit [] Trauma [] Long length of stay [x] ICU visit [x] Other: ventilator Relational/Emotional Strength [] Patient feels connected with others/family/visitors/staff [] Distress [] Loneliness/isolation [] Abandonment Spirituality of Patient [] Person of Qing [] Attends Uatsdin of their Qing [] Believes in Prayer [] Reads Bible or Anabaptist materials [] There are Spiritual issues to be addressed Retail Pharmacy Technician Interventions [x] Prayer [] Active listening [] Non-anxious presence [] Spiritual/emotional support [] Crisis/trauma care [] Spiritual counseling [] Bereavement support [] Provided bereavement packet [] Provided Bible/devotional materials [] Provided toy/stuffed animal, coloring book to patient or family member [] Provided Communion [] Anointing/[place] [] Salvation [x] Completed spiritual assessment [] Other: Impact on Illness or Injury [] Angry [] Fearful [] Anxious [] Often cries [] Exhaustion [] Unable to work [] Unable to attend voodoo [] Unable to walk/stand [] Unable to read [] Unable to drive [] Unable to eat/drink [] Unable to sleep [] Unable to be with family [] Patient intubated [] Other: Summary gentle woman.. restng well Time spent with patient 5 min
--- NOTE | 2020-09-29 10:23 | P.PN_ITS ---
Subjective Subjective: Interval history: She is doing a little bit better this morning. She is not enjoying drinking her potassium. Denies chest pain or pressure. She states that she had tolerated BiPAP overnight better tonight. She states she is learning how to work with the machine. Currently she is on high flow nasal cannula which she states she prefers much more as she is able to speak, eat and drink, etc. Vitals/I&O/Wt Last Vital Signs Temp 98.1 F 09/29/20 07:00 Pulse 107 H 09/29/20 09:43 Resp 26 H 09/29/20 09:35 BP 139/88 09/29/20 07:30 Pulse Ox 97 09/29/20 09:35 09/28/20 09/29/20 09/29/20 22:59 06:59 14:59 Intake Total 180 / 689.875 302.462 / 992.337 226 / 226 Output Total 1500 / 1500 450 / 1950 Balance -1320 / -810.125 -147.538 / -957.663 226 / 226 Weight last 48 hrs Weight 69.49 kg Weight 71.985 kg Physical Exam Const: COMMON NORMALS: no acute distress and patient oriented x3 GENERAL APPEARANCE: frail appearing OTHER: HF cannula on. HENMT: COMMON NORMALS: oropharynx normal Neck/C-Spine: COMMON NORMALS: no JVD Resp: COMMON NORMALS: normal respiratory effort AUSCULTATION: diminished lung sounds bilateral in the lower lung obando Cardio: COMMON NORMALS: no JVD, S1 normal heart sound present, S2 normal heart sound present and No murmurs present (Cardio) RATE: tachycardic RHYTHM: abnormal rhythm irregularly irregular HEART SOUNDS: S1 normal heart sound present and S2 normal heart sound present GI: COMMON NORMALS: Normal to inspection, nondistended, normoactive bowel sounds present, Soft to palpation and non-tender PALPATION: Yes Soft to palpation Extremity: COMMON NORMALS: no joint enlargement and no pedal edema Neuro: COMMON NORMALS: patient oriented x3 and moves all extremities Skin: COMMON NORMALS: no rashes or lesions noted GENERAL SKIN EXAM: no rashes or lesions noted Urinary Catheter Management^: Islas: Cath Placed During This Visit: yes Reason for Continuing Indwelling Catheter: Accurate Measurement of Urinary Output in Critically Ill Patients Urinary Catheter Date of Insertion: 09/27/20 Urinary Catheter Time of Insertion: 19:30 Data : 09/29/20 04:50 09/29/20 04:50 A&P Assessment and plan (1) Acute on chronic respiratory failure: So far were not seeing any further signs of CO2 retention, overnight she did tolerate BiPAP better this time. Currently doing okay on high flow cannula, but still requiring up to 80% FiO2 this morning. Subsequently weaned down to 66%. He is a -1100 mL since yesterday. I do not note JVD, no significant for extremity edema. We will cut down her Lasix dose to 40 mg every 24 hours for now. Continue to monitor volume status, INR. Wean off oxygen as tolerating. Continue to optimize control of A. fib with RVR. In case her condition stabilizes question will be whether to proceed with placement of IVC filter. She is certainly very frail, with continuous respiratory condition, elevated risk of difficulty of extubation with the same concerns also referred by her oncologist. Concerns also discussed with her, she is aware. She certainly understands she is at high risk of DVT, Especially without ability for even prophylactic anticoagulation, currently with immobility, staying in bed with difficulty to perform any additional significant activities given progression of hypoxia. Active metastatic malignancy. It may be a matter time before she sustains another DVT/PE which she understands may be a life ending event. Continue medical optimization at this time avoid NSAIDs, heart rate, oxygenation. In case conditions not improving and she is unable to undergo additional procedure including IVC filter placement, subsequently possibly TAVR referral, she would then transition to emphasis on comfort care, hospice. Today for an update, but could not reach her by phone. Left message. Status: Acute (2) Atrial fibrillation with rapid ventricular response: Continue Cardizem, resume metoprolol. Continue Amaryl. Replace hypokalemia, hypomagnesemia. Digoxin level back in therapeutic range. Resume at 0.125 milligrams daily. Status: Acute (3) Lung metastases: Thyroid cancer with mets: TSH low. Continue follow-up with oncology. Continue Levothyroxine Status: Acute (4) HTN (hypertension): Status: Chronic Qualifiers: Hypertension type: essential hypertension Qualified Code(s): I10 - Essential (primary) hypertension Additional A&P Information Hypernatremia: Resolved GI ppx -Famotidine DVT px - SCDs. Attestations Medical Necessity Statement*: Continue admission for assessment management of acute hypoxic respiratory failure control atrial fibrillation with RVR. Coding Level of Care Code Acute Cutting And Boning Supervisor for [facility] Fwd Diagnoses Acute on chronic respiratory failure J96.20 Atrial fibrillation with rapid ventricular response I48.91 Lung metastases C78.00 HTN (hypertension) I10 Hypertension type: essential hypertension
[2020-09-29] MEDS: metoprolol tartrate 50 mg Tablet 100 MG PO ×2 (10:39→17:10)
[2020-09-29] MEDS: FUROsemide 10 mg/mL SDV 10mL 40 MG IVP (10:46)
--- NOTE | 2020-09-29 12:00 | PC.NURSE ---
Pt's O2 saturation beginning to desat with exertion. Requested PT to wait until this afternoon to reevaluate pt's status before attempting to work with pt.
--- NOTE | 2020-09-29 14:00 | PC.NURSE ---
Pt fatigues easily when visiting with guests and becomes SOB. Requested visitor allow her time to rest. PT returned this afternoon to provide therapy. Stated pt's o2 saturation drops when pt attempts to speak. Pt will not do well with physical exertion at this time.
--- NOTE | 2020-09-29 16:30 | PC.SOCIAL ---
IMM Update Pg 2 IMM updated with patient. Copy provided, patient verbalized an understanding. No questions voiced.
--- NOTE | 2020-09-29 18:35 | PC.NURSE ---
Pt awakened from nap yelling, Get me out of here! RR in the 30's. O2 sat 92%. Abdominal breathing present. Morphine pulled and RT called. RT arrived shortly after. [place] pt needed to stay awake a little longer in hopes of sleeping longer during night with bipap on. Morphine 2mg left with Tiffany, pt's night nurse. Pt calmed down shortly after. RR in 20's. O2 sat at 92%. Reoriented. Denies pain or needs.
[2020-09-30] VITALS (37 sets, daily range): BP systolic 104–169; BP diastolic 51–109; PULSE 73–109; RESP 18–36; TEMP 36.3–36.8; O2SAT 79–99
[2020-09-30] MEDS: levalbuterol 1.25 mg/3 mL Neb INHALATION ×4 (03:04→22:19)
[2020-09-30 05:20] LABS: Basophils % 0.2 %; Eosinophils # 0.2 10^3/uL (0.0-0.8); Eosinophils % 1.5 %; Hematocrit 31.5 % (37.0-47.0); Hemoglobin 9.8 g/dL (11.5-15.3); Lymphocytes # 0.8 10^3/uL (0.8-4.8); Lymphocytes % 7.6 %; Mean Corpuscular HGB Conc 31.1 g/dL (30.0-36.0); Mean Corpuscular Hemoglobin 29.5 pg (28.0-34.0); Mean Corpuscular Volume 94.9 fL (81-99); Mean Platelet Volume 11.8 fL (7.4-10.4); Monocytes # 1.9 10^3/uL (0.2-0.9); Monocytes % 17.2 %; Neutrophils # 7.99 10^3/uL (1.8-7.7); Neutrophils % 72.6 %; Nucleated Red Blood Cells % 0 %; Platelet Count 203 10^3/cmm (130-400); Red Blood Count 3.32 10^6/uL (4.1-5.3); Red Cell Distribution Width 15.2 % (12.1-15.1)
[2020-09-30 05:38] LABS: Blood Urea Nitrogen 24 mg/dL (8-23); Calcium 8.6 mg/dL (8.5-10.5); Carbon Dioxide 39 mmol/L (22-29); Chloride 95 mmol/L (98-107); Glucose 125 mg/dL (65-115); Osmolality Calculated 302 mOsm/kg (285-295); Sodium 143 mmol/L (136-145)
--- NOTE | 2020-09-30 06:00 | XR_ITS ---
WS: [id number] Portable AP upright chest, 09/30/2020 Clinical Data: Hypoxia Comparison: None. Findings: The bilateral pulmonary nodules remain the same. There is left lower lobe consolidation, at electasis and effusion. There is a small right pleural effusion. The heart size remains the same. The aortic arch and descending aorta are tortuous. Monitor leads are on the chest wall. XR/XR chest 1V portable [id number] Impression: 1. No change in bilateral pulmonary nodules. 2. No change in left lower lobe opacification and bilateral pleural effusions.
[2020-09-30] MEDS: levothyroxine 100 mcg Tablet PO (06:04)
[2020-09-30] MEDS: metoprolol tartrate 50 mg Tablet 100 MG PO (07:45)
--- NOTE | 2020-09-30 08:30 | PC.CHAP ---
Pastoral Care Encounter/Spiritual Assessment Type of Contact [] Declined flat polisher visit [] Patient/Family/Request visit [] Outpatient visit [] Follow-up visit [] Physician referral [] Code/Alert [x] Routine visit [] Staff referral [] Actively dying [] Patient sleeping [] Family support [] [] Out of room [] Palliative care [] [x] Receiving care in room [] Pre-surgical visit [] Trauma [] Long length of stay [x] ICU visit [] Other: Relational/Emotional Strength [] Patient feels connected with others/family/visitors/staff [] Distress [] Loneliness/isolation [] Abandonment Spirituality of Patient [] Person of Qing [] Attends Adventist of their [place] [] Believes in Prayer [] Reads Bible or Congregational materials [] There are Spiritual issues to be addressed Public Health Registrar Interventions [x] Prayer [] Active listening [] Non-anxious presence [] Spiritual/emotional support [] Crisis/trauma care [] Spiritual counseling [] Bereavement support [] Provided bereavement packet [] Provided Bible/devotional materials [] Provided toy/stuffed animal, coloring book to patient or family member [] Provided Communion [] Anointing/[place] [] Salvation [x] Completed spiritual assessment [] Other: Impact on Illness or Injury [] Angry [] Fearful [] Anxious [] Often cries [] Exhaustion [] Unable to work [] Unable to attend methodist [] Unable to walk/stand [] Unable to read [] Unable to drive [] Unable to eat/drink [] Unable to sleep [] Unable to be with family [] Patient intubated [] Other: Summary Time spent with patient
[2020-09-30] MEDS: levofloxacin-dextrose 5 % 750 MG/150 ML PREMIX 100 MG IV (09:03)
[2020-09-30] MEDS: lidocaine 1% 5 ML in potassium chloride premix 100 ML 25 ML IV (09:04)
--- NOTE | 2020-09-30 10:30 | PC.NURSE ---
Pt c/o pain in left wrist IV. Unable to flush. Line discontinued. New IV started in right hand. Pt tolerated well. Levofloxacin started in right hand at this time.
[2020-09-30 11:25] LABS: ABG PCO2 67.7 mmHg (35-45)
--- NOTE | 2020-09-30 11:30 | PC.NURSE ---
Pt increasingly weak. Maintaining O2 saturation. Appears to be aspirating when swallowing drinks. Unable to administer late morning meds. Dr Solares notified. Will change meds to IV and order a speech consult.
--- NOTE | 2020-09-30 12:00 | PC.NURSE ---
Discussed wishes with pt. Pt alert to self, location, month and year. Asked pt if her breathing and condition worsens what wishes were. Pt does NOT wish to be intubated. Pt does NOT wish to have chest compressions performed. RT and Speech present during discussion. Physician to discuss with as well.
--- NOTE | 2020-09-30 12:24 | P.PN_ITS ---
Subjective Subjective: Interval history: Patient is very weak. Lost her voice. Has been aspirating. Heart rates better controlled. Vitals/I&O/Wt Last Vital Signs Temp 97.9 F 09/30/20 06:00 Pulse 109 H 09/30/20 11:41 Resp 20 H 09/30/20 11:41 BP 122/62 09/30/20 10:00 Pulse Ox 90 09/30/20 11:41 09/29/20 09/30/20 09/30/20 22:59 06:59 14:59 Intake Total 240 / 811 503.142 / 1314.142 Output Total 410 / 410 100 / 510 Balance -170 / 401 403.142 / 804.142 Weight last 48 hrs Weight 153 lb 3.2 oz Weight 153 lb 3.2 oz Physical Exam Narrative: EXAM NARRATIVE: GENERAL: Patient is alert and awake. On high flow NC[] NECK: No jugular vein distension. [] HEENT: No cyanosis. No icterus. No pallor. [] HEART: Irregularly irregular S1 and S2. Has grade IV/ systolic murmur LUNGS: Diminished breath sounds, mild crackles ABDOMEN: Soft, nontender and nondistended. Positive bowel sounds. No guarding, rebound or tenderness. [] CENTRAL NERVOUS SYSTEM: Grossly nonfocal. [] EXTREMITIES: Lower extremities with 1+ edema bilaterally. Pulses palpable in the lower extremities, both dorsalis pedis and posterior tibial. [] Urinary Catheter Management^: Islas: Cath Placed During This Visit: yes Reason for Continuing Indwelling Catheter: Accurate Measurement of Urinary Output in Critically Ill Patients Urinary Catheter Date of Insertion: 09/27/20 Urinary Catheter Time of Insertion: 19:30 Data : 09/30/20 04:40 09/30/20 04:40 A&P Assessment and plan (1) Atrial fibrillation: Status: Acute Qualifiers: Atrial fibrillation type: permanent Qualified Code(s): I48.21 - Per manent atrial fibrillation (2) Aortic stenosis: Status: Acute Qualifiers: Cardiac valve disease etiology: nonrheumatic Qualified Code(s): I35.0 - Nonrheumatic aortic (valve) stenosis (3) History of thyroid cancer: Status: Acute (4) HTN (hypertension): Status: Chronic Qualifiers: Hypertension type: essential hypertension Qualified Code(s): I10 - Essential (primary) hypertension (5) Acute on chronic respiratory failure: Status: Acute This patient is very complex with multiple medical problems. She has metastatic thyroid cancer, active pulmonary embolism, not on anticoagulation secondary to GI bleed, severe aortic stenosis, difficult to control atrial fibrillation in the setting of PE. Was recently discharged from the hospital. Presents with respiratory failure. Patient was put on BIPAP. Back on high flow NC. Continue amiodarone gtt.Patient's heart rates are better controlled but she has been having aspiration episodes and her oral medications are being converted to IV. Agree with IV digoxin q other day. Consideration for IVC filter is appropriate. However given her respiratory status, she may not be able to tolerate procedure without intubation. Continue diuresis.Montior I and Os closely She has developed pneumonia. On IV antibiotics. Patient is considering comfort measures if her condition deteriorates further. Thank you for involving us with care of this patient. We will continue to follow. Please call with questions. Attestations Medical Necessity Statement*: Care expected to cross 2 midnights. Coding Level of Care Code Acute Database Security Administrator for Radha Randhawa Diagnoses Atrial fibrillation I48.21 Atrial fibrillation type: permanent Aortic stenosis I35.0 Cardiac valve disease etiology: nonrheumatic History of thyroid cancer Z85.850 HTN (hypertension) I10 Hypertension type: essential hypertension Acute on chronic respiratory failure J96.20
[2020-09-30] MEDS: vancomycin 1,000 MG in sodium chloride 0.9% 250 ML 250 MG IV (12:44)
--- NOTE | 2020-09-30 12:45 | PC.NURSE ---
Vanc administered late due to difficulty obtaining additional IV access.
[2020-09-30] MEDS: famotidine 20 mg/2 mL INJ IVP (12:59)
[2020-09-30] MEDS: FUROsemide 10 mg/mL SDV 10mL 40 MG IVP (12:59)
[2020-09-30] MEDS: chlorhexidine gluconate 4% Btl 118 mL 1 APPLIC TOPICAL ×2 (13:08→18:23)
--- NOTE | 2020-09-30 16:56 | P.PN_ITS ---
Subjective Subjective: Interval history: This morning she stated she was doing okay, did lose her voice. Denied being bothered by any particular. Weak. Vitals/I&O/Wt Last Vital Signs Temp 97.9 F 09/30/20 06:00 Pulse 93 09/30/20 14:37 Resp 18 09/30/20 14:37 BP 122/62 09/30/20 10:00 Pulse Ox 90 09/30/20 14:37 09/30/20 09/30/20 09/30/20 06:59 14:59 22:59 Intake Total 503.142 / 1314.142 Output Total 100 / 510 Balance 403.142 / 804.142 Weight last 48 hrs Weight 69.49 kg Weight 69.49 kg Physical Exam Const: COMMON NORMALS: no acute distress and patient oriented x3 GENERAL APPEARANCE: frail appearing OTHER: Appears weak. HF cannula on. Dysphonia HENMT: COMMON NORMALS: oropharynx normal Neck/C-Spine: COMMON NORMALS: no JVD Resp: COMMON NORMALS: normal respiratory effort AUSCULTATION: diminished lung sounds bilateral in the lower lung obando Cardio: COMMON NORMALS: no JVD, S1 normal heart sound present, S2 normal heart sound present and No murmurs present (Cardio) RATE: tachycardic RHYTHM: abnormal rhythm irregularly irregular HEART SOUNDS: S1 normal heart sound present and S2 normal heart sound present GI: COMMON NORMALS: Normal to inspection, nondistended, normoactive bowel sounds present, Soft to palpation and non-tender PALPATION: Yes Soft to palpation Extremity: COMMON NORMALS: no joint enlargement and no pedal edema Neuro: COMMON NORMALS: patient oriented x3 and moves all extremities Skin: COMMON NORMALS: no rashes or lesions noted GENERAL SKIN EXAM: no rashes or lesions noted Urinary Catheter Management^: Islas: Cath Placed During This Visit: yes Reason for Continuing Indwelling Catheter: Accurate Measurement of Urinary Output in Critically Ill Patients Urinary Catheter Date of Insertion: 09/27/20 Urinary Catheter Time of Insertion: 19:30 Data : 09/30/20 04:40 09/30/20 04:40 A&P Assessment and plan (1) Acute on chronic respiratory failure: Multifactorial acute on chronic respiratory failure. Metastatic thyroid cancer, severe aortic stenosis, recent PE, previously single, but possible additional PE not on anticoagulation due to recurrent bleeding, declined even prophylactic dose. Chronic systolic CHF, pulmonary hypertension. Fluid overload with improvement, decreased Lasix. Today in neutral balance. Blood pressure slightly soft, 109/51, will give a dose of albumin. Today noted also rising leukocytosis, worsening consolidation left lower lobe. Started on antibiotics this morning for pneumonia. Later in the afternoon noted to be aspirating with sips of water. Made NPO. Requested speech therapy. She is very weak, progressively weaker today. Possible aspiration pneumonia. Discussed with her . In case of progressive deterioration or cardiopulmonary arrest, no aggressive measures including intubation in terms of CODE STATUS. He otherwise wants to continue medical therapy. Transition to oral medications to IV where possible. Continue oxygen support. Maintain aspiration precautions. Yesterday we had a discussion with her regarding advance care planning, as well as discussion with her and her sister with regards to her wishes. They are in agreement. Sister had stated she had indicated to her as well she would not want life support if this was required. She and family were in agreement with continue medical therapy to help stabilize her condition to see if may become a candidate for the additional procedures which may help stabilize her going forward, but otherwise her goal would be to transition to comfort measures. Status: Acute (2) Atrial fibrillation with rapid ventricular response: Heart rates this morning finally well controlled, however, subsequently with progressive weakening, noted aspiration, had to be made NPO. Continue amiodarone drip. Transition oral medications as possible to IV. Transition to IV metoprolol 10 mg every 4 hours. Digoxin will transition to 0.125 mg IV every other day. Not on anticoagulation due to recurrent bleeding. Status: Acute (3) Lung metastases: Thyroid cancer with mets: TSH low. Continue follow-up with oncology. Continue Levothyroxine Status: Acute (4) HTN (hypertension): Status: Chronic Qualifiers: Hypertension type: essential hypertension Qualified Code(s): I10 - Essential (primary) hypertension Additional A&P Information Hypernatremia: Resolved Hypokalemia: Replace Hypomagnesemia: Replaced Attestations Medical Necessity Statement*: Continue admission for assessment management of hypoxic respiratory failure, pneumonia, aspiration, with multiple underlying comorbidities. Critical Care Time: In addition to noncritical issues, 40 minutes critical care time spent on assessment of management of worsening respiratory status, hypoxic respiratory failure, pneumonia, aspiration in addition to pulmonary metastatic disease, severe aortic stenosis, chronic systolic CHF, pulmonary hypertension, PE. Coding Level of Care Code Acute Core Carrier for Chg Fwd Diagnoses Acute on chronic respiratory failure J96.20 Atrial fibrillation with rapid ventricular response I48.91 Lung metastases C78.00 HTN (hypertension) I10 Hypertension type: essential hypertension
[2020-09-30] MEDS: metoprolol tartrate 1 mg/1 mL SDV 5 mL 10 MG IV ×2 (18:23→22:20)
[2020-09-30] MEDS: morphine 4 mg/mL SDV 1 mL 2 MG IVP (22:19)
[2020-10-01] VITALS (48 sets, daily range): BP systolic 102–163; BP diastolic 53–114; PULSE 75–110; RESP 17–45; TEMP 36.6–36.8; O2SAT 84–100; BMI 29.2
[2020-10-01] MEDS: famotidine 20 mg/2 mL INJ IVP ×3 (00:08→21:50)
[2020-10-01] MEDS: morphine 4 mg/mL SDV 1 mL 2 MG IVP (02:17)
[2020-10-01] MEDS: metoprolol tartrate 1 mg/1 mL SDV 5 mL 10 MG IV ×5 (02:18→21:49)
[2020-10-01] MEDS: levalbuterol 1.25 mg/3 mL Neb INHALATION ×4 (03:25→20:55)
[2020-10-01 04:45] LABS: Basophils % 0.2 %; Eosinophils # 0.1 10^3/uL (0.0-0.8); Eosinophils % 1.5 %; Hematocrit 30.1 % (37.0-47.0); Hemoglobin 9.2 g/dL (11.5-15.3); Lymphocytes # 0.4 10^3/uL (0.8-4.8); Lymphocytes % 4.8 %; Mean Corpuscular HGB Conc 30.6 g/dL (30.0-36.0); Mean Corpuscular Hemoglobin 29.1 pg (28.0-34.0); Mean Corpuscular Volume 95.3 fL (81-99); Mean Platelet Volume 11.7 fL (7.4-10.4); Monocytes # 1.5 10^3/uL (0.2-0.9); Monocytes % 16.4 %; Neutrophils # 6.83 10^3/uL (1.8-7.7); Neutrophils % 76.2 %; Nucleated Red Blood Cells % 0 %; Platelet Count 198 10^3/cmm (130-400); Red Blood Count 3.16 10^6/uL (4.1-5.3)
--- NOTE | 2020-10-01 05:39 | PC.NURSE ---
Addendum entered by Lawanda Ho RN 10/01/20 06:29: Dr. Michelle notified of pt's low urine output this shift. Original Note: Pt anxious much of shift. Dr. Michelle notified and meds given as ordered. Pt switched between bipap and heated high flow. Turned every 2 hours. VSS. Amiodarone drip.
[2020-10-01] MEDS: LORazepam 2 mg/mL INJ 1 mL 0.5 MG IVP (05:54)
[2020-10-01 06:11] LABS: Anion Gap 10.2 (5-19); Blood Urea Nitrogen 26 mg/dL (8-23); Calcium 8.9 mg/dL (8.5-10.5); Carbon Dioxide 40 mmol/L (22-29); Chloride 94 mmol/L (98-107); Glucose 105 mg/dL (65-115); Osmolality Calculated 297 mOsm/kg (285-295); Potassium 3.2 mmol/L (3.5-5.1); Sodium 141 mmol/L (136-145)
[2020-10-01] MEDS: lidocaine 1% 5 ML in potassium chloride premix 100 ML 25 ML IV (09:33)
[2020-10-01] MEDS: digoxin 250 mcg/ml INJ 2 mL 125 MCG IVP (09:50)
[2020-10-01] MEDS: levofloxacin-dextrose 5 % 750 MG/150 ML PREMIX 100 MG IV ×2 (09:51→13:37)
--- NOTE | 2020-10-01 10:42 | PM.PN ---
Subjective Subjective: Interval history: This morning she is lethargic. I could not wake her up. She is breathing spontaneously, working well with BiPAP. She reportedly received morphine last night and Ativan this morning due to anxiety/restlessness. Vitals/I&O/Wt Last Vital Signs Temp 98.2 F 10/01/20 07:00 Pulse 88 10/01/20 08:13 Resp 17 10/01/20 08:05 BP 163/114 10/01/20 07:00 Pulse Ox 97 10/01/20 08:11 09/30/20 10/01/20 10/01/20 22:59 06:59 14:59 Intake Total 650 / 820 Output Total 200 / 200 Balance 650 / 820 -200 / 620 Weight last 48 hrs Weight 67.857 kg Weight 69.49 kg Physical Exam Const: COMMON NORMALS: no acute distress GENERAL APPEARANCE: lethargic and frail appearing ORIENTATION/CONSCIOUSNESS: Yes lethargic OTHER: Appears weak. BiPAP on. Dysphonia HENMT: COMMON NORMALS: oropharynx normal Neck/C-Spine: COMMON NORMALS: no JVD Resp: COMMON NORMALS: normal respiratory effort AUSCULTATION: diminished lung sounds bilateral in the lower lung obando Cardio: COMMON NORMALS: no JVD, S1 normal heart sound present, S2 normal heart sound present and No murmurs present (Cardio) RHYTHM: abnormal rhythm irregularly irregular HEART SOUNDS: S1 normal heart sound present and S2 normal heart sound present GI: COMMON NORMALS: Normal to inspection, nondistended, normoactive bowel sounds present, Soft to palpation and non-tender PALPATION: Yes Soft to palpation Extremity: COMMON NORMALS: no joint enlargement and no pedal edema Neuro: COMMON NORMALS: moves all extremities SENSORIUM/ORIENTATION: Yes lethargic Skin: COMMON NORMALS: no rashes or lesions noted GENERAL SKIN EXAM: no rashes or lesions noted Urinary Catheter Management^: Islas: Cath Placed During This Visit: yes Reason for Continuing Indwelling Catheter: Accurate Measurement of Urinary Output in Critically Ill Patients Urinary Catheter Date of Insertion: 09/27/20 Urinary Catheter Time of Insertion: 19:30 Data : 10/01/20 04:18 10/01/20 05:32 Micro: Microbiology 09/29/20 08:50 Urine Culture - Preliminary Urine,Clean Catch A&P Assessment and plan (1) Acute on chronic respiratory failure: Multifactorial acute on chronic respiratory failure. Metastatic thyroid cancer, severe aortic stenosis, recent PE, previously single, but possible additional PE not on anticoagulation due to recurrent bleeding, declined even prophylactic dose. Chronic systolic CHF, pulmonary hypertension. Fluid overload with improvement, hold further Lasix. Today in neutral balance. Blood pressure slightly soft, 109/51, will give a dose of albumin. 6/10 noted also rising leukocytosis, worsening consolidation left lower lobe. Started on antibiotics for pneumonia. Through the day progressively generally weak, noted with aspiration. Possible aspiration pneumonia. Continue antibiotics. Today leukocytosis resolved. NPO. After wakes up, resume speech therapy reevaluation. Transitioned to oral medications to IV where possible. Continue oxygen support. Maintain aspiration precautions. Continue attempts to optimize medical condition. Monitor how she is doing/improvement, continue discussions of goals of care depending on progress. Yesterday we had a discussion with her regarding advance care planning, as well as discussion with her and her sister with regards to her wishes. They are in agreement. Sister had stated she had indicated to her as well she would not want life support if this was required. She and family were in agreement with continue medical therapy to help stabilize her condition to see if may become a candidate for the additional procedures which may help stabilize her going forward, but otherwise her goal would be to transition to comfort measures. Status: Acute (2) Atrial fibrillation with rapid ventricular response: So far with transition to IV medications heart rates appear to be controlled. Continue current regimen. Monitor. NPO Continue amiodarone drip. Transitioned oral medications as possible to IV. Transitioned to IV metoprolol 10 mg every 4 hours. Digoxin transition to 0.125 mg IV every other day. Not on anticoagulation due to recurrent bleeding. Status: Acute (3) Lung metastases: Thyroid cancer with mets: TSH low. Continue follow-up with oncology. Continue Levothyroxine Status: Acute (4) HTN (hypertension): Status: Chronic Qualifiers: Hypertension type: essential hypertension Qualified Code(s): I10 - Essential (primary) hypertension Additional A&P Information Hypernatremia: Resolved Hypokalemia: Replace Hypomagnesemia: Replaced Attestations Medical Necessity Statement*: Continued mission for assessment of management of hypoxic respiratory failure with a number of underlying conditions as above, as well as pneumonia, possible aspiration pneumonia, optimization of atrial fibrillation with RVR while having to transition to IV medications due to n.p.o. status. Coding Level of Care Code Acute Direct Support Specialist for Chg Fwd Diagnoses Acute on chronic respiratory failure J96.20 Atrial fibrillation with rapid ventricular response I48.91 Lung metastases C78.00 HTN (hypertension) I10 Hypertension type: essential hypertension
[2020-10-01] MEDS: LORazepam 2 mg/mL INJ 1 mL 0.25 MG IVP (12:09)
--- NOTE | 2020-10-01 13:11 | P.PN_ITS ---
Subjective Subjective: Interval history: Patient put on bipap. Tolerating Vitals/I&O/Wt Last Vital Signs Temp 98.2 F 10/01/20 07:00 Pulse 100 10/01/20 12:14 Resp 19 H 10/01/20 12:14 BP 151/70 10/01/20 10:00 Pulse Ox 95 10/01/20 12:14 09/30/20 10/01/20 10/01/20 22:59 06:59 14:59 Intake Total 650 / 820 Output Total 200 / 200 Balance 650 / 820 -200 / 620 Weight last 48 hrs Weight 149 lb 9.6 oz Weight 153 lb 3.2 oz Physical Exam Narrative: EXAM NARRATIVE: GENERAL: Patient is alert and awake. On high flow NC[] NECK: No jugular vein distension. [] HEENT: No cyanosis. No icterus. No pallor. [] HEART: Irregularly irregular S1 and S2. Has grade IV/ systolic murmur LUNGS: Diminished breath sounds, mild crackles ABDOMEN: Soft, nontender and nondistended. Positive bowel sounds. No guarding, rebound or tenderness. [] CENTRAL NERVOUS SYSTEM: Grossly nonfocal. [] EXTREMITIES: Lower extremities with 1+ edema bilaterally. Pulses palpable in the lower extremities, both dorsalis pedis and posterior tibial. [] Urinary Catheter Management^: Islas: Cath Placed During This Visit: yes Reason for Continuing Indwelling Catheter: Accurate Measurement of Urinary Output in Critically Ill Patients Urinary Catheter Date of Insertion: 09/27/20 Urinary Catheter Time of Insertion: 19:30 Data : 10/02/20 04:21 10/02/20 04:21 Micro: Microbiology 09/29/20 08:50 Urine Culture - Preliminary Urine,Clean Catch A&P Assessment and plan (1) Atrial fibrillation: Status: Acute Qualifiers: Atrial fibrillation type: permanent Qualified Code(s): I48.21 - Permanent atrial fibrillation (2) Aortic stenosis: Status: Acute Qualifiers: Cardiac valve disease etiology: nonrheumatic Qualified Code(s): I35.0 - Nonrheumatic aortic (valve) stenosis (3) History of thyroid cancer: Status: Acute (4) HTN (hypertension): Status: Chronic Qualifiers: Hypertension type: essential hypertension Qualified Code(s): I10 - Essential (primary) hypertension (5) Acute on chronic respiratory failure: Status: Acute This patient is very complex with multiple medical problems. She has metastatic thyroid cancer, active pulmonary embolism, not on anticoagulation secondary to GI bleed, severe aortic stenosis, difficult to control atrial fibrillation in the setting of PE. Was recently discharged from the hospital. Presents with respiratory failure. She is now on Bipap. Continue amiodarone gtt.Patient's heart rates are better controlled but she has been having aspiration episodes and her oral medications are being converted to IV. Agree with IV digoxin q other day. Consideration for IVC filter is appropriate. However given her respiratory status, she may not be able to tolerate procedure without intubation. Continue diuresis.Montior I and Os closely She has developed pneumonia.Likely from aspiration. On IV antibiotics.WBC count has improved Patient is considering comfort measures if her condition deteriorates further. Thank you for involving us with care of this patient. We will continue to follow. Please call with questions. Attestations Medical Necessity Statement*: Care expected to cross 2 midnights. Coding Level of Care Code Acute Microbiology Lab Assistant for Radha Randhawa Diagnoses Atrial fibrillation I48.21 Atrial fibrillation type: permanent Aortic stenosis I35.0 Cardiac valve disease etiology: nonrheumatic History of thyroid cancer Z85.850 HTN (hypertension) I10 Hypertension type: essential hypertension Acute on chronic respiratory failure J96.20
[2020-10-01] MEDS: vancomycin 1,000 MG in sodium chloride 0.9% 250 ML 250 MG IV (14:09)
--- NOTE | 2020-10-01 15:18 | PC.SOCIAL ---
IMM not given IMM not updated. No anticipated d/c within the next 48hrs.
--- NOTE | 2020-10-01 18:51 | PC.NURSE ---
1400 dose metoprolol given late. time changed
--- NOTE | 2020-10-01 20:26 | PC.NURSE ---
patient keeps taking off HHFNC and will sat in the 60s with RR in the 30s and 40s, Dr. Canela notified and to look into a med order
--- NOTE | 2020-10-01 20:53 | PC.NURSE ---
patient reported to this nurse she did not want the oxygen and reported understanding she would likely not live long without it, notified of previous, reported understanding that patient needs the oxygen and advised this nurse to try what we can to keep it on and if it doesn't work stated well I guess she wont be there in the morning but tell her i'd like to talk to her tomorrow
[2020-10-01] MEDS: morphine 4 mg/mL SDV 1 mL 1 MG IVP (20:59)
--- NOTE | 2020-10-01 22:43 | PC.NURSE ---
Patient removed oxygen due to comfort issue. SpO2 decreases into the 70s. Patient becomes very frightful and begins to panic and yells for help. Respirations increased into the 40s. Replaced oxygen and held patient's hand to comfort her. Patient expressed thanks and stated, I feel safe here.
[2020-10-02] VITALS (29 sets, daily range): BP systolic 97–159; BP diastolic 59–112; PULSE 60–113; RESP 17–36; TEMP 36.6–36.9; O2SAT 88–100; BMI 31.6
[2020-10-02] MEDS: metoprolol tartrate 1 mg/1 mL SDV 5 mL 10 MG IV ×6 (02:45→21:52)
[2020-10-02] MEDS: levalbuterol 1.25 mg/3 mL Neb INHALATION ×4 (02:46→20:21)
[2020-10-02 04:42] LABS: Basophils % 0.1 %; Eosinophils # 0.1 10^3/uL (0.0-0.8); Eosinophils % 0.6 %; Hematocrit 29.7 % (37.0-47.0); Hemoglobin 8.9 g/dL (11.5-15.3); Lymphocytes # 0.5 10^3/uL (0.8-4.8); Lymphocytes % 6.3 %; Mean Corpuscular Hemoglobin 28.5 pg (28.0-34.0); Mean Corpuscular Volume 95.2 fL (81-99); Monocytes # 1.3 10^3/uL (0.2-0.9); Monocytes % 15.3 %; Neutrophils # 6.38 10^3/uL (1.8-7.7); Neutrophils % 77.1 %; Nucleated Red Blood Cells % 0 %; Platelet Count 196 10^3/cmm (130-400); Red Blood Count 3.12 10^6/uL (4.1-5.3); White Blood Count 8.3 10^3/uL (4.0-10.0)
[2020-10-02 05:04] LABS: Alanine Aminotransferase 18 U/L (0-33); Albumin Level 3.1 g/dL (3.5-5.2); Alkaline Phosphatase 95 IU/L (35-105); Aspartate Amino Transferase 27 U/L (0-32); Blood Urea Nitrogen 22 mg/dL (8-23); Carbon Dioxide 39 mmol/L (22-29); Chloride 96 mmol/L (98-107); Globulin 2.7 g/dL (1.3-4.6); Glucose 109 mg/dL (65-115); Magnesium 1.7 mg/dL (1.7-2.3); Osmolality Calculated 300 mOsm/kg (285-295); Sodium 143 mmol/L (136-145); Total Bilirubin 0.7 mg/dL (0.15-1.2); Total Protein 5.8 g/dL (6.6-8.7)
[2020-10-02 05:06] LABS: Anion Gap 11.6 (5-19); Potassium 3.6 mmol/L (3.5-5.1)
[2020-10-02] MEDS: ondansetron 2 mg/ML SDV 2 mL 4 MG IVP (06:30)
--- NOTE | 2020-10-02 09:12 | PC.SLP ---
Two attempts were made on 10/01/20 to see patient. She was sedated on the first attempt and was medically compromised on the second attempt. Attempted to see patient this morning while she was on HHFNC, however, her sats dropped to 78 and Bipap was placed. Patient was very anxious and reporting she was in pain. Nursing was notified. Will continue to monitor and re-assess swallowing function when patient is medically stable.
[2020-10-02] MEDS: famotidine 20 mg/2 mL INJ IVP ×2 (10:43→23:55)
--- NOTE | 2020-10-02 11:09 | P.PN_ITS ---
Subjective Subjective: Interval history: On BiPAP support this morning. Appears calm. Sleeping. Wakes up, thinks she is in [place], states the year correctly. Complains of self pain, when asked where, points to her lower back. Vitals/I&O/Wt Last Vital Signs Temp 97.9 F 10/02/20 08:00 Pulse 100 10/02/20 09:44 Resp 24 H 10/02/20 09:44 BP 97/84 10/02/20 08:00 Pulse Ox 96 10/02/20 09:44 10/01/20 10/02/20 10/02/20 22:59 06:59 14:59 Intake Total 400 / 1068 660 / 1728 Output Total 275 / 275 200 / 475 Balance 125 / 793 460 / 1253 Weight last 48 hrs Weight 73.539 kg Weight 67.857 kg Physical Exam Const: COMMON NORMALS: no acute distress GENERAL APPEARANCE: cooperative and frail appearing OTHER: Appears weak. BiPAP on. Sleeping, wakes up. HENMT: COMMON NORMALS: oropharynx normal Neck/C-Spine: COMMON NORMALS: no JVD Resp: COMMON NORMALS: normal respiratory effort AUSCULTATION: diminished lung sounds bilateral in the lower lung obando Cardio: COMMON NORMALS: no JVD, S1 normal heart sound present, S2 normal heart sound present and No murmurs present (Cardio) RATE: tachycardic RHYTHM: abnormal rhythm irregularly irregular HEART SOUNDS: S1 normal heart sound present and S2 normal heart sound present GI: COMMON NORMALS: Normal to inspection, nondistended, normoactive bowel sounds present, Soft to palpation and non-tender PALPATION: Yes Soft to palpation Extremity: COMMON NORMALS: no joint enlargement and no pedal edema Neuro: COMMON NORMALS: moves all extremities Skin: COMMON NORMALS: no rashes or lesions noted GENERAL SKIN EXAM: no rashes or lesions noted Urinary Catheter Management^: Islas: Cath Placed During This Visit: yes Reason for Continuing Indwelling Catheter: Accurate Measurement of Urinary Output in Critically Ill Patients Urinary Catheter Date of Insertion: 09/27/20 Urinary Catheter Time of Insertion: 19:30 Data : 10/02/20 04:21 10/02/20 04:21 Micro: Microbiology 09/30/20 15:40 MRSA Culture - Final Nose 09/29/20 08:50 Urine Culture - Final Urine,Clean Catch 09/26/20 19:30 Blood Culture - Final Blood NO GROWTH AFTER 5 DAYS 09/26/20 17:35 Blood Culture - Final Blood NO GROWTH AFTER 5 DAYS A&P Assessment and plan (1) Acute on chronic respiratory failure: Multifactorial acute on chronic respiratory failure. Overnight she gets restless, with difficulty maintain saturations, with mor phine, Ativan, appears to work better with BiPAP, although does become lethargic subsequently. This morning she wakes up, we are trying to switch her over to high flow cannula. She is bothered by some pain in her lower back. Continue attempts to wean off BiPAP, reassessment by speech therapy. Low-dose morphine added for pain as needed. We will add trazodone to hopefully aid with sleep at night. If needing to use morphine or Ativan, please use very small doses. Broaden antibiotics with Zosyn for pneumonia with aspiration. Possible aspiration pneumonia. Continue n.p.o. ST. Depending on mental status, consider evaluation by CT (or if can tolerate MRI) to assess if any brain mets. Optimize volume status with Lasix as needed. Repeat Lasix today. Continue medical optimization to see if she may become a candidate for placement of IVC filter given she is at high risk of VTE in her current condition. Subsequently consideration of possible TAVR if may become a candidate. If not becoming candidate for any additional procedures, she would then prefer to transition to hospice/comfort care. Metastatic thyroid cancer, severe aortic stenosis, recent PE, previously single, but possible additional PE not on anticoagulation due to recurrent bleeding, declined even prophylactic dose. Chronic systolic CHF, pulmonary hypertension. Attempted to reach for update by phone. Status: Acute (2) Atrial fibrillation with rapid ventricular response: Heart rates decently well controlled, 90s-low 100s compared to prior. So far with transitioned to IV medications due to noted dysphagia/aspiration. Co ntinue current regimen. Monitor. NPO Continue amiodarone drip. Transitioned to IV metoprolol 10 mg every 4 hours. Digoxin transition to 0.125 mg IV every other day. Not on anticoagulation due to recurrent bleeding. Status: Acute (3) Lung metastases: Thyroid cancer with mets: TSH low. Continue follow-up with oncology. Continue Levothyroxine Status: Acute (4) HTN (hypertension): Status: Chronic Qualifiers: Hypertension type: essential hypertension Qualified Code(s): I10 - Essential (primary) hypertension Additional A&P Information Lower back pain: We had removed the fentanyl patch on 09/30, hold it for now given she is still weak, not entirely alert. Lidocaine patch for pain. Small dose morphine as needed. Hypernatremia: Resolved Hypokalemia: Replace Hypomagnesemia: Replaced Attestations Medical Necessity Statement*: Continue admission for assessment management of hypoxic respiratory failure, optimization of control of A. fib with RVR, aspiration pneumonia with underlying metastatic thyroid cancer, severe aortic stenosis, PE, and other comorbidities. Critical Care Time: In addition to noncritical issues 45 minutes critical care time spent on assessment of respiratory, hemodynamic status, management of respiratory failure with hypoxia, adjustment of respiratory support modality, she has been switching between BiPAP, high flow cannula, discussion with RT, optimization of antibiotic. Discussed with her nursing staff. Coding Level of Care Code Acute Neon Glass Bender for Radha Randhawa Diagnoses Acute on chronic respiratory failure J96.20 Atrial fibrillation with rapid ventricular response I48.91 Lung metastases C78.00 HTN (hypertension) I10 Hypertension type: essential hypertension
[2020-10-02] MEDS: FUROsemide 10 mg/mL SDV 4mL 40 MG IVP (12:14)
[2020-10-02] MEDS: piperacillin-tazobactam 3.375 GM in sodium chloride 0.9% (plus) 50 ML IV ×2 (12:14→20:08)
[2020-10-02] MEDS: morphine 4 mg/mL SDV 1 mL 0.5 MG IVP ×2 (12:59→20:06)
[2020-10-02] MEDS: vancomycin 1,000 MG in sodium chloride 0.9% 250 ML 250 MG IV (14:54)
--- NOTE | 2020-10-02 18:52 | P.PN_ITS ---
Subjective Subjective: Interval history: Patient is confused. On high flow NC Vitals/I&O/Wt Last Vital Signs Temp 98.1 F 10/02/20 18:00 Pulse 89 10/02/20 18:00 Resp 31 H 10/02/20 18:00 BP 120/69 10/02/20 18:00 Pulse Ox 94 10/02/20 18:00 10/02/20 10/02/20 10/02/20 06:59 14:59 22:59 Intake Total 660 / 1728 300 / 300 Output Total 200 / 475 925 / 925 Balance 460 / 1253 -625 / -625 Weight last 48 hrs Weight 162 lb 2 oz Weight 149 lb 9.6 oz Physical Exam Narrative: EXAM NARRATIVE: GENERAL: Patient is alert and awake. On high flow NC[] NECK: No jugular vein distension. [] HEENT: No cyanosis. No icterus. No pallor. [] HEART: Irregularly irregular S1 and S2. Has grade IV/ systolic murmur LUNGS: Diminished breath sounds, mild crackles ABDOMEN: Soft, nontender and nondistended. Positive bowel sounds. No guarding, rebound or tenderness. [] CENTRAL NERVOUS SYSTEM: Grossly nonfocal. [] EXTREMITIES: Lower extremities with 1+ edema bilaterally. Pulses palpable in the lower extremities, both dorsalis pedis and posterior tibial. [] Urinary Catheter Management^: Islas: Cath Placed During This Visit: yes Reason for Continuing Indwelling Catheter: Accurate Measurement of Urinary Output in Critically Ill Patients Urinary Catheter Date of Insertion: 09/27/20 Urinary Catheter Time of Insertion: 19:30 Data : 10/03/20 03:10 10/03/20 03:10 Micro: Microbiology 09/30/20 15:40 MRSA Culture - Final Nose 09/29/20 08:50 Urine Culture - Final Urine,Clean Catch 09/26/20 19:30 Blood Culture - Final Blood NO GROWTH AFTER 5 DAYS 09/26/20 17:35 Blood Culture - Final Blood NO GROWTH AFTER 5 DAYS A&P Assessment and plan (1) Atrial fibrillation: Status: Acute Qualifiers: Atrial fibrillation type: permanent Qualified Code(s): I48.21 - Permanent atrial fibrillation (2) Aortic stenosis: Status: Acute Qualifiers: Cardiac valve disease etiology: nonrheumatic Qualified Code(s): I35.0 - Nonrheumatic aortic (valve) stenosis (3) History of thyroid cancer: Status: Acute (4) HTN (hypertension): Status: Chronic Qualifiers: Hypertension type: essential hypertension Qualified Code(s): I10 - Essential (primary) hypertension (5) Acute on chronic respiratory failure: Status: Acute This patient is very complex with multiple medical problems. She has metastatic thyroid cancer, active pulmonary embolism, not on anticoagulation secondary to GI bleed, severe aortic stenosis, difficult to control atrial fibrillation in the setting of PE. Was recently discharged from the hospital. Presents with respiratory failure. She is now back on high flow NC as could not tolerate BiPAP Continue amiodarone gtt.Patient's heart rates are better controlled but she has been having aspiration episodes and her oral medications are being converted to IV. Continue IV metoprolol and digoxin Consideration for IVC filter is appropriate. However given her respiratory status, she may not be able to tolerate procedure without intubation. Montior I and Os closely She has developed pneumonia.Likely from aspiration. On IV antibiotics.WBC count has improved Patient is considering comfort measures if her condition deteriorates further. Thank you for involving us with care of this patient. We will continue to follow. Please call with questions. Attestations Medical Necessity Statement*: Care expected to cross 2 midnights. Coding Level of Care Code Acute Broker Associate for Radha Randhawa Diagnoses Atrial fibrillation I48.21 Atrial fibrillation type: permanent Aortic stenosis I35.0 Cardiac valve disease etiology: nonrheumatic History of thyroid cancer Z85.850 HTN (hypertension) I10 Hypertension type: essential hypertension Acute on chronic respiratory failure J96.20
[2020-10-02] MEDS: lidocaine 5% Patch 1 PATCH TOPICAL (21:52)
[2020-10-03] VITALS (33 sets, daily range): BP systolic 94–145; BP diastolic 45–102; PULSE 84–121; RESP 16–41; TEMP 36.4–36.5; O2SAT 93–99; BMI 30.9
[2020-10-03] MEDS: morphine 4 mg/mL SDV 1 mL 0.5 MG IVP ×2 (00:49→05:24)
[2020-10-03] MEDS: levalbuterol 1.25 mg/3 mL Neb INHALATION ×4 (02:05→20:27)
[2020-10-03] MEDS: piperacillin-tazobactam 3.375 GM in sodium chloride 0.9% (plus) 50 ML IV ×3 (03:00→20:59)
[2020-10-03] MEDS: metoprolol tartrate 1 mg/1 mL SDV 5 mL 10 MG IV ×5 (03:00→18:13)
[2020-10-03 03:51] LABS: Basophils % 0.3 %; Eosinophils # 0.1 10^3/uL (0.0-0.8); Eosinophils % 1.4 %; Hematocrit 27.9 % (37.0-47.0); Hemoglobin 8.5 g/dL (11.5-15.3); Lymphocytes # 0.5 10^3/uL (0.8-4.8); Lymphocytes % 6.4 %; Mean Corpuscular HGB Conc 30.5 g/dL (30.0-36.0); Mean Corpuscular Hemoglobin 29.4 pg (28.0-34.0); Mean Corpuscular Volume 96.5 fL (81-99); Mean Platelet Volume 11.7 fL (7.4-10.4); Monocytes # 1.3 10^3/uL (0.2-0.9); Monocytes % 17.6 %; Neutrophils # 5.35 10^3/uL (1.8-7.7); Neutrophils % 73.3 %; Nucleated Red Blood Cells % 0 %; Platelet Count 164 10^3/cmm (130-400); Red Blood Count 2.89 10^6/uL (4.1-5.3); Red Cell Distribution Width 15.3 % (12.1-15.1); White Blood Count 7.3 10^3/uL (4.0-10.0)
[2020-10-03 04:16] LABS: Alanine Aminotransferase 17 U/L (0-33); Albumin Level 2.6 g/dL (3.5-5.2); Alkaline Phosphatase 85 IU/L (35-105); Anion Gap 9.4 (5-19); Aspartate Amino Transferase 27 U/L (0-32); Blood Urea Nitrogen 20 mg/dL (8-23); Calcium 8.2 mg/dL (8.5-10.5); Carbon Dioxide 38 mmol/L (22-29); Chloride 94 mmol/L (98-107); Globulin 2.6 g/dL (1.3-4.6); Glucose 139 mg/dL (65-115); Osmolality Calculated 293 mOsm/kg (285-295); Sodium 139 mmol/L (136-145); Total Bilirubin 0.7 mg/dL (0.15-1.2); Total Protein 5.2 g/dL (6.6-8.7)
[2020-10-03 04:21] LABS: Potassium 2.4 mmol/L (3.5-5.1)
[2020-10-03 05:02] LABS: Magnesium 1.2 mg/dL (1.7-2.3); Phosphorus 3.1 mg/dL (2.5-4.5)
[2020-10-03] MEDS: magnesium sulfate premix 4 GM/100 ML PREMIX IV (05:40)
[2020-10-03] MEDS: potassium chloride premix 40 MEQ/100 ML PREMIX 25 MEQ IV (05:40)
[2020-10-03] MEDS: lidocaine 1% INJ 20 mL 5 ML IV (05:52)
--- NOTE | 2020-10-03 06:00 | XRR_ITS ---
PROCEDURE INFORMATION: Exam: XR Chest Exam date and time: 10/03/2020 6:00 AM Age: 84 years old Clinical indication: Other: Hypoxia TECHNIQUE: Imaging protocol: XR of the chest. Views: Frontal portable semiupright view of the chest. COMPARISON: CR XR chest 1V portable [id number] 09/30/2020 5:31 AM FINDINGS: Tubes, catheters and devices: EKG leads are present overlying the chest. Lungs: Multiple bilateral pulmonary nodules and masses redemonstrated. The pulmonary vasculature is more congested and ill-defined. Left lower lobe partial atelectasis/consolidation, stable. Pleural spaces: Stable large left pleural effusion. No pneumothorax. Heart/Mediastinum: Stable. 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 Thoracic spine vertebral body marginal osteophytes are noted at multiple levels. No destructive bony process identified. XR/XR chest 1V portable [id number] IMPRESSION: 1. Multiple bilateral pulmonary nodules and masses redemonstrated. 2. Stable large left pleural effusion. 3. Increased pulmonary vascular congestion. 4. Left lower lobe partial atelectasis/consolidation, stable.
[2020-10-03] MEDS: digoxin 250 mcg/ml INJ 2 mL 125 MCG IVP (08:22)
[2020-10-03] MEDS: lidocaine 5% Patch 1 PATCH TOPICAL (08:23)
[2020-10-03] MEDS: levofloxacin-dextrose 5 % 750 MG/150 ML PREMIX 150 MG IV (08:23)
--- NOTE | 2020-10-03 09:45 | DCPLANNER ---
Im updated but not given as pt is declining.
[2020-10-03] MEDS: lidocaine 1% 5 ML in potassium chloride premix 100 ML 25 ML IV (10:02)
--- NOTE | 2020-10-03 10:11 | P.PN_ITS ---
Subjective Subjective: Interval history: Patient appears lethargic. On high flow NC Vitals/I&O/Wt Last Vital Signs Temp 97.7 F 10/03/20 05:00 Pulse 94 10/03/20 09:21 Resp 22 H 10/03/20 09:12 BP 98/51 10/03/20 08:00 Pulse Ox 97 10/03/20 09:12 10/02/20 10/03/20 10/03/20 22:59 06:59 14:59 Intake Total 818 / 818 50 / 868 100 / 100 Output Total 925 / 925 500 / 1425 Balance -107 / -107 -450 / -557 100 / 100 Weight last 48 hrs Weight 158 lb 7 oz Weight 162 lb 2 oz Physical Exam Narrative: EXAM NARRATIVE: GENERAL: Patient is lethargic and weak. On high flow NC[] NECK: No jugular vein distension. [] HEENT: No cyanosis. No icterus. No pallor. [] HEART: Irregularly irregular S1 and S2. Has grade IV/ systolic murmur LUNGS: Diminished breath sounds, mild crackles ABDOMEN: Soft, nontender and nondistended. Positive bowel sounds. No guarding, rebound or tenderness. [] CENTRAL NERVOUS SYSTEM: Grossly nonfocal. [] EXTREMITIES: Lower extremities with 1+ edema bilaterally. Pulses palpable in the lower extremities, both dorsalis pedis and posterior tibial. [] Urinary Catheter Management^: Islas: Cath Placed During This Visit: yes Reason for Continuing Indwelling Catheter: Accurate Measurement of Urinary Output in Critically Ill Patients Urinary Catheter Date of Insertion: 09/27/20 Urinary Catheter Time of Insertion: 19:30 Data : 10/03/20 03:10 10/03/20 03:10 Micro: Microbiology 09/30/20 15:40 MRSA Culture - Final Nose 09/29/20 08:50 Urine Culture - Final Urine,Clean Catch A&P Assessment and plan (1) Atrial fibrillation: Status: Acute Qualifiers: Atrial fibrillation type: permanent Qualified Code(s): I48.21 - Permanent atrial fibrillation (2) Aortic stenosis: Status: Acute Qualifiers: Cardiac valve disease etiology: nonrheumatic Qualified Code(s): I35.0 - Nonrheumatic aortic (valve) stenosis (3) History of thyroid cancer: Status: Acute (4) HTN (hypertension): Status: Chronic Qualifiers: Hypertension type: essential hypertension Qualified Code(s): I10 - Essential (primary) hypertension (5) Acute on chronic respiratory failure: Status: Acute This patient is very complex with multiple medical problems. She has metastatic thyroid cancer, active pulmonary embolism, not on anticoagulation secondary to GI bleed, severe aortic stenosis, difficult to control atrial fibrillation in the setting of PE. Was recently discharged from the hospital. Presents with respiratory failure. She is now back on high flow NC as could not tolerate BiPAP Continue amiodarone gtt.Patient's heart rates are better controlled but she has been having aspiration episodes and her oral medications are being converted to IV. Continue IV metoprolol and digoxin Consideration for IVC filter is appropriate. However given her respiratory status, she may not be able to tolerate procedure without intubation. Montior I and Os closely She has developed pneumonia.Likely from aspiration. On IV antibiotics.WBC count has improved Patient's overall condition appears to have deteriorated. She may consider comfort care measures after discussion with family. Thank you for involving us with care of this patient. We will continue to follow. Please call with questions. Attestations Medical Necessity Statement*: Care expected to cross 2 midnights. Coding Level of Care Code Acute Application Support Administrator for willie Randhawa Diagnoses Atrial fibrillation I48.21 Atrial fibrillation type: permanent Aortic stenosis I35.0 Cardiac valve disease etiology: nonrheumatic History of thyroid cancer Z85.850 HTN (hypertension) I10 Hypertension type: essential hypertension Acute on chronic respiratory failure J96.20
[2020-10-03] MEDS: famotidine 20 mg/2 mL INJ IVP ×2 (14:13→22:45)
[2020-10-03] MEDS: morphine 4 mg/mL SDV 1 mL 1 MG IVP (14:14)
[2020-10-03] MEDS: FUROsemide 10 mg/mL SDV 4mL 40 MG IVP (15:12)
--- NOTE | 2020-10-03 16:06 | P.PN_ITS ---
Subjective Subjective: Interval history: Patient was seen multiple times throughout the day, in the morning, she was having evidence of mild respiratory distress, a bit lethargic, not responding to questions at times, but with stimulation she would answer questions, she complained of shortness of breath, no chest pain, no palpitations, no lightheadedness, dizziness, I discussed my concerns of her worsening respiratory status, her increased oxygen requirements, my concerns for persistent fluid overload and pneumonia in the background of atrial fibrillation which is better controlled but severe aortic stenosis, she has had a slow decline, continues to have high aspiration risk, Patient was reexamined in the afternoon, is at bedside, I discussed the case in detail with her and her , discussed options that are available to her Unfortunately given her current respiratory status, given her respiratory failure secondary to pulmonary edema and pneumonia, and in the background of severe aortic stenosis and A. fib, she is not a optimal candidate for aortic valve replacement, if her respiratory status would improve we could give her a shot, but she her respiratory status continues to worsen, she is having intermittent episodes of mild respiratory distress, and as she has voiced that she would not like to be on the ventilator, there is limited options available to her In the afternoon patient was much more alert and awake, following all commands, answering all questions appropriately, at bedside I discussed continuing medical interventions, considering transfer although high risk, or proceeding with comfort care after discussing all the options. She tells me that she just wants to be comfortable, she wants to see her family members, she wants us to stop all aggressive interventions. However her family members cannot see her till tomorrow, so she wants us to continue all current interventions until family member see her, and then will proceed to full comfort care. Currently she is on semicomfort care, we can give her morphine for pain, Ativan for anxiety, continue antibiotics, continue amiodarone, continue medical interventions. But above all she wants to remain comfortable, her and her voiced understanding, all questions answered, agreed to proceed. I will move her to the cardiac stepdown unit, so she can be with her throughout the night Vitals/I&O/Wt Last Vital Signs Temp 97.5 F L 10/03/20 10:00 Pulse 111 H 10/03/20 15:24 Resp 21 H 10/03/20 15:24 BP 117/97 10/03/20 12:00 Pulse Ox 94 10/03/20 15:24 10/03/20 10/03/20 10/03/20 06:59 14:59 22:59 Intake Total 50 / 868 505 / 505 Output Total 500 / 1425 Balance -450 / -557 505 / 505 Weight last 48 hrs Weight 71.866 kg Weight 71.866 kg Weight 73.539 kg Physical Exam Const: GENERAL APPEARANCE: cooperative and ill appearing ORIENTATION/CONSCIOUSNESS: Yes awake, Yes oriented to person, Yes oriented to place and Yes oriented to time Resp: COMMON NORMALS: normal respiratory effort, No retractions and No use of accessory muscles AUSCULTATION: crackles and wheezes Cardio: COMMON NORMALS: regular rate, regular rhythm, S1 normal heart sound present and S2 normal heart sound present RATE: regular rate RHYTHM: regular rhythm HEART SOUNDS: S1 normal heart sound present and S2 normal heart sound present GI: COMMON NORMALS: Normal to inspection, nondistended, normoactive bowel so unds present and Soft to palpation PALPATION: Yes Soft to palpation Extremity: NARRATIVE EXTREMITY EXAM: 1+ pitting edema bilaterally Neuro: SENSORIUM/ORIENTATION: Yes oriented to person, Yes oriented to place and Yes oriented to time Urinary Catheter Management^: Islas: Cath Placed During This Visit: yes Reason for Continuing Indwelling Catheter: Accurate Measurement of Urinary Output in Critically Ill Patients Urinary Catheter Date of Insertion: 09/27/20 Urinary Catheter Time of Insertion: 19:30 Data : 10/03/20 03:10 10/03/20 03:10 A&P Assessment and plan (1) Acute on chronic respiratory failure: Multifactorial acute on chronic respiratory failure, secondary to pulmonary edema, PNA, Overnight she gets restless, secondary to with difficulty maintain saturations, with morphine, Ativan, appears to this morning had increased work of breathing, requiring high flow, waxing waning mentation Agreed to proceed with comfort care, for now continue medical interventions until family members can see her, continue medical interventions, can have morphine for pain, Ativan for anxiety, then will proceed with full comfort care tomorrow Low-dose morphine added for pain as needed. We will add trazodone to hopefully aid with sleep at night. If needing to use morphine or Ativan, please use very small doses. Continue Zosyn, possible aspiration pneumonia. Continue n.p.o. ST. Depending on mental status, consider evaluation by CT (or if can tolerate MRI) to assess if any brain mets. Optimize volume status with Lasix as needed. Repeat Lasix today, after potassium replacement Continue medical optimization, is not a great candidate for IVC filter placement Currently not a candidate for TAVR given respiratory status Agrees for proceeding with hospice comfort care Metastatic thyroid cancer, severe aortic stenosis, recent PE, previously single, but possible additional PE not on anticoagulation due to recurrent bleeding, declined even prophylactic dose. Chronic systolic CHF, pulmonary hypertension. at bedside, updated Status: Acute (2) Atrial fibrillation with rapid ventricular response: Heart rates decently well controlled, 90s-low 100s compared to prior. So far with transitioned to IV medications due to noted dysphagia/aspiration. Continue current regimen. Monitor. NPO Continue amiodarone drip. Transitioned to IV metoprolol 10 mg every 4 hours. Digoxin transition to 0.125 mg IV every other day. Not on anticoagulation due to recurrent bleeding. Status: Acute (3) Lung metastases: Thyroid cancer with mets: TSH low. Continue follow-up with oncology. Continue Levothyroxine Status: Acute (4) HTN (hypertension): Status: Chronic Qualifiers: Hypertension type: essential hypertension Qualified Code(s): I10 - Essential (primary) hypertension Additional A&P Information Lower back pain: We had removed the fentanyl patch on 09/30, hold it for now given she is still weak, not entirely alert. Lidocaine patch for pain. Small dose morphine as needed. Hypernatremia: Resolved Hypokalemia: Replace Hypomagnesemia: Replaced Attestations Medical Necessity Statement*: Patient requires hospitalization for acute respiratory failure, continue medical interventions for now, proceeding with comfort care in the next 24 hours Coding Level of Care Code Acute Potato Chip Fryer for [facility] Fwd Diagnoses Acute on chronic respiratory failure J96.20 Atrial fibrillation with rapid ventricular response I48.91 Lung metastases C78.00 HTN (hypertension) I10 Hypertension type: essential hypertension
[2020-10-03] MEDS: LORazepam 2 mg/mL INJ 1 mL 0.5 MG IVP ×2 (17:12→20:52)
--- NOTE | 2020-10-03 20:52 | PC.NURSE ---
Restless/anxious pt restless and anxious, pulling off high sue disrobing pulling at monitor and IV's. Pt is not oriented and confused. Does not follow commands. Pt makes little speech that is soft and mumbled. Family members at bedside. 0.5mg ativan given IVP.
--- NOTE | 2020-10-03 22:54 | PC.NURSE ---
Hypotension BP 94/45 Map of 61, schedule 10mg IVP metoprolol due at this time. Dr. Michelle notified of BP and received verbal orders to hold 2200 dose of IVP metoprolol
[2020-10-04] VITALS (23 sets, daily range): BP systolic 97–164; BP diastolic 59–86; PULSE 102–123; RESP 19–32; TEMP 36.3–36.7; O2SAT 92–99
[2020-10-04] MEDS: LORazepam 2 mg/mL INJ 1 mL 0.5 MG IVP ×2 (00:48→05:08)
--- NOTE | 2020-10-04 00:48 | PC.NURSE ---
Anxiety/Restlessness Pt had pulled off high sue oxygen, nurse entered room and O2 saturations 42%. Heated high flow applied, oxygen saturations in 90's after a few minutes. Continued to pull off oxygen and pull at gown and monitor, grabbing for things in the air. 0.5mg IVP ativan given at this time.
[2020-10-04] MEDS: metoprolol tartrate 1 mg/1 mL SDV 5 mL 10 MG IV ×3 (02:16→09:52)
[2020-10-04] MEDS: levalbuterol 1.25 mg/3 mL Neb INHALATION ×2 (03:14→09:53)
[2020-10-04 03:52] LABS: Basophils % 0.2 %; Eosinophils # 0.1 10^3/uL (0.0-0.8); Eosinophils % 0.9 %; Hematocrit 30.6 % (37.0-47.0); Hemoglobin 9.4 g/dL (11.5-15.3); Lymphocytes # 0.4 10^3/uL (0.8-4.8); Lymphocytes % 4.9 %; Mean Corpuscular HGB Conc 30.7 g/dL (30.0-36.0); Mean Corpuscular Hemoglobin 29.1 pg (28.0-34.0); Mean Corpuscular Volume 94.7 fL (81-99); Mean Platelet Volume 11.8 fL (7.4-10.4); Monocytes # 1.6 10^3/uL (0.2-0.9); Neutrophils # 6.69 10^3/uL (1.8-7.7); Neutrophils % 75.3 %; Nucleated Red Blood Cells % 0.2 %; Platelet Count 189 10^3/cmm (130-400); Red Blood Count 3.23 10^6/uL (4.1-5.3); Red Cell Distribution Width 15.2 % (12.1-15.1); White Blood Count 8.9 10^3/uL (4.0-10.0)
[2020-10-04 04:25] LABS: NT Pro B Type Natriuretic Pept 3723 pg/mL (0-450); Procalcitonin 0.12 ng/mL (0-0.5)
[2020-10-04 04:36] LABS: Alanine Aminotransferase 20 U/L (0-33); Albumin Level 2.6 g/dL (3.5-5.2); Alkaline Phosphatase 96 IU/L (35-105); Anion Gap 14.5 (5-19); Aspartate Amino Transferase 33 U/L (0-32); Blood Urea Nitrogen 20 mg/dL (8-23); C Reactive Protein 99.5 mg/L (0.0-4.9); Calcium 8.8 mg/dL (8.5-10.5); Carbon Dioxide 37 mmol/L (22-29); Chloride 98 mmol/L (98-107); Globulin 2.8 g/dL (1.3-4.6); Glucose 86 mg/dL (65-115); Magnesium 1.9 mg/dL (1.7-2.3); Osmolality Calculated 304 mOsm/kg (285-295); Phosphorus 3.2 mg/dL (2.5-4.5); Potassium 3.5 mmol/L (3.5-5.1); Sodium 146 mmol/L (136-145); Total Bilirubin 0.8 mg/dL (0.15-1.2); Total Protein 5.4 g/dL (6.6-8.7)
[2020-10-04] MEDS: piperacillin-tazobactam 3.375 GM in sodium chloride 0.9% (plus) 50 ML IV (05:08)
--- NOTE | 2020-10-04 08:15 | PM.PN ---
Subjective Subjective: Interval history: Patient is not very responsive. She is comfort care now Vitals/I&O/Wt Last Vital Signs Temp 97.4 F L 10/04/20 00:00 Pulse 110 H 10/04/20 07:27 Resp 20 H 10/04/20 07:27 BP 118/70 10/04/20 04:00 Pulse Ox 97 10/04/20 07:27 10/03/20 10/04/20 10/04/20 22:59 06:59 14:59 Intake Total 50 / 555 50 / 605 Output Total 775 / 775 225 / 1000 Balance -725 / -220 -175 / -395 Weight last 48 hrs Weight 155 lb 6.4 oz Weight 158 lb 7 oz Weight 158 lb 7 oz Physical Exam Narrative: EXAM NARRATIVE: GENERAL: Patient is not very responsive NECK: No jugular vein distension. [] HEENT: No cyanosis. No icterus. No pallor. [] HEART: Irregularly irregular S1 and S2. Has grade IV/ systolic murmur LUNGS: Diminished breath sounds, mild crackles ABDOMEN: Soft, nontender and nondistended. Positive bowel sounds. No guarding, rebound or tenderness. [] CENTRAL NERVOUS SYSTEM: Grossly nonfocal. [] EXTREMITIES: Lower extremities with 1+ edema bilaterally. Pulses palpable in the lower extremities, both dorsalis pedis and posterior tibial. [] Urinary Catheter Management^: Islas: Cath Placed During This Visit: yes Reason for Continuing Indwelling Catheter: Accurate Measurement of Urinary Output in Critically Ill Patients Urinary Catheter Date of Insertion: 09/27/20 Urinary Catheter Time of Insertion: 19:30 Data : 10/04/20 03:15 10/04/20 03:15 A&P Assessment and plan (1) Atrial fibrillation: Status: Acute Qualifiers: Atrial fibrillation type: permanent Qualified Code(s): I48.21 - Permanent atrial fibrillation (2) Aortic stenosis: Status: Acute Qualifiers: Cardiac valve disease etiology: nonrheumatic Qualified Code(s): I35.0 - Nonrheumatic aortic (valve) stenosis (3) History of thyroid cancer: Status: Acute (4) HTN (hypertension): Status: Chronic Qualifiers: Hypertension type: essential hypertension Qualified Code(s): I10 - Essential (primary) hypertension (5) Acute on chronic respiratory failure: Status: Acute Patient has been made comfort care per her and familys wishes We will sign off. Please call with questions Attestations Medical Necessity Statement*: Care expected to cross 2 midnights. Coding Level of Care Code Acute Medical Diagnostic Radiographer for Radha Randhawa Diagnoses Atrial fibrillation I48.21 Atrial fibrillation type: permanent Aortic stenosis I35.0 Cardiac valve disease etiology: nonrheumatic History of thyroid cancer Z85.850 HTN (hypertension) I10 Hypertension type: essential hypertension Acute on chronic respiratory failure J96.20
--- NOTE | 2020-10-04 08:22 | PC.NURSE ---
Pt not alert enough to take medications orally, Dr. Davis instructed staff to hold all antibiotics at this time.
--- NOTE | 2020-10-04 09:18 | PC.NURSE ---
Let Dr. Davis know that family was here to visit with him about comfort care.
[2020-10-04] MEDS: LORazepam 2 mg/mL INJ 1 mL 0.25 MG IVP (09:52)
[2020-10-04] MEDS: lidocaine 5% Patch 1 PATCH TOPICAL (09:53)
[2020-10-04] MEDS: morphine 4 mg/mL SDV 1 mL IVP ×2 (11:40→13:25)
[2020-10-04] MEDS: LORazepam 2 mg/mL INJ 1 mL IVP ×2 (12:19→21:03)
--- NOTE | 2020-10-04 14:13 | PM.PN ---
Subjective Subjective: Interval history: This morning patient was examined, her is at bedside, he does tell me that she had a bit of a restless night, patient is not arousable this morning, she does not really respond to sternal rub, she has evidence of mild respiratory distress including tachypnea, intercostal and suprasternal retractions, nasal flaring, is on high flow. I advised at bedside that I am worried that her might be imminent, as she she has evidence of worsening respiratory failure. He does tell me that a few minutes ago she was able to open up her eyes, and squeezes hand. I did reexamine her an hour or so after, and she continues to not respond, does not respond to sternal rub, has evidence of mild respiratory distress. According to nursing staff, her mentation seems to wax and wane significantly, currently not responsive to me. As per our discussion last night, patient want to proceed with comfort care, however wanted her family members to make it to her bedside before full comfort care would be initiated, she wanted to give her family members time to see her before we would proceed with full comfort care. I had a meeting with patient's , patient's family members. I discussed the case in detail with him, discussed her worsening respiratory failure, and recurrent delirium. After our discussion yesterday, patient wanted to pursue full comfort care, her was in agreement, and family members have seen her, so we will proceed with comfort care. I discussed the risks and benefits of comfort care, all parties voiced understanding, all questions answered, agreed to proceed. In addition her CODE STATUS was changed to allow natural , after discussion with patient's , who is her next of kin, as currently patient cannot make decisions for herself, cannot answer questions. But yesterday when I spoke to her, she did not want any aggressive interventions, she want to pass away, with family at bedside Vitals/I&O/Wt Last Vital Signs Temp 98.0 F 10/04/20 08:30 Pulse 104 H 10/04/20 10:30 Resp 24 H 10/04/20 13:25 BP 151/72 10/04/20 10:30 Pulse Ox 99 10/04/20 10:30 10/03/20 10/04/20 10/04/20 22:59 06:59 14:59 Intake Total 50 / 555 50 / 605 Output Total 775 / 775 225 / 1000 Balance -725 / -220 -175 / -395 Weight last 48 hrs Weight 70.488 kg Weight 71.866 kg Weight 71.866 kg Physical Exam Const: COMMON NORMALS: negative for alert EXAM LIMITATIONS: altered mental status GENERAL APPEARANCE: in distress, ill appearing and frail appearing ORIENTATION/CONSCIOUSNESS: not awake, not oriented to person, not oriented to place and not oriented to time Resp: COMMON NORMALS: normal respiratory effort EFFORT & INSPECTION: Yes tachypneic, Yes respiratory distress and Yes retractions AUSCULTATION: crackles and wheezes Cardio: RATE: tachycardic RHYTHM: abnormal rhythm Neuro: SENSORIUM/ORIENTATION: No alert, No oriented to person, No oriented to place and No oriented to time Urinary Catheter Management^: Islas: Cath Placed During This Visit: yes Reason for Continuing Indwelling Catheter: Accurate Measurement of Urinary Output in Critically Ill Patients Urinary Catheter Date of Insertion: 09/27/20 Urinary Catheter Time of Insertion: 19:30 Data : 10/04/20 03:15 10/04/20 03:15 A&P Assessment and plan (1) Acute on chronic respiratory failure: Proceeding with comfort care Initiate comfort care order set Multifactorial acute on chronic respiratory failure, secondary to pulmonary edema, PNA, Overnight she gets restless, secondary to with difficulty maintain saturations, with morphine, Ativan, appears to this morning had increased work of breathing, requiring high flow, waxing waning mentation Agreed to proceed with comfort care, for now continue medical interventions until family members can see her, continue medical interventions, can have morphine for pain, Ativan for anxiety, then will proceed with full comfort care tomorrow Low-dose morphine added for pain as needed. We will add trazodone to hopefully aid with sleep at night. If needing to use morphine or Ativan, please use very small doses. Continue Zosyn, possible aspiration pneumonia. Continue n.p.o. ST. Depending on mental status, consider evaluation by CT (or if can tolerate MRI) to assess if any brain mets. Optimize volume status with Lasix as needed. Repeat Lasix today, after potassium replacement Continue medical optimization, is not a great candidate for IVC filter placement Currently not a candidate for TAVR given respiratory status Agrees for proceeding with hospice comfort care Metastatic thyroid cancer, severe aortic stenosis, recent PE, previously single, but possible additional PE not on anticoagulation due to recurrent bleeding, declined even prophylactic dose. Chronic systolic CHF, pulmonary hypertension. at bedside, updated Status: Acute (2) Atrial fibrillation with rapid ventricular response: Heart rates decently well controlled, 90s-low 100s compared to prior. So far with transitioned to IV medications due to noted dysphagia/aspiration. Continue current regimen. Monitor. NPO Continue amiodarone drip. Transitioned to IV metoprolol 10 mg every 4 hours. Digoxin transition to 0.125 mg IV every other day. Not on anticoagulation due to recurrent bleeding. Status: Acute (3) Lung metastases: Thyroid cancer with mets: TSH low. Continue follow-up with oncology. Continue Levothyroxine Status: Acute (4) HTN (hypertension): Status: Chronic Qualifiers: Hypertension type: essential hypertension Qualified Code(s): I10 - Essential (primary) hypertension Additional A&P Information Lower back pain: We had removed the fentanyl patch on 09/30, hold it for now given she is still weak, not entirely alert. Lidocaine patch for pain. Small dose morphine as needed. Hypernatremia: Resolved Hypokalemia: Replace Hypomagnesemia: Replaced Attestations Medical Necessity Statement*: Patient requires hospitalization for comfort care Coding Level of Care Code Acute Director Of Digital Technology for Radha Randhawa Diagnoses Acute on chronic respiratory failure J96.20 Atrial fibrillation with rapid ventricular response I48.91 Lung metastases C78.00 HTN (hypertension) I10 Hypertension type: essential hypertension
--- NOTE | 2020-10-04 14:26 | PC.NURSE ---
received from icu,in to room 103 via bed.report received.pt is unresponsive.resp are shallow.attempts to kick covers off.family at bedside.comfort care orders in place.mouth care given.turned and repositioned to right side.pillows placed for support.instructed family to notify staff for any concerns.they verb understanding of instructions.
--- NOTE | 2020-10-04 22:46 | PC.NURSE ---
NURSING NOTE: TOD: AT 2230, PT'S NIECE CAME UP TO NURSE'S STATION AND STATED, I DON'T THINK SHE IS BREATHING, I DON'T SEE HER CHEST MOVING. THIS NURSE WENT DOWN TO ROOM, CHECKED BOTH CAROTID AND RADIAL PULSES, UNABLE TO PALPATE ANY PULSE. UNABLE TO OBTAIN BP WITH MACHINE OR MANUAL. PULSE CHECK VERIFIED PER ENVIRONMENT ARTIST ANNE JEROME R.N. DR. ISAACS NOTIFIED PER VOALTE AT THIS TIME.
--- NOTE | 2020-10-05 00:13 | PC.NURSE ---
Appx 2230 pt's neice reported that pt was not breathing. Pt verifed that pt was pulseless and without respirations by Sherry Delgadillo RN and mina Reza RN, Dr Blue notified via voalte. Pt is DNR and comfort care. Pt taken to [facility] appx 0015.
--- NOTE | 2020-10-07 11:14 | PM.DDS ---
Discharge Providers DDS Date of Admission: 09/26/20 20:30 Date Summary Completed: 10/07/20 Attending Provider at Admission: Michaelle Blue Attending Provider at Discharge: Thor Davis MD Primary Care Provider: Neel PETER Diagnoses Hospital Diagnoses (1) Acute on chronic respiratory failure: (2) Atrial fibrillation with rapid ventricular response: (3) Lung metastases: (4) HTN (hypertension): Qualifiers: Hypertension type: essential hypertension Qualified Code(s): I10 - Essential (primary) hypertension Reason for Visit Reason for Visit: SOB Summary Date and Time of Date of : 10/04/20 Summary Summary: This is a 84-year-old female with a past medical history of chronic thyroid suppression therapy, atrial fibrillation not on anticoagulation due to history of bleeding, severe aortic stenosis, chronic respiratory failure secondary to diastolic CHF and pulmonary edema from aortic stenosis, on 3 L nasal cannula, history of pulmonary embolism, history of metastatic thyroid cancer, who presents to [facility] due to shortness of breath Patient was admitted to [facility] for acute on chronic respiratory failure secondary to pulmonary edema, pneumonia, aortic stenosis, pulmonary embolism, and A. fib with RVR. Patient was managed in the ICU, with broad-spectrum antibiotic therapy, diuretic therapy, received BiPAP initially, then transition to high flow. Cardiothoracic surgery was consulted for IVC filter placement, however given patient's worsening respiratory status, they felt that the risks would outweigh the benefit at the current time, and could reassess if patient's clinical condition improved. For A. fib with RVR, managed with an amiodarone drip, and IV metoprolol. For patient's severe aortic stenosis and A. fib, cardiology was consulted, who recommended to to proceed with medical management, given patient's worsening respiratory status and respiratory failure patient would be a high risk for surgical intervention. Patient's respiratory status further declined, she had increased oxygen requirements, evidence of mild respiratory distress, she declined intubation. After discussion with patient about the options are available to her, including continue medical intervention, considering transfer to tertiary level center, versus comfort care. Patient and her elected for comfort care, after discussion of the risks and benefits of comfort care, she voiced understanding, all questions answered, agreed to proceed with comfort care. Comfort care was initiated, family members were able to see her she was moved to the cardiac stepdown unit, patient 10/04/2020. Additional Data Family: at bedside Additional persons at bedside: nursing staff Attending/PCP notified?: Attending notified Advance directives?: No Discharge Plan Discharge Patient Disposition: Condition: Stable DS Attestations Time Spent in /Discharge Care*: greater than 30 min Quality - AMI: AMI present?: No Quality - Stroke: CVA present?: No Quality - VTE: VTE present?: No Deep Vein Thrombosis/Pulmonary Embolism Present on Admission: Yes Coding Level of Care Code Acute Pocket Setter for [facility] Fwd Diagnoses Acute on chronic respiratory failure J96.20 Atrial fibrillation with rapid ventricular response I48.91 Lung metastases C78.00 HTN (hypertension) I10 Hypertension type: essential hypertension
== END 2020-10-04 22:30 | disposition expired | DRG 175 ==
LOC: ER 17:48 → ICU 20:33 → CSU 10-04 13:59
PROVIDERS: Hospitalist; Internal Medicine; Admitting Provider Hospitalist; Emergency Provider Family Medicine; PCP Family Medicine; Visit Provider Family Medicine
DX: I26.93 Single subsegmental thrombotic pulmonary embolism without acute cor pulmonale (principal); J96.22 Acute and chronic respiratory failure with hypercapnia; J96.21 Acute and chronic respiratory failure with hypoxia; J69.0 Pneumonitis due to inhalation of food and vomit; C78.02 Secondary malignant neoplasm of left lung; C78.01 Secondary malignant neoplasm of right lung; I50.22 Chronic systolic (congestive) heart failure; E87.0 Hyperosmolality and hypernatremia; E87.3 Alkalosis; I48.91 Unspecified atrial fibrillation; I35.0 Nonrheumatic aortic (valve) stenosis; C73 Malignant neoplasm of thyroid gland; G89.29 Other chronic pain; I11.0 Hypertensive heart disease with heart failure; E78.5 Hyperlipidemia, unspecified; M19.90 Unspecified osteoarthritis, unspecified site; Z90.49 Acquired absence of other specified parts of digestive tract; E89.0 Postprocedural hypothyroidism; Z87.891 Personal history of nicotine dependence; I27.20 Pulmonary hypertension, unspecified; Z66 Do not resuscitate; E83.42 Hypomagnesemia; Z51.5 Encounter for palliative care; F41.9 Anxiety disorder, unspecified; M54.5 Low back pain
CPT/HCPCS: 36415; 36600; 51702; 71045; 80048; 80053; 80162; 81001; 82803; 82805; 83735; 83880; 84100; 84145; 84443; 84484; 85025; 86140; 87040; 87086; 87641; 92523; 92524; 92526; 92610; 93005; 94640; 94660; 96365; 96367; 96372; 96375; 97162; 97530; 99291; J0282; J0456; J0696; J1160; J1650; J1940; J1956; J2060; J2270; J2405; J2543; J3370; J3475; J3480; J3490; J7030; J7040; J7050; J7060; J7614; J7799; P9047; Q3014